=== PATIENT | female | born 1995 | race Caucasian/White ===

== ENCOUNTER 2019-10-23 21:54 | Emergency (ER) | payer SELFPAY ==
--- OUTSIDE RECORDS SUMMARY | 2019-10-23 21:57 | XMS REPORT ---
:1995 Author Organization [facility] Address [address] [place] [address] Dr. Cody [address] [place] [id number] Care Team Providers Name Role Phone Unavailable Unavailable Unavailable Problems This patient has no known problems. Allergies, Adverse Reactions, Alerts This patient has no known allergies or adverse reactions. Medications This patient has no known medications.
[2019-10-23] MEDS ORDERED: IBUPROFEN 200 MG TAB PO ONE (22:14)
[2019-10-23] MEDS ORDERED: ACETAMINOPHEN 325 MG TABLET ONE (22:14)
--- NOTE | 2019-10-23 23:11 | ER ---
Nurse's Notes [facility] Name: Lisa Abdul Age: 24 yrs Sex: Female : 1995 Arrival Date: 10/23/2019 Time: 21:57 Bed 14 Private MD: Diagnosis: Streptococcal pharyngitis Presentation: 10/23 22:03 Presenting complaint: Patient states: R ear pain and throat pain that started today. ca1 Fever at 100.6. Reports cough and congestion. Denies N/V/Diarrhea, Urinary symptoms. Transition of care: patient was not received from another setting of care. Onset of symptoms was October 23, 2019. Risk Assessment: Do you want to hurt yourself or someone else? Patient reports no desire to harm self or others. Initial Sepsis Screen: Does the patient meet any 2 criteria? No. Patient's initial sepsis screen is negative. Does the patient have a suspected source of infection? No. Patient's initial sepsis screen is negative. Care prior to arrival: None. 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 - Social history:: Smoking status: Patient reports the use of cigarette tobacco products, smokes one-half pack cigarettes per day. - Ebola Screening: : Patient negative for fever greater than or equal to 101.5 degrees Fahrenheit, and additional compatible Ebola Virus Disease symptoms Patient denies exposure to infectious person Patient denies travel to an Ebola-affected area in the 21 days before illness onset No symptoms or risks identified at this time. Screenin:27 Abuse screen: Denies threats or abuse. Denies injuries from another. Nutritional fu screening: No deficits noted. Tuberculosis screening: No symptoms or risk factors identified. Fall Risk None identified. Assessment: 22:05 General: Appears uncomfortable, Behavior is calm, cooperative, appropriate for age, fu Reports fever for that started today. Pain: Complains of pain in throat Pain currently is 6 out of 10 on a pain scale. Pain began today. Neuro: Level of Consciousness is awake, alert, obeys commands, Oriented to person, place, time, situation, Denies weakness dizziness, headache. Cardiovascular: Heart tones S1 S2 Capillary refill < 3 seconds. Respiratory: Reports cough that is Breath sounds are clear bilaterally. EENT: Throat is reddened with gag reflex present, Reports ear pain. Derm: Skin is flushed. Musculoskeletal: No signs and/or symptoms reported regarding the musculoskeletal system. 22:36 Reassessment: Patient appears in no apparent distress at this time. No changes from fu previously documented assessment. Motrin not given, patient stated she developed rash and swelling of throat with Motrin. PAYROLL BENEFITS CLERK notified. Vital Signs: 22:06 BP 140 / 93; Pulse 126; Resp 17 S; Temp 100.2(O); Pulse Ox 99% on R/A; Weight 89.81 kg ca1 (R); Height 5 ft. (152.40 cm) (R); 22:15 BP 125 / 95; Pulse 122; Temp 101.2; Pulse Ox 100% on R/A; Pain 6/10; fu 22:15 BP 124 / 95; Pulse 122; Pulse Ox 100% ; Pain 0/10; fu 22:06 Body Mass Index 38.67 (89.81 kg, 152.40 cm) ca1 ED Course: 21:57 Patient arrived in ED. cf2 21:57 Ja Mehta FNP-C is [facility]. la1 21:57 Martinez May MD is Attending Physician. la1 22:00 Ori Orozco RN is Primary Nurse. fu 22:05 Triage completed. ca1 22:06 Arm band placed on right wrist. ca1 22:21 Strep Sent. fu 22:21 Flu Sent. fu 22:27 Patient has correct armband on for positive identification. Bed in low position. Side fu rails up X 1. 22:27 No provider procedures requiring assistance completed. fu 22:42 Pulse ox on. NIBP on. fu 23:54 Patient did not have IV access during this emergency room visit. fu 10/24 00:33 Primary Nurse role handed off by Ori Orozco, TAMEKA pinto Administered Medications: 10/23 22:20 Drug: Tylenol 650 mg Route: PO; fu 23:22 Follow up: Response: No adverse reaction fu 22:36 Not Given (patient stated she had reaction to Motrin, PAYROLL BENEFITS CLERK notified): Motrin 600 mg PO fu once 10/24 00:35 Drug: Zithromax 500 mg Route: PO; fu 00:36 Follow up: Response: Medication administered at discharge. fu Outcome: 10/23 23:10 Discharge ordered by MD. pinto 10/24 00:35 Discharged to home ambulatory. fu Condition: stable Discharge instructions given to patient, Instructed on discharge instructions, follow up and referral plans. Demonstrated understanding of instructions, follow-up care, medications, Prescriptions given X 1. 00:38 Patient left the ED. fu Signatures: Ja Mehta, TEACHER CCLC-C TEACHER CCLC-Cla1 Ori Orozco RN RN Nohelia Adams RN RN [facility] Eugenie Eller 2 Corrections: (The following items were deleted from the chart) 10/23 22:39 22:36 Reassessment: Patient appears in no apparent distress at this time. No changes fu from previously documented assessment. Motrin not given, patient she had reaction to Motrin. fu 22:40 22:05 EENT: Throat is reddened with gag reflex present, fu fu 22:45 22:36 Reassessment: Patient appears in no apparent distress at this time. No changes fu from previously documented assessment. Motrin not given, patient she had reaction to Motrin. PAYROLL BENEFITS CLERK notified. fu 10/24 00:37 10/23 23:54 Discharged to home ambulatory, fu fu 10/24 00:37 10/23 23:54 Condition: stable fu fu 10/24 00:37 10/23 23:54 Discharge instructions given to patient, Instructed on discharge fu instructions, follow up and referral plans. Demonstrated understanding of instructions, follow-up care, medications, Prescriptions given X 1, fu 10/24 00:37 10/23 23:54 Patient left the ED. fu fu
--- NOTE | 2019-10-23 23:11 | EDPHYS ---
Physician Documentation [facility] Name: Lisa Abdul Age: 24 yrs Sex: Female : 1995 Arrival Date: 10/23/2019 Time: 21:57 Bed 14 Private MD: ED Physician Martinez May HPI: 10/23 22:09 This 24 yrs old Female presents to ER via Ambulatory with complaints of Ear la1 Pain, Sore Throat, Fever. 22:09 The patient or guardian reports cough, flu symptoms, low-grade fever, myalgias. Onset: la1 The symptoms/episode began/occurred today. Severity of symptoms: At their worst the symptoms were moderate. Modifying factors: The symptoms are alleviated by nothing, the symptoms are aggravated by nothing. The patient has not experienced similar symptoms in the past. 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 - Social history:: Smoking status: Patient reports the use of cigarette tobacco products, smokes one-half pack cigarettes per day. - Ebola Screening: : Patient negative for fever greater than or equal to 101.5 degrees Fahrenheit, and additional compatible Ebola Virus Disease symptoms Patient denies exposure to infectious person Patient denies travel to an Ebola-affected area in the 21 days before illness onset No symptoms or risks identified at this time. ROS: 22:10 Eyes: Negative for injury, pain, redness, and discharge, Neck: Negative for injury, la1 pain, and swelling, Cardiovascular: Negative for chest pain, palpitations, and edema. 22:10 Abdomen/GI: Negative for abdominal pain, nausea, vomiting, diarrhea, and constipation, Back: Negative for injury and pain, MS/Extremity: Negative for injury and deformity, Neuro: Negative for headache, weakness, numbness, tingling, and seizure. 22:10 Constitutional: Positive for chills, fever, malaise. 22:10 ENT: Positive for ear pain, sore throat. 22:10 Respiratory: Positive for cough. Exam: 22:11 Constitutional: This is a well developed, well nourished patient who is awake, alert, la1 and in no acute distress. Head/Face: Normocephalic, atraumatic. Eyes: Periorbital areas with no swelling, redness, or edema. 22:11 Neck: Trachea midline, no thyromegaly or masses palpated, and no cervical lymphadenopathy. Supple, full range of motion without nuchal rigidity, or vertebral point tenderness. No Meningismus. Chest/axilla: Normal chest wall appearance and motion. Nontender with no deformity. No lesions are appreciated. Cardiovascular: Regular rate and rhythm with a normal S1 and S2. No gallops, murmurs, or rubs. Normal PMI, no JVD. No pulse deficits. Respiratory: Lungs have equal breath sounds bilaterally, clear to auscultation No rales, rhonchi or wheezes noted. No increased work of breathing, no retractions or nasal flaring. Abdomen/GI: Soft, non-tender, with normal bowel sounds. No distension or tympany. No guarding or rebound. No evidence of tenderness throughout. Back: No spinal tenderness. No costovertebral tenderness. Full range of motion. MS/ Extremity: Pulses equal, no cyanosis. Neurovascular intact. Full, normal range of motion. Neuro: Awake and alert, GCS 15, oriented to person, place, time, and situation. Normal gait. 22:11 ENT: External ear(s): are unremarkable, Ear canal(s): are normal, TM's: are normal, Nose: is normal, Mouth: is normal, Posterior pharynx: Airway: normal, Tonsils: bilaterally enlarged, with erythema, with exudate, Uvula: normal, erythema, that is moderate, peritonsillar mass, is not appreciated. Vital Signs: 22:06 BP 140 / 93; Pulse 126; Resp 17 S; Temp 100.2(O); Pulse Ox 99% on R/A; Weight 89.81 kg ca1 (R); Height 5 ft. (152.40 cm) (R); 22:15 BP 125 / 95; Pulse 122; Temp 101.2; Pulse Ox 100% on R/A; Pain 6/10; fu 22:15 BP 124 / 95; Pulse 122; Pulse Ox 100% ; Pain 0/10; fu 22:06 Body Mass Index 38.67 (89.81 kg, 152.40 cm) ca1 MDM: 21:58 Patient medically screened. la1 23:09 Data reviewed: vital signs, nurses notes, lab test result(s), I have discussed the la1 patient's presentation/case with the attending Emergency Department Physician; and as a result, I will discharge patient. Data interpreted: Pulse oximetry: on room air is 100 %. Interpretation: normal. Counseling: I had a detailed discussion with the patient and/or guardian regarding: lab results, the need for outpatient follow up, a family practitioner, to return to the emergency department if symptoms worsen or persist or if there are any questions or concerns that arise at home. Medication response: acetaminophen administration has normalized the patient's temperature. 10/23 22:03 Order name: Strep; Complete Time: 22:43 la1 10/23 22:03 Order name: Flu la1 Administered Medications: 22:20 Drug: Tylenol 650 mg Route: PO; fu 23:22 Follow up: Response: No adverse reaction fu 22:36 Not Given (patient stated she had reaction to Motrin, STRIP DEBURRER notified): Motrin 600 mg PO fu once 10/24 00:35 Drug: Zithromax 500 mg Route: PO; fu 00:36 Follow up: Response: Medication administered at discharge. fu Disposition: 08:10 Co-signature as Attending Physician, Martinez May MD I agree with the assessment and tw4 plan of care. Disposition: 10/23/19 23:10 Discharged to Home. Impression: Streptococcal pharyngitis. - Condition is Stable. - Discharge Instructions: Pharyngitis, Strep Throat, Strep Throat, [id number]. - Prescriptions for Zithromax 500 mg Oral Tablet - take 1 tablet by ORAL route once daily for 5 days; 5 tablet. - Medication Reconciliation Form, Thank You Letter, Antibiotic Education form. - Follow up: Private Physician; When: 2 - 3 days; Reason: Recheck today's complaints, Re-evaluation by your physician. - Problem is new. - Symptoms have improved. Signatures: Dispatcher [employer] EDMS Ja Mehta, ELAINE-C COMMERCIAL LOAN ADMINISTRATOR-Cla1 Ori Orozco RN RN fu Wadley, Terrence, MD MD tw4 Nohelia Adams RN RN [facility] Corrections: (The following items were deleted from the chart) 10/23 23:54 23:10 10/23/2019 23:10 Discharged to Home. Impression: Streptococcal pharyngitis. fu Condition is Stable. Forms are Medication Reconciliation Form, Thank You Letter, Antibiotic Education, Prescription Opioid Use. Follow up: Private Physician; When: 2 - 3 days; Reason: Recheck today's complaints, Re-evaluation by your physician. Problem is new. Symptoms have improved. la1 10/24 00:38 10/23 23:54 10/23/2019 23:10 Discharged to Home. Impression: Streptococcal pharyngitis. fu Condition is Stable. Discharge Instructions: Pharyngitis, Strep Throat, Strep Throat, [id number]. Prescriptions for Zithromax 500 mg Oral Tablet - take 1 tablet by ORAL route once daily for 5 days; 5 tablet. and Forms are Medication Reconciliation Form, Thank You Letter, Antibiotic Education. Follow up: Private Physician; When: 2 - 3 days; Reason: Recheck today's complaints, Re-evaluation by your physician. Problem is new. Symptoms have improved. fu
[2019-10-23] MEDS ORDERED: AZITHROMYCIN 250 MG TAB ONE (23:26)
[2019-10-24 05:38] VITALS: BP 124/95; TEMP 101.2; O2SAT 100
== END 2019-10-24 00:38 | disposition home or self-care (01) ==
LOC: ER 21:54
DX: J02.0 Streptococcal pharyngitis (principal); Z88.0 Allergy status to penicillin
CPT/HCPCS: 87081; 87804; 99284

== ENCOUNTER 2020-07-07 04:20 | Emergency (ER) | payer SELFPAY ==
--- NOTE | 2020-07-07 05:02 | ER ---
Nurse's Notes [facility] Name: Lisa Adbul Age: 25 yrs Sex: Female : 1995 Arrival Date: 07/07/2020 Time: 04:24 Bed 18 Private MD: Diagnosis: Left Otalgia;Dental Caries Presentation: 07/07 04:32 Chief complaint: Patient states: she is having left ear pain x 2 days which is now bb radiating to her left lower tooth. Coronavirus screen: At this time, the client does not indicate any symptoms associated with coronavirus-19. Ebola Screen: No symptoms or risks identified at this time. Initial Sepsis Screen: Does the patient meet any 2 criteria? No. Patient's initial sepsis screen is negative. Does the patient have a suspected source of infection? No. Patient's initial sepsis screen is negative. Risk Assessment: Do you want to hurt yourself or someone else? Patient reports no desire to harm self or others. Onset of symptoms was July 05, 2020. 04:32 Method Of Arrival: Ambulatory 04:32 Acuity: ODIN 4 bb Triage Assessment: 04:34 General: Appears in no apparent distress. Behavior is calm, cooperative. Pain: bb Complains of pain in left ear and left lower jaw Pain currently is 8 out of 10 on a pain scale. EENT: Reports left ear and left lower jaw pain. Neuro: Level of Consciousness is awake, alert, obeys commands, Oriented to person, place, time, situation. Cardiovascular: No deficits noted. Respiratory: Respiratory effort is even, unlabored, Respiratory pattern is regular. GI: No signs and/or symptoms were reported involving the gastrointestinal system. Derm: Skin is pink, warm \T\ dry. Musculoskeletal: Circulation, motion, and sensation intact. 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 - Social history:: Smoking status: Patient reports the use of cigarette tobacco products, denies chronic smoking, but will smoke occasionally, Patient uses alcohol, occasionally. Patient/guardian denies using street drugs. Screenin:36 Abuse screen: Denies threats or abuse. Nutritional screening: No deficits noted. bb Tuberculosis screening: No symptoms or risk factors identified. Fall Risk None identified. Assessment: 04:36 Reassessment: No changes from previously documented assessment. see triage assessment. bb 05:09 Reassessment: Patient is alert, oriented x 3, equal unlabored respirations, skin bb warm/dry/pink. pt verbalized understanding of and agrees to plan of care discharge instructions given pt ambulated with steady gait to exit. Vital Signs: 04:32 BP 139 / 83; Pulse 83; Resp 16 S; Temp 98.4(O); Pulse Ox 99% on R/A; Weight 79.38 kg bb (R); Height 5 ft. 1 in. (154.94 cm) (R); Pain 8/10; 04:32 Body Mass Index 33.07 (79.38 kg, 154.94 cm) bb ED Course: 04:24 Patient arrived in ED. cl3 04:32 Jessica Coleman RN is Primary Nurse. bb 04:33 Scotty Pace MD is Attending Physician. [facility] 04:33 Triage completed. bb 04:34 Arm band placed on Patient placed in an exam room, on a stretcher, on pulse oximetry. bb 04:36 Patient has correct armband on for positive identification. Bed in low position. Call bb light in reach. Side rails up X 1. Pulse ox on. NIBP on. 05:01 Braden Jim DDS is Referral Physician. [facility] 05:10 No provider procedures requiring assistance completed. Patient did not have IV access bb during this emergency room visit. Administered Medications: No medications were administered Outcome: 05:02 Discharge ordered by . [facility] 05:10 Discharged to home ambulatory. bb 05:10 Condition: stable 05:10 Discharge instructions given to patient, Instructed on discharge instructions, follow up and referral plans. medication usage, Demonstrated understanding of instructions, follow-up care, medications, Prescriptions given X 1. 05:10 Patient left the ED. bb Signatures: Jessica Coleman RN RN bb Lewis, Charde cl3 Scotty Pace MD MD [facility]
--- NOTE | 2020-07-07 05:02 | EDPHYS ---
Physician Documentation [facility] Name: Lisa Abdul Age: 25 yrs Sex: Female : 1995 Arrival Date: 07/07/2020 Time: 04:24 Bed 18 Private MD: ED Physician Scotty Pace HPI: 07/07 04:55 This 25 yrs old Female presents to ER via Ambulatory with complaints of Ear mh7 Pain. 04:55 The patient presents with pain, that is acute. The complaints affect the left ear. mh7 04:56 Onset: The symptoms/episode began/occurred 2 day(s) ago. Modifying factors: The mh7 symptoms are alleviated by nothing, the symptoms are aggravated by nothing. Associated signs and symptoms: Pertinent positives: left lower toothache. Severity of symptoms: At their worst the symptoms were moderate yesterday, in the emergency department the symptoms have improved moderately. 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 - Social history:: Smoking status: Patient reports the use of cigarette tobacco products, denies chronic smoking, but will smoke occasionally, Patient uses alcohol, occasionally. Patient/guardian denies using street drugs. ROS: 04:56 Constitutional: Negative for fever, chills, and weight loss, Eyes: Negative for injury, mh7 pain, redness, and discharge, Neck: Negative for injury, pain, and swelling, Cardiovascular: Negative for chest pain, palpitations, and edema, Respiratory: Negative for shortness of breath, cough, wheezing, and pleuritic chest pain, Abdomen/GI: Negative for abdominal pain, nausea, vomiting, diarrhea, and constipation, Back: Negative for injury and pain, : Negative for injury, bleeding, discharge, and swelling, MS/Extremity: Negative for injury and deformity, Skin: Negative for injury, rash, and discoloration, Neuro: Negative for headache, weakness, numbness, tingling, and seizure, Psych: Negative for depression, anxiety, suicide ideation, homicidal ideation, and hallucinations, Allergy/Immunology: Negative for hives, rash, and allergies, Endocrine: Negative for neck swelling, polydipsia, polyuria, polyphagia, and marked weight changes, Hematologic/Lymphatic: Negative for swollen nodes, abnormal bleeding, and unusual bruising. Exam: 04:56 Constitutional: This is a well developed, well nourished patient who is awake, alert, mh7 and in no acute distress. Head/Face: Normocephalic, atraumatic. Eyes: Pupils equal round and reactive to light, extra-ocular motions intact. Lids and lashes normal. Conjunctiva and sclera are non-icteric and not injected. Cornea within normal limits. Periorbital areas with no swelling, redness, or edema. 04:56 Neck: Trachea midline, no thyromegaly or masses palpated, and no cervical lymphadenopathy. Supple, full range of motion without nuchal rigidity, or vertebral point tenderness. No Meningismus. Chest/axilla: Normal chest wall appearance and motion. Nontender with no deformity. No lesions are appreciated. Cardiovascular: Regular rate and rhythm with a normal S1 and S2. No gallops, murmurs, or rubs. Normal PMI, no JVD. No pulse deficits. Respiratory: Lungs have equal breath sounds bilaterally, clear to auscultation and percussion. No rales, rhonchi or wheezes noted. No increased work of breathing, no retractions or nasal flaring. Abdomen/GI: Soft, non-tender, with normal bowel sounds. No distension or tympany. No guarding or rebound. No evidence of tenderness throughout. Back: No spinal tenderness. No costovertebral tenderness. Full range of motion. Skin: Warm, dry with normal turgor. Normal color with no rashes, no lesions, and no evidence of cellulitis. MS/ Extremity: Pulses equal, no cyanosis. Neurovascular intact. Full, normal range of motion. Neuro: Awake and alert, GCS 15, oriented to person, place, time, and situation. Cranial nerves II-XII grossly intact. Motor strength 5/5 in all extremities. Sensory grossly intact. Cerebellar exam normal. Normal gait. Psych: Awake, alert, with orientation to person, place and time. Behavior, mood, and affect are within normal limits. 04:56 ENT: External ear(s): are unremarkable, Ear canal(s): are normal, TM's: are normal, Examination of the other ear shows no obvious abnormality, Nose: is normal, Mouth: is normal, Posterior pharynx: is normal, Dental exam: dental caries, that is moderate, diffusely, specifically in the lower left third molar (#17), Voice: is normal. Vital Signs: 04:32 BP 139 / 83; Pulse 83; Resp 16 S; Temp 98.4(O); Pulse Ox 99% on R/A; Weight 79.38 kg bb (R); Height 5 ft. 1 in. (154.94 cm) (R); Pain 8/10; 04:32 Body Mass Index 33.07 (79.38 kg, 154.94 cm) bb MDM: 04:53 Patient medically screened. 7 07:05 Differential diagnosis: otitis media, otitis externa, ruptured TM, foreign body, acute mh7 otalgia, cerumen impaction, barotrauma , serotympanum. Data reviewed: vital signs, nurses notes. Data interpreted: Pulse oximetry: on room air is 99 %. Interpretation: normal. Counseling: I had a detailed discussion with the patient and/or guardian regarding: the historical points, exam findings, and any diagnostic results supporting the discharge/admit diagnosis, the presence of at least one elevated blood pressure reading (>120/80) during this emergency department visit, lab results, the need for outpatient follow up, to return to the emergency department if symptoms worsen or persist or if there are any questions or concerns that arise at home. Administered Medications: No medications were administered Disposition: 07/07/20 05:02 Discharged to Home. Impression: Left Otalgia, Dental Caries. - Condition is Stable. - Discharge Instructions: Earache, Adult, Dental Caries, [id number]. - Prescriptions for Clindamycin HCl 300 mg Oral Capsule - take 1 capsule by ORAL route every 8 hours for 7 days; 21 capsule. - Medication Reconciliation Form, Thank You Letter, Antibiotic Education, Prescription Opioid Use form. - Work release form (07/07/20 05:34). bb - Follow up: Private Physician; When: 1 - 2 days; Reason: Worsening of condition, Recheck today's complaints, Continuance of care, Re-evaluation by your physician. Follow up: Braden Jim DDS; When: 1 - 2 days; Reason: Worsening of condition, Recheck today's complaints. - Problem is new. - Symptoms have improved. Signatures: Jessica Coleman RN RN bb Scotty Pace MD MD mh7 Corrections: (The following items were deleted from the chart) 05:10 05:02 07/07/2020 05:02 Discharged to Home. Impression: Left Otalgia; Dental Caries. bb Condition is Stable. Forms are Medication Reconciliation Form, Thank You Letter, Antibiotic Education, Prescription Opioid Use. Follow up: Private Physician; When: 1 - 2 days; Reason: Worsening of condition, Recheck today's complaints, Continuance of care, Re-evaluation by your physician. Follow up: Braden Jim; When: 1 - 2 days; Reason: Worsening of condition, Recheck today's complaints. Problem is new. Symptoms have improved. mh7
[2020-07-07 05:18] VITALS: BP 139/83; TEMP 98.4; O2SAT 99
--- OUTSIDE RECORDS SUMMARY | 2020-07-09 10:04 | XMS REPORT | Summary of Care ---
:1995 Author Organization [facility] Address [address] [place] [address] Care Team Providers Name Role Phone Magnolia Carson Primary Care Provider Reason for Visit Reason Comments Well Woman Exam Encounter Details Date Type Department Care Team Description 06/29/2020 Office Visit [facility] Well woman exam (no gynecological exam) (Primary Dx); ELAINE Pickens Encounter for surveillance of implantabl e subdermal contraceptive; [address] place; [address] Screen for STD (sexually transmitted dis ease); [place], [place] [address] Class 1 obesity with body mass index (BM I) of 33.0 to 33.9 in adult, unspecified obesity type, unspecified whether serious comorbidity present; [id number] BMI 33.0-33.9,adult [phone] Allergies Active Allergy Reactions Severity Noted Date Comments Penicillins Anaphylaxis Medium 12/21/2009 Lip swelling & some difficulty in swallowing. documented as of this encounter (statuses as of 06/29/2020) Medications Medication Sig Dispensed Refills Start End Date Status Date benzonatate (TESSALON) Take 1 Cap by 30 Cap 0 Discontinued 200 mg capsule mouth 3 5 20 (three) times daily as needed for Cough. albuterol (VENTOLIN) 90 Inhale 2 Puffs 8.5 g 0 0 06/29/20 Discontinued mcg/actuation inhaler every 6 (six) 5 20 hours as needed for Wheezing, Shortness of Breath or Chest tightness. methylPREDNISolone follow package 1 Each 0 Discontinued (MEDROL DOSE-ALEK) 4 mg directions 5 20 tablets promethazine 6.25 mg/5 Take 5 mL by 120 mL 0 06/03 8/20 Discontinued mL solution mouth every 6 7 20 (six) hours as needed for Nausea and Vomiting (N/V). azithromycin 500 mg Take 2 tablets 2 tablet 0 06/29 Discontinued tablet by mouth 8 20 daily. methylPREDNISolone Take by mouth 21 Each 0 Discontinued (MEDROL, ALEK,) 4 mg SEE-INSTRUCTIO 9 20 tabletsIndications: NS. follow Rash and nonspecific package skin eruption directions documented as of this encounter (statuses as of 06/29/2020) Active Problems Problem Noted Date Chlamydia trachomatis infection of lower genitourinary sites 02/15/2018 Tobacco use disorder 06/12/2014 General counseling and advice for contraceptive manage ment 06/12/2014 Overview: RTC 2 weeks for nexplanon ICD10 Diagnosis Term Grain Trimmer Utility Obesity 06/12/2014 Overview: ICD10 Diagnosis Term Grain Trimmer Utility documented as of this encounter (statuses as of 06/29/2020) Resolved Problems Problem Noted Date Resolved Date Abdominal pain, other specified site 07/02/2014 Multiparity 07/02/2014 02/13/2018 Depo-Provera contraceptive status 07/02/20142017 Need for HPV vaccination 06/12/2014 07/02/2014 Overview: 3rd HPV vaccine given 06/12/14 documented as of this encounter (statuses as of 06/29/2020) Immunizations Name Administration Dates Next Due HPV 06/12/2014, 07/19/2011, 06/23/2010 Td 05/12/2011 documented as of this encounter Social History Tobacco Use Types Packs/Day Years Used Date Current Every Day Smoker Cigarettes Smokeless Tobacco: Never Used Comments: states smokes 4-5 cigarettes p er day Alcohol Use Drinks/Week oz/Week Comments No Sex Assigned at Date Recorded Not on file COVID-19 Exposure Response Date Recorded In the last month, have you been in contact with No / Unsure 06/29/2020 3:33 PM CDT someone who was confirmed or suspected to have Coronavirus / COVID-19? documented as of this encounter Last Filed Vital Signs Vital Sign Reading Time Taken Comments Blood Pressure 125/81 06/29/2020 3:34 PM CDT Pulse 87 06/29/2020 3:34 PM CDT Temperature 37.1 C (98.8 F) 06/29/2020 3:34 PM CDT Respiratory Rate 16 06/29/2020 3:34 PM CDT Oxygen Saturation - - Inhaled Oxygen Concentration - - Weight 80.4 kg (177 lb 4.8 oz) 06/29/2020 3:34 PM CDT Height 154.9 cm (5' 1") 06/29/2020 3:34 PM CDT Body Mass Index 33.5 06/29/2020 3:34 PM CDT documented in this encounter Patient Instructions Patient InstructionsRadha Clements LVN - 06/29/2020 3:00 PM CDT Patient Education Clinical Breast Exam Many health organizations recommend a yearly clinical breast exam. This exam may be done by a dental cream maker, family healthcare provider, nurse practitioner, nurse saw sharpener, or specially trained nurse. Yearly breast exams help tomake surethat breast conditions are found early. Your healthcare providers role A healthcare professional knows the tests and follow-up care needed if a problem is found. Your clinical exam is also a great time to ask questions about breast self-exams. You can find out if yourechecking your breasts in the best way. Or you may want to ask how , breast implants, or breast reduction surgery affect the way you should check your breasts. Diagnostic tests If a clinical exam reveals a breast change, you may have other tests to find out more. These tests may include: Mammography. A low-dose X-ray of your breast tissue. Ultrasound. An imaging test that uses sound waves to create images of your breast. Biopsy. A small amount of breast tissue is removed by needle or by a cut (incision). The tissue is then checked under a microscope. Guidelines for having clinical breast exams The [employer] recommends that starting at age 29, you should have a clinical breast exam every 1 to 3 years. After age 40, have a clinical breast exam each year. If youre at higher risk for breast cancer, you may need exams more often. Risk factors for breast cancer may include: Being over 50 or postmenopausal Having a family history of breast cancer Having the BRCA1 or BRCA2 gene mutation or certain other gene mutations Having more menstrual periods due to starting menstruation early(before age 12) or having a late menopause (after age 55) Having no pregnancies Having a first after age 30 Being obese Having a history of radiation treatment to your chest area Exposure to MARITZA during your mother's Not being active Drinking too much alcohol Having dense breast tissue Taking hormone therapy after menopause Other health organizations have different recommendations. Talk with your healthcare provider about what is best for you. [employer] maggie reviewed this educational content on 05/02/201719995358-7779 [employer]. [address] [place] [address]. All rights reserved. This information is not intended as a substitute for professional medical care. Always follow your healthcare professional's instructions. Patient Education Breast Health: Breast Self-Awareness What is breast self-awareness? Breast self-awareness is knowing how your breasts normally look and feel. Your breasts change as yougo through different stages of your life. So its important to learn what is normal for your breasts. Knowing about your breasts helps you spot any changes in them right away. Tell your healthcare provider about any changes. Why is breast self-awareness important? Many experts now say that women should focus on breast self-awareness instead of doing a breast self-examination (BSE). These experts include the [place] and the [place] [employer]. Some experts even advise not teaching women to do a BSE. Thats because research hasnt shown a clear benefit to doing BSEs. Breast self-awareness is different than a BSE. It isnt about following a certain method and schedule. Its about knowing what's normal for your breasts. That way you can spot even small changes right away. If you see any changes, tell your healthcare provider. Changes to look for Call your healthcare provider if you find any changes in your breasts that worry you. These changes may be: A lump Nipple discharge other than breastmilk, especially if it's bloody Swelling A change in size or shape Skin changes, such as redness, thickening, or dimpling of the skin Swollen lymph nodes in the armpit Nipple problems, such as pain or redness If you find a lump Call your provider if you find lumpiness in one breast. Also call if you feel something different inthe tissue or feel a definite lump. Sometimes lumpiness may be due to menstrual changes. But there may be reason for concern. Your provider may want to see you right away if you have: Nipple discharge that is bloody Skin changes on your breast, such as dimpling or puckering Its okay to be upset if you find a lump. Be sure to call your provider right away. Remember that most breast lumps are benign. This means they are not cancer. [employer] last reviewed this educational content on 05/02/201719997512-0715 [employer]. [address] [place] [address]. All rights reserved. This information is not intended as a substitute for professional medical care. Always follow your healthcare professional's instructions. Patient Education Prevention Guidelines,Women Ages 18 to 39 Screening tests and vaccines are an important part of managing your health. A screening test is doneto find possible disorders or diseases in people who don't have any symptoms. The goal is to find a disease early so lifestyle changes can be made and you can be watched more closely to reduce the riskof disease, or to detect it early enough to treat it most effectively. Screening tests are not considered diagnostic, but are used to determine if more testing is needed. Health counseling is essential, too. Below are guidelines for these, for women ages 18 to 39. Talk with your healthcare provider tomake sure youre up-to-date on what you need. Screening Who needs it How often Alcohol misuse All women in this age group At routine exams Blood pressure All women in this age group Yearly checkup if your blood pressure is normal Normal blood pressure is less than 120/80 mm Hg If your blood pressure reading is higher than normal, follow the advice of your healthcare provider Breast cancer All women in this age group should talk with their healthcare providers about the needfor clinical breast exams (CBE)1 Clinical breast exam every 3 years1 Cervical cancer Women ages 21 and older Women between ages 21 and 29 should have a Pap test every 3 years; women between ages 30 and 65 are advised to have a Pap test plus an HPV test every 5 years Chlamydia Sexually active women ages 25 and younger, and women at increased risk for infection (suchas having multiple sex partners) Every year if you're at risk or have symptoms Depression All women in this age group At routine exams Type 2 diabetes, prediabetes All women with no symptoms who are overweight or obese and have 1 or more other risk factors for diabetes At least every 3 years. Also, testing for diabetes during after the 24th week. Type 2 diabetes, prediabetes All women diagnosed with gestational diabetes Lifelong testing every 3 years Type 2 diabetes All women with prediabetes Every year Gonorrhea Sexually active women at increased risk for infection At routine exams Hepatitis C Anyone at increased risk At routine exams HIV All women should be tested at least once for HIV between the ages of 13 and 64 At routine exams.Those with risk factors for HIV should be tested at least annually. Obesity All women in this age group At routine exams Syphilis Women at increased risk for infection should talk with their healthcare provider At routineexams Tuberculosis Women at increased risk for infection should talk with their healthcare provider Ask your healthcare provider Vision All women in this age group At least 1 complete exam in your 20s, and 2 in your 30s Vaccine2 Who needs it How often Chickenpox (varicella) All women in this age group who have no record of this infection or vaccine 2doses; the second dose should be given 4 to 8 weeks after the first dose Hepatitis A Women at increased risk for infection should talk with their healthcare provider 2 dosesgiven at least 6 months apart Hepatitis B Women at increased risk for infection should talk with their healthcare provider 3 dosesover 6 months; second dose should be given 1 month after the first dose; the third dose should be given at least 2 months after the second dose and at least 4 months after the first dose Haemophilus influenzaeType B (HIB) Women at increased risk for infection should talk with their healthcare provider 1 to 3 doses Human papillomavirus (HPV) All women in this age group up to age 26 3 doses; the second dose should be given 1 to 2 months after the first dose and the third dose given 6 months after the first dose Influenza (flu) All women in this age group Once a year Measles, mumps, rubella (MMR) All women in this age group who have no record of these infections or vaccines 1 or 2 doses Meningococcal Women at increased risk for infection should talk with their healthcare provider 1 or more doses Pneumococcal conjugate vaccine (PCV13)and pneumococcal polysaccharidevaccine(PPSV23) Women at increased risk for infection should talk with their healthcare provider PCV13: 1 dose ages 19 to 65 (protects against 13 types of pneumococcal bacteria) PPSV23: 1 to2 doses through age 64, or 1 dose at 65 or older (protects against 23 types of pneumococcal bacteria) Tetanus/diphtheria/pertussis (Td/Tdap) booster All women in this age group Td every 10 years, or a one-time dose of Tdap instead of a Td booster after age 18, then Td every 10 years Counseling Who needs it How often BRCA gene mutation testing for breast and ovarian cancer susceptibility Women with increased risk for having gene mutation When your risk is known Breast cancer and chemoprevention Women at high risk for breast cancer When your risk is known Diet and exercise Women who are overweight or obese When diagnosed, and then at routine exams Domestic violence Women at the age in which they are able to have children At routine exams Sexually transmitted infection prevention Women who are sexually active At routine exams Skin cancer Prevention of skin cancer in fair-skinned adults At routine exams Use of tobacco and the health effects it can cause All women in this age group Every visit 1 According to the ACS, women ages 20 to 39 years should have a clinical breast exam (CBE) as part of their routine health exam every 3 years. Breast self-exams are an option for women starting in their 20s.But the USPSTF does not recommend CBE. [employer] last reviewed this educational content on 07/02/201719997190-2436 [employer]. [address] [place] [address]. All rights reserved. This information is not intended as a substitute for professional medical care. Always follow your healthcare professional's instructions. Patient Education Understanding STIs When it comes to sex, nothing is risk-free. Any sexual contact with the penis, vagina, anus, or mouth can spread a sexually transmitted infection (STI). These include chlamydia, gonorrhea, herpes, HIV,and genital warts. STIs are also known as sexually transmitted diseases (STDs). The only sure way toprevent STIs is not having sex (abstinence). But there are ways to make sex safer. Use a latex condom each time you have sex. And choose your partner wisely. Use condoms for safer sex If you have sex, latex condoms provide the best protection against STIs. Latex condoms stop the exchange of body fluids that carry certain STIs. They also limit contact with affected skin. Be aware that a condom doesnt cover all skin. So affected skin that isn't covered can still transfer disease. But youre safer with a condom than without one. Use a condom even if you use other control. control methods such as the pill or IUD help prevent , but they don't protect against STIs. Choose the right condom Condoms made of latex prevent disease best. If youre allergic to latex, use polyurethane condoms instead. Male condoms fit over the penis. Female condoms line the vagina. Before buying a condom, read the label to be sure it prevents disease. Some novelty condoms dont. The right lubricant helps Buy lubricated condoms or use lubricant. This provides greater comfort and reduces the risk for condom breakage. Use only water-based lubricants. Dont use oil, lotion, or petroleum jelly. They can weaken the condom, causing breakage. Also, you may want to choose lubricants without nonoxynol-9. This spermicide may cause irritation. It can raise the risk for certain STIs. Use condoms correctly For condoms to work, they must be used the right way. Keep these tips in mind: Use a new latex condom each time you have sex. Slip the condom on the penis before any contact ismade. When ready to withdraw, hold the rim of the condom as the penis pulls out. This prevents the condom from slipping off. Check the expiration date before using a condom. Dont store condoms in places that can get hot, such as a car or a wallet that is carried in a back pocket. Get to know your partner Safer sex is a process. It involves getting to know your partner and making informed choices. Ask each other how many partners you have had in the past, and how many you have now. Find out if either ofyou has HIV or any other STI. If you decide to have sex, use a condom each time. Dont stop using condoms unless youre sure neither of you has other partners and youve both been tested to confirm you dont have HIV or other STIs. Then stay free of disease by having sex only with each other (monogamy). Keep your cool Dont let alcohol or drugs cloud your judgment. They could lead you to have sex with someone you wouldnt have chosen if you were sober. Or you might forget to use a condom. If you do plan to have sex, keep a latex condom with you. Dont wait until youre in the heat of passion to try to find one. Consider abstinence The only way to be sure you wont get an STI is to abstain from sex. Abstinence is a choice that many people make at some point in their life. Maybe you want to wait until you are sure youre readybefore you have sex. Maybe youd like a break from the responsibilities of sex for a while. Or maybe you just want to know your partner better before taking the next step. Abstinence is a choice you can make now to protect your future. [employer] last reviewed this educational content on 09/01/201819990332-7859 [employer]. [address] [place] [address], [place] [address]. All rights reserved. This information is not intended as a substitute for professional medical care. Always follow your healthcare professional's instructions. Patient Education Understanding HIV and AIDS It's important to know how HIV can get into your body and what happens once its there. Then youll be better prepared to protect yourself or others against this virus. A person with HIV can look and feel perfectly healthy. But that person can give HIV to others as soon as he or she is infected with the virus. Having unsafe or unprotected sex or sharing needles puts you at risk for HIV. Talk with your healthcare provider about ways to protect yourself or a loved one from getting HIV. How HIV infection progresses After HIV enters the body, it attacks the immune system in the stages below. A person with HIV can infect others once the virus gets into the blood. HIV with no symptoms. A person with HIV may have no symptoms for years. The only sign of infection may be a positive blood test for HIV 2 weeks to 3 months or later after HIV enters the body. HIV with symptoms. Some people develop an illness similar to mono (mononucleosis) 2 to 4 weeks after the virus enters the body. This is called acute retroviral syndrome. Symptoms may include swollen lymph glands, chills, fever, night sweats, weakness, weight loss, skin rashes, mouth ulcers, or sore t hroat. Symptoms may be mild or the person can feel quite sick. Even without treatment the symptoms almost always go away in a few days or up to 2 to 3 weeks. Then the person has no symptoms, often for years. But over time the immune system starts to get weaker and symptoms start appearing. People at this stage may have a yeast infection in the mouth (oral thrush), shingles, skin problems, pneumonia, diarrhea that keeps coming back, or weight loss. AIDS. AIDS is the most advanced stage of HIV infection, when the immune system is severely weakened.Certain rare diseases and cancers that normally would not occur, now can occur because the body can no longer fight them well enough. It is often these diseases that cause in people with AIDS. HIV may also directly attack the brain and nervous system. This causes seizures and loss of memory and body movement. It also affects many other parts of the body. This leads to problems such as anemia, low white blood cell count, diarrhea, belly pain, skin problems, and many others. How HIV enters the body HIV is carried in semen, vaginal fluid, blood, and breastmilk. During sex, HIV can enter the body. It gets in through the fragile tissue and linings, sores, or cuts in or around the vagina, penis, anus, and mouth. During drug use, tattooing, or body piercing, the virus can enter the blood through an infected needle. A mother who has HIV can infect her child during , childbirth, and . [employer] last reviewed this educational content on 03/02/201919999688-2319 [employer]. [address] [place] [address]. All rights reserved. This information is not intended as a substitute for professional medical care. Always follow your healthcare professional's instructions. Patient Education Eating Heart-Healthy Foods Eating has a big impact on your heart health. In fact, eating healthier can improve several of your heart risks at once. For instance, it helps you manage weight, cholesterol, and blood pressure. Here are ideas to help you make heart- healthy changes without giving up allthe foods and flavors you love. Getting started Talk with your healthcare provider about eating plans, such as the DASH or Mediterranean diet. You may also be referred to a dietitian. Change a few things at a time. Give yourself time to get used to a few eating changes before adding more. Work to create a tasty, healthy eating plan that you can stick to for the rest of your life. Goals for healthy eating Below are some tips to improve your eating habits: Limit saturated fats and trans fats. Saturated fats raise your levels of cholesterol, so keep these fats to a minimum. They are found in foods such as fatty meats, whole milk, cheese, and palm and coconut oils. Avoid trans fats because they lower good cholesterol as well as raise bad cholesterol. Trans fats are most often found in processed foods. Reduce sodium (salt) intake. Eating too much salt may increase your blood pressure. Limit your sodium intake to 2,300 milligrams (mg) per day(the amount in 1 teaspoon of salt), or less if your healthcare provider recommends it. Dining out less often and eating fewer processed foods are two great ways to decrease the amount of salt you consume. Managing calories. A calorie is a unit of energy. Your body jiménez calories for fuel, but if you eat more calories than your body jiménez, the extras are stored as fat. Your healthcare provider can help you create a diet plan to manage your calories. This will likely include eating healthier foods as well as exercising regularly. To help you track your progress, keep a diary to record what you eat and how often you exercise. Choose the right foods Aim to make these foods laura of your diet. If you have diabetes, you may have different recommendations than what is listed here: Fruits and vegetables provide plenty of nutrients without a lot of calories. At meals, fill half your plate with these foods. Split the other half of your plate between whole grains and lean protein. Whole grains are high in fiber and rich in vitamins and nutrients. Good choices include whole-wheat bread, pasta, and brown rice. Lean proteins give you nutrition with less fat. Good choices include fish, skinless chicken, and beans. Low-fat or nonfat dairy provides nutrients without a lot of fat. Try low-fat or nonfat milk, cheese, or yogurt. Healthy fats can be good for you in small amounts. These are unsaturated fats, such as olive oil,nuts, and fish. Try to have at least 2 servings per week of fatty fish, such as salmon, sardines, mackerel, rainbow trout, and albacore tuna. These contain omega-3 fatty acids, which are good for your heart. Flaxseed is another source of a heart-healthy fat. More on heart-healthy eating Read food labels Healthy eating starts at the grocery store. Be sure to pay attention to food labels on packaged foods. Look for products that are high in fiber and protein, and low in saturated fat, cholesterol, and sodium. Avoid products that contain trans fat. And pay close attention to serving size. For instance, if you plan to eat two servings, double all the numbers on the label. Prepare food right A richter part of healthy cooking is cutting down on added fat and salt. Look on the internet for lower-fat, lower-sodium recipes. Also, try these tips: Remove fat from meat and skin from poultry before cooking. Skim fat from the surface of soups and sauces. Broil, boil, bake, steam, grill, and microwave food without added fats. Choose ingredients that spice up your food without adding calories, fat, or sodium. Try these items: horseradish, hot sauce, lemon, mustard, nonfat salad dressings, and vinegar. For salt-free herbs and spices, try basil, cilantro, cinnamon, pepper, and angel. [employer] reviewed this educational content on 07/02/201719999374-9981 The [employer]. [address] [place] [address]. All rights reserved. This information is not intended as a substitute for professional medical care. Always follow your healthcare professional's instructions. 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 Patient denies any abdominal/pelvic pain. Patient denies any other concerns. Patient reports menses is irregular while on Nexplanon.Patient reports last sexual intercourse was on 06/11/2020 and desires to use Nexplanon for BCM. Patient desires removal due to irregular bleeding Patient desires need for STD/STI testing. Patient deniescurrent or past physical, sexual or emotional abuse. Histories OB History Para Term AB Living 2 2 2 2 SAB TAB Ectopic Multiple Live Births # Outcome Date GA Lbr Russ/2nd Weight Sex Delivery Anes PTL Lv 2 Term 1 Term Past Medical History: Diagnosis Date Anemia ongoing, not taking supplements Anxiety ongoing, not on medication Asthma last attack 5 or 6 months ago, has rescue inhaler Blood transfusion, without reported diagnosis 2012 iron infusion during STD (sexually transmitted disease) 2018 chlamydia, treated Family History Problem Relation Age of Onset Asthma Sister Diabetes Mother Neurological Mother Depression Mother Asthma Mother Breast Cancer Maternal Aunt Diabetes Maternal Grandmother Asthma Brother Arthritis NoFHx defects NoFHx Colon Cancer NoFHx Ovarian Cancer NoFHx Uterine Cancer NoFHx Cancer NoFHx Genetic NoFHx Heart NoFHx High cholesterol NoFHx Hypertension NoFHx Mental retardation NoFHx Osteoporosis NoFHx Psychiatry NoFHx Other - see comments NoFHx Family Status Relation Name Status Sis Alive Mo Alive MAunt (Not Specified) MGMo (Not Specified) Fa Alive unknown history Bro Alive NoFHx (Not Specified) Past Surgical History: Procedure Laterality Date SECTION 2012, 2013 x2 Social History Socioeconomic History Marital status: Single Spouse name: Not on file Number of children: 2 Years of education: 9 Highest education level: Not on file Occupational History Occupation: none Social Needs Financial resource strain: Not on file Food insecurity Worry: Not on file Inability: Not on file Transportation needs Medical: Not on file Non-medical: Not on file Tobacco Use Smoking status: Current Every Day Smoker Types: Cigarettes Smokeless tobacco: Never Used Tobacco comment: states smokes 4-5 cigarettes per day Substance and Sexual Activity Alcohol use: No Drug use: No Sexual activity: Yes Partners: Male control/protection: Implant Comment: last sexual intercourse 12/14/2017 Lifestyle Physical activity Days per week: Not on file Minutes per session: Not on file Stress: Not on file Relationships Social connections Talks on phone: Not on file Gets together: Not on file Attends caodaism service: Not on file Active member of club or organization: Not on file Attends meetings of clubs or organizations: Not on file Relationship status: Not on file Intimate partner violence Fear of current or ex partner: Not on file Emotionally abused: Not on file Physically abused: Not on file Forced sexual activity: Not on file Other Topics Concern Service Not Asked Blood Transfusions No Caffeine Concern Not Asked Occupational Exposure Not Asked Hobby Hazards Not Asked Sleep Concern Not Asked Stress Concern Not Asked Weight Concern Not Asked Special Diet Not Asked Back Care Not Asked Exercise Not Asked Bike Helmet Not Asked Seat Belt Not Asked Self-Exams Not Asked Social History Narrative Pt denies current or past physical, sexual or emotional abuse. Pt states she feels safe at home. Pt lives with mother in law. Muslim preference none. Social History Substance and Sexual Activity Sexual Activity Yes Partners: Male control/protection: Implant Comment: last sexual intercourse 12/14/2017 Labs Labs are pending. Radiology No new radiology. Allergies Lisa is allergic to penicillin [penicillins]. Medications Lisa has a current medication list which includes the following prescription(s): methylprednisolone, azithromycin, promethazine, albuterol, benzonatate, and methylprednisolone. Review of Systems Constitutional: Negative for activity change, appetite change, fatigue, unexpected weight change, weight gain and weight loss. HENT: Negative for sore throat. Eyes: Negative for visual disturbance. Respiratory: Negative for cough and shortness of breath. Breasts: Negative for discharge, mass, pain and unequal size. Cardiovascular: Negative for chest pain, palpitations and leg swelling. Gastrointestinal: Negative. Negative for abdominal pain, anal bleeding, blood in stool, constipation, diarrhea, nausea, rectal pain and vomiting. Genitourinary: Negative for bladder incontinence, dysuria, urgency, flank pain, vaginal bleeding, vaginal discharge, genital sores, vaginal pain and pelvic pain. Skin: Negative for color change and rash. Neurological: Negative. Negative for dizziness, syncope and headaches. Psychiatric/Behavioral: Negative for confusion, self-injury and sleep disturbance. The patient is not nervous/anxious. Hematological: Negative for cold intolerance and heat intolerance. Endocrine: Negative for hair loss, cold intolerance, heat intolerance, weight gain and weight loss. BP 125/81 (BP Location: Right arm, Patient Position: Sitting, BP CUFF SIZE: Adult Medium) | Pulse 87 | Temp 37.1 C (98.8 F) (Oral) | Resp 16 | Ht 5' 1" (1.549 m) | Wt 177 lb 4.8 oz (80.4 kg) | BMI 33.50 kg/m Pregravid BMI: Could not be calculated Physical Exam Vitals reviewed. Constitutional: She is oriented to person, place, and time. She appears well- developed and well-nourished. Her body habitus is normal. Cardiovascular: Regular rate and rhythm. No peripheral edema present. Pulmonary/Chest: Normal inspiratory effort. Neuro/Psychiatric: Inappropriate mood and affect. She is oriented to person, place, and time. Skin: Skin normal. No lesion, no rash and no ulceration present. Assessment/Plan Rubella:Positive VZV:Negative BMI:33.50 Td:2010, resources given Pap Smear:2017 Gardasil:2013 Mammogram:N/A Guaiac:N/A Colonoscopy:N/A Well woman exam (no gynecological exam) (primary encounter diagnosis) Comment: Routine WWE Plan: Denies zika virus risk, signs and symptoms such as fever,rash,joint pain, conjunctivitis (red eyes), muscle pain, headaches; outside [place] travel to areas affected by zika, and FOB exposure to zika.Educated on use of mosquito repellent. Encounter for surveillance of implantable subdermal contraceptive Nexplanon in place Comment: Nexplanon in place Plan: patient desires removal due to bleeding, patient desires removal and OCPs. Screen for STD (sexually transmitted disease) Comment: patient desires testing Plan: GC & CHLAMYDIA AMPLIFIED ASSAY, GALV ONLY - SYPHILIS IGG/IGM, HIV 1/2 AG-AB WITH REFLEX Class 1 obesity with body mass index (BMI) of 33.0 to 33.9 in adult, unspecified obesity type, unspecified whether serious comorbidity present BMI 33.0-33.9,adult Comment: BMI: 33.50 Plan: Patient encouraged to limit weight gain and advised to eat healthy diet, fruits, vegetables, increased fiber and water intake and protein low in fat. Encouraged exercise for 30 min everyday; begin regimen with caution to prevent injury. Encouraged to decrease BMI to <25. Patient educated onthe effects of chronic health problems of obesity on future pregnancies and/or terminal operator health. Return to clinic PRN for Nexplanon removal. Discussed treatment options. Medications as ordered. Reviewed patient instructions and provided printed copy. This visit did not involve counseling and coordination that comprised more than 50% of the visit time. ELAINE Rossi 06/29/2020 4:04 PM Julianne Green RN - 06/29/2020 3:00 PM CDT25 year old presented to the clinic for WWE. 1) Previous BCM: nexplanon 2) Desired BCM: Nexplanon, would like it removed 3) LMP: 04/08/20 4) Last [place]: 06/11/2020 5) Last Pap: 02/13/2018 Results: neg HPV Results n/a 6) Tdap in last 10 years? yes 7) HPV Vaccines: completed 8) C/O: irregular menses due to nexplanon, wants it removed. 9) Patient denies history of physical, emotional, or sexual abuse. Patient states she currently feels safe at home. 2 documented in this encounter Plan of Treatment Date Type Specialty Care Team Description 07/09/2020 Office Visit OB Jins Grady Carson, LACE INSPECTOR [address] [address] 15 [phone] Name Type Priority Associated Diagnoses Date/Ti me GC & CHLAMYDIA LAB Routine Screen for STD (sexually 0 06/29/2020 4:04 PM CDT AMPLIFIED ASSAY transmitted disease) GALV ONLY - SYPHILIS LAB Routine Screen for STD (sexu ally 06/29/2020 3:50 PM CDT IGG/IGM transmitted disease) HIV 1/2 AG-AB WITH LAB Routine Screen for STD (sexual ly 06/29/2020 3:50 PM CDT REFLEX transmitted disease) Health Maintenance Due Date Last Done Comments PAP SMEAR 02/13/2021 02/13/2018 INFLUENZA VACCINE (#1) 2021 Postponed from 06/02/2020 (Refused) DTaP,Tdap,and Td Vaccines (2 06/29/2021 05/12/2011 Pos tponed from 2013 - Tdap) (Refused) Depression Screening 06/29/2021 06/29/2020, 06/29/2020 PNEUMOCOCCAL 0-64 YEARS 06/29/2021 Postpone d from 2000 COMBINED SERIES (1 of 1 - (Refus ed) PPSV23) VARICELLA VACCINES (1 of 2 - 06/29/2021 Pos tponed from 1995 2-dose childhood series) (Vaccin e not available) HPV VACCINES Completed 06/12/2014, 07/19/2011, 06/23/2010 documented as of this encounter Results Not on filedocumented in this encounter Visit Diagnoses Diagnosis Well woman exam (no gynecological exam) - Primary Routine general medical examination at a health care facility Encounter for surveillance of implantabl e subdermal contraceptive Nexplanon in place Presence of subdermal contraceptive jesusita ce Screen for STD (sexually transmitted dis ease) Screening examination for venereal disea se Class 1 obesity with body mass index (BM I) of 33.0 to 33.9 in adult, unspecified obesity type, unspecified whether seriou s comorbidity present BMI 33.0-33.9,adult Body Mass Index 33.0-33.9, adult documented in this encounter Insurance Payer Benefit Plan Subscriber ID Effective Phone Address Typ e / Group Dates [facility] [id number] 2018-Prese [phone] Medicaid WOMEN nt [address] [place] [address] documented as of this encounter
--- OUTSIDE RECORDS SUMMARY | 2020-07-09 10:04 | XMS REPORT | Summary of Care ---
:1995 Author Organization [facility] Address [address] [place] [address] Care Team Providers Name Role Phone Magnolia Carson Primary Care Provider Encounter Details Date Type Department Care Team Description 06/29/2020 Orders Only [facility] Doctor Unassigned, No [address] [facility] [place] [address] [address] [place] [address] Allergies Active Allergy Reactions Severity Noted Date Comments Penicillins Anaphylaxis Medium 12/21/2009 Lip swelling & some difficulty in swallowing. documented as of this encounter (statuses as of 06/29/2020) Medications Medication Sig Dispensed Refills Start Date End Date Status benzonatate (TESSALON) Take 1 Cap by 30 Cap 0 08/31/2015 Active 200 mg capsule mouth 3 (three) times daily as needed for Cough. albuterol (VENTOLIN) 90 Inhale 2 Puffs 8.5 g 0 08/31/2015 Active mcg/actuation inhaler every 6 (six) hours as needed for Wheezing, Shortness of Breath or Chest tightness. methylPREDNISolone follow package 1 Each 0 08/31/2015 Active (MEDROL DOSE-ALEK) 4 mg directions tablets promethazine 6.25 mg/5 Take 5 mL by 120 mL 0 02/09/2017 Active mL solution mouth every 6 (six) hours as needed for Nausea and Vomiting (N/V). azithromycin 500 mg Take 2 tablets 2 tablet 0 02/15/2018 Active tablet by mouth daily. methylPREDNISolone Take by mouth 21 Each 0 09/15/2019 Active (MEDROL, ALEK,) 4 mg SEE-INSTRUCTIONS tabletsIndications: Rash . follow package and nonspecific skin directions eruption documented as of this encounter (statuses as of 06/29/2020) Active Problems Problem Noted Date Chlamydia trachomatis infection of lower genitourinary sites 02/15/2018 Tobacco use disorder 06/12/2014 General counseling and advice for contraceptive manage ment 06/12/2014 Overview: RTC 2 weeks for nexplanon ICD10 Diagnosis Term Welt Rougher Utility Obesity 06/12/2014 Overview: ICD10 Diagnosis Term Welt Rougher Utility documented as of this encounter (statuses [...] Assigned at Date Recorded Not on file documented as of this encounter Last Filed Vital Signs Not on filedocumented in this encounter Plan of Treatment Date Type Specialty Care Team Description 06/29/2020 Office Visit OB Satellites Grady Carson, [place] FLIGHT CREW MEMBER [address] [address] [phone] Health Maintenance Due Date Last Done Comments VARICELLA VACCINES (1 of 2 - 2-dose 1995 childhood series) PNEUMOCOCCAL 0-64 YEARS COMBINED 2000 SERIES (1 of 1 - PPSV23) Depression Screening 2006 DTaP,Tdap,and Td Vaccines (2 - Tdap) 2013 05/12/2011 INFLUENZA VACCINE (#1) 2020 PAP SMEAR 02/13/2021 02/13/2018 HPV VACCINES Completed 06/12/2014, 07/19/2011, 06/23/2010 documented as of this encounter Procedures Procedure Name Priority Date/Time Associated Diagnosis Comme nts ASSIGNMENT OF BENEFITS Routine 06/29/2020 2:57 PM CDT documented in this encounter Results Not on filedocumented in this encounter Insurance Payer Benefit Plan Subscriber ID Effective Phone Address Typ e / Group Dates [facility] [id number] 2018-Prese [phone] Medicaid WOMEN nt [address] [place] [address] documented as of this encounter
--- OUTSIDE RECORDS SUMMARY | 2020-07-09 10:05 | XMS REPORT | Summary of Care ---
:1995 Author Organization [facility] Address [address] [place] [address] Care Team Providers Name Role Phone Magnolia Carson Primary Care Provider Reason for Visit Reason Comments Well Woman Exam Encounter Details Date Type Department Care Team Description 06/29/2020 Office Visit [facility] Grady Carson Well woman exam (no gynecological exam) (Primary Dx); ELAINE Pickens Encounter for surveillance of implantabl e subdermal contraceptive; [address]; [address] Screen for STD (sexually transmitted dis ease); [place], [place] [address] Class 1 obesity with body mass index (BM I) of 33.0 to 33.9 in adult, unspecified obesity type, unspecified whether serious comorbidity present; [id number] BMI 33.0-33.9,adult [phone] Allergies Active Allergy Reactions Severity Noted Date [...] 2 weeks for nexplanon ICD10 Diagnosis Term Stick Puller Utility Obesity 06/12/2014 Overview: ICD10 Diagnosis Term Stick Puller Utility documented as of this encounter (statuses [...] This exam may be done by a application developer, family healthcare provider, nurse practitioner, nurse mannequin coloring artist, or specially trained nurse. Yearly breast exams [...] Guidelines for having clinical breast exams The [employer]nec[employer] recommends that [...] provider about what is best for you. [employer] maggie reviewed this educational content on 05/02/201719990368-5293 The [employer]. [address] [place] [address]. All rights reserved. This information is not [...] breast self-examination (BSE). These experts include the [employer] and the [place] [employer] of Obstetricians and Gynecologists. Some experts [...] benign. This means they are not cancer. [employer] last reviewed this educational content on 05/02/201719990949-0370 [employer]. [address] [place] [address]. All rights reserved. This information is not [...] 20s.But the USPSTF does not recommend CBE. [employer] last reviewed this educational content on 07/02/201719994799-5968 [employer]. [address] [place] [address]. All rights reserved. This information is not [...] can make now to protect your future. [employer] last reviewed this educational content on 09/01/201819992563-6712 The [employer]. [address] [place] [address], [place] [address]. All rights reserved. This information is not [...] her child during , childbirth, and . [employer] last reviewed this educational content on 03/02/201919997910-1586 The [employer]. [address] [place] [address]. All rights reserved. This information is not [...] try basil, cilantro, cinnamon, pepper, and angel. [employer] reviewed this educational content on 07/02/201719994040-7852 The [employer]. [address] [place] [address]. All rights reserved. This information is not [...] file Gets together: Not on file Attends pentecostalism service: Not on file Active member of [...] home. Pt lives with mother in law. Confucianism preference none. 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 Return to clinic PRN for Nexplanon [...] it removed 3) LMP: 04/08/20 4) Last [place]: 06/11/2020 5) Last Pap: 02/13/2018 Results: neg [...] 07/09/2020 Office Visit OB Jins Grady Carson, GOVERNMENT AFFAIRS RESEARCHER [address] [address] 15 [phone] Name Type Priority Associated Diagnoses Date/Ti me [...] Phone Address Typ e / Group Dates [facility] [id number] 2018-Prese [phone] Medicaid WOMEN nt [address] [place] [address] documented as of this encounter
--- OUTSIDE RECORDS SUMMARY | 2020-07-09 10:05 | XMS REPORT | Continuity of Care Document ---
:1995 Author Organization [facility] t Address [address] [place] [address] Care Team Providers Name Role Phone Magnolia Garcia Attending Clinician Problems This patient has no known problems. Allergies, Adverse Reactions, Alerts This patient has no known allergies or adverse reactions. Medications This patient has no known medications. Procedures This patient has no known procedures. Encounters Start End Encounter Admission Attending Care Care Encounter Source Date/Time Date/Time Type Type Clinicians Facility Department ID 2020-06-29 2020-06-29 Office RAMYA Carson [id number] 15:01:06 16:00:36 Visit Grady Merida INDUSTRIAL ROBOTICS MECHANIC [id number] [facility] [id number] MATERNAL [id number] & CHILD [address] [place] [address] Results This patient has no known results.
== END 2020-07-07 05:10 | disposition home or self-care (01) ==
LOC: ER 04:20
DX: K02.9 Dental caries, unspecified (principal); J45.909 Unspecified asthma, uncomplicated; Z72.0 Tobacco use; Z88.0 Allergy status to penicillin; Z88.6 Allergy status to analgesic agent
CPT/HCPCS: 99283

== ENCOUNTER 2020-07-10 06:00 | Emergency (ER) | payer SELFPAY ==
--- OUTSIDE RECORDS SUMMARY | 2020-07-10 06:02 | XMS REPORT | Summary of Care ---
:1995 Author Organization [facility] Address [address] [place] [address] Care Team Providers Name Role Phone Magnolia Carson Primary Care Provider Encounter Details Date Type Department Care Team Description 06/29/2020 Orders Only [facility] Doctor Unassigned, No [address] [facility] [place] [address] [address] [place] [address] Allergies Active Allergy Reactions Severity Noted Date [...] 2 weeks for nexplanon ICD10 Diagnosis Term Word Processor Operator Utility Obesity 06/12/2014 Overview: ICD10 Diagnosis Term Word Processor Operator Utility documented as of this encounter (statuses [...] 06/29/2020 Office Visit OB Satellites Grady Carson, DOT COMPLIANCE MANAGER [address] [address] 15 [phone] Health Maintenance Due Date Last Done Comments [...] Phone Address Typ e / Group Dates [facility] [id number] 2018-Prese [phone] Medicaid WOMEN nt [address] [place] [address] documented as of this encounter
--- OUTSIDE RECORDS SUMMARY | 2020-07-10 06:02 | XMS REPORT | Summary of Care ---
:1995 Author Organization [facility] Address [address] [place] [address] Care Team Providers Name Role Phone Magnolia Carson Primary Care Provider Reason for Visit Reason Comments Well Woman Exam Encounter Details Date Type Department Care Team Description 06/29/2020 Office Visit [facility]- Grady Carson Well woman exam (no gynecological exam) (Primary Dx); ELAINE Pickens Encounter for surveillance of implantabl e subdermal contraceptive; [address] in place; [address] [place] Screen for STD (sexually transmitted dis ease); [place], [place] [address] Class 1 obesity with body mass index (BM I) of 33.0 to 33.9 in adult, unspecified obesity type, unspecified whether serious comorbidity present; [address] BMI 33.0-33.9,adult [phone] Allergies Active Allergy Reactions Severity Noted Date [...] 2 weeks for nexplanon ICD10 Diagnosis Term Housekeeper Home Utility Obesity 06/12/2014 Overview: ICD10 Diagnosis Term Housekeeper Home Utility documented as of this encounter (statuses [...] This exam may be done by a software asset management analyst, family healthcare provider, nurse practitioner, nurse electrician's assistant, or specially trained nurse. Yearly breast exams [...] Guidelines for having clinical breast exams The [place] [employer] Obstetricians and Gynecologists recommends that [...] provider about what is best for you. [employer] maggie reviewed this educational content on 05/02/201719991378-0298 The [employer]. [address] [place] [address]. All rights reserved. This information is not [...] breast self-examination (BSE). These experts include the [place] [employer] Society and the [place] Congress of Obstetricians and Gynecologists. Some experts [...] benign. This means they are not cancer. [employer] last reviewed this educational content on 05/02/201719997427-6409 The [employer]. [address] [place] [address]. All rights reserved. This information is not [...] 20s.But the USPSTF does not recommend CBE. [employer] last reviewed this educational content on 07/02/201719998102-0918 The [employer]. [address] [place] [address]. All rights reserved. This information is not [...] can make now to protect your future. H[employer] last reviewed this educational content on 09/01/201819996553-4913 The [employer]. [address] [place] [address], [place] [address]. All rights reserved. This information is not [...] her child during , childbirth, and . H[employer] last reviewed this educational content on 03/02/201919997825-9126 The [employer]. [address] [place] [address]. All rights reserved. This information is not [...] try basil, cilantro, cinnamon, pepper, and angel. [employer] reviewed this educational content on 07/02/201719998324-0686 The [employer]. [address] [place] [address]. All rights reserved. This information is not [...] file Gets together: Not on file Attends mandaen service: Not on file Active member of [...] home. Pt lives with mother in law. Orthodoxy preference none. 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 Return to clinic PRN for Nexplanon [...] it removed 3) LMP: 04/08/20 4) Last Power: 06/11/2020 5) Last Pap: 02/13/2018 Results: neg [...] 07/09/2020 Office Visit OB Jins Grady Carson, FRONT DESK AUXILIARY [address] [address] 15 [phone] Name Type Priority Associated Diagnoses Date/Ti me [...] Phone Address Typ e / Group Dates [facility] [id number] 2018-Prese [phone] [address] Medicaid WOMEN nt [address] [place] [address] documented as of this encounter
--- OUTSIDE RECORDS SUMMARY | 2020-07-10 06:03 | XMS REPORT | Summary of Care ---
:1995 Author Organization [facility] Address [address] [place] [address] Care Team Providers Name Role Phone Magnolia Carson Primary Care Provider Reason for Visit Reason Comments Well Woman Exam Encounter Details Date Type Department Care Team Description 06/29/2020 Office Visit [facility]- Grady Carson Well woman exam (no gynecological exam) (Primary Dx); ELAINE Pickens Encounter for surveillance of implantabl e subdermal contraceptive; [address] place; [address] [place] Screen for STD (sexually transmitted dis ease); [place], [place] [address] Class 1 obesity with body mass index (BM I) of 33.0 to 33.9 in adult, unspecified obesity type, unspecified whether serious comorbidity present; [address] BMI 33.0-33.9,adult [phone] Allergies Active Allergy Reactions Severity Noted Date [...] 2 weeks for nexplanon ICD10 Diagnosis Term Workforce Management Consultant Utility Obesity 06/12/2014 Overview: ICD10 Diagnosis Term Workforce Management Consultant Utility documented as of this encounter (statuses [...] This exam may be done by a control panel assembler, family healthcare provider, nurse practitioner, nurse reaming machine operator for plastic, or specially trained nurse. Yearly breast exams [...] Guidelines for having clinical breast exams The [place] College of Obstetricians and Gynecologists recommends that [...] provider about what is best for you. [employer] maggie reviewed this educational content on 05/02/201719996160-9740 The [employer]. [address] [place] [address]. All rights reserved. This information is not [...] breast self-examination (BSE). These experts include the [place] [employer] and the [place] Congress of Obstetricians and Gynecologists. Some experts [...] benign. This means they are not cancer. [employer] last reviewed this educational content on 05/02/201719991649-1451 The [employer]. [address] [place] [address]. All rights reserved. This information is not [...] 20s.But the USPSTF does not recommend CBE. [employer] last reviewed this educational content on 07/02/201719996226-2859 The [employer]. [address] [place] [address]. All rights reserved. This information is not [...] can make now to protect your future. [employer] last reviewed this educational content on 09/01/201819995307-8588 The [employer]. [address] [place] [address], [place] [address]. All rights reserved. This information is not [...] her child during , childbirth, and . [employer] last reviewed this educational content on 03/02/201919992125-8309 The [employer]. [address] [place] [address]. All rights reserved. This information is not [...] try basil, cilantro, cinnamon, pepper, and angel. [employer] reviewed this educational content on 07/02/201719994605-1988 The [employer]. [address] [place] [address]. All rights reserved. This information is not [...] file Gets together: Not on file Attends temple service: Not on file Active member of [...] home. Pt lives with mother in law. Pentecostal preference none. 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 Return to clinic PRN for Nexplanon [...] it removed 3) LMP: 04/08/20 4) Last [place]: 06/11/2020 5) Last Pap: 02/13/2018 Results: neg [...] 07/09/2020 Office Visit OB Jins Grady Carson, DRAWING KILN OPERATOR [address] [address] 15 [phone] Name Type Priority Associated Diagnoses Date/Ti me [...] Phone Address Typ e / Group Dates [facility] [id number] 2018-Prese [phone] [address] Medicaid WOMEN nt [address] [place] [address] documented as of this encounter
--- OUTSIDE RECORDS SUMMARY | 2020-07-10 06:03 | XMS REPORT | Continuity of Care Document ---
:1995 Author Organization [facility] t Address [address] [place] [address] Care Team Providers Name Role Phone Magnolia [...] ID 2020-06-29 2020-06-29 Office RAMYA Carson [id number] 15:01:06 16:00:36 Visit Grady Merida LAY MIDWIFE [id number] [facility] [id number] MATERNAL [phone] & CHILD [address] [place] [address] Results This patient has no known results.
--- NOTE | 2020-07-10 08:03 | ER ---
Nurse's Notes [facility] Name: Lisa Abdul Age: 25 yrs Sex: Female : 1995 Arrival Date: 07/10/2020 Time: 06:03 Bed 30 Private MD: Diagnosis: Dental caries Presentation: 07/10 06:12 Chief complaint: Patient states: Pain to the left side of mouth that radiates to the sg back of the head. Coronavirus screen: Client denies travel out of the [place] in the last 14 days. At this time, the client does not indicate any symptoms associated with coronavirus-19. Ebola Screen: Patient negative for fever greater than or equal to 101.5 degrees Fahrenheit, and additional compatible Ebola Virus Disease symptoms Patient denies exposure to infectious person. Patient denies travel to an Ebola-affected area in the 21 days before illness onset. No symptoms or risks identified at this time. Initial Sepsis Screen: Does the patient meet any 2 criteria? No. Patient's initial sepsis screen is negative. Does the patient have a suspected source of infection? No. Patient's initial sepsis screen is negative. Risk Assessment: Do you want to hurt yourself or someone else? Patient reports no desire to harm self or others. Onset of symptoms was July 10, 2020. Care prior to arrival: None. 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 - Social history:: Smoking status: Patient denies any tobacco usage or history of. Screenin:33 Abuse screen: Denies threats or abuse. Denies injuries from another. Nutritional rr5 screening: No deficits noted. Tuberculosis screening: No symptoms or risk factors identified. Fall Risk None identified. Total Allen Fall Scale indicates No Risk (0-24 pts). Assessment: 06:12 General: Appears in no apparent distress. well groomed, well developed, well nourished, sg Behavior is calm, cooperative, appropriate for age. Pain: Complains of pain in right jaw and occipital area Quality of pain is described as aching. Cardiovascular: Patient's skin is warm and dry. Respiratory: Airway Respiratory effort is even, unlabored, Respiratory pattern is regular, symmetrical. GI: No signs and/or symptoms were reported involving the gastrointestinal system. : No signs and/or symptoms were reported regarding the genitourinary system. EENT: No signs and/or symptoms were reported regarding the EENT system. Derm: Skin is pink, warm \T\ dry. Musculoskeletal: Circulation, motion, and sensation intact. Range of motion: intact in all extremities. 07:18 Reassessment: Patient medically screened. Declined treatment. ss Vital Signs: 06:27 BP 126 / 98; Pulse 102; Resp 16; Temp 97.6; Pulse Ox 100% on R/A; Pain 6/10; sg 07:07 BP 124 / 80; Pulse 85; Resp 17; Pulse Ox 97% on R/A; tw2 ED Course: 06:03 Patient arrived in ED. bp1 06:12 Arm band placed on. sg 06:13 Triage completed. sg 06:31 Martinez May MD is Attending Physician. tw4 06:33 Jules Gold, RN is Primary Nurse. rr5 07:06 Lelia Milligan RN is Primary Nurse. tw2 07:07 Bed in low position. tw2 07:18 No provider procedures requiring assistance completed. Patient did not have IV access ss during this emergency room visit. Administered Medications: No medications were administered Outcome: 07:18 Medical screen evaluation completed per provider. Patient declined treatment. ss 07:18 Condition: good 07:18 Instructed on follow up and referral plans. 08:02 Discharge ordered by . tw4 08:05 Patient left the ED. Signatures: Jama Islas, RN TAMEKA Bria Mcdaniels RN RN Lelia Milligan RN RN tw2 Martinez May MD MD tw4 Jules Gold, RN RN rr5 Sally Vasquez bp1
--- NOTE | 2020-07-10 08:06 | EDPHYS ---
Physician Documentation [facility] Name: Lisa Abdul Age: 25 yrs Sex: Female : 1995 Arrival Date: 07/10/2020 Time: 06:03 Bed 30 Private MD: ED Physician Martinez May HPI: 07/10 08:02 This 25 yrs old Female presents to ER via Ambulatory with complaints of Mouth tw4 Pain of Left side-radiating to ear and back of head. 08:02 The patient presents with broken tooth/teeth. The problem is located in the lower left tw4 third molar. Onset: The symptoms/episode began/occurred 1 week(s) ago. Duration: The symptoms are continuous. Modifying factors: The symptoms are alleviated by nothing, the symptoms are aggravated by nothing. Severity of symptoms: At their worst the symptoms were moderate, in the emergency department the symptoms. 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 - Social history:: Smoking status: Patient denies any tobacco usage or history of. ROS: 08:02 Constitutional: Negative for fever, chills, and weight loss, Eyes: Negative for injury, tw4 pain, redness, and discharge, Cardiovascular: Negative for chest pain, palpitations, and edema, Respiratory: Negative for shortness of breath, cough, wheezing, and pleuritic chest pain, Abdomen/GI: Negative for abdominal pain, nausea, vomiting, diarrhea, and constipation, Back: Negative for injury and pain, MS/Extremity: Negative for injury and deformity, Skin: Negative for injury, rash, and discoloration, Neuro: Negative for headache, weakness, numbness, tingling, and seizure. 08:02 ENT: Positive for dental pain. Exam: 08:02 Constitutional: This is a well developed, well nourished patient who is awake, alert, tw4 and in no acute distress. Head/Face: Normocephalic, atraumatic. 08:02 ENT: Dental exam: dental caries, specifically in the lower left third molar (#17), lower left second molar (#18) and lower left first molar (#19). Vital Signs: 06:27 BP 126 / 98; Pulse 102; Resp 16; Temp 97.6; Pulse Ox 100% on R/A; Pain 6/10; sg 07:07 BP 124 / 80; Pulse 85; Resp 17; Pulse Ox 97% on R/A; tw2 MDM: 06:38 Patient medically screened. tw4 08:02 Data reviewed: vital signs, nurses notes. Medical screen evaluation completed. EMTALA tw4 emergency medical condition absent. Administered Medications: No medications were administered Disposition: 08:04 [facility]. tw4 Disposition: 07/10/20 08:02 Discharged to Home. Impression: Dental caries. - Condition is Stable. - Discharge Instructions: Dental Pain. - Medication Reconciliation Form, Thank You Letter, Antibiotic Education, Prescription Opioid Use form. - Follow up: Private Physician; When: Upon discharge from the Emergency Department; Reason: Recheck today's complaints, Continuance of care, Re-evaluation by your physician. - Problem is new. - Symptoms are unchanged. Signatures: Jama Islas RN RN Bria Mcdaniels RN RN ss Martinez May MD MD tw4 Corrections: (The following items were deleted from the chart) 08:05 08:02 07/10/2020 08:02 Discharged to Home. Impression: Dental caries. Condition is ss Stable. Forms are Medication Reconciliation Form, Thank You Letter, Antibiotic Education, Prescription Opioid Use. Follow up: Private Physician; When: Upon discharge from the Emergency Department; Reason: Recheck today's complaints, Continuance of care, Re-evaluation by your physician. Problem is new. Symptoms are unchanged. tw4
[2020-07-10 08:19] VITALS: TEMP 97.6
[2020-07-10 08:23] VITALS: BP 124/80; O2SAT 97
== END 2020-07-10 08:05 | disposition home or self-care (01) ==
LOC: ER 06:00
DX: K02.9 Dental caries, unspecified (principal); Z88.0 Allergy status to penicillin; Z88.6 Allergy status to analgesic agent
CPT/HCPCS: 99281

== ENCOUNTER 2020-08-13 18:37 | Emergency (ER) | payer SELFPAY ==
--- OUTSIDE RECORDS SUMMARY | 2020-08-13 18:40 | XMS REPORT | Summary of Care ---
:1995 Author Organization [facility] Address [address] [place] [address] Care Team Providers Name Role Phone Magnolia Carson Primary Care Provider Encounter Details Date Type Department Care Team Description 06/29/2020 Orders Only [facility] Doctor Unassigned, No [address] [facility] [place] [address] [address] [place] [address] Allergies Active Allergy Reactions Severity Noted Date [...] 2 weeks for nexplanon ICD10 Diagnosis Term Entrepreneurship Program Director Utility Obesity 06/12/2014 Overview: ICD10 Diagnosis Term Entrepreneurship Program Director Utility documented as of this encounter (statuses [...] 06/29/2020 Office Visit [facility] Grady Carson, KNURLING MACHINE OPERATOR [address] [address] [phone] Health Maintenance Due Date Last Done Comments [...] Typ e / Group Dates [facility] [id number] 2018-Prese [phone] [address] Medicaid WOMEN nt [address] [place] [address] documented as of this encounter
--- OUTSIDE RECORDS SUMMARY | 2020-08-13 18:40 | XMS REPORT | Summary of Care ---
:1995 Author Organization [facility] Address [address] [place] [address] Care Team Providers Name Role Phone Magnolia Carson Primary Care Provider Reason for Visit Reason Comments Well Woman Exam Encounter Details Date Type Department Care Team Description 06/29/2020 Office Visit [facility]- Grady Carson Well woman exam (no gynecological exam) (Primary Dx); ELAINE Pickens Encounter for surveillance of implantabl e subdermal contraceptive; [address]; [address] Screen for STD (sexually transmitted dis ease); [place], [place] [address] Class 1 obesity with body mass index (BM I) of 33.0 to 33.9 in adult, unspecified obesity type, unspecified whether serious comorbidity present; [address] BMI 33.0-33.9,adult [phone] Allergies Active Allergy Reactions Severity Noted Date [...] 2 weeks for nexplanon ICD10 Diagnosis Term Hog Tender Utility Obesity 06/12/2014 Overview: ICD10 Diagnosis Term Hog Tender Utility documented as of this encounter (statuses [...] This exam may be done by a diamond sander, family healthcare provider, nurse practitioner, nurse insurance adjuster, or specially trained nurse. Yearly breast exams [...] Guidelines for having clinical breast exams The [place] College of Obstetricians and Gynecologists recommends that [...] provider about what is best for you. Hello [employer] maggie reviewed this educational content on 05/02/201719993098-0107 The [employer]. [address] [place] [address]. All rights reserved. This information is not [...] breast self-examination (BSE). These experts include the [place] [employer] and the [place] Congress of Obstetricians and Gynecologists. Some experts [...] benign. This means they are not cancer. [employer] last reviewed this educational content on 05/02/201719999235-3465 The [employer]. [address] [place] [address]. All rights reserved. This information is not [...] 20s.But the USPSTF does not recommend CBE. [employer] last reviewed this educational content on 07/02/201719995400-1834 The [employer]. [address] [place] [address]. All rights reserved. This information is not [...] can make now to protect your future. [employer] last reviewed this educational content on 09/01/201819991411-8061 The [employer]. [address] [place] [address], [place] [address]. All rights reserved. This information is not [...] her child during , childbirth, and . [employer] last reviewed this educational content on 03/02/201919998948-2015 The [employer]. [address] [place] [address]. All rights reserved. This information is not [...] try basil, cilantro, cinnamon, pepper, and angel. [employer] reviewed this educational content on 07/02/201719996237-5727 The [employer]. [address] [place] [address]. All rights reserved. 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 Return to clinic PRN for Nexplanon [...] it removed 3) LMP: 04/08/20 4) Last [place]: 06/11/2020 5) Last Pap: 02/13/2018 Results: neg [...] 07/09/2020 Office Visit OB Jins Grady Carson, MOTORCYCLE RIDING INSTRUCTOR [address] [address] [phone] Name Type Priority Associated Diagnoses Date/Ti me [...] Typ e / Group Dates [facility] [id number] 2018-Prese [phone] [address] Medicaid WOMEN nt [address] [place] [address] documented as of this encounter
--- OUTSIDE RECORDS SUMMARY | 2020-08-13 18:40 | XMS REPORT | Summary of Care ---
:1995 Author Organization [facility] Address [address] [place] [address] Care Team Providers Name Role Phone Magnolia Carson Primary Care Provider Reason for Visit Reason Comments Well Woman Exam Encounter Details Date Type Department Care Team Description 06/29/2020 Office Visit [facility]- Grady Carson Well woman exam (no gynecological exam) (Primary Dx); ELAINE Pickens Encounter for surveillance of implantabl e subdermal contraceptive; [address] [place] [address] in place; [address] [place] Screen for STD (sexually transmitted dis ease); [place], [place] [address] Class 1 obesity with body mass index (BM I) of 33.0 to 33.9 in adult, unspecified obesity type, unspecified whether serious comorbidity present; [id number] BMI 33.0-33.9,adult [phone] Allergies Active Allergy Reactions Severity Noted Date [...] 2 weeks for nexplanon ICD10 Diagnosis Term [facility] Psychiatrist Utility Obesity 06/12/2014 Overview: ICD10 Diagnosis Term [facility] Psychiatrist Utility documented as of this encounter (statuses [...] This exam may be done by a skirt maker, family healthcare provider, nurse practitioner, nurse manager acute, or specially trained nurse. Yearly breast exams [...] Guidelines for having clinical breast exams The [employer] recommends that [...] provider about what is best for you. [employer] maggie reviewed this educational content on 05/02/201719992236-5693 The [employer]. [address] [place] [address]. All rights reserved. This information is not [...] breast self-examination (BSE). These experts include the [employer] and the [employer] Gynec[employer]. Some experts [...] benign. This means they are not cancer. [employer] last reviewed this educational content on 05/02/201719995075-2328 The [employer]. [address] [place] [address]. All rights reserved. This information is not [...] 20s.But the USPSTF does not recommend CBE. [employer] last reviewed this educational content on 07/02/201719990912-8654 The [employer]. [address] [place] [address]. All rights reserved. This information is not [...] can make now to protect your future. [employer] last reviewed this educational content on 09/01/201819993116-2453 The [employer]. [address] [place] [address], [place] [address]. All rights reserved. This information is not [...] her child during , childbirth, and . [employer] last reviewed this educational content on 03/02/201919999949-9725 The [employer]. [address] [place] [address]. All rights reserved. This information is not [...] try basil, cilantro, cinnamon, pepper, and angel. [employer] reviewed this educational content on 07/02/201719999309-3300 The [employer]. [address] [place] [address]. All rights reserved. This information is not [...] file Gets together: Not on file Attends [employer] service: Not on file Active member of [...] home. Pt lives with mother in law. Protestant preference none. 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 Return to clinic PRN for Nexplanon [...] it removed 3) LMP: 04/08/20 4) Last Pearsall: 06/11/2020 5) Last Pap: 02/13/2018 Results: neg [...] 07/09/2020 Office Visit OB Jins Grady Carson, GAS GENERATOR OPERATOR [address] [address] [phone] Name Type Priority Associated Diagnoses Date/Ti me [...] Phone Address Typ e / Group Dates [facility] [id number] 2018-Prese [phone] [address] Medicaid WOMEN nt [address] [place] [address] documented as of this encounter
--- OUTSIDE RECORDS SUMMARY | 2020-08-13 18:40 | XMS REPORT | Continuity of Care Document ---
:1995 Author Organization [facility] t Address [address] [place] [address] Care Team Providers Name Role Phone Magnolia [...] ID 2020-06-29 2020-06-29 Office RAMYA Carson [id number] 15:01:06 16:00:36 Visit Grady Merida MOLDED PARTS INSPECTOR [id number] [facility] [id number] MATERNAL [phone] & CHILD [address] [place] [address] Results This patient has no known results.
--- NOTE | 2020-08-13 19:03 | EDPHYS ---
Physician Documentation [facility] Name: Lisa Abdul Age: 25 yrs Sex: Female : 1995 Arrival Date: 08/13/2020 Time: 18:39 Bed Waiting Private MD: BRIAN Physician Gee Palomares HPI: 08/13 19:00 This 25 yrs old Female presents to ER via Ambulatory with complaints of Sore jmm Throat. 19:00 The patient presents with sore throat. Onset: The symptoms/episode began/occurred jmm gradually, 1 day(s) ago. Modifying factors: The symptoms are alleviated by nothing, the symptoms are aggravated by nothing. Associated signs and symptoms: Pertinent positives: chills, Pertinent negatives cough. The patient has experienced a previous episode, and the symptoms today are exactly the same. Similar to previous episodes of strep. Historical: - Allergies: 18:47 Motrin; hb 18:47 PENICILLINS; hb - Home Meds: 18:47 control implant [Active]; inhaler [Active]; hb - PMHx: 18:47 Asthma; hb - PSHx: 18:47 ; hb - Immunization history:: Adult Immunizations up to date. - Social history:: Smoking status: Patient reports the use of cigarette tobacco products, denies chronic smoking, but will smoke occasionally. ROS: 19:00 Constitutional: Positive for chills. jmm 19:00 ENT: Positive for sore throat. 19:00 All other systems are negative. Exam: 19:00 Constitutional: This is a well developed, well nourished patient who is awake, alert, jmm and in no acute distress. Head/Face: atraumatic. Eyes: EOMI, no conjunctival erythema appreciated 19:00 Neck: Trachea midline, Supple Chest/axilla: Normal chest wall appearance and motion. Cardiovascular: Regular rate and rhythm. No edema appreciated Respiratory: Normal respirations, no respiratory distress appreciated Abdomen/GI: Non distended, soft Back: Normal ROM Skin: General appearance color normal MS/ Extremity: Moves all extremities, no obvious deformities appreciated, no edema noted to the lower extremities Neuro: Awake and alert, normal gait Psych: Behavior is normal, Mood is normal, Patient is cooperative and pleasant 19:00 ENT: Posterior pharynx: Tonsils: enlarged on the left, with erythema, with exudate, Uvula: normal, erythema, that is moderate, exudate, that is mild. Vital Signs: 18:46 BP 131 / 81; Pulse 100; Resp 16; Temp 98.1; Pulse Ox 100% on R/A; Pain 7/10; hb MDM: 19:00 Patient medically screened. vidya 19:01 Data reviewed: vital signs, nurses notes. Counseling: I had a detailed discussion with vidya the patient and/or guardian regarding: the historical points, exam findings, and any diagnostic results supporting the discharge/admit diagnosis, the need for outpatient follow up, to return to the emergency department if symptoms worsen or persist or if there are any questions or concerns that arise at home. ED course: Patient is alert and non toxic in appearance in the ED. PE findings are not consistent with APPLICATION ENGINEER. Patient prescribed oral abx and otherwise given strict return precautions. Patient understood and agrees with the plan of care. . 08/13 18:49 Order name: Strep vidya Administered Medications: No medications were administered Disposition: 08/14 05:11 Co-signature as Attending Physician, Gee Palomares MD I agree with the assessment and [facility] plan of care. Disposition: 08/13/20 19:02 Discharged to Home. Impression: Acute pharyngitis. - Condition is Stable. - Discharge Instructions: Pharyngitis. - Prescriptions for Clindamycin HCl 300 mg Oral Capsule - take 1 capsule by ORAL route every 6 hours for 10 days; 40 capsule. - Medication Reconciliation Form, Thank You Letter, Antibiotic Education, Prescription Opioid Use form. - Follow up: Private Physician; When: 2 - 3 days; Reason: Recheck today's complaints, Continuance of care, Re-evaluation by your physician. Signatures: Dispatcher [employer] Gee Velasco MD MD cha Mickail, Joel, PA PA jmm Baxter, Heather, RN RN hb Corrections: (The following items were deleted from the chart) 08/13 19:08 19:02 08/13/2020 19:02 Discharged to Home. Impression: Acute pharyngitis. Condition is hb Stable. Forms are Medication Reconciliation Form, Thank You Letter, Antibiotic Education, Prescription Opioid Use. Follow up: Private Physician; When: 2 - 3 days; Reason: Recheck today's complaints, Continuance of care, Re-evaluation by your physician. jahm
--- NOTE | 2020-08-13 19:03 | ER ---
Nurse's Notes [facility] Name: Lisa Abdul Age: 25 yrs Sex: Female : 1995 Arrival Date: 08/13/2020 Time: 18:39 Bed Waiting [facility] MD: Diagnosis: Acute pharyngitis Presentation: 08/13 18:46 Chief complaint: Sore throat x 2 days. Denies fever/cough. Coronavirus screen: Client hb presents with at least one sign or symptom that may indicate coronavirus-19. Standard/surgical mask placed on the client. Provider contacted for isolation considerations. Ebola Screen: No symptoms or risks identified at this time. Initial Sepsis Screen: Does the patient meet any 2 criteria? HR > 90 bpm. No. Patient's initial sepsis screen is negative. Does the patient have a suspected source of infection? No. Patient's initial sepsis screen is negative. Risk Assessment: Do you want to hurt yourself or someone else? Patient reports no desire to harm self or others. Onset of symptoms was August 12, 2020. 18:46 Method Of Arrival: Ambulatory hb 18:46 Acuity: ODIN 4 hb Triage Assessment: 18:45 General: Appears in no apparent distress. Behavior is calm, cooperative. Pain: Pain hb currently is 7 out of 10 on a pain scale. EENT: Throat is reddened has patchy exudate has enlarged tonsils Reports pain when swallowing. Historical: - Allergies: 18:47 Motrin; hb 18:47 PENICILLINS; hb - Home Meds: 18:47 control implant [Active]; inhaler [Active]; hb - PMHx: 18:47 Asthma; hb - PSHx: 18:47 ; hb - Immunization history:: Adult Immunizations up to date. - Social history:: Smoking status: Patient reports the use of cigarette tobacco products, denies chronic smoking, but will smoke occasionally. Screenin:07 Abuse screen: Denies threats or abuse. Denies injuries from another. Nutritional hb screening: No deficits noted. Tuberculosis screening: No symptoms or risk factors identified. Fall Risk None identified. Assessment: 19:07 General: see triage. hb Vital Signs: 18:46 BP 131 / 81; Pulse 100; Resp 16; Temp 98.1; Pulse Ox 100% on R/A; Pain 7/10; hb ED Course: 18:39 Patient arrived in ED. ds1 18:44 Tucker Bonilla PA is PHCP. jah 18:44 Gee Palomares MD is Attending Physician. [facility] 18:47 Triage completed. hb 18:47 Arm band placed on. hb 19:07 No provider procedures requiring assistance completed. Patient did not have IV access hb during this emergency room visit. Administered Medications: No medications were administered Outcome: 19:02 Discharge ordered by . jah 19:07 Discharged to home ambulatory. hb 19:07 Condition: stable 19:07 Condition: stable 19:07 Discharge instructions given to patient, Instructed on discharge instructions, follow up and referral plans. medication usage, Demonstrated understanding of instructions, follow-up care, medications, Prescriptions given X 1. 19:08 Patient left the ED. hb Signatures: Tucker Bonilla PA PA Reyna Ewing ds1 Herlinda Frias, RN RN hb
[2020-08-13 21:51] VITALS: BP 131/81; TEMP 98.1; O2SAT 100
== END 2020-08-13 19:08 | disposition home or self-care (01) ==
LOC: ER 18:37
DX: J02.9 Acute pharyngitis, unspecified (principal); J45.909 Unspecified asthma, uncomplicated; F17.210 Nicotine dependence, cigarettes, uncomplicated; Z88.0 Allergy status to penicillin; Z88.6 Allergy status to analgesic agent
CPT/HCPCS: 87081; 99282

== ENCOUNTER 2020-09-23 19:14 | Emergency (ER) | payer SELFPAY ==
--- OUTSIDE RECORDS SUMMARY | 2020-09-23 19:16 | XMS REPORT | Continuity of Care Document ---
:1995 Author Organization [facility] t Address [address] [place] [address] Care Team Providers Name Role Phone Purnima Garber Attending Clinician Problems This patient has no known problems. Allergies, Adverse Reactions, Alerts This patient has no known allergies or adverse reactions. Medications This patient has no known medications. Procedures This patient has no known procedures. Encounters Start End Encounter Admission Attending Care Care Encounter Source Date/Time Date/Time Type Type Clinicians Facility Department ID 2020-08-20 2020-08-20 Office RAMYA Soto [id number] 15:44:35 16:38:18 Visit Kaylin Felton INTRANET SPECIALIST [id number] REGIONAL [id number] MATERNAL [id number] & CHILD [address] [place] [address] Results This patient has no known results.
--- OUTSIDE RECORDS SUMMARY | 2020-09-23 19:16 | XMS REPORT | Summary of Care ---
:1995 Author Organization [facility] Address [address] [place] [address] Care Team Providers Name Role Phone Magnolia Carson Primary Care Provider Reason for Visit Reason Comments NEXPLANON Removal/BC Encounter Details Date Type Department Care Team Description 08/20/2020 Office Visit [facility] ROSALIOCHAnita- Kaylin Soto Enc ounter for Nexplanon removal (Primary Dx); [facility] control counseling; [address] [place] [address] Encounter for initial prescription of co ntraceptive pills; [address] Tobacco use [place] [phone] Allergies Active Allergy Reactions Severity Noted Date Comments Penicillins Anaphylaxis Medium 12/21/2009 Lip swelling & some difficulty in swallowing. documented as of this encounter (statuses as of 08/20/2020) Medications Medication Sig Dispensed Refills Start Date End Date Status LOESTRIN FE Take 1 tablet by 1 Package 3 08/20/2020 Active (MICROGESTIN FE 10/21) 1 mouth daily. 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 Obesity 06/12/2014 Overview: ICD10 Diagnosis 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 documented as of this encounter Last Filed Vital Signs Vital Sign Reading Time Taken Comments Blood Pressure 125/86 08/20/2020 3:53 PM KITCHEN DESIGNER Pulse 97 08/20/2020 3:53 PM KITCHEN DESIGNER Temperature 36.7 C (98 F) 08/20/2020 3:53 PM KITCHEN DESIGNER Respiratory Rate 16 08/20/2020 3:53 PM KITCHEN DESIGNER Oxygen Saturation - - Inhaled Oxygen Concentration - - Weight 79.5 kg (175 lb 4 oz) 08/20/2020 3:53 PM KITCHEN DESIGNER Height 154.9 cm (5' 1") 08/20/2020 3:53 PM KITCHEN DESIGNER Body Mass Index 33.11 08/20/2020 3:53 PM KITCHEN DESIGNER documented in this encounter Progress Notes Kaylin Soto FNP - 08/20/2020 3:45 PM CSTNexplanon REMOVAL PROCEDURE NOTE Preoperative Diagnoses: Nexplanon Removal I discussed the likelihood of success with Nexplanon removal procedure during the consent process with the patient. Staff present for procedure: Melissa RHODES Pt reports no past or present history of physical, sexual, and emotional abuse. The risks, benefits and alternatives were discussed. The patient voiced her understanding. She wished to proceed and an informed consent was obtained. Patient has been identified by name and and will be undergoing Nexplanon removal. Patient is right handed. Patient, procedure and site have been confirmed by the following clinicians: Melissa Pierce and Scott lCements LVn. Timeout performed by Melissa RHODES and patient immediately prior to the procedure. Procedure: The patient is placed on the exam table in a supine position. The implant was palpated onthe inner aspect of the left arm. The Nexplanon implant site is prepped with Betadine. Local area isinjected subcutaneously with 2 cc of lidocaine 1% without epinephrine along the planned incision site. A small incision is made with a sterile scalpel. Straight hemostat is used to access the implant through the incision site. The implant is secured with the hemostat and carefully removed through theincision. There is minimal bleeding from the incision site. Sterile gauze and a pressure dressing is placed over the removal site. The patient tolerated the procedure well and there were no complications. Post-procedure instructions given. Patient verbalized understanding. Staff present for procedure: ELAINE Buitrago . Findings None Assessment Nexplanon Removed Plan Encounter for Nexplanon removal (primary encounter diagnosis) Comment: Plan: control counseling Comment: Plan: POCT TEST Encounter for initial prescription of contraceptive pills Comment: D/w pt at length various BCMs including OCPs, Patch, Depo Provera, vaginal rings, condoms, implants and iuds. We discussed the risk/benefits/side effects of each. After discussion, pt desires to proceed with OCPs. Currently in a same sex relationship. Plan: LOESTRIN FE (MICROGESTIN FE 10/21) 1 mg-20 mcg (21)/75 mg (7) tablet Tobacco use Comment: Discussed harmful of effects of smoking to self and others and recommend complete cessation. Plan: Patient visualized removed Nexplanon. ubio, VARUN Garcia - 08/20/2020 3:45 PM CSTPt in clinic for Nexplanon removal. Informed consent signed and obtained from pt HEN DESIGNER documented in this encounter Plan of Treatment Date Type Specialty Care Team Description 11/19/2020 Office Visit OB Satellites Kaylin Soto FNP [address] [place], [place] [address] [phone] Health Maintenance Due Date Last Done Comments PAP SMEAR 02/13/2021 02/13/2018 INFLUENZA VACCINE (#1) 2021 Postponed from 06/02/2020 (Refused) DTaP,Tdap,and Td Vaccines (2 06/29/2021 05/12/2011 Pos tponed from 2005 - Tdap) (Refused) Depression Screening 06/29/2021 06/29/2020, 06/29/2020 PNEUMOCOCCAL 0-64 YEARS 06/29/2021 Postpone d from 2000 COMBINED SERIES (1 of 1 - (Refus ed) PPSV23) VARICELLA VACCINES (1 of 2 - 06/29/2021 Pos tponed from 1995 2-dose childhood series) (Vaccin e not available) HPV VACCINES Completed 06/12/2014, 07/19/2011, 06/23/2010 documented as of this encounter Procedures Procedure Name Priority Date/Time Associated Diagnosis Comme nts POCT TEST Routine 08/20/2020 3:55 PM control Results for this KITCHEN DESIGNER counseling procedure are i n the results section. documented in this encounter Results POCT TEST (08/20/2020 3:55 PM KITCHEN DESIGNER) Pathologist Sig nature POCT PREG Negative On board controls acceptable Yes with C Line POCT PREG LOT # POCT PREG TEST DATE Specimen Urine - URINE, CLEAN CATCH documented in this encounter Visit Diagnoses Diagnosis Encounter for Nexplanon removal - Primar y Surveillance of previously prescribed im plantable subdermal contraceptive control counseling General counseling for initiation of oth er contraceptive measures Encounter for initial prescription of co ntraceptive pills General counseling for prescription of o ral contraceptives Tobacco use Tobacco use disorder documented in this encounter Insurance Payer Benefit Plan Subscriber ID Effective Phone Address Typ e / Group Dates [facility] [id number] 2018-Presmelissa [phone] Medicaid [place] [id number] [place] [address] documented as of this encounter
--- OUTSIDE RECORDS SUMMARY | 2020-09-23 19:16 | XMS REPORT | Summary of Care ---
:1995 Author Organization [facility] Address [address] [place] [address] Care Team Providers Name Role Phone Magnolia Carson Primary Care Provider Reason for Visit Reason Comments NEXPLANON Removal/BC Encounter Details Date Type Department Care Team Description 08/20/2020 Office Visit [facility] ROSALIOCHAnita- Kaylin Soto Enc ounter for Nexplanon removal (Primary Dx); 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 documented as of this encounter Last Filed Vital Signs Vital Sign Reading Time Taken Comments Blood Pressure 125/86 08/20/2020 3:53 PM PROP SETTER Pulse 97 08/20/2020 3:53 PM PROP SETTER Temperature 36.7 C (98 F) 08/20/2020 3:53 PM PROP SETTER Respiratory Rate 16 08/20/2020 3:53 PM PROP SETTER Oxygen Saturation - - Inhaled Oxygen Concentration - - Weight 79.5 kg (175 lb 4 oz) 08/20/2020 3:53 PM PROP SETTER Height 154.9 cm (5' 1") 08/20/2020 3:53 PM PROP SETTER Body Mass Index 33.11 08/20/2020 3:53 PM PROP SETTER documented in this encounter Progress Notes Kaylin [...] the following clinicians: Melissa Pierce and Scott Clements LVn. Timeout performed by Melissa RHODES and [...] Informed consent signed and obtained from pt SETTER documented in this encounter Plan of Treatment Date Type Specialty Care Team Description 11/19/2020 Office Visit OB Satellites Kaylin Soto FNP [address] [place], [place] [address] [phone] Health Maintenance Due Date Last Done Comments [...] 08/20/2020 3:55 PM control Results for this PROP SETTER counseling procedure are i n the results section. documented in this encounter Results POCT TEST (08/20/2020 3:55 PM PROP SETTER) Pathologist Sig nature POCT PREG Negative On [...] Address Typ e / Group Dates [facility] [id number] 2018-Presmelissa [phone] [address] Medicaid [place] [id number] [place] [address] documented as of this encounter
--- OUTSIDE RECORDS SUMMARY | 2020-09-23 19:16 | XMS REPORT | Summary of Care ---
:1995 Author Organization [facility] Address [address] [place] [address] Care Team Providers Name Role Phone Magnolia Carson Primary Care Provider Encounter Details Date Type Department Care Team Description 08/20/2020 Orders Only [facility] Doctor Unassigned, No [address] [facility] [place] [address] [address] [place] [address] Allergies Active Allergy Reactions Severity Noted Date Comments Penicillins Anaphylaxis Medium 12/21/2009 Lip swelling & some difficulty in swallowing. 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 documented as of this encounter Last Filed Vital Signs Not on filedocumented in this encounter Plan of Treatment Health Maintenance Due Date Last Done Comments [...] Name Priority Date/Time Associated Diagnosis Comme nts [facility] PATIENT FINANCIAL Routine 08/20/2020 4:22 PM MESSAGE BROKER DEVELOPER POLICY documented in this encounter Results Not on filedocumented in this encounter Insurance Payer Benefit Plan Subscriber ID Effective Phone Address Typ e / Group Dates [employer] [place] [id number] [id number] 2018-[id number] [phone] Medicaid [place]OMEN nt [id number] [place] [address] documented as of this encounter
[2020-09-23] MEDS ORDERED: MORPHINE 4 MG/ML SYR ONE (21:44)
[2020-09-23] MEDS ORDERED: ONDANSETRON 4 MG/2 ML VIAL ONE (21:45)
[2020-09-23 21:48] LABS: Urine Blood 1+ (NEG); Urine Glucose NEGATIVE (NEG); Urine Protein NEGATIVE (NEG); Urine Specific Gravity >1.030 (1.005-1.030); Urine pH 6.5 (5.0-7.0)
[2020-09-23] MEDS ORDERED: NA CHLORIDE 0.9% 1,000 ML ONE (21:48)
[2020-09-23 22:04] LABS: Basophils % 0.7 % (0-1.3); Hematocrit 38.8 % (36.0-45.0); Lymphocytes % 20.2 % (15.3-44.8); MPV 8.9 fL (7.6-11.3); RBC Red Blood Cell Count 4.43 M/uL (3.86-4.86)
[2020-09-23 22:13] LABS: ALT/SGPT 23 U/L (12-78); AST/SGOT 13 U/L (15-37); Albumin 3.8 g/dL (3.4-5.0); Alkaline Phosphatase 146 U/L (45-117); BUN Blood Urea Nitrogen 9 mg/dL (7-18); Bicarbonate 31 mmol/L (21-32); Bilirubin Direct < 0.1 mg/dL (0-0.2); Bilirubin Total 0.2 mg/dL (0.2-1.0); Glucose Level 75 mg/dL (74-106); Lipase 86 U/L (73-393); Potassium 3.6 mmol/L (3.5-5.1); Protein, Total 8.1 g/dL (6.4-8.2); Sodium Level 141 mmol/L (136-145)
[2020-09-23] MEDS ORDERED: MEDROXYPROGEST ACET 150 MG/ML IM ONE (22:54)
[2020-09-23 23:35] LABS: Urine Bacteria <20 /HPF (<20); Urine RBC <5 /HPF (NONE SEEN)
--- NOTE | 2020-09-24 01:18 | EDPHYS ---
Physician Documentation [facility] Name: Lisa Abdul Age: 25 yrs Sex: Female : 1995 Arrival Date: 09/23/2020 Time: 19:16 Bed 20 Private MD: ED Physician Renetta Carrillo HPI: 09/23 22:30 This 25 yrs old Female presents to ER via Ambulatory with complaints of ma2 Abdominal Pain, Back Pain. 22:30 The patient presents with pain that is acute. Onset: The symptoms/episode ma2 began/occurred gradually, 1 day(s) ago. Associated signs and symptoms: Pertinent positives: vaginal bleeding , Pertinent negatives: constipation, incontinence, numbness. Severity of symptoms: At their worst the symptoms were moderate, in the emergency department the symptoms are unchanged. The patient has not experienced similar symptoms in the past. 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 - Social history:: Smoking status: Patient denies any tobacco usage or history of. - Family history:: not pertinent. ROS: 09/23 22:30 Constitutional: Negative for fever, chills, and weight loss. ma2 All other systems are negative. Exam: 22:30 Constitutional: This is a well developed, well nourished patient who is awake, alert, ma2 and in no acute distress. Head/Face: Normocephalic, atraumatic. Eyes: Pupils equal round and reactive to light, extra-ocular motions intact. Lids and lashes normal. Conjunctiva and sclera are non-icteric and not injected. Cornea within normal limits. Periorbital areas with no swelling, redness, or edema. ENT: Nares patent. No nasal discharge, no septal abnormalities noted. Tympanic membranes are normal and external auditory canals are clear. Oropharynx with no redness, swelling, or masses, exudates, or evidence of obstruction, uvula midline. Mucous membranes moist. Neck: Trachea midline, no thyromegaly or masses palpated, and no cervical lymphadenopathy. Supple, full range of motion without nuchal rigidity, or vertebral point tenderness. No Meningismus. Chest/axilla: Normal chest wall appearance and motion. Nontender with no deformity. No lesions are appreciated. Cardiovascular: Regular rate and rhythm with a normal S1 and S2. No gallops, murmurs, or rubs. Normal PMI, no JVD. No pulse deficits. Respiratory: Lungs have equal breath sounds bilaterally, clear to auscultation and percussion. No rales, rhonchi or wheezes noted. No increased work of breathing, no retractions or nasal flaring. Abdomen/GI: Soft, non-tender, with normal bowel sounds. No distension or tympany. No guarding or rebound. No evidence of tenderness throughout. Back: No spinal tenderness. No costovertebral tenderness. Full range of motion. Skin: Warm, dry with normal turgor. Normal color with no rashes, no lesions, and no evidence of cellulitis. MS/ Extremity: Pulses equal, no cyanosis. Neurovascular intact. Full, normal range of motion. Neuro: Awake and alert, GCS 15, oriented to person, place, time, and situation. Cranial nerves II-XII grossly intact. Motor strength 5/5 in all extremities. Sensory grossly intact. Cerebellar exam normal. Normal gait. Vital Signs: 20:29 BP 137 / 85; Pulse 89; Resp 17; Temp 98.3; Pulse Ox 100% ; Weight 80.74 kg; Height 5 ll1 ft. 1 in. (154.94 cm); Pain 7/10; 20:29 Body Mass Index 33.63 (80.74 kg, 154.94 cm) ll1 MDM: 20:58 Patient medically screened. ma2 22:30 Differential diagnosis: patient is having heavy periods dd includes ectopic p, vs dub ma2 vs vaginosis vs endometriosis, no active bleedinga t this time. 09/24 01:17 Data reviewed: vital signs, nurses notes. Counseling: I had a detailed discussion with maKadeem the patient and/or guardian regarding: the historical points, exam findings, and any diagnostic results supporting the discharge/admit diagnosis, the presence of at least one elevated blood pressure reading (>120/80) during this emergency department visit, the need for outpatient follow up. Response to treatment: the patient's symptoms have markedly improved after treatment. 09/23 20:46 Order name: Urine Microscopic Only; Complete Time: 23:44 snw 09/23 21:17 Order name: Basic Metabolic Panel; Complete Time: 22:30 ma2 09/23 21:17 Order name: CBC with Diff; Complete Time: 22:11 ma2 09/23 21:17 Order name: Hepatic Function; Complete Time: 22:30 ma2 09/23 21:17 Order name: Lipase; Complete Time: 22:30 ma2 09/23 20:46 Order name: Urine Test (obtain specimen); Complete Time: 21:27 snw 09/23 21:17 Order name: CT Abd/Pelvis - IV Contrast Only de2 09/23 21:26 Order name: Urine Dipstick--Ancillary (enter results); Complete Time: 21:59 mw2 09/23 21:26 Order name: Urine --Ancillary (enter results); Complete Time: 21:59 mw2 09/23 20:46 Order name: Urine Dipstick-Ancillary (obtain specimen); Complete Time: 21:27 snw 09/23 21:17 Order name: IV Saline Lock; Complete Time: 23:00 ma2 09/23 21:17 Order name: NPO; Complete Time: 23:01 ma2 Administered Medications: 09/23 22:00 Drug: NS 0.9% 1000 ml Route: IV; Rate: 1000 ml; Site: right antecubital; ll2 23:01 Follow up: Response: No adverse reaction ll2 23:01 Follow up: IV Status: Completed infusion; IV Intake: 1000ml ll2 22:00 Drug: Zofran (Ondansetron) 4 mg Route: IVP; Site: right antecubital; ll2 23:01 Follow up: Response: No adverse reaction ll2 22:00 Drug: morphine 4 mg Route: IVP; Site: right antecubital; ll2 23:01 Follow up: Response: No adverse reaction; RASS: Alert and Calm (0) ll2 22:59 Drug: medroxyPROGESTERone 150 mg Route: IM; Site: right deltoid; ll2 23:58 Follow up: Response: No adverse reaction 2 Disposition: 09/24/20 01:18 Discharged to Home. Impression: Other abnormal uterine and vaginal bleeding. - Condition is Stable. - Discharge Instructions: Abnormal Uterine Bleeding, Rlsl-vs-Iull. - Prescriptions for Provera 5 mg Oral tablet - take 1 tablet by ORAL route once daily; 12 tablet. Diclofenac Sodium 75 mg Oral Tablet Sustained Release - take 1 tablet by ORAL route 2 times per day; 30 tablet. - Medication Reconciliation Form, Thank You Letter, Antibiotic Education, Prescription Opioid Use form. - Follow up: Private Physician; When: Tomorrow; Reason: Continuance of care. Signatures: Dispatcher [employer] EDWI Sue Goodman, TRANSPORTATION SUPERVISOR-C TRANSPORTATION SUPERVISOR-Csnw Renetta Carrillo MD MD ma2 Miri Cortes RN RN ll2 Melina Martinez RN RN ll1 Corrections: (The following items were deleted from the chart) 23:43 21:17 TEST, SERUM+SC.LAB.BRZ ordered. [facility] 09/24 01:42 09/23 20:29 Allergies: PENICILLINS; ll1 ll2 09/24 01:42 09/23 20:29 Allergies: Motrin; ll1 ll2 09/24 01:42 09/23 20:29 PMHx: Asthma; ll1 ll2 09/24 01:42 09/23 20:29 PSHx: ; ll1 ll2 09/24 01:42 01:18 09/24/2020 01:18 Discharged to Home. Impression: Other abnormal uterine and ll2 vaginal bleeding. Condition is Stable. Prescriptions for Provera 5 mg Oral tablet - take 1 tablet by ORAL route once daily; 12 tablet, Diclofenac Sodium 75 mg Oral Tablet Sustained Release - take 1 tablet by ORAL route 2 times per day; 30 tablet. and Forms are Medication Reconciliation Form, Thank You Letter, Antibiotic Education, Prescription Opioid Use. Follow up: Private Physician; When: Tomorrow; Reason: Continuance of care. ma2
--- NOTE | 2020-09-24 01:18 | ER ---
Nurse's Notes [facility] Name: Lisa Abdul Age: 25 yrs Sex: Female : 1995 Arrival Date: 09/23/2020 Time: 19:16 Bed 20 Private MD: Diagnosis: Other abnormal uterine and vaginal bleeding Presentation: 09/23 20:29 Chief complaint: Patient states: Started period Monday with pelvic pain. Today she has ll1 a lot of bleeding with bad cramping. States she soaks through a pad in 30 min. Coronavirus screen: Client denies travel out of the [place] in the last 14 days. At this time, the client does not indicate any symptoms associated with coronavirus-19. Ebola Screen: Patient denies travel to an Ebola-affected area in the 21 days before illness onset. Initial Sepsis Screen: Does the patient meet any 2 criteria? No. Patient's initial sepsis screen is negative. Does the patient have a suspected source of infection? Yes: Acute abdominal pain. Risk Assessment: Do you want to hurt yourself or someone else? Patient reports no desire to harm self or others. Onset of symptoms was September 21, 2020. 20:29 Method Of Arrival: Ambulatory ll1 20:29 Acuity: ODIN 3 ll1 EXAMINATION SCORER: 09/24 01:41 LMP N/A - currently on cycle ll2 Historical: - Allergies: 01:41 PENICILLINS; ll2 01:41 Motrin; ll2 - Home Meds: 01:41 inhaler [Active]; control implant [Active]; ll2 - PMHx: 01:41 Asthma; ll2 - PSHx: 01:41 ; ll2 - Immunization history:: Flu vaccine is not up to date. - Social history:: Smoking status: Patient denies any tobacco usage or history of. - Family history:: not pertinent. Screenin/23 20:55 Abuse screen: Denies threats or abuse. ll2 20:55 Nutritional screening: No deficits noted. Tuberculosis screening: No symptoms or risk ll2 factors identified. Fall Risk None identified. Assessment: 20:49 General: Appears in no apparent distress. uncomfortable, Behavior is calm, cooperative, ll2 appropriate for age. Pain: Complains of pain in right lower quadrant and left lower quadrant. Neuro: Level of Consciousness is awake, alert, obeys commands, Oriented to person, place, time, situation. Cardiovascular: Patient's skin is warm and dry. Respiratory: Airway is patent Respiratory effort is even, unlabored, Respiratory pattern is regular, symmetrical. GI: Bowel sounds present X 4 quads. Abd is soft and non tender. : No signs and/or symptoms were reported regarding the genitourinary system. EENT: No signs and/or symptoms were reported regarding the EENT system. Derm: Skin is intact, is healthy with good turgor, Skin is dry, Skin is pink, warm \T\ dry. Musculoskeletal: Circulation, motion, and sensation intact. Range of motion: intact in all extremities. 21:45 Reassessment: Patient and/or family updated on plan of care and expected duration. Pain ll2 level reassessed. Patient is alert, oriented x 3, equal unlabored respirations, skin warm/dry/pink. mom and at bedside. 22:50 Reassessment: Patient and/or family updated on plan of care and expected duration. Pain ll2 level reassessed. Patient is alert, oriented x 3, equal unlabored respirations, skin warm/dry/pink. pt denies any pain or discomfort at this time. 23:55 Reassessment: Patient and/or family updated on plan of care and expected duration. Pain ll2 level reassessed. Patient is alert, oriented x 3, equal unlabored respirations, skin warm/dry/pink. 09/24 00:50 Reassessment: Patient and/or family updated on plan of care and expected duration. Pain ll2 level reassessed. Patient is alert, oriented x 3, equal unlabored respirations, skin warm/dry/pink. pt resting in bed, family at bedside. 01:40 Reassessment: Patient and/or family updated on plan of care and expected duration. Pain ll2 level reassessed. Patient is alert, oriented x 3, equal unlabored respirations, skin warm/dry/pink. Vital Signs: 09/23 20:29 BP 137 / 85; Pulse 89; Resp 17; Temp 98.3; Pulse Ox 100% ; Weight 80.74 kg; Height 5 ll1 ft. 1 in. (154.94 cm); Pain 7/10; 20:29 Body Mass Index 33.63 (80.74 kg, 154.94 cm) ll1 ED Course: 19:16 Patient arrived in ED. rg4 20:28 Arm band placed on. ll1 20:31 Triage completed. ll1 20:54 Miri Cortes, RN is Primary Nurse. ll2 20:55 Patient has correct armband on for positive identification. Placed in gown. Bed in low ll2 position. Call light in reach. Side rails up X 1. Pulse ox on. NIBP on. 20:55 No provider procedures requiring assistance completed. Initial lab(s) drawn, by me, ll2 sent to lab. Inserted saline lock: 22 gauge in right antecubital area, using aseptic technique. Blood collected. 20:58 Renetta Carrillo MD is Attending Physician. ma2 22:23 Radiology exam delayed due to WAITING ON SERUM. vm2 22:51 Radiology exam delayed due to WAITING ON PRENANCY SERUM. vm2 09/24 00:33 CT Abd/Pelvis - IV Contrast Only In Process Unspecified. EDMS 01:42 IV discontinued, intact, bleeding controlled, No redness/swelling at site. Pressure ll2 dressing applied. Administered Medications: 09/23 22:00 Drug: NS 0.9% 1000 ml Route: IV; Rate: 1000 ml; Site: right antecubital; ll2 23:01 Follow up: Response: No adverse reaction ll2 23:01 Follow up: IV Status: Completed infusion; IV Intake: 1000ml ll2 22:00 Drug: Zofran (Ondansetron) 4 mg Route: IVP; Site: right antecubital; ll2 23:01 Follow up: Response: No adverse reaction ll2 22:00 Drug: morphine 4 mg Route: IVP; Site: right antecubital; ll2 23:01 Follow up: Response: No adverse reaction; RASS: Alert and Calm (0) ll2 22:59 Drug: medroxyPROGESTERone 150 mg Route: IM; Site: right deltoid; ll2 23:58 Follow up: Response: No adverse reaction ll2 Intake: 23:01 IV: 1000ml; Total: 1000ml. ll2 Outcome: 09/24 01:18 Discharge ordered by . ma2 01:40 Discharged to home ambulatory. ll2 01:40 Condition: stable 01:40 Discharge instructions given to patient, Instructed on discharge instructions, follow up and referral plans. medication usage, Demonstrated understanding of instructions, follow-up care, medications, Prescriptions given X 2. 01:42 Patient left the ED. ll2 Signatures: Dispatcher [employer] Leda Harrison 4 Kaitlynn Charlton 2 Renetta Carrillo MD MD mi2 Miri Cortes RN RN ll2 Melina Martinez RN RN ll1 Corrections: (The following items were deleted from the chart) :09/23 20:29 Allergies: PENICILLINS; ll1 ll2 09/24 01:09/23 20:29 Allergies: Motrin; ll1 ll2 09/24 01:09/23 20:29 PMHx: Asthma; ll1 ll2 09/24 01:09/23 20:29 PSHx: ; ll1 ll2
[2020-09-24 01:47] VITALS: BP 137/85; TEMP 98.3; O2SAT 100
--- NOTE | 2020-09-24 11:52 | RAD REPORT ---
EXAM DESCRIPTION: CT - Abdomen Pelvis W Contrast - 09/24/2020 6:41 am CLINICAL HISTORY: The patient is 25 years old and is Female; lower abdominal pain TECHNIQUE: Axial computed tomography images of the abdomen and pelvis with intravenous contrast. S agittal and coronal reformatted images were created and reviewed. This CT exam was performed using one or more of the following dose reduction techniques: automated exposure control, adjustment of t he mA and/or kV according to patient size, and/or use of iterative reconstruction technique. DLP: 2306 mGy*cm COMPARISON: None. FINDINGS: LUNG BASES: Lung bases are clear. HEART: Visualized heart is normal. ABDOMEN: LIVER: Unremarkable. No mass. GALLBLADDER AND BILE DUCTS: Unremarkable. No calcified stones. No ductal dilation. PANCREAS: Unremarkable. No mass. No ductal dilation. SPLEEN: Unremarkable. No splenomegaly. ADRENALS: Unremarkable. No mass. KIDNEYS AND URETERS: Unremarkable. No solid mass. No hydronephrosis. STOMACH AND BOWEL: Unremarkable. No obstruction. No mucosal thickening. PELVIS: APPENDIX: The appendix is seen and is within normal limits. BLADDER: Bladder is decompressed. REPRODUCTIVE: 2 cm left ovarian cyst. ABDOMEN and PELVIS: INTRAPERITONEAL SPACE: Unremarkable. No free air. No significant fluid collection. BONES/JOINTS: No acute fracture. No dislocation. SOFT TISSUES: Unremarkable. VASCULATURE: Unremarkable. No abdominal aortic aneurysm. LYMPH NODES: Unremarkable. No enlarged lymph nodes. IMPRESSION: 1. No acute abdominal or pelvic abnormality. 2. 2 cm left ovarian cyst. No follow-up imaging is recommended. Reference: US recommendations based on Radiology 2010 Jun;256(3):943-54; CT/MR recommendations based on J Am Andriy Radiol 2013;10:675-681. Electronically signed by: Genaro Sutherland DO 09/24/2020 12:51 AM SOCIAL MEDIA DEVELOPER Due to temporary technical issues with the PACS/Fluency reporting system, reports are being signed by the in house radiologists without review as a courtesy to insure prompt reporting. The interpreting radiologist is fully responsible for the content of the report.
== END 2020-09-24 01:42 | disposition home or self-care (01) ==
LOC: ER 19:14
DX: N93.8 Other specified abnormal uterine and vaginal bleeding (principal); Z88.0 Allergy status to penicillin; Z88.6 Allergy status to analgesic agent
CPT/HCPCS: 36415; 74177; 80048; 80076; 81003; 81015; 81025; 83690; 85025; 96361; 96372; 96374; 96375; 99284; J1050; J2405; J7030; Q9967

== ENCOUNTER 2021-04-05 02:54 | Emergency (ER) | payer SELFPAY ==
--- OUTSIDE RECORDS SUMMARY | 2021-04-05 03:01 | XMS REPORT | Continuity of Care Document ---
:1995 Author Organization [facility] t Address [address] [place] [address] Care Team Providers Name Role Phone Itz Schultz DO Attending Clinician Magnolia Garcia Attending Clinician Doctor Unassigned, Name Attending Clinician Unavailable Problems This patient has no known problems. Allergies, Adverse Reactions, Alerts This patient has no known allergies or adverse reactions. Medications This patient has no known medications. Procedures This patient has no known procedures. Encounters Start End Encounter Admission Attending Care Care Encounter Source Date/Time Date/Time Type Type Clinicians Facility Department ID 2020-12-22 2020-12-22 Patient RAMYA Schultz [id number] 00:00:00 00:00:00 Outreach Rey [facility] [id number] Itz [facility] [id number] [place] [id number] 2020-10-28 2020-10-28 Office RAMYA Carson [id number] 08:53:19 09:37:34 Visit Grady Merida [facility] [id number] [facility] [id number] [facility]ER[facility] [phone] & CHILD [address] [place] [address] 2020-10-28 2020-10-28 Orders Doctor KOCH [id number] 00:00:00 00:00:00 Only VAMSI Bowman.[id number] [place] [id number] Results This patient has no known results.
[2021-04-05 03:18] LABS: Urine Blood 3+ (Negative); Urine Glucose Negative (Negative); Urine Protein Negative (Negative); Urine Specific Gravity 1.025 (1.005-1.030)
[2021-04-05 03:40] LABS: Urine Specific Gravity/Preg 1.025 (1.005-1.030)
[2021-04-05 03:51] LABS: Absolute Lymphocytes (CBC) 2.4 K/uL (0.7-4.9); Basophils % 0.6 % (0-1.3); Lymphocytes % 30.6 % (15.3-44.8); MPV 8.9 fL (7.6-11.3); RBC Red Blood Cell Count 4.42 M/uL (3.86-4.86)
[2021-04-05] MEDS ORDERED: NA CHLORIDE 0.9% 1,000 ML ONE (03:51)
[2021-04-05] MEDS ORDERED: ONDANSETRON 4 MG/2 ML VIAL ONE (03:51)
[2021-04-05] MEDS ORDERED: MORPHINE 2 MG/ML SYR ONE (03:51)
[2021-04-05 04:07] LABS: ALT/SGPT 27 U/L (12-78); AST/SGOT 16 U/L (15-37); Albumin 3.9 g/dL (3.4-5.0); Alkaline Phosphatase 129 U/L (45-117); BUN Blood Urea Nitrogen 14 mg/dL (7-18); Bicarbonate 27 mmol/L (21-32); Bilirubin Direct < 0.1 mg/dL (0-0.2); Bilirubin Total 0.3 mg/dL (0.2-1.0); Glucose Level 88 mg/dL (74-106); Lipase 51 U/L (73-393); Potassium 3.6 mmol/L (3.5-5.1); Protein, Total 7.8 g/dL (6.4-8.2); Sodium Level 139 mmol/L (136-145)
--- NOTE | 2021-04-05 04:38 | ER ---
Nurse's Notes [facility] Name: Lisa Abdul Age: 25 yrs Sex: Female : 1995 Arrival Date: 04/05/2021 Time: 02:59 Bed 7 Private MD: Diagnosis: Abdominal pain Presentation: 04/05 03:06 Chief complaint: Patient states: LRQ pain off and on today, hx of ovarian cyst in em September, also reports vaginal bleeding denies burning with urination. Coronavirus screen: Client denies travel out of the [place] in the last 14 days. Ebola Screen: Patient negative for fever greater than or equal to 101.5 degrees Fahrenheit, and additional compatible Ebola Virus Disease symptoms Patient denies exposure to infectious person. Patient denies travel to an Ebola-affected area in the 21 days before illness onset. No symptoms or risks identified at this time. Initial Sepsis Screen: Does the patient meet any 2 criteria? No. Patient's initial sepsis screen is negative. Does the patient have a suspected source of infection? No. Patient's initial sepsis screen is negative. Risk Assessment: Do you want to hurt yourself or someone else? Patient reports no desire to harm self or others. Onset of symptoms was April 05, 2021. 03:06 Method Of Arrival: Ambulatory em 03:06 Acuity: ODIN 3 em CREDIT VERIFIER: 03:07 LMP 03/23/2021 em Historical: - Allergies: 03:07 Motrin; em 03:07 PENICILLINS; em - PMHx: 03:07 Asthma; em - PSHx: 03:07 None; em - Immunization history:: Adult Immunizations not up to date. - Social history:: Smoking status: Patient denies any tobacco usage or history of. Screenin:14 Abuse screen: Denies threats or abuse. Denies injuries from another. Nutritional lp1 screening: No deficits noted. Tuberculosis screening: No symptoms or risk factors identified. Fall Risk None identified. Assessment: 03:46 General: Appears in no apparent distress. Behavior is calm, cooperative, appropriate lp1 for age. Pain: Complains of pain in right lower quadrant Pain currently is 6 out of 10 on a pain scale. Quality of pain is described as crampy, sharp, Pain began 1 day ago. Neuro: Level of Consciousness is awake, alert, obeys commands. Cardiovascular: Patient's skin is warm and dry. Respiratory: Respiratory effort is even, unlabored. GI: Abdomen is non-distended, Bowel sounds present X 4 quads. Abdomen is tender to palpation in right lower quadrant Patient currently denies diarrhea, nausea. : Reports vaginal bleeding that is with clots, heavy flow since 1 day ago. EENT: No signs and/or symptoms were reported regarding the EENT system. Derm: Skin is pink, warm \T\ dry. Musculoskeletal: No deficits noted. 03:49 Reassessment: Patient denies need for pain medication at this time. lp1 Vital Signs: 03:06 BP 135 / 75; Pulse 61; Resp 16; Temp 98.0; Pulse Ox 99% on R/A; Weight 92.99 kg; Height em 5 ft. 3 in. (160.02 cm); Pain 6/10; 04:42 BP 124 / 80; Pulse 62; Resp 16; Pulse Ox 99% on R/A; lp1 03:06 Body Mass Index 36.31 (92.99 kg, 160.02 cm) em ED Course: 02:59 Patient arrived in ED. bp1 03:07 Triage completed. em 03:07 Arm band placed on. em 03:13 Pastora Chopra, RN is Primary Nurse. lp1 03:14 Patient has correct armband on for positive identification. lp1 03:19 Aydin Sanchez MD is Attending Physician. pkl 03:45 Inserted saline lock: 20 gauge in right antecubital area, using aseptic technique. lp1 Blood collected. 04:02 CT Abd/Pelvis - IV Contrast Only In Process Unspecified. EDMS 04:44 No provider procedures requiring assistance completed. IV discontinued, No lp1 redness/swelling at site. Pressure dressing applied. Administered Medications: 03:45 CANCELLED (Physician Discretion; Changed order): NS 0.9% 1000 ml IV at 125 ml/hr lp1 continuous 03:45 Drug: NS 0.9% 1000 ml Route: IV; Rate: 1000 ml; Site: right antecubital; lp1 04:45 Follow up: IV Status: IV converted to saline lock; IV Intake: 400ml lp1 Intake: 04:45 IV: 400ml; Total: 400ml. lp1 Outcome: 04:37 Discharge ordered by . pkl 04:50 Discharged to home ambulatory, with significant other. lp1 04:50 Condition: good 04:50 Discharge instructions given to patient, Instructed on discharge instructions, follow up and referral plans. Demonstrated understanding of instructions, follow-up care. 04:50 Patient left the ED. lp1 Signatures: Dispatcher [employer] Aydin Johnson MD MD pkl Munoz, Edgar, RN RN Pastora Qiuros RN RN lp1 Sally Vasquez [facility]
--- NOTE | 2021-04-05 04:38 | EDPHYS ---
Physician Documentation [facility] Name: Lisa Abdul Age: 25 yrs Sex: Female : 1995 Arrival Date: 04/05/2021 Time: 02:59 Bed 7 Private MD: ED Physician Aydin Sanchez HPI: 04/05 03:28 This 25 yrs old Female presents to ER via Ambulatory with complaints of pkl Vaginal Bleeding. 03:28 The patient presents with abdominal pain right lower quadrant. Onset: The pkl symptoms/episode began/occurred yesterday. The symptoms do not radiate. Associated signs and symptoms: Pertinent positives: vaginal bleeding. 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 - Social history:: Smoking status: Patient denies any tobacco usage or history of. ROS: 03:28 Eyes: Negative for injury, pain, redness, and discharge, ENT: Negative for injury, pkl pain, and discharge, Neck: Negative for injury, pain, and swelling, Cardiovascular: Negative for chest pain, palpitations, and edema, Respiratory: Negative for shortness of breath, cough, wheezing, and pleuritic chest pain. 03:28 Abdomen/GI: Positive for abdominal pain, of the right lower quadrant. 03:28 Back: Negative for acute changes. 03:28 : Positive for vaginal bleeding. 03:28 MS/extremity: Negative for acute changes. 03:28 Skin: Negative for rash. 03:28 Neuro: Negative for altered mental status. Exam: 03:28 Head/Face: Normocephalic, atraumatic. Eyes: Pupils equal round and reactive to light, pkl extra-ocular motions intact. Lids and lashes normal. Conjunctiva and sclera are non-icteric and not injected. Cornea within normal limits. Periorbital areas with no swelling, redness, or edema. ENT: Nares patent. No nasal discharge, no septal abnormalities noted. Tympanic membranes are normal and external auditory canals are clear. Oropharynx with no redness, swelling, or masses, exudates, or evidence of obstruction, uvula midline. Mucous membranes moist. Neck: Trachea midline, no thyromegaly or masses palpated, and no cervical lymphadenopathy. Supple, full range of motion without nuchal rigidity, or vertebral point tenderness. No Meningismus. Chest/axilla: Normal chest wall appearance and motion. Nontender with no deformity. No lesions are appreciated. Cardiovascular: Regular rate and rhythm with a normal S1 and S2. No gallops, murmurs, or rubs. Normal PMI, no JVD. No pulse deficits. Respiratory: Lungs have equal breath sounds bilaterally, clear to auscultation and percussion. No rales, rhonchi or wheezes noted. No increased work of breathing, no retractions or nasal flaring. 03:28 Abdomen/GI: Bowel sounds: normal, Palpation: soft, mild abdominal tenderness, in the right lower quadrant. 03:28 Abdomen/GI: Exam negative for acute changes. 03:28 Back: Exam negative for acute changes. 03:28 Musculoskeletal/extremity: Exam is negative for acute changes. 03:28 Skin: Exam negative for rash. 03:28 Neuro: Orientation: is normal, Mentation: is normal, Cranial nerves: Motor: Vital Signs: 03:06 BP 135 / 75; Pulse 61; Resp 16; Temp 98.0; Pulse Ox 99% on R/A; Weight 92.99 kg; Height em 5 ft. 3 in. (160.02 cm); Pain 6/10; 04:42 BP 124 / 80; Pulse 62; Resp 16; Pulse Ox 99% on R/A; lp1 03:06 Body Mass Index 36.31 (92.99 kg, 160.02 cm) em MDM: 03:19 Patient medically screened. pkl 03:28 Data reviewed: vital signs, nurses notes. pkl 04/05 03:18 Order name: Urine Dipstick-Ancillary EDMS 04/05 03:20 Order name: Urine --Ancillary (enter results); Complete Time: 04:26 tt3 04/05 03:27 Order name: Basic Metabolic Panel; Complete Time: 04:26 pkl 04/05 03:27 Order name: CBC with Diff; Complete Time: 04:26 pkl 04/05 03:27 Order name: Hepatic Function; Complete Time: 04:26 pkl 04/05 03:27 Order name: Lipase; Complete Time: 04:26 pkl 04/05 03:20 Order name: Urine Test (obtain specimen); Complete Time: 03:20 tt3 04/05 03:27 Order name: IV Saline Lock; Complete Time: 03:45 pkl 04/05 03:27 Order name: Labs collected and sent; Complete Time: 03:45 pkl 04/05 03:27 Order name: CT Abd/Pelvis - IV Contrast Only pkl Administered Medications: 03:45 CANCELLED (Physician Discretion; Changed order): NS 0.9% 1000 ml IV at 125 ml/hr lp1 continuous 03:45 Drug: NS 0.9% 1000 ml Route: IV; Rate: 1000 ml; Site: right antecubital; lp1 04:45 Follow up: IV Status: IV converted to saline lock; IV Intake: 400ml lp1 Disposition Summary: 04/05/21 04:37 Discharge Ordered Location: Home pkl Problem: new pkl Symptoms: have improved pkl Condition: Stable pkl Diagnosis - Abdominal pain pkl Followup: pkl - With: Private Physician - When: 2 - 3 days - Reason: Re-evaluation by your physician Forms: - Medication Reconciliation Form pkl - Thank You Letter pkl - Antibiotic Education pkl - Prescription Opioid Use pkl Signatures: Dispatcher [employer] Aydin Johnson MD MD pkl Stephen Taylor RN RN Pastora Quiros RN RN lp1 Kwasi Rizvi tt3 Corrections: (The following items were deleted from the chart) 03:45 03:27 NS 0.9% 1000 ml IV at 125 ml/hr continuous ordered. pkl lp1
[2021-04-05 05:11] VITALS: TEMP 98; O2SAT 99
[2021-04-05 05:17] VITALS: BP 124/80
--- NOTE | 2021-04-05 11:43 | RAD REPORT ---
EXAM DESCRIPTION: CT - Abdomen Pelvis W Contrast - 04/05/2021 6:49 am CLINICAL HISTORY: The patient is 25 years old and is Female; ABD PAIN TECHNIQUE: Axial computed tomography images of the abdomen and pelvis with intravenous contrast. S agittal and coronal reformatted images were created and reviewed. This CT exam was performed using one or more of the following dose reduction techniques: automated exposure control, adjustment of t he mA and/or kV according to patient size, and/or use of iterative reconstruction technique. COMPARISON: CT abdomen and pelvis September 23, 2020. FINDINGS: Lung bases: Unremarkable. No mass. No consolidation. ABDOMEN: Liver: Unremarkable. No mass. Gallbladder and bile ducts: Unremarkable. No calcified stones. No ductal dilation. Pancreas: Unremarkable. No mass. No ductal dilation. Spleen: Unremarkable. No splenomegaly. Adrenals: Unremarkable. No mass. Kidneys and ureters: Unremarkable. No solid mass. No hydronephrosis. Stomach and bowel: Unremarkable. No obstruction. No mucosal thickening. PELVIS: Appendix: The appendix is normal. Bladder: Unremarkable. No mass. Reproductive: Unremarkable as visualized. ABDOMEN and PELVIS: Intraperitoneal space: Unremarkable. No free air. No significant fluid collection. Bones/joints: No acute fracture. No dislocation. Soft tissues: Unremarkable. Vasculature: Unremarkable. No abdominal aortic aneurysm. Lymph nodes: Unremarkable. No enlarged lymph nodes. IMPRESSION: No acute findings in the abdomen or pelvis. Electronically signed by: Hector Gudino MD 04/05/2021 4:29 AM CDT Due to temporary technical issues with the PACS/Fluency reporting system, reports are being signed by the in house radiologist without review as a courtesy to ensure prompt reporting. The interpreting r adiologist is fully responsible for the content of the report.
== END 2021-04-05 04:50 | disposition home or self-care (01) ==
LOC: ER 02:54
DX: R10.31 Right lower quadrant pain (principal); Z88.0 Allergy status to penicillin; Z88.6 Allergy status to analgesic agent
CPT/HCPCS: 36415; 74177; 80048; 80076; 81003; 81025; 82565; 83690; 85025; 96360; 99284; J2270; J2405; J7030; Q9967

== ENCOUNTER 2021-08-11 17:49 | Emergency (ER) | payer SELFPAY ==
--- NOTE | 2021-08-11 19:58 | ER ---
Nurse's Notes [facility] Name: Lisa Abdul Age: 26 yrs Sex: Female : 1995 Arrival Date: 08/11/2021 Time: 17:51 Bed 20 Private MD: Diagnosis: SARS-associated coronavirus as the cause of diseases classified elsewhere Presentation: 08/11 18:54 Chief complaint: Patient states: Headache, sore throat, fever X 3 weeks. Pt reports ld1 exposure to covid, two positive covid test from [facility]. Coronavirus screen: fever, headache, sore throat, Client presents with at least one sign or symptom that may indicate coronavirus-19. Standard/surgical mask placed on the client. Ebola Screen: No symptoms or risks identified at this time. Initial Sepsis Screen: Does the patient meet any 2 criteria? No. Patient's initial sepsis screen is negative. Does the patient have a suspected source of infection? No. Patient's initial sepsis screen is negative. Risk Assessment: Do you want to hurt yourself or someone else? Patient reports no desire to harm self or others. Onset of symptoms was August 11, 2021 at 19:00. 18:54 Method Of Arrival: Ambulatory ld1 18:54 Acuity: ODIN 4 ld1 Triage Assessment: 19:00 Headache History: Denies prior headaches. General: Appears in no apparent distress. ld1 comfortable, Behavior is calm, cooperative, appropriate for age. Pain: Denies pain. EENT: No signs and/or symptoms were reported regarding the EENT system. Neuro: Level of Consciousness is awake, alert, obeys commands, Oriented to person, place, time, situation. Cardiovascular: Capillary refill < 3 seconds Patient's skin is warm and dry. Respiratory: Respiratory effort is even, unlabored, Respiratory pattern is regular. GI: No signs and/or symptoms were reported involving the gastrointestinal system. Derm: Skin is pink, warm \\T\\ dry. Musculoskeletal: Circulation, motion, and sensation intact. 20:17 Pain: Pain began Intermittent "sore throat" 2/10 with intermittent [place] Also complains cc4 of. : Denies burning with urination, urinary frequency. 20:22 Pain: Pain currently is 2 out of 10 on a pain scale. 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 - Social history:: Smoking status: Patient denies any tobacco usage or history of. Patient/guardian denies using alcohol. Screenin:00 Abuse screen: Denies threats or abuse. Nutritional screening: No deficits noted. cc4 Tuberculosis screening: No symptoms or risk factors identified. Fall Risk None identified. Assessment: 20:00 General: Appears uncomfortable, Behavior is calm, cooperative. Neuro: No deficits cc4 noted. Level of Consciousness is awake, alert, Oriented to person, place, time, situation. Cardiovascular: No deficits noted. Denies chest pain, Heart tones S1 S2. Respiratory: No deficits noted. Reports cough that is non-productive, intermittently with sore throat. Airway is patent Respiratory effort is even, unlabored. GI: No deficits noted. Abdomen is non-distended, Bowel sounds present X 4 quads. : No signs and/or symptoms were reported regarding the genitourinary system. EENT: No deficits noted. Eyes clear. Nares are clear Oral mucosa is moist. Throat. Derm: No signs and/or symptoms reported regarding the dermatologic system. Musculoskeletal: No signs and/or symptoms reported regarding the musculoskeletal system. Capillary refill < 3 seconds, Range of motion: intact in all extremities. 20:00 Pain: Complains of pain in "sore throat" with intermittent Headache Pain does not cc4 radiate. Pain currently is 2 out of 10 on a pain scale. at worst was 10 out of 10 on a pain scale. Quality of pain is described as aching, "sore". Vital Signs: 18:46 BP 131 / 78; Pulse 90; Resp 16; Temp 97.8; Pulse Ox 100% on R/A; Weight 89.2 kg; Height dh4 5 ft. 2 in. (157.48 cm); 20:09 BP 131 / 84; Pulse 85; Resp 20; Temp 98.1; Pulse Ox 100% on R/A; cc4 18:46 Body Mass Index 35.97 (89.20 kg, 157.48 cm) 4 ED Course: 17:51 Patient arrived in ED. ds1 19:00 Triage completed. ld1 19:00 Arm band placed on Patient placed in waiting room, Patient notified of wait time. ld1 19:46 Ericka Sotomayor MD is Attending Physician. sp3 20:00 Patient has correct armband on for positive identification. Bed in low position. Call cc4 light in reach. 20:01 Jaqui Dominguez, RN is Primary Nurse. cc4 20:01 SARS-COV-2 RT PCR Sent. cc4 20:01 COVID-19 SARS RT PCR (Document "Date of Onset" if Symptomatic) Sent. cc4 20:09 No provider procedures requiring assistance completed. cc4 20:09 Patient did not have IV access during this emergency room visit. cc4 Administered Medications: No medications were administered Outcome: 19:57 Discharge ordered by . sp3 20:09 Patient left the ED. cc4 20:09 Discharged to home ambulatory. cc4 20:09 Condition: stable 20:09 Discharge instructions given to patient, Instructed on discharge instructions, follow up and referral plans. Demonstrated understanding of instructions, follow-up care. Signatures: Reyna Schultz ds1 Mukund Claudio 4 Hannah Ochoa RN RN ld1 Ericka Sotomayor MD MD sp3 Jaqui Dominguez, TAMEKA RN cc4 Corrections: (The following items were deleted from the chart) 20:20 20:00 Pain: Denies pain. cc4 cc4 20:24 20:17 No provider procedures requiring assistance completed. cc4 cc4
--- NOTE | 2021-08-11 19:58 | EDPHYS ---
Physician Documentation [facility] Name: Lisa Abdul Age: 26 yrs Sex: Female : 1995 Arrival Date: 08/11/2021 Time: 17:51 Bed 20 Private MD: ED Physician Ericka Sotomayor HPI: 08/11 19:55 This 26 yrs old Female presents to ER via Ambulatory with complaints of sp3 Headache, Sore Throat, Fever. 19:55 26-year-old female presents to the ED for "I need a Covid test to confirm my positive sp3 result". Patient states that she had a positive test at a local pharmacy and has been having body aches, fever, mild cough. Patient denies chest pain, back pain, abdominal pain, nausea, vomiting, diarrhea, significant dyspnea or any other critical findings.. 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 - Social history:: Smoking status: Patient denies any tobacco usage or history of. Patient/guardian denies using alcohol. ROS: 19:56 Eyes: Negative for injury, pain, redness, and discharge, Neck: Negative for injury, sp3 pain, and swelling, Cardiovascular: Negative for chest pain, palpitations, and edema, Abdomen/GI: Negative for abdominal pain, nausea, vomiting, diarrhea, and constipation, Back: Negative for injury and pain, MS/Extremity: Negative for injury and deformity, Skin: Negative for injury, rash, and discoloration, Neuro: Negative for headache, weakness, numbness, tingling, and seizure. 19:56 Respiratory: Positive for Patient is positive on ROS for cough, fever, body aches as per the HPI.. 19:56 All other systems are negative. Exam: 19:56 Constitutional: This is a well developed, well nourished patient who is awake, alert, sp3 and in no acute distress. Head/Face: Normocephalic, atraumatic. Neck: Trachea midline, no thyromegaly or masses palpated, and no cervical lymphadenopathy. Supple, full range of motion without nuchal rigidity, or vertebral point tenderness. No Meningismus. Chest/axilla: Normal chest wall appearance and motion. Nontender with no deformity. No lesions are appreciated. Cardiovascular: Regular rate and rhythm with a normal S1 and S2. No gallops, murmurs, or rubs. Normal PMI, no JVD. No pulse deficits. Respiratory: Lungs have equal breath sounds bilaterally, clear to auscultation and percussion. No rales, rhonchi or wheezes noted. No increased work of breathing, no retractions or nasal flaring. Neuro: Awake and alert, GCS 15, oriented to person, place, time, and situation. Cranial nerves II-XII grossly intact. Motor strength 5/5 in all extremities. Sensory grossly intact. Cerebellar exam normal. Normal gait. Vital Signs: 18:46 BP 131 / 78; Pulse 90; Resp 16; Temp 97.8; Pulse Ox 100% on R/A; Weight 89.2 kg; Height dh4 5 ft. 2 in. (157.48 cm); 20:09 BP 131 / 84; Pulse 85; Resp 20; Temp 98.1; Pulse Ox 100% on R/A; cc4 18:46 Body Mass Index 35.97 (89.20 kg, 157.48 cm) dh4 MDM: 19:56 Data reviewed: vital signs, nurses notes. ED course: Vital signs are normal and room sp3 air pulse ox is 100%. Patient is not any distress and is on her phone resting comfortably laughing and being able to enjoy her video entertainment on her phone. I informed patient we will notify her of her findings via telephone and to isolate at home to prevent spread to other patients in the emergency department. Will discharge patient home at this time.. 19:57 Patient medically screened. sp3 08/11 19:05 Order name: COVID-19 SARS RT PCR (Document "Date of Onset" if Symptomatic) ld1 08/11 19:05 Order name: SARS-COV-2 RT PCR EDMS Administered Medications: No medications were administered Disposition Summary: 08/11/21 19:57 Discharge Ordered Location: Home sp3 Condition: Stable sp3 Diagnosis - SARS-associated coronavirus as the cause of diseases classified elsewhere sp3 Discharge Instructions: - Discharge Summary Sheet sp3 - COVID-19 sp3 - COVID-19: Quarantine vs. Isolation - [facility] sp3 Forms: - Medication Reconciliation Form sp3 - Thank You Letter sp3 - Antibiotic Education sp3 - Prescription Opioid Use sp3 - Work release form cc4 Signatures: Dispatcher [employer] Hannah Francis RN RN ld1 Ericka Sotomayor MD MD sp3
[2021-08-11 20:19] VITALS: BP 131/78; TEMP 97.8; O2SAT 100
--- OUTSIDE RECORDS SUMMARY | 2021-08-14 20:08 | XMS REPORT | Continuity of Care Document ---
:1995 Author Organization [facility] t Address [address] [place] [address] Care Team Providers Name Role Phone Ann-Marie HENRY, R Primary Care Physician Zaire STINSON, R Attending Clinician Unavailable Magnolia CARSON Attending Clinician Unavailable Ann-Marie HENRY, R Attending Clinician Itz Schultz DO Attending Clinician Purnima MARCELO Attending Clinician Unavailable Doctor Unassigned, Name Attending Clinician Unavailable Fozia HENRY, Purnima Attending Clinician Payers Payer Name Policy Type Policy Number Effective Date Expiration Date S ource Problems Condition Condition Condition Status Onset Resolution Last Treating Co mments Source Name Details Category Date Date Treatment Clinician Date Encounter Encounter Disease Active 2019-10 Uni vers for for 10-20 [place]y of Nexplan[place] Chlamydia Chlamydia Disease Active Uni vers trachomati trachomati -17 it y of s s 00:00: [place] infection infection 00 Medi arthur of lower of lower Branch genitourin genitourin nicolas sites nicolas sites Tobacco Tobacco Disease Active Univers use use 06-12 ity of disorder disorder 00:00: [place] 00 Medical Branch Encounter Encounter Disease Active Overview: Univers for for 06-12 Formattin ity of initial initial 00:00: g of this [place] prescripti prescripti 00 note Me dical on of on of might be Branch contracept contracept different doug pills doug pills from the original. 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 PENICILL Drug Active Med Anaphylaxis Uni vers INS Class 3-22 ity of 00:00: [place] 00 Medical Branch Social History Social Habit Start Date Stop Date Quantity Comments Source History of Cigarette Smoker Universi ty of tobacco use [facility] Exposure to Not sure [facility] SARS-CoV-2 [facility] [place] [facility] (event) Branch Alcohol intake 2021-04-21 2021-04-21 Current University of 00:00:00 00:00:00 non-drinker of [facility] alcohol (finding) Branch Tobacco use and 2014-06-12 2014-06-12 Never used Universit y of exposure 00:00:00 00:00:00 [facility] Tobacco Comment 2014-06-12 2014-06-12 states smokes 4-5 Un iversity of 00:00:00 00:00:00 cigarettes per day [facility] Sex Ass[birth year] At [birth year] Universit y of 00:00:00 00:00:00 [facility] Smoking Status Start Date Stop Date Source Current every day smoker 2014-06-12 00:00:00 Uni versity of [facility] Medications Ordered Filled Start Stop Current Ordering Indication Dosage Frequency Signature Comments Components Source Medication Medication Date Date Medication? Clinician (SIG) Name Name LOESTRIN 2019-10 Yes [id number] 1{tbl} Take 1 Univers (MICROGESTI 1-19 tablet by ity of N 10/21) 00:00: mouth [place] 1 mg-20 mcg 00 daily. Medica l (21)/75 mg Branch (7) tablet LOESTRIN 2019-10 Yes [id number] 1{tbl} Take 1 Univers (MICROGESTI 1-19 tablet by ity of N FE 10/21) 00:00: mouth [place] 1 mg-20 mcg 00 daily. Medica l (21)/75 mg Branch (7) tablet LOESTRIN FE 2020- Yes [id number] 1{tbl} Take 1 Univers (MICROGESTI 1-19 tablet by ity of N FE 10/21) 00:00: mouth [place] 1 mg-20 mcg 00 daily. Medica l (21)/75 mg Branch (7) tablet LOESTRIN FE 2020- Yes [id number] 1{tbl} Take 1 Univers (MICROGESTI 1-19 tablet by ity of N FE 10/21) 00:00: mouth [place] 1 mg-20 mcg 00 daily. Medica l (21)/75 mg Branch (7) tablet LOESTRIN FE 2020- Yes [id number] 1{tbl} Take 1 Univers (MICROGESTI 1-19 tablet by ity of N FE 10/21) 00:00: mouth [place] 1 mg-20 mcg 00 daily. Medica l (21)/75 mg Branch (7) tablet LOESTRIN FE 2020- Yes [id number] 1{tbl} Take 1 Univers (MICROGESTI 1-19 tablet by ity of N FE 10/21) 00:00: mouth [place] 1 mg-20 mcg 00 daily. Medica l (21)/75 mg Branch (7) tablet LOESTRIN FE 2020- Yes [id number] 1{tbl} Take 1 Univers (MICROGESTI 1-19 tablet by ity of N FE 10/21) 00:00: mouth [place] 1 mg-20 mcg 00 daily. Medica l (21)/75 mg Branch (7) tablet LOESTRIN FE 2020- Yes [id number] 1{tbl} Take 1 Univers (MICROGESTI 1-19 tablet by ity of N FE 10/21) 00:00: mouth [place] 1 mg-20 mcg 00 daily. Medica l (21)/75 mg Branch (7) tablet LOESTRIN FE 2020- Yes [id number] 1{tbl} Take 1 Univers (MICROGESTI 1-19 tablet by ity of N FE 10/21) 00:00: mouth [place] 1 mg-20 mcg 00 daily. Medica l (21)/75 mg Branch (7) tablet LOESTRIN FE 2019-10 Yes [id number] 1{tbl} Take 1 Univers (MICROGESTI 1-19 tablet by ity of N FE 10/21) 00:00: mouth [place] 1 mg-20 mcg 00 daily. Medica l (21)/75 mg Branch (7) tablet LOESTRIN FE 2019-10 Yes [id number] 1{tbl} Take 1 Univers (MICROGESTI 1-19 tablet by ity of N FE 10/21) 00:00: mouth [place] 1 mg-20 mcg 00 daily. Medica l (21)/75 mg Branch (7) tablet clindamycin 2019-10 Yes TAKE 1 Univ ers 300 mg 1-13 CAPSULE BY ity of capsule 00:00: MOUTH [place] 00 EVERY 6 Medical HOURS FOR Branch 10 DAYS clindamycin 2019-10 Yes TAKE 1 Univ ers 300 mg 1-13 CAPSULE BY ity of capsule 00:00: MOUTH [place] 00 EVERY 6 Medical HOURS FOR Branch 10 DAYS clindamycin 2019-10 Yes TAKE 1 Univ ers 300 mg 1-13 CAPSULE BY ity of capsule 00:00: MOUTH [place] 00 EVERY 6 Medical HOURS FOR Branch 10 DAYS clindamycin 2019-10 Yes TAKE 1 Univ ers 300 mg 1-13 CAPSULE BY ity of capsule 00:00: MOUTH [place] 00 EVERY 6 Medical HOURS FOR Branch 10 DAYS clindamycin 2019-10 Yes TAKE 1 Univ ers 300 mg 1-13 CAPSULE BY ity of capsule 00:00: MOUTH [place] 00 EVERY 6 Medical HOURS FOR Branch 10 DAYS clindamycin 2019-10 Yes TAKE 1 Univ ers 300 mg 1-13 CAPSULE BY ity of capsule 00:00: MOUTH [place] 00 EVERY 6 Medical HOURS FOR Branch 10 DAYS clindamycin 2019-10 Yes TAKE 1 Univ ers 300 mg 1-13 CAPSULE BY ity of capsule 00:00: MOUTH [place] 00 EVERY 6 Medical HOURS FOR Branch 10 DAYS clindamycin 2019-10 Yes TAKE 1 Univ ers 300 mg 1-13 CAPSULE BY ity of capsule 00:00: MOUTH [place] 00 EVERY 6 Medical HOURS FOR Branch 10 DAYS clindamycin 2019-10 Yes TAKE 1 Univ ers 300 mg 1-13 CAPSULE BY ity of capsule 00:00: MOUTH [place] 00 EVERY 6 Medical HOURS FOR Branch 10 DAYS clindamycin 2019-10 Yes TAKE 1 Univ ers 300 mg 1-13 CAPSULE BY ity of capsule 00:00: MOUTH [place] 00 EVERY 6 Medical HOURS FOR Branch 10 DAYS clindamycin 2019-10 Yes TAKE 1 Univ ers 300 mg 1-13 CAPSULE BY ity of capsule 00:00: MOUTH [place] 00 EVERY 6 Medical HOURS FOR Branch 10 DAYS methylPREDN 2018-10 Yes [id number] Take by [facility] 11-16 mouth ity of (MEDROL, 00:00: SEE-INSTRU [place] ALEK,) 4 mg 00 CTIONS. Medica l tablets follow Branch package directions methylPREDN 2018-10- No [id number] Take by [facility] 11-16 mouth ity of (MEDROL, 00:00: 00:[place] ALEK[place] 4 mg 00 :00 CTIONS. Medica l tablets follow Branch package directions methylPREDN 2018-10- No [id number] Take by [facility] 11-16 mouth ity of (MEDROL, 00:00: 00:00 [place] ALEK,) 4 mg 00 :00 CTIONS. Medica l tablets follow Branch package directions azithromyci Yes 1000mg Take 2 Un leti n 500 mg 5-17 tablets by ity o f tablet 00:00: mouth [place] 00 daily. Medical Branch azithromyci 2020- No 1000mg Take 2 U nivers n 500 mg 5-17 -28 tablets by ity of tablet 00:00: 00:00 mouth [place] 00 :00 daily. Medical Branch azithromyci 2019- No 1000mg Take 2 U nivers n 500 mg -17 - tablets by ity of tablet 00:00: 00:00 mouth [place] 00 :00 daily. Medical Branch promethazin Yes 6.25mg Take 5 mL Univers e 6.25 mg/5 5-11 by mouth ity of mL solution 00:00: every 6 [place] 00 (six) Medical hours as Branch needed for Nausea and Vomiting (N/V). promethazin 2020- No 6.25mg Take 5 mL Univers e 6.25 mg/5 5-11 -28 by mouth ity of mL solution 00:00: 00:00 every 6 [place] 00 :00 (six) Medical hours as Branch needed for Nausea and Vomiting (N/V). promethazin 2019- No 6.25mg Take 5 mL Univers e 6.25 mg/5 02-09 by mouth ity of mL solution 00:00: 00:00 every 6 [place] 00 :00 (six) Medical hours as Branch needed for Nausea and Vomiting (N/V). benzonatate 2014-10 Yes 200mg Take 1 Cap Univers (TESSALON) 30 by mouth 3 ity of 200 mg 00:00: (three) [place] capsule 00 times Medical daily as Branch needed for Cough. albuterol 2014-10 Yes 2{puff} Inhale 2 U nivers (VENTOLIN) 1-30 Puffs ity of 90 00:00: every 6 [place] mcg/actuati 00 (six) Medical on inhaler hours as Branc h needed for Wheezing, Shortness of Breath or Chest tightness. methylPREDN 2014-10 Yes follow Univ ers ISolone 10-31 package ity of (MEDROL 00:00: [place] DOSE-ALEK) 4 00 Medical mg tablets Branch benzonatate 2014-10- No 200mg Take 1 Cap Univers (TESSALON) 10-31 by mouth 3 it y of 200 mg 00:00: 00:00 (three) [place] capsule 00 :00 times Medical daily as Branch needed for Cough. albuterol 2014-10 2020- No 2{puff} Inhale 2 Univers (VENTOLIN) 10-31 Puffs ity of 90 00:00: 00:00 every 6 [place] mcg/actuati 00 :00 (six) Medical on inhaler hours as Branc h needed for Wheezing, Shortness of Breath or Chest tightness. methylPREDN 2014-10 2020- No follow Uni vers ISolone 10-31 package ity of (MEDROL 00:00: 00:00 directions [place] DOSE-ALEK) 4 00 :00 Medical mg tablets Branch benzonatate 2014-10 2020- No 200mg Take 1 Cap Univers (TESSALON) 10-31 by mouth 3 it y of 200 mg 00:00: 00:00 (three) [place] capsule 00 :00 times Medical daily as Branch needed for Cough. albuterol 2014-10 2020- No 2{puff} Inhale 2 Univers (VENTOLIN) 10-31 Puffs ity of 90 00:00: 00:00 every 6 [place] mcg/actuati 00 :00 (six) Medical on inhaler hours as Branc h needed for Wheezing, Shortness of Breath or Chest tightness. methylPREDN 2014-10- No follow Uni vers ISolone 10-31 package ity of (MEDROL 00:00: 00:00 directions [place] DOSE-ALEK) 4 00 :00 Medical mg tablets Branch No known No Univers medications ity of [facility] Immunizations Ordered Filled Immunization Date Status Comments Sourc e Immunization Name Name HPV 2014-06-12 Completed University of 00:00:00 [facility] [place] [facility] Branch HPV 2014-06-12 Completed University of 00:00:00 [facility] [place] [facility] Branch HPV 2014-06-12 Completed University of 00:00:00 [facility] [place] [facility] Branch HPV 2014-06-12 Completed University of 00:00:00 [place] [facility] HPV 2014-06-12 Completed University of 00:00:00 [facility] [place] [facility] Branch HPV 2014-06-12 Completed University of 00:00:00 [facility] [place] [facility] Branch HPV 2014-06-12 Completed University of 00:00:00 [facility] [place] [facility] Branch HPV 2014-06-12 Completed University of 00:00:00 [facility] [place] [facility] Branch HPV 2014-06-12 Completed University of 00:00:00 [facility] [place] [facility] Branch HPV 2014-06-12 Completed University of 00:00:00 [place] [facility] HPV 2014-06-12 Completed University of 00:00:00 [place] [facility] HPV 2014-06-12 Completed University of 00:00:00 [facility] [place] [facility] Branch HPV 2014-06-12 Completed University of 00:00:00 [place] [facility] HPV 2014-06-12 Completed University of 00:00:00 [place] [facility] HPV 2014-06-12 Completed University of 00:00:00 [facility] [place] [facility] Branch HPV 2011-07-19 Completed University of 00:00:00 [facility] [place] [facility] Branch HPV 2011-07-19 Completed University of 00:00:00 [facility] [place] [facility] Branch HPV 2011-07-19 Completed University of 00:00:00 [place] [facility] HPV 2011-07-19 Completed University of 00:00:00 [place] [facility] HPV 2011-07-19 Completed University of 00:00:00 [place] [facility] HPV 2011-07-19 Completed University of 00:00:00 [place] [facility] HPV 2011-07-19 Completed University of 00:00:00 [facility] [place] [facility] Branch HPV 2011-07-19 Completed University of 00:00:00 [place] [facility] HPV 2011-07-19 Completed University of 00:00:00 [place] [facility] HPV 2011-07-19 Completed University of 00:00:00 [place] [facility] HPV 2011-07-19 Completed University of 00:00:00 [place] [facility] HPV 2011-07-19 Completed University of 00:00:00 [place] [facility] HPV 2011-07-19 Completed University of 00:00:00 [place] [facility] HPV 2011-07-19 Completed University of 00:00:00 [place] [facility] HPV 2011-07-19 Completed University of 00:00:00 [place] [facility] Td 2011-05-12 Completed University of 00:00:00 [place] [facility] Td 2011-05-12 Completed University of 00:00:00 [place] [facility] Td 2011-05-12 Completed University of 00:00:00 [place] [facility] Td 2011-05-12 Completed University of 00:00:00 [place] [facility] Td 2011-05-12 Completed University of 00:00:00 [place] [facility] Td 2011-05-12 Completed University of 00:00:00 [place] [facility] Td 2011-05-12 Completed University of 00:00:00 [place] [facility] Td 2011-05-12 Completed University of 00:00:00 [place] [facility] Td 2011-05-12 Completed University of 00:00:00 [place] [facility] Td 2011-05-12 Completed University of 00:00:00 [place] [facility] Td 2011-05-12 Completed University of 00:00:00 [place] [facility] Td 2011-05-12 Completed University of 00:00:00 [place] [facility] Td 2011-05-12 Completed University of 00:00:00 [place] [facility] Td 2011-05-12 Completed University of 00:00:00 [place] [facility] Td 2011-05-12 Completed University of 00:00:00 [place] [facility] HPV 2010-06-23 Completed University of 00:00:00 [place] [facility] HPV 2010-06-23 Completed University of 00:00:00 [place] [facility] HPV 2010-06-23 Completed University of 00:00:00 [place] [facility] HPV 2010-06-23 Completed University of 00:00:00 [place] [facility] HPV 2010-06-23 Completed University of 00:00:00 [place] [facility] HPV 2010-06-23 Completed University of 00:00:00 [place] [facility] HPV 2010-06-23 Completed University of 00:00:00 [place] [facility] HPV 2010-06-23 Completed University of 00:00:00 [place] [facility] HPV 2010-06-23 Completed University of 00:00:00 [place] [facility] HPV 2010-06-23 Completed University of 00:00:00 [place] [facility] HPV 2010-06-23 Completed University of 00:00:00 [place] [facility] HPV 2010-06-23 Completed University of 00:00:00 [place] [facility] HPV 2010-06-23 Completed University of 00:00:00 [place] [facility] HPV 2010-06-23 Completed University of 00:00:00 [place] [facility] HPV 2010-06-23 Completed University of 00:00:00 [facility] Vital Signs Vital Name Observation Time Observation Value Comments Source Systolic blood 2021-04-21 12:51:00 124 mm[Hg] Univer sity of pressure [facility] Diastolic blood 2021-04-21 12:51:00 83 mm[Hg] Unive rsity of pressure [facility] Heart rate 2021-04-21 12:51:00 74 /min Universi ty [facility] Body temperature 2021-04-21 12:51:00 36.72 Devika [facility] Respiratory rate 2021-04-21 12:51:00 16 /min [facility] Body height 2021-04-21 12:51:00 157.5 cm [facility] Body weight 2021-04-21 12:51:00 90.629 kg [facility] BMI 2021-04-21 12:51:00 36.54 kg[facility] Systolic blood 2020-10-28 15:01:00 132 mm[Hg] Univer sity of pressure [facility] [place] [facility] Branch Diastolic blood 2020-10-28 15:01:00 81 mm[Hg] Unive rsity of pressure [facility] Heart rate 2020-10-28 15:01:00 87 /min Universi ty [facility] Body temperature 2020-10-28 15:01:00 36.39 Devika [facility] Respiratory rate 2020-10-28 15:01:00 16 /min [facility] Body height 2020-10-28 15:01:00 157.5 cm [facility] ty [facility] [place] [facility] Body weight 2020-10-28 15:01:00 83.575 kg Universi ty of [place] [facility] BMI 2020-10-28 15:01:00 33.70 kg/m2 Universi ty of [place] [facility] Systolic blood 2020-10-28 15:01:00 132 mm[Hg] Univer sity of pressure [place] [facility] Diastolic blood 2020-10-28 15:01:00 81 mm[Hg] Unive rsity of pressure [place] [facility] Heart rate 2020-10-28 15:01:00 87 /min Universi ty of [place] [facility] Body temperature 2020-10-28 15:01:00 36.39 Devika Univ ersity of [place] [facility] Respiratory rate 2020-10-28 15:01:00 16 /min Univ ersity of [place] [facility] Body height 2020-10-28 15:01:00 157.5 cm Universi ty of [place] [facility] Body weight 2020-10-28 15:01:00 83.575 kg Universi ty of [place] [facility] BMI 2020-10-28 15:01:00 33.70 kg/m2 Universi ty of [place] [facility] Systolic blood 2020-08-20 21:53:00 125 mm[Hg] Univer sity of pressure [place] [facility] Diastolic blood 2020-08-20 21:53:00 86 mm[Hg] Unive rsity of pressure [place] [facility] Heart rate 2020-08-20 21:53:00 97 /min Universi ty of [place] [facility] Body temperature 2020-08-20 21:53:00 36.67 Devika Univ ersity of [place] [facility] Respiratory rate 2020-08-20 21:53:00 16 /min Univ ersity of [place] [facility] Body height 2020-08-20 21:53:00 154.9 cm Universi ty of [place] [facility] Body weight 2020-08-20 21:53:00 79.493 kg Universi ty of [place] [facility] BMI 2020-08-20 21:53:00 33.11 kg/m2 Universi ty of [place] [facility] Systolic blood 2020-06-29 20:34:00 125 mm[Hg] Univer sity of pressure [place] [facility] Diastolic blood 2020-06-29 20:34:00 81 mm[Hg] Unive rsity of pressure [place] [facility] Heart rate 2020-06-29 20:34:00 87 /min [facility] Body temperature 2020-06-29 20:34:00 37.11 Devika [facility] Respiratory rate 2020-06-29 20:34:00 16 /min [facility] Body height 2020-06-29 20:34:00 154.9 cm [facility] Body weight 2020-06-29 20:34:00 80.423 kg [facility] BMI 2020-06-29 20:34:00 33.50 kg/m2 [facility] Procedures Procedure Date / Time Performing Clinician Source Performed POCT TEST 2020-10-28 16:05:00 Grady Carson [facility] AUTHORIZATION TO RELEASE 2020-10-28 06:01:00 Doctor Unassigned, No [facility] PHI TO [facility] PATIENT FINANCIAL 2020-08-20 22:22:14 Doctor Unassigned, No [facility] POCT TEST 2020-08-20 21:55:00 Ct Mensah [facility] ASSIGNMENT OF BENEFITS 2020-06-29 19:57:27 Doctor Unassigned, No [facility] Encounters Start End Encounter Admission Attending Care Care Encounter Source Date/Time Date/Time Type Type Clinicians Facility Department ID 2021-07-19 2021-07-19 [place] [id number] Univers 00:00:00 00:00:00 Management Magdalena Leach [id number] [id number] [place] [id number] [id number] Branch 2021-06-29 2021-06-29 Outpatient Magnolia CARSON [facility] [id number] Univers 08:45:00 08:45:00 GRADY [id number] nomiy o f [facility] 2021-06-29 2021-06-29 Outpatient R ANN-MARIE [facility] [id number] Univers 08:45:00 08:45:00 GRADY marcus o f [facility] 2021-05-05 2021-05-05 Outpatient R [facility] [id number] Univers 08:30:00 08:30:00 [id number] ity [facility] 2021-05-05 2021-05-05 Outpatient R [facility] [id number] Univers 08:30:00 08:30:00 ity [facility] 2021-04-22 2021-04-22 Telephone Ann-Marie [facility] [id number] Univers 00:00:00 00:00:00 Grady R BLEND TECHNICIAN [id number] ity of [facility] [id number] [place] [address] [id number] [facility] & CHILD [address] [place] [address] 2021-04-21 2021-04-21 Office [facility] [id number] Univers 07:36:35 08:11:32 Visit Grady R BLEND TECHNICIAN [id number] ity General acute hospital [id number] [place] as MATERNAL [id number] [facility] & [address] 2021-04-21 2021-04-21 Outpatient ANN-MARIE [facility] [id number] Univers 07:45:00 07:45:00 EDIENDA [id number] ity o [facility] [place] [facility] 2021-04-21 2021-04-21 [facility] [id number] Univers 07:45:00 07:45:00 EDIENDA ity o [facility] [place] [facility] 2021-04-06 2021-04-06 Outpatient R ANN-MARIE [facility] [id number] Univers 16:00:00 16:00:00 EDIENDA [id number] ity o f [facility] 2021-04-06 2021-04-06 Outpatient R ANN-MARIE [facility] [id number] Univers 16:00:00 16:00:00 ROSHUNDA ity o [facility] [place] [facility] 2020-12-22 2020-12-22 Patient Antoine [facility] [id number] 00:00:00 00:00:00 Outreach [facility] [id number] [facility] [id number] PAVILLION [id number] 2020-12-22 2020-12-22 Patient Antoine [facility] [id number] Univers 00:00:00 00:00:00 Outreach Rey SHAVER [id number] i ty of [facility] [id number] [place] [id number] Al dical [address] [place] [address] 2020-11-19 2020-11-19 Outpatient FOZIA [facility] [id number] Univers 15:30:00 15:30:00 KAYLIN [id number] ity of [facility] 2020-10-28 2020-10-28 Office Ann-Marie [facility] [id number] 08:53:19 09:37:34 Visit [facility] Merida BLEND TECHNICIAN [id number] REGIONAL [id number] MATERNAL [id number] & CHILD [address] [place] [address] 2020-10-28 2020-10-28 Office Ann-Marie [facility] [id number] Univers 08:53:19 09:37:34 Visit [facility] Magnolia BLEND TECHNICIAN [id number] ity of [facility] [id number] [place] as MATERNAL [id number] Med ica & CHILD [address] [place] [address] 2020-10-28 2020-10-28 Outpatient R ANN-MARIE [facility] [id number] Univers 08:45:00 08:45:00 GRADY [id number] ity o f [facility] 2020-10-28 2020-10-28 [facility] [id number] Univers 08:45:00 08:45:00 GRADY ity o f [facility] 2020-10-28 2020-10-28 Orders Doctor KOCH [id number] Univers 00:00:00 00:00:00 Only Unassigned, VAMSI [id number] ity of [place] [facility] [id number] [place] as [id number] [address] 2020-10-28 2020-10-28 Orders Doctor ZEE [id number] 00:00:00 00:00:00 Only Unassigned, VAMSI [id number] [place] [id number] 2020-08-20 2020-08-20 Office [facility] [id number] Univers 15:44:35 16:38:18 Visit Kaylin [place] BLEND TECHNICIAN [id number] it y of [facility] [id number] [place] as MATERNAL [id number] [facility] ical & CHILD [address] [place] [address] 2020-08-20 2020-08-20 [facility] [id number] Univers 15:45:00 15:45:00 [facility]LIN [id number] [facility] 2020-08-20 2020-08-20 [facility] [id number] Univers 15:45:00 15:45:00 KAYLIN [facility] 2020-08-20 2020-08-20 Orders Doctor ZEE [id number] Univers 00:00:00 00:00:00 Only Unassigned, VAMSI [id number] ity of [place] [address]..2.686 Layo as [id number] [address] 2020-07-09 2020-07-09 Outpatient [facility] [id number] Univers 09:45:00 09:45:00 GRADY itlouisa o f [facility] 2020-07-09 2020-07-09 Outpatient Magnolia [facility] [id number] Univers 09:45:00 09:45:00 GIUSEPPEA ity o f [facility] 2020-06-29 2020-06-29 Office [facility] [id number] Univers 15:01:06 16:00:36 Visit Grady Merida BLEND TECHNICIAN [id number]2.7.2.686 Layo as MATERNAL [phone] [facility] & CHILD [address] [place] [address] 2020-06-29 2020-06-29 Outpatient Magnolia [facility]SON [facility] [id number] Univers 15:00:00 15:00:00 GRADY [id number] ity celeste [facility] [place] [facility] 2020-06-29 2020-06-29 Outpatient Magnolia CARSON [facility] [id number] Univers 15:00:00 15:00:00 [facility]rit [facility] 2020-06-29 2020-06-29 Orders Doctor ZEE [id number] Univers 00:00:00 00:00:00 Only Unassigned, VAMSI 350.1.13.10 ity of [place] [facility] [id number] Layo as [phone] [address] 2020-06-04 2020-06-04 Outpatient Magnolia CARSON [facility] [id number] Univers 10:45:00 10:45:00 GRADY [id number] itlouisa o [facility] 2020-06-04 2020-06-04 Outpatient Magnolia [facility] [id number] Univers 10:45:00 10:45:00 [facility] Results Test Description Test Time Test Comments Results Result Comments Source POCT TEST 2020-10-28 16:06:00 Test Item Value Reference Range Interpretation Comme nts POCT PREG (test code = 1605) Negative On board controls acceptable with C Line (test code = 3574) Yes POCT PREG LOT # (test code = 3575) POCT PREG TEST DATE (test code = 3576) [id number] 21:55:00 Test Item Value Reference Range Interpretation Comments POCT PREG (test code = 1605) Negative On board controls acceptable with C Yes Line (test code = 3574) POCT PREG LOT # (test code = 3575) POCT PREG TEST DATE (test code = 3576) [facility] [id number] 21:55:00 Test Item Value Reference Range Interpretation Comments POCT PREG (test code = 1605) Negative On board controls acceptable with C Yes Line (test code = 3574) POCT PREG LOT # (test code = 3575) POCT PREG TEST DATE (test code = 3576) [facility]
== END 2021-08-11 20:09 | disposition home or self-care (01) ==
LOC: ER 17:49
DX: U07.1 COVID-19 (principal); J45.909 Unspecified asthma, uncomplicated; Z88.0 Allergy status to penicillin; Z88.6 Allergy status to analgesic agent
CPT/HCPCS: 99283; U0003

== ENCOUNTER 2021-12-25 06:26 | Emergency (ER) | payer SELFPAY ==
--- OUTSIDE RECORDS SUMMARY | 2021-12-25 06:29 | XMS REPORT | Continuity of Care Document ---
:1995 Author Organization [facility] t Address [address] [place] [address] Care Team Providers Name Role Phone Magnolia Garcia Primary Care Physician Zaire STINSON, R Attending Clinician Unavailable Magnolia JACOBSEN Attending Clinician Unavailable Ann-Marie HENRY, R Attending [...] 2 weeks for nexplanon ICD10 Diagnosis Term Regulatory Process Manager Utility Obesity Obesity Disease Active Overview: Univ ers 9-11 Formattin ity of 00:00: g of this [place] 00 note Medical might be Branch different from the original. ICD10 Diagnosis Term Regulatory Process Manager Utility Allergies, Adverse Reactions, Alerts Allergy Allergy [...] Cigarette Smoker Universi ty of tobacco use [facility] Exposure to Not sure [facility] SARS-CoV-2 [facility] (event) Branch Alcohol intake 2021-04-21 2021-04-21 Current [facility] 00:00:00 00:00:00 non-drinker of [facility] alcohol (finding) Branch Tobacco use and 2014-06-12 2014-06-12 Never used Universit y of exposure 00:00:00 00:00:00 [facility] Tobacco Comment 2014-06-12 2014-06-12 states smokes 4-5 Un iversity of 00:00:00 00:00:00 cigarettes per day [facility] Sex Ass[birth year] At [birth year] Universit y of 00:00:00 00:00:00 [facility] Smoking Status Start Date Stop Date Source Current every day smoker 2014-06-12 00:00:00 Uni versity of [facility] Medications Ordered Filled Start Stop Current Ordering Indication Dosage Frequency Signature Comments Components Source Medication Medication Date Date Medication? Clinician (SIG) Name Name LOESTRIN 2019-10 Yes [id number] 1{tbl} Take 1 Univers (MICROGESTI 1-19 tablet by ity of [place] 10/21) 00:00: mouth [place] 1 mg-20 mcg 00 daily. Medica l (21)/75 mg Branch (7) tablet LOESTRIN 2019-10 Yes [id number] 1{tbl} Take 1 Univers (MICROGESTI 1-19 tablet by ity of N FE 10/21) 00:00: mouth [place] 1 mg-20 mcg 00 daily. Medica l (21)/75 mg Branch (7) tablet LOESTRIN FE 2020- Yes [id number] 1{tbl} Take 1 Univers (MICROGESTI 1-19 tablet by ity of N FE 10/21) 00:00: mouth [place] 1 mg-20 mcg 00 daily. Medica l (21)/75 mg Branch (7) tablet LOESTRIN FE 2020- Yes [id number] 1{tbl} Take 1 Univers (MICROGESTI 1-19 tablet by ity of N FE 10/21) 00:00: mouth [place] 1 mg-20 mcg 00 daily. Medica l (21)/75 mg Branch (7) tablet LOESTRIN FE 2020- Yes [id number] 1{tbl} Take 1 Univers (MICROGESTI 1-19 tablet by ity of N FE 10/21) 00:00: mouth [place] 1 mg-20 mcg 00 daily. Medica l (21)/75 mg Branch (7) tablet LOESTRIN FE 2020- Yes [id number] 1{tbl} Take 1 Univers (MICROGESTI 1-19 tablet by ity of N FE 10/21) 00:00: mouth [place] 1 mg-20 mcg 00 daily. Medica l (21)/75 mg Branch (7) tablet LOESTRIN FE 2020- Yes [id number] 1{tbl} Take 1 Univers (MICROGESTI 1-19 tablet by ity of N FE 10/21) 00:00: mouth [place] 1 mg-20 mcg 00 daily. Medica l (21)/75 mg Branch (7) tablet LOESTRIN FE 2020- Yes [id number] 1{tbl} Take 1 Univers (MICROGESTI 1-19 tablet by ity of N FE 10/21) 00:00: mouth [place] 1 mg-20 mcg 00 daily. Medica l (21)/75 mg Branch (7) tablet LOESTRIN FE 2020- Yes [id number] 1{tbl} Take 1 Univers (MICROGESTI 1-19 tablet by ity of N FE 10/21) 00:00: mouth [place] 1 mg-20 mcg 00 daily. Medica l (21)/75 mg Branch (7) tablet LOESTRIN FE 2019-10 Yes [id number] 1{tbl} Take 1 Univers (MICROGESTI 1-19 tablet by ity of N FE 10/21) 00:00: mouth [place] 1 mg-20 mcg 00 daily. Medica l (21)/75 mg Branch (7) tablet LOESTRIN FE 2019-10 Yes [id number] 1{tbl} Take 1 Univers (MICROGESTI 1-19 tablet [...] FOR Branch 10 DAYS methylPREDN 2018-10 Yes [id number] Take by Univers ISolone 11-16 mouth ity of (MEDROL, 00:00: SEE-INSTRU Layo as ALEK,) 4 mg 00 CTIONS. Medica l tablets follow Branch package directions methylPREDN 2018-10- No [id number] Take by [facility] ISolone 11-16 mouth ity of (MEDROL, 00:00: 00:00 [place] ALEK,) 4 mg 00 :00 CTIONS. Medica l tablets follow Branch package directions methylPREDN 2018-10- No [id number] Take by [facility] ISolone 11-16 mouth ity of (MEDROL, 00:00: 00:00 [...] [place] 00 :00 daily. Medical Branch azithromyci 2020- No 1000mg [...] 5 mL Univers e 6.25 mg/5 5-11 06-29 by mouth ity of mL solution 00:00: [...] No known No Univers medications ity of [facility] Immunizations Ordered Filled Immunization Date Status Comments Sour e Immunization Name Name HPV 2014-06-12 Completed University of 00:00:00 [facility] Branch HPV 2014-06-12 Completed University of 00:00:00 [facility] Branch HPV 2014-06-12 Completed University of 00:00:00 [facility] Branch HPV 2014-06-12 Completed University of 00:00:00 [facility] HPV 2014-06-12 Completed University of 00:00:00 [facility] HPV 2014-06-12 Completed University of 00:00:00 [facility] Branch HPV 2014-06-12 Completed University of 00:00:00 [place] [facility] HPV 2014-06-12 Completed University of 00:00:00 [place] [facility] HPV 2014-06-12 Completed University of 00:00:00 [place] [facility] HPV 2014-06-12 Completed University of 00:00:00 [place] [facility] HPV 2014-06-12 Completed University of 00:00:00 [place] [facility] HPV 2014-06-12 Completed University of 00:00:00 [place] [facility] HPV 2014-06-12 Completed University of 00:00:00 [place] [facility] HPV 2014-06-12 Completed University of 00:00:00 [place] [facility] HPV 2014-06-12 Completed University of 00:00:00 [facility] Branch HPV 2011-07-19 Completed University of 00:00:00 [facility] Branch HPV 2011-07-19 Completed University of 00:00:00 [facility] HPV 2011-07-19 Completed University of 00:00:00 [place] [facility] HPV 2011-07-19 Completed University of 00:00:00 [place] [facility] HPV 2011-07-19 Completed University of 00:00:00 [facility] Branch HPV 2011-07-19 Completed University of 00:00:00 [place] [facility] HPV 2011-07-19 Completed University of 00:00:00 [place] [facility] HPV 2011-07-19 Completed University of [...] Branch HPV 2010-06-23 Completed University of 00:00:00 [place] [facility] HPV 2010-06-23 Completed University of 00:00:00 [place] [facility] HPV 2010-06-23 Completed University of 00:00:00 [place] [facility] HPV 2010-06-23 Completed University of 00:00:00 [place] [facility] HPV 2010-06-23 Completed University of 00:00:00 [place] [facility] HPV 2010-06-23 Completed University of 00:00:00 [facility] HPV 2010-06-23 Completed University of 00:00:00 [place] [facility] HPV 2010-06-23 Completed University of 00:00:00 [facility] Vital Signs Vital Name Observation Time Observation Value Comments Source Systolic blood 2021-04-21 12:51:00 124 mm[Hg] Univer sity of pressure [facility] Diastolic blood 2021-04-21 12:51:00 83 mm[Hg] Unive rsity of pressure [facility] Heart rate 2021-04-21 12:51:00 74 /min Universi ty [facility] Body temperature 2021-04-21 12:51:00 36.72 Devika Univ ersity [facility] Respiratory rate 2021-04-21 12:51:00 16 /min Univ ersity of [facility] Body height 2021-04-21 12:51:00 157.5 cm Universi ty [facility] Body weight 2021-04-21 12:51:00 90.629 kg Universi ty [facility] BMI 2021-04-21 12:51:00 36.54 kg/m2 Universi ty [facility] Systolic blood 2020-10-28 15:01:00 132 mm[Hg] Univer sity of pressure [facility] Branch Diastolic blood 2020-10-28 15:01:00 81 mm[Hg] Unive rsity of pressure [facility] Heart rate 2020-10-28 15:01:00 87 /min Universi ty [facility] Body temperature 2020-10-28 15:01:00 36.39 Devika Univ ersity of [facility] Respiratory rate 2020-10-28 15:01:00 16 /min Univ ersity of [facility] Body height 2020-10-28 15:01:00 157.5 cm Universi ty [facility] Body weight 2020-10-28 15:01:00 83.575 kg Universi ty [facility] [place] [facility] BMI 2020-10-28 15:01:00 33.70 kg/m2 Universi ty of [place] [facility] Systolic blood 2020-10-28 15:01:00 132 mm[Hg] Univer sity of pressure [facility] Diastolic blood 2020-10-28 15:01:00 81 mm[Hg] Unive rsity of pressure [facility] Heart rate 2020-10-28 15:01:00 87 /min Universi ty of [place] [facility] Body temperature 2020-10-28 15:01:00 36.39 Devika Univ ersity of [place] [facility] Respiratory rate 2020-10-28 15:01:00 16 /min Univ ersity of [place] [facility] Body height 2020-10-28 15:01:00 157.5 cm Universi ty [facility] [place] [facility] Body weight 2020-10-28 15:01:00 83.575 kg Universi ty [facility] [place] [facility] BMI 2020-10-28 15:01:00 33.70 kg/m2 Universi ty of [place] [facility] Systolic blood 2020-08-20 21:53:00 125 mm[Hg] Univer sity of pressure [facility] Diastolic blood 2020-08-20 21:53:00 86 mm[Hg] Unive rsity of pressure [facility] Heart rate 2020-08-20 21:53:00 97 /min Universi ty of [place] [facility] Body temperature 2020-08-20 21:53:00 36.67 Devika Univ ersity of [place] [facility] Respiratory rate 2020-08-20 21:53:00 16 /min Univ ersity of [place] [facility] Body height 2020-08-20 21:53:00 154.9 cm Universi ty [facility] [place] [facility] Body weight 2020-08-20 21:53:00 79.493 kg Universi ty [facility] [place] [facility] BMI 2020-08-20 21:53:00 33.11 kg/m2 Universi ty [facility] [place] [facility] Systolic blood 2020-06-29 20:34:00 125 mm[Hg] Univer sity of pressure [facility] Diastolic blood 2020-06-29 20:34:00 81 mm[Hg] Unive rsity of pressure [facility] Heart rate 2020-06-29 20:34:00 87 /min Universi ty of [place] [facility] Body temperature 2020-06-29 20:34:00 37.11 Devika [facility] Respiratory rate 2020-06-29 20:34:00 16 /min [facility] Body height 2020-06-29 20:34:00 154.9 cm [facility] Body weight 2020-06-29 20:34:00 80.423 kg [facility] BMI 2020-06-29 20:34:00 33.50 kg/m2 [facility] Procedures Procedure Date / Time Performing Clinician Source Performed POCT TEST 2020-10-28 16:05:00 Grady Jacobsen [facility] AUTHORIZATION TO RELEASE 2020-10-28 06:01:00 Doctor Unassigned, No [facility] PHI TO [facility] PATIENT FINANCIAL 2020-08-20 22:22:14 Doctor Unassigned, No [facility] POCT TEST 2020-08-20 21:55:00 Ct Mensah [facility] ASSIGNMENT OF BENEFITS 2020-06-29 19:57:27 Doctor Unassigned, No [facility] Encounters Start End Encounter Admission Attending Care Care Encounter Source Date/Time Date/Time Type Type Clinicians Facility Department ID 2021-07-19 2021-07-19 [place] 1.2.840.114 [id number] Univers 00:00:00 00:00:00 Management Magdalena Leach [id number] [place] 4.2.7.2.686 Carlos conner [phone] [address] 2021-06-29 2021-06-29 Outpatient Magnolia JACOBSEN [facility] [id number] Univers 08:45:00 08:45:00 GRADY [id number] amrit o f [facility] 2021-06-29 2021-06-29 Outpatient Magnolia JACOBSEN [facility] [id number] Univers 08:45:00 08:45:00 GRADY marcus o f [facility] 2021-05-05 2021-05-05 Outpatient R [facility] [id number] Univers 08:30:00 08:30:00 [id number] ity [facility] 2021-05-05 2021-05-05 Outpatient R [facility] [id number] Univers 08:30:00 08:30:00 ity [facility] 2021-04-22 2021-04-22 [facility] [id number] Univers 00:00:00 00:00:00 Grady R OPTICAL INSTRUMENT ASSEMBLY SUPERVISOR [id number] ity of [facility] [id number] Layo as MATERNAL [id number] [facility] & CHILD [address] [place] [address] 2021-04-21 2021-04-21 Office [facility] 1.2.840.114 [id number] Univers 07:36:35 08:11:32 Visit Grady R OPTICAL INSTRUMENT ASSEMBLY SUPERVISOR [id number] ity of [facility] [id number] Layo as MATERNAL [id number] [facility] & [address] 2021-04-21 2021-04-21 [facility] [id number] Univers 07:45:00 07:45:00 GRADY [id number] ity o [facility] 2021-04-21 2021-04-21 Out[facility] [id number] Univers 07:45:00 07:45:00 EDIENDA ity o [facility] 2021-04-06 2021-04-06 Outpatient R ANN-MARIE [facility] [id number] Univers 16:00:00 16:00:00 GRADY [id number] ity o [facility] 2021-04-06 2021-04-06 Outpatient R ANN-MARIE [facility] [id number] Univers 16:00:00 16:00:00 EDIENDA ity o [facility] 2020-12-22 2020-12-[address] [facility] 1.2.840.114 [id number] 00:00:00 00:00:00 [facility] [id number] [facility] [id number] PAVILLION [id number] 2020-12-22 2020-12-[address] [facility] 1.2.840.114 [id number] Univers 00:00:00 00:00:00 Outreach Rey PRIMARY 350.1.13.10 i ty [facility] 4.2.7.2.686 Carlos HARRIS [id number] Oh dical [address] [place] [address] 2020-11-19 2020-11-19 Outpatient FOZIA [facility] [id number] Univers 15:30:00 15:30:00 KAYLIN [id number] ity of [facility] 2020-10-28 2020-10-28 Office [facility] 1.2.840.114 [id number] 08:53:19 09:37:34 Visit Mirellasallie Merida OPTICAL INSTRUMENT ASSEMBLY SUPERVISOR 350.1.13.10 [facility] 4.2.7.2.686 MATERNAL [id number] & CHILD [address] [place] [address] 2020-10-28 2020-10-28 Office [facility] [id number] Univers 08:53:19 09:37:34 [facility]ida OPTICAL INSTRUMENT ASSEMBLY SUPERVISOR [id number] ity of [facility] 4.2.7.2.686 Layo as MATERNAL [id number] [facility] & CHILD [address] [place] [address] 2020-10-28 2020-10-28 Out[facility] [id number] Univers 08:45:00 08:45:00 GRADY [id number] ity o [facility] 2020-10-28 2020-10-28 Outpatient [facility] [id number] Univers 08:45:00 08:45:00 [facility] 2020-10-28 2020-10-28 Orders Doctor KOCH 1.2.840.114 [id number] Univers 00:00:00 00:00:00 Only Unassigned, VAMSI 350.1.13.10 ity of [place] [facility] 4.2.7.2.686 Layo as [id number] [address] 2020-10-28 2020-10-28 Orders Doctor KOCH 1.2.840.114 [id number] 00:00:00 00:00:00 Only Unassigned, VAMSI 350.1.13.10 [place] [facility] 4.2.7.2.686 [id number] 2020-08-20 2020-08-20 Office [facility] [id number] Univers 15:44:35 16:38:18 Visit Kaylin Felton OPTICAL INSTRUMENT ASSEMBLY SUPERVISOR 350.1.13.10 it y of [facility] 4.2.7.2.686 Layo as MATERNAL [id number] [facility] & CHILD [address] [place] [address] 2020-08-20 2020-08-20 Out[facility] [id number] Univers 15:45:00 15:45:00 KAYLIN [id number] ity [facility] 2020-08-20 2020-08-20 Out[facility] [id number] Univers 15:45:00 15:45:00 KAYLIN [facility] 2020-08-20 2020-08-20 Orders Doctor KOCH [id number] [id number] Univers 00:00:00 00:00:00 Only Unassigned, VAMSI 350.1.13.10 ity of [place] [facility] 4.2.7.2.686 Layo as [id number] [address] 2020-07-09 2020-07-09 Outpatient R ANN-MARIE [facility] [id number] Univers 09:45:00 09:45:00 GRADY ity o f [facility] 2020-07-09 2020-07-09 Outpatient [facility] [id number] Univers 09:45:00 09:45:00 EDIENDA ity o f [facility] 2020-06-29 2020-06-29 Office [facility] 1.2.840.114 [id number] Univers 15:01:06 16:00:36 Visit Grady Merida OPTICAL INSTRUMENT ASSEMBLY SUPERVISOR [id number] ity of [facility] 4.2.7.2.686 Layo as MATERNAL [id number] [facility] & [address] 2020-06-29 2020-06-29 Outpatient R [facility] [id number] Univers 15:00:00 15:00:00 GRADY [id number] ity o [facility] 2020-06-29 2020-06-29 Outpatient Magnolai JACOBSEN [facility] [id number] Univers 15:00:00 15:00:00 EDIESALLIE nomiy [facility] 2020-06-29 2020-06-29 Orders Doctor ZEE 1.2.840.114 [id number] Univers 00:00:00 00:00:00 Only Unassigned, VAMSI 350.1.13.10 ity of [place] [facility] 4.2.7.2.686 Layo as [id number] [address] 2020-06-04 2020-06-04 Outpatient Magnolia JACOBSEN [facility] [id number] Univers 10:45:00 10:45:00 GRADY [id number] ity o [facility] 2020-06-04 2020-06-04 Outpatient Magnolia JACOBSEN [facility] [id number] Univers 10:45:00 10:45:00 GRADY [facility] Results Test Description Test Time Test Comments Results Result Comments Source POCT TEST 2020-10-28 16:06:00 Test Item Value Reference Range Interpretation Comme nts POCT PREG (test code = 1605) Negative On board controls acceptable with C Line (test code = 3574) Yes POCT PREG LOT # (test code = 3575) POCT PREG TEST DATE (test code = 3576) [facility] [id number] 21:55:00 Test Item Value Reference Range Interpretation Comments POCT PREG (test code = 1605) Negative On board controls acceptable with C Yes Line (test code = 3574) POCT PREG LOT # (test code = 3575) POCT PREG TEST DATE (test code = 3576) [facility] [id number] 21:55:00 Test Item Value Reference Range Interpretation Comments POCT PREG (test code = 1605) Negative On board controls acceptable with C Yes Line (test code = 3574) POCT PREG LOT # (test code = 3575) POCT PREG TEST DATE (test code = 3576) [facility]
[2021-12-25 07:02] LABS: Urine Blood 3+ (Negative); Urine Glucose Negative (Negative); Urine Protein 2+ (Negative); Urine Specific Gravity 1.025 (1.005-1.030)
[2021-12-25 07:09] LABS: Hematocrit 29.9 % (36.0-45.0); Lymphocytes % 24.9 % (15.3-44.8); RBC Red Blood Cell Count 3.85 M/uL (3.86-4.86)
[2021-12-25 07:25] LABS: Urine Appearance SL CLOUDY (Clear); Urine Color Yellow (Yellow)
[2021-12-25 07:26] LABS: Urine Bilirubin NEGATIVE (Negative); Urine Blood 3+ (Negative); Urine Glucose NEGATIVE (Negative); Urine Microscopic Reflex ORDER UMIC; Urine Protein 2+ (Negative); Urine Urobilinogen 0.2 mg/dL (0.2-1.0)
[2021-12-25] MEDS ORDERED: MORPHINE 4 MG/ML SYR ONE (07:26)
[2021-12-25] MEDS ORDERED: NA CHLORIDE 0.9% 1,000 ML ONE (07:26)
[2021-12-25] MEDS ORDERED: ONDANSETRON 4 MG/2 ML VIAL ONE (07:26)
[2021-12-25 07:35] LABS: Albumin 3.5 g/dL (3.4-5.0); Bilirubin Total 0.2 mg/dL (0.2-1.0); Protein, Total 7.4 g/dL (6.4-8.2)
[2021-12-25 07:56] LABS: Urine Bacteria 20-50 /HPF (<20)
--- NOTE | 2021-12-25 08:09 | RAD REPORT ---
EXAM DESCRIPTION: CTAbdomen Pelvis W Contrast - 12/25/2021 7:59 am CLINICAL HISTORY: FLANK PAIN COMPARISON: Abdomen Pelvis W Contrast dated 04/05/2021; Abdomen Pelvis W Contrast dated 09/23/2020 TECHNIQUE: CT of the abdomen and pelvis was performed. All CT scans are performed using dose optimization technique as appropriate and may include automated exposure control or mA/KV adjustment according to patient size. FINDINGS: Lower chest: No acute abnormality. Liver: No acute abnormality or suspicious lesions. Biliary: No biliary ductal dilatation. Stomach: No significant focal abnormality. Duodenum: No significant focal abnormality. Pancreas: No significant abnormality. Spleen: No significant abnormality. Adrenal: No suspicious lesions. Kidney/ureter: No hydronephrosis. No renal calculi. Retroperitoneum: No retroperitoneal adenopathy. Vascular: No aneurysm. Bowel: No significant focal abnormality. Normal appendix. Peritoneum: No ascites or free air. Bladder: Grossly unremarkable. Reproductive: No adnexal masses. Bones: No acute fracture. Other: n/a IMPRESSION: No acute intra-abdominal or pelvic finding. Normal appendix. No urinary tract calculi.
--- NOTE | 2021-12-25 08:19 | ER ---
Nurse's Notes [facility] Name: Lisa Abdul Age: 26 yrs Sex: Female : 1995 Arrival Date: 12/25/2021 Time: 06:28 Bed 14 Private MD: Diagnosis: UTI/ Urinary tract infection, site not specified Presentation: 12/25 06:36 Chief complaint: Patient states: she started having right flank pain since yesterday bb and when she urinates still feels like she has to go but nothing comes out. Coronavirus screen: At this time, the client does not indicate any symptoms associated with coronavirus-19. Ebola Screen: No symptoms or risks identified at this time. Initial Sepsis Screen: Does the patient meet any 2 criteria? No. Patient's initial sepsis screen is negative. Does the patient have a suspected source of infection? No. Patient's initial sepsis screen is negative. Risk Assessment: Do you want to hurt yourself or someone else? Patient reports no desire to harm self or others. Onset of symptoms was December 24, 2021. 06:36 Method Of Arrival: Ambulatory bb 06:36 Acuity: ODIN 3 bb Triage Assessment: 07:00 General: Appears in no apparent distress. comfortable, Behavior is calm, cooperative, bp appropriate for age. Musculoskeletal: Circulation, motion, and sensation intact. Range of motion: intact in all extremities. Historical: - Allergies: 06:37 PENICILLINS; bb 06:37 Motrin; bb - Home Meds: 06:37 control implant [Active]; inhaler [Active]; bb - PMHx: 06:37 Asthma; bb - PSHx: 06:37 section; bb - Immunization history:: Client reports having NOT received the Covid vaccine. - Social history:: Smoking status: Reported history of juuling and/or vaping. Screenin:55 Abuse screen: Denies threats or abuse. Denies injuries from another. Nutritional tobias screening: No deficits noted. Tuberculosis screening: No symptoms or risk factors identified. Fall Risk None identified. Assessment: 06:53 Reassessment: Patient appears in no apparent distress at this time. No changes from tobias previously documented assessment. Pain: Complains of pain in right flank. Neuro: No deficits noted. : Reports right flank pain. 07:00 Reassessment: RECD REPORT FROM BLADIM[facility] ENGLISH. 26YO WF P/W FLANK PAIN AND URINARY bp FREQUENCY. RESULTS PENDING. 08:28 Reassessment: D/C ON HOLD FOR IVF COMPLETION. bp 09:09 Reassessment: PT D/C HOME AMBULATORY WITH FAMILY, DX WITH UTI. bp Vital Signs: 06:36 BP 133 / 86; Pulse 102; Resp 16 S; Temp 98.9(O); Pulse Ox 100% on R/A; Weight 86.18 kg bb (R); Height 5 ft. 1 in. (154.94 cm) (R); Pain 7/10; 06:54 BP 133 / 86; Pulse 102; Resp 16; Temp 98.9; Pulse Ox 100% on R/A; Pain 7/10; tobias 07:00 BP 120 / 74; Pulse 91; Resp 16; Pulse Ox 100% ; bp 08:00 BP 122 / 77; Pulse 84; Resp 16; Pulse Ox 100% ; bp 09:00 BP 129 / 89; Pulse 77; Resp 17; Temp 98.5; Pulse Ox 99% ; bp 06:36 Body Mass Index 35.90 (86.18 kg, 154.94 cm) bb ED Course: 06:28 Patient arrived in ED. kc5 06:30 Nikko Greenfield NP is PHCP. pm1 06:30 Dejon Padilla DO is Attending Physician. pm1 06:37 Triage completed. bb 06:37 Arm band placed on Patient placed in an exam room, on a stretcher, on pulse oximetry. bb Family accompanied patient. 06:51 Jessica Rhoades, RN is Primary Nurse. tobias 06:52 CBC with Diff Sent. tobias 06:52 CMP Sent. tobias 06:52 Test, Serum Sent. tobias 06:52 Lipase Sent. tobias 06:56 Urinalysis Sent. tobias 07:00 Patient has correct armband on for positive identification. Bed in low position. Call bp light in reach. Side rails up X2. Adult w/ patient. 08:01 CT Abd/Pelvis - IV Contrast Only In Process Unspecified. EDMS 08:17 Primary Nurse role handed off by Jessica Rhoades, RN bp 08:17 Caden Sue, RN is Primary Nurse. bp 09:00 No provider procedures requiring assistance completed. IV discontinued, intact, bp bleeding controlled, No redness/swelling at site. Pressure dressing applied. Administered Medications: 07:00 Drug: NS 0.9% 1000 ml Route: IV; Rate: 1 bolus; Site: right antecubital; bp 09:12 Follow up: IV Status: Completed infusion; IV Intake: 1000ml bp 07:00 Drug: Zofran (Ondansetron) 4 mg Route: IVP; Site: right antecubital; bp 09:12 Follow up: Response: No adverse reaction bp 07:00 Drug: morphine 4 mg Route: IVP; Site: right antecubital; bp 08:19 Follow up: Response: Pain is decreased bp 08:25 Drug: Cipro (ciprofloxacin) 500 mg Route: PO; bp 09:12 Follow up: Response: No adverse reaction bp 08:25 Drug: Potassium Chloride 40 mEq Route: PO; bp 09:12 Follow up: Response: No adverse reaction bp Intake: 09:12 IV: 1000ml; Total: 1000ml. bp Outcome: 08:19 Discharge ordered by . pm1 09:00 Discharged to home ambulatory, with family. bp 09:00 Condition: stable 09:00 Discharge instructions given to patient, Instructed on discharge instructions, follow up and referral plans. medication usage, Demonstrated understanding of instructions, follow-up care, medications, Prescriptions given X 2. 09:13 Patient left the ED. bp Signatures: Dispatcher [employer] EDJessica Burton RN RN bb Marinas, Patrick, REJI ALLIGATOR HUNTER pm1 Caden Sue RN RN bp Clark, Kasey kc5 Jessica Rhoades RN RN bo
--- NOTE | 2021-12-25 08:20 | EDPHYS ---
Physician Documentation [facility] Name: Lisa Abdul Age: 26 yrs Sex: Female : 1995 Arrival Date: 12/25/2021 Time: 06:28 Bed 14 Private MD: ED Physician Dejon Padilla HPI: 12/25 06:43 This 26 yrs old Female presents to ER via Ambulatory with complaints of Urinary pm1 Frequency, Back Pain. 06:43 The patient complains of pain in the right mid back. The pain does not radiate. pm1 06:43 Onset: The symptoms/episode began/occurred yesterday. Modifying factors: The symptoms pm1 are alleviated by nothing. the symptoms are aggravated by nothing. Associated signs and symptoms: Pertinent positives: urinary frequency, sensation of the need to urinate without any urine coming out. Severity of pain: in the emergency department the pain is unchanged. The patient has not experienced similar symptoms in the past. The patient has not recently seen a physician. Historical: - Allergies: 06:37 PENICILLINS; bb 06:37 Motrin; bb - Home Meds: 06:37 control implant [Active]; inhaler [Active]; bb - PMHx: 06:37 Asthma; bb - PSHx: 06:37 section; bb - Immunization history:: Client reports having NOT received the Covid vaccine. - Social history:: Smoking status: Reported history of juuling and/or vaping. ROS: 06:43 Constitutional: Negative for fever, chills, and weight loss, Cardiovascular: Negative pm1 for chest pain, palpitations, and edema, Respiratory: Negative for shortness of breath, cough, wheezing, and pleuritic chest pain, Abdomen/GI: Negative for abdominal pain, nausea, vomiting, diarrhea, and constipation. 06:43 MS/Extremity: Negative for injury and deformity, Skin: Negative for injury, rash, and discoloration, Neuro: Negative for headache, weakness, numbness, tingling, and seizure. 06:43 Back: Positive for flank pain, on the right. 06:43 : Positive for urinary frequency, Negative for small amounts, hematuria, burning with urination. 06:43 All other systems are negative. Exam: 06:43 Constitutional: This is a well developed, well nourished patient who is awake, alert, pm1 and in no acute distress. Head/Face: Normocephalic, atraumatic. 06:43 Skin: Warm, dry with normal turgor. Normal color with no rashes, no lesions, and no evidence of cellulitis. MS/ Extremity: Pulses equal, no cyanosis. Neurovascular intact. Full, normal range of motion. 06:43 Cardiovascular: Exam negative for acute changes, Rate: normal, Rhythm: regular, Pulses: no pulse deficits are appreciated, Heart sounds: normal. 06:43 Respiratory: Exam negative for acute changes, respiratory distress, shortness of breath. 06:43 Abdomen/GI: Exam negative for acute changes, Inspection: abdomen appears normal, Palpation: abdomen is soft and non-tender, in all quadrants. 06:43 Back: pain, that is very mild, of the right mid back, normal spinal alignment noted, CVA tenderness, is absent. 06:43 Neuro: Exam negative for acute changes, Orientation: is normal, Mentation: is normal, Motor: is normal, moves all fours. Vital Signs: 06:36 BP 133 / 86; Pulse 102; Resp 16 S; Temp 98.9(O); Pulse Ox 100% on R/A; Weight 86.18 kg bb (R); Height 5 ft. 1 in. (154.94 cm) (R); Pain 7/10; 06:54 BP 133 / 86; Pulse 102; Resp 16; Temp 98.9; Pulse Ox 100% on R/A; Pain 7/10; tobias 07:00 BP 120 / 74; Pulse 91; Resp 16; Pulse Ox 100% ; bp 08:00 BP 122 / 77; Pulse 84; Resp 16; Pulse Ox 100% ; bp 09:00 BP 129 / 89; Pulse 77; Resp 17; Temp 98.5; Pulse Ox 99% ; bp 06:36 Body Mass Index 35.90 (86.18 kg, 154.94 cm) bb MDM: 06:35 Patient medically screened. pm1 07:58 ED course: Patient reports throat swelling and difficulty breathing with pcn. Therefore pm1 will order and give patient quinolone prescription. 08:11 Data reviewed: vital signs. Data interpreted: Pulse oximetry: on room air is 100 %. pm1 Interpretation: normal. 08:18 Counseling: I had a detailed discussion with the patient and/or guardian regarding: the pm1 historical points, exam findings, and any diagnostic results supporting the discharge/admit diagnosis, lab results, radiology results, the need for outpatient follow up, a family practitioner, to return to the emergency department if symptoms worsen or persist or if there are any questions or concerns that arise at home. 08:30 ED course: [place]MP[place] reviewed. No prescriptions found. pm1 12/25 06:34 Order name: Urinalysis; Complete Time: 07:58 ms3 12/25 06:34 Order name: Test, Serum; Complete Time: 07:58 ms3 12/25 06:43 Order name: CBC with Diff; Complete Time: 07:58 pm1 12/25 06:43 Order name: CMP; Complete Time: 07:58 pm1 12/25 06:43 Order name: Lipase; Complete Time: 07:58 pm1 12/25 07:02 Order name: Urine Dipstick-Ancillary; Complete Time: 07:58 EDMS 12/25 06:43 Order name: CT Abd/Pelvis - IV Contrast Only; Complete Time: 08:10 pm1 12/25 07:34 Order name: Urine Microscopic Only; Complete Time: 07:58 EDMS 12/25 08:00 Order name: Urine Culture EDMS 12/25 06:34 Order name: Urine Dipstick-Ancillary (obtain specimen); Complete Time: 06:56 ms3 12/25 06:43 Order name: IV Saline Lock; Complete Time: 06:52 pm1 12/25 06:43 Order name: Labs collected and sent; Complete Time: 06:52 pm1 Administered Medications: 07:00 Drug: NS 0.9% 1000 ml Route: IV; Rate: 1 bolus; Site: right antecubital; bp 09:12 Follow up: IV Status: Completed infusion; IV Intake: 1000ml bp 07:00 Drug: Zofran (Ondansetron) 4 mg Route: IVP; Site: right antecubital; bp 09:12 Follow up: Response: No adverse reaction bp 07:00 Drug: morphine 4 mg Route: IVP; Site: right antecubital; bp 08:19 Follow up: Response: Pain is decreased bp 08:25 Drug: Cipro (ciprofloxacin) 500 mg Route: PO; bp 09:12 Follow up: Response: No adverse reaction bp 08:25 Drug: Potassium Chloride 40 mEq Route: PO; bp 09:12 Follow up: Response: No adverse reaction bp Disposition Summary: 12/25/21 08:19 Discharge Ordered Location: Home pm1 Problem: new pm1 Symptoms: have improved pm1 Condition: Stable pm1 Diagnosis - UTI/ Urinary tract infection, site not specified pm1 Followup: pm1 - With: Emergency Department - When: As needed - Reason: Worsening of condition Followup: pm1 - With: Private Physician - When: 2 - 3 days - Reason: Recheck today's complaints, Continuance of care, Re-evaluation by your physician Discharge Instructions: - Discharge Summary Sheet pm1 - Urinary Tract Infection, Adult pm1 Forms: - Medication Reconciliation Form pm1 - Thank You Letter pm1 - Antibiotic Education pm1 - Prescription Opioid Use pm1 - Work release form bp Prescriptions: - Cipro 500 mg Oral Tablet - take 1 tablet by ORAL route every 12 hours for 10 days; 20 tablet; Refills: 0, pm1 Product Selection Permitted - Tramadol 50 mg Oral Tablet - take 1 tablet by ORAL route every 8 hours as needed; 12 tablet; Refills: 0, pm1 Product Selection Permitted Addendum: 12/28/2021 22:00 Co-signature as Attending Physician, Dejon Padilla DO I was immediately available on-site m s3 in the Emergency Department for consultation in the care of the patient.. Signatures: Dispatcher [employer] Jessica Milligan, RN Nikko Jin, REJI OBSERVER ELECTRICAL PROSPECTING pm1 Caden Sue RN RN bp Sims, Marcus, DO DO ms3
[2021-12-25] MEDS ORDERED: POTASSIUM CL SA 10 MEQ TAB PO ONE (08:26)
[2021-12-25] MEDS ORDERED: CIPROFLOXACIN HCL 500 MG TAB ONE (08:26)
[2021-12-25 09:24] VITALS: BP 129/89; TEMP 98.5; O2SAT 99
== END 2021-12-25 09:13 | disposition home or self-care (01) ==
LOC: ER 06:26
DX: N39.0 Urinary tract infection, site not specified (principal); Z88.0 Allergy status to penicillin
CPT/HCPCS: 36415; 74177; 80053; 81003; 81015; 83690; 84703; 85025; 87086; 87088; 96361; 96374; 96375; 99284; J2405; J7030; Q9967

== ENCOUNTER 2022-04-29 12:14 | Emergency (ER) | payer SELFPAY ==
--- NOTE | 2022-04-29 13:39 | ER ---
Nurse's Notes [facility] Name: Lisa Clement Age: 27 yrs Sex: Female : 1995 Arrival Date: 04/29/2022 Time: 12:17 Bed Waiting Private MD: Diagnosis: Assessment: 04/29 12:50 Reassessment: pt not in lobby. ED Course: 12:17 Patient arrived in ED. rg4 12:27 Rosario Gutiérrez FNP [facility] 12:27 Gee Palomares MD is Attending Physician. [facility] 13:38 Ashley Soto RN is Primary Nurse. iw Administered Medications: No medications were administered Outcome: 13:37 Eloped from waiting room, Time discovered patient gone: April 29, 2022 at 13:37 iw 13:38 Patient left the ED. iw Signatures: Ashley Soto RN RN iw Garcia, Rubi rg4 Rosario Gutiérrez FNP [place] [id number]
== END 2022-04-29 13:38 | disposition left against medical advice (07) ==
LOC: ER 12:14
DX: Z02.9 Encounter for administrative examinations, unspecified (principal)

== ENCOUNTER 2022-09-02 17:51 | Emergency (ER) | payer SELFPAY ==
--- OUTSIDE RECORDS SUMMARY | 2022-09-02 18:02 | XMS REPORT | Continuity of Care Document ---
:1995 Author Organization [facility] t Address [address] [place] [address] Care Team Providers Name Role Phone Grady Garcia Primary Care Physician [phone] Magdalena Tai LMSW Attending Clinician Unavailable GRADY JACOBSEN Attending Clinician Unavailable Grady Garcia Attending Clinician Rey Schultz DO Attending Clinician Doctor Unassigned, [place] Attending Clinician Unavailable Kaylin Garber Attending Clinician KAYLIN MARCELO Attending Clinician Unavailable Payers Payer Name Policy Type Policy Number Effective Date Expiration Date S ource Problems Condition Condition Condition Status Onset Resolution Last Treating Co mments Source Name Details Category Date Date Treatment Clinician Date Encounter Encounter Disease Active 2019-10 Uni vers for for 1-19 ity [place] Nexplan[place] [facility] Chlamydia Chlamydia Disease Active Uni vers trachomati trachomati 5-17 it y of s s 00:00: [place] infection infection 00 Medi arthur of lower of lower Branch genitourin genitourin nicolas sites nicolas sites Tobacco Tobacco Disease Active Univers use use 9-11 ity of disorder disorder 00:00: [place] 00 [facility] Encounter Encounter Disease Active Overview: Univers for for 06-12 Formattin ity of initial initial 00:00: g of this [place] prescripti prescripti 00 note Me dical on of on of might be Branch contracept contracept different doug pills doug pills from the original. 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 Allergies, Adverse Reactions, Alerts Allergy [...] Cigarette Smoker Universi ty of tobacco use [facility] Exposure to Not sure University of SARS-CoV-2 [facility] (event) Branch Alcohol intake 2021-04-21 2021-04-21 Current University of 00:00:00 00:00:00 non-drinker of [facility] alcohol (finding) Branch Tobacco use and 2014-06-12 2014-06-12 Never used Universit y of exposure 00:00:00 00:00:00 [facility] Tobacco Comment 2014-06-12 2014-06-12 states smokes 4-5 Un iversity of 00:00:00 00:00:00 cigarettes per day [facility] Sex Ass[birth year] At [birth year] Universit y of 00:00:00 00:00:00 [facility] Smoking Status Start Date Stop Date Source Current every day smoker 2014-06-12 00:00:00 Uni versity of [facility] Medications Ordered Filled Start Stop Current Ordering Indication Dosage Frequency Signature Comments Components Source Medication Medication Date Date Medication? Clinician (SIG) Name Name LOESTRIN FE 2019-10 Yes [id number] 1{tbl} Take 1 Univers (MICROGESTI 1-19 tablet by ity of Purnima 10/21) 00:00: mouth [place] 1 mg-20 mcg 00 daily. Medica l (21)/75 mg Branch (7) tablet LOESTRIN FE 2020- Yes [id number] 1{tbl} Take 1 Univers (MICROGESTI 1-19 tablet by ity of N FE 10/21) 00:00: mouth [place] 1 mg-20 mcg 00 daily. Medica l (21)/75 mg Branch (7) tablet LOESTRIN FE 2020- Yes [id number] 1{tbl} Take 1 Univers (MICROGESTI 1-19 tablet by ity of N FE 10/21) 00:00: mouth [place] 1 mg-20 mcg 00 daily. Medica l (21)/75 mg Branch (7) tablet LOESTRIN FE 2020- Yes [id number] 1{tbl} Take 1 Univers (MICROGESTI 1-19 tablet by ity of N FE 10/21) 00:00: mouth [place] 1 mg-20 mcg 00 daily. Medica l (21)/75 mg Branch (7) tablet LOESTRIN FE 2020- Yes [id number] 1{tbl} Take 1 Univers (MICROGESTI 1-19 tablet by ity of N FE 10/21) 00:00: mouth [place] 1 mg-20 mcg 00 daily. Medica l (21)/75 mg Branch (7) tablet LOESTRIN FE 2020- Yes [id number] 1{tbl} Take 1 Univers (MICROGESTI 1-19 tablet by ity of N FE 10/21) 00:00: mouth [place] 1 mg-20 mcg 00 daily. Medica l (21)/75 mg Branch (7) tablet LOESTRIN FE 2020- Yes [id number] 1{tbl} Take 1 Univers (MICROGESTI 1-19 tablet by ity of N FE 10/21) 00:00: mouth [place] 1 mg-20 mcg 00 daily. Medica l (21)/75 mg Branch (7) tablet LOESTRIN FE 2020- Yes [id number] 1{tbl} Take 1 Univers (MICROGESTI 1-19 tablet by ity of N FE 10/21) 00:00: mouth [place] 1 mg-20 mcg 00 daily. Medica l (21)/75 mg Branch (7) tablet LOESTRIN FE 2020- Yes [id number] 1{tbl} Take 1 Univers (MICROGESTI 1-19 tablet by ity of N FE 10/21) 00:00: mouth [place] 1 mg-20 mcg 00 daily. Medica l (21)/75 mg Branch (7) tablet LOESTRIN FE 2019-10 Yes [id number] 1{tbl} Take 1 Univers (MICROGESTI 1-19 tablet by ity of N FE 10/21) 00:00: mouth [place] 1 mg-20 mcg 00 daily. Medica l (21)/75 mg Branch (7) tablet LOESTRIN FE 2019-10 Yes [id number] 1{tbl} Take 1 Univers (MICROGESTI 1-19 tablet [...] FOR Branch 10 DAYS methylPREDN 2018-10 Yes [id number] Take by Univers ISolone 2 mouth ity of (MEDROL, 00:00: SEE-INSTRU [place] ALEK,) 4 mg 00 CTIONS. Medica l tablets follow Branch package directions methylPREDN 2018-10- No [id number] Take by Univers ISolone 206-29 mouth ity of (MEDROL, 00:00: 00:00 [place] 4 mg 00 :00 CTIONS. Medica l tablets follow Branch package directions methylPREDN 2018-10- No [id number] Take by Univers ISolone 11-16 mouth ity of (MEDROL, 00:00: 00:00 [place] 4 mg 00 :00 CTIONS. Medica l tablets follow Branch package directions azithromyci Yes 1000mg Take 2 Un leti n 500 mg 5-17 tablets by ity o f tablet 00:00: mouth [place] 00 daily. Medical Branch azithromyci 2019- No 1000mg [...] Yes 200mg Take 1 Cap Univers (TESSALON) 1-30 by mouth 3 ity of 200 mg [...] 00 :00 Medical mg tablets Branch benzonatate 2014-10- No 200mg Take 1 Cap Univers (TESSALON) 10-31 by mouth 3 it y of 200 mg 00:00: 00:00 (three) [place] capsule 00 :00 times Medical daily as Branch needed for Cough. albuterol 2014-10- No 2{puff} Inhale 2 Univers (VENTOLIN) 10-31 [...] No known No Univers medications ity of [facility] Immunizations Ordered Filled Immunization Date Status Comments Sour e Immunization Name Name HPV 2014-06-12 Completed University of 00:00:00 [facility] HPV 2014-06-12 Completed University of 00:00:00 [facility] HPV 2014-06-12 Completed University of 00:00:00 [facility] HPV 2014-06-12 Completed University of 00:00:00 [facility] HPV 2014-06-12 Completed University of 00:00:00 [facility] Branch HPV 2014-06-12 Completed University of 00:00:00 [facility] HPV 2014-06-12 Completed University of 00:00:00 [facility] Branch HPV 2014-06-12 Completed University of 00:00:00 [facility] Branch HPV 2014-06-12 Completed University of 00:00:00 [facility] Branch HPV 2014-06-12 Completed University of 00:00:00 [facility] HPV 2014-06-12 Completed University of 00:00:00 [facility] Branch HPV 2014-06-12 Completed University of 00:00:00 [facility] Branch HPV 2014-06-12 Completed University of 00:00:00 [facility] Branch HPV 2014-06-12 Completed University of 00:00:00 [facility] HPV 2014-06-12 Completed University of 00:00:00 [facility] HPV 2011-07-19 Completed University of 00:00:00 [facility] HPV 2011-07-19 Completed University of 00:00:00 [facility] Branch HPV 2011-07-19 Completed University of 00:00:00 [facility] HPV 2011-07-19 Completed University of 00:00:00 [facility] Branch HPV 2011-07-19 Completed University of 00:00:00 [facility] Branch HPV 2011-07-19 Completed University [...] Branch HPV 2010-06-23 Completed University of 00:00:00 [facility] Vital Signs Vital Name Observation Time Observation Value Comments Source Systolic blood 2021-04-21 12:51:00 124 mm[Hg] Univer sity of pressure [facility] Diastolic blood 2021-04-21 12:51:00 83 mm[Hg] Unive rsity of pressure [facility] Heart rate 2021-04-21 12:51:00 74 /min Universi ty [facility] Body temperature 2021-04-21 12:51:00 36.72 [facility] Respiratory rate 2021-04-21 12:51:00 16 /min Univ [facility] Body height 2021-04-21 12:51:00 157.5 cm [facility] Body weight 2021-04-21 12:51:00 90.629 kg [facility] BMI 2021-04-21 12:51:00 36.54 kg/m2 [facility] Systolic blood 2020-10-28 15:01:00 132 mm[Hg] Univer sity of pressure [facility] Diastolic blood 2020-10-28 15:01:00 81 mm[Hg] Unive rsity of pressure [facility] Heart rate 2020-10-28 15:01:00 87 /min Universi ty [facility] Body temperature 2020-10-28 15:01:00 36.39 [facility] Respiratory rate 2020-10-28 15:01:00 16 /min [facility] Body height 2020-10-28 15:01:00 157.5 cm Universi [...] 20:34:00 81 mm[Hg] Unive rsity of pressure [facility] Heart rate 2020-06-29 20:34:00 87 /min [facility] Body temperature 2020-06-29 20:34:00 37.11 Devika [facility] Respiratory rate 2020-06-29 20:34:00 16 /min [facility] Body height 2020-06-29 20:34:00 154.9 cm [facility] Body weight 2020-06-29 20:34:00 80.423 kg [facility] BMI 2020-06-29 20:34:00 33.50 kg/m2 [facility] Procedures Procedure Date / Time Performing Clinician Source Performed POCT TEST 2020-10-28 16:05:00 [facility] AUTHORIZATION TO RELEASE 2020-10-28 06:01:00 Doctor Unassigned, No [facility] TO [facility] PATIENT FINANCIAL 2020-08-20 22:22:14 Doctor Unassigned, No [facility] POCT TEST 2020-08-20 21:55:00 [facility]IGN[facility] OF BENEFITS 2020-06-29 19:57:27 Doctor Unassigned, No [facility] Encounters Start End Encounter Admission Attending Care Care Encounter Source Date/Time Date/Time Type Type Clinicians Facility Department ID 2021-07-19 2021-07-19 [place] [id number] Univers 00:00:00 00:00:00 Management Magdalena Leach [id number] ity quang [place] 4[place]7.2.686 [place] [id number] [place] [address] Branch 2021-06-29 2021-06-29 Outpatient R ANN-MARIE [facility] [id number] Univers 08:45:00 08:45:00 GRADY marcus o f [facility] 2021-05-05 2021-05-05 Outpatient R [facility] [id number] Univers 08:30:00 08:30:00 ity of [facility] 2021-04-22 2021-04-22 [facility] [id number] Univers 00:00:00 00:00:00 Rostylernda R STORE 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 [id number] ity of REGIONAL [id number] [place] as MATERNAL [phone] [facility] & CHILD [address] [place] [address] 2021-04-21 2021-04-21 [facility] [id number] Univers 07:36:35 08:11:32 Visit Mirellaekaterinaa R STORE 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 [id number] ity of [facility] [id number] [place] MATERNAL [id number] [address] 2021-04-21 2021-04-21 [facility] [id number] Univers 07:45:00 07:45:00 GRADY alonso [facility] 2021-04-06 2021-04-06 [facility] [id number] Univers 16:00:00 16:00:00 GRADY marcus o [facility] 2020-12-22 2020-12-22 [facility] [id number] 00:00:00 00:00:00 Outreach Rey PRIMARY [id number] Itz CARE [id number] PAVILLION [id number] [facility] 2020-12-22 2020-12-22 [facility] [id number] Univers 00:00:00 00:00:00 Outreach Rey PRIMARY [id number] i ty of [place] C[place] [id number] [place] [id number] Ar dical [address] [place] [address] 2020-10-28 2020-10-28 Office [facility] [id number] 08:53:19 09:37:34 Visit Mirellanda R STORE 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 [id number] REGIONAL [id number] MATERNAL [id number] & CHILD [address] [place] [address] 2020-10-28 2020-10-28 Office [facility] [id number] Univers 08:53:19 09:37:34 Visit Grady Merida STORE 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 [id number] ity of REGIONAL [id number] [place] as MATERNAL [phone] [facility] & CHILD [address] [place] [address] 2020-10-28 2020-10-28 Outpatient [facility] [id number] Univers 08:45:00 08:45:00 EDIEOCTAVIO ity o f [facility] 2020-10-28 2020-10-28 Orders Doctor ZEE [id number] 00:00:00 00:00:00 Only Unassigned, VAMSI 350.1.13.10 [place] [facility] 4.2.7.2.686 [id number] 2020-10-28 2020-10-28 Orders Doctor ZEE [id number] Univers 00:00:00 00:00:00 Only Unassigned, VAMSI 350.1.13.10 ity of [place] [facility] 4.2.7.2.686 [place] as [id number] [address] 2020-08-20 2020-08-20 Office [facility] [id number] Univers 15:44:35 16:38:18 Visit Kaylin Felton STORE 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 [id number] it y of REGIONAL [id number] [place] as MATERNAL [id number] [facility] & CHILD [address] [place] [address] 2020-08-20 2020-08-20 Outpatient [place] [facility] [id number] Univers 15:45:00 15:45:00 KAYLIN marcus of [facility] 2020-08-20 2020-08-20 Orders Doctor KOCH [id number] Univers 00:00:00 00:00:00 Only Unassigned, VAMSI 350.1.13.10 ity of [place] [facility] 4.2.7.2.686 [place] as [id number] [address] 2020-07-09 2020-07-09 Outpatient [place] JACOBSEN [facility] [id number] Univers 09:45:00 09:45:00 EDIEOCTAVIO alonso anjali [facility] 2020-06-29 2020-06-29 Office Ann-Marie NYMIGUEL [id number] Univers 15:01:06 16:00:36 Visit Grady Merida STORE 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 [id number] ity of [place] [id number] [place]o as MATERNAL [id number] Med ical & CHILD [address] [place] [address] 2020-06-29 2020-06-29 Outpatient [place] JACOBSEN [facility] [id number] Univers 15:00:00 15:00:00 EDIEOCTAVIO alonso anjali [facility] 2020-06-29 2020-06-29 Orders Doctor ZEE [id number] [id number] Univers 00:00:00 00:00:00 Only Unassigned, VAMSI 350.1.13.10 [place] [id number] [place] as [id number] [address] 2020-06-04 2020-06-04 Outpatient [place] JACOBSEN [facility] [id number] Univers 10:45:00 10:45:00 MIRELLATYLEROCTAVIO alba [facility] Results Test Description Test Time Test Comments Results Result Comments Source POCT TEST 2020-10-28 16:06:00 Test Item Value Reference Range Interpretation Comme nts POCT PREG (test code = 1605) Negative On board controls acceptable with C Line (test code = 3574) Yes POCT PREG LOT # (test code = 3575) POCT PREG TEST DATE (test code = 3576) [facility] [id number] 21:55:00 Test Item Value Reference Range Interpretation Comments POCT PREG (test code = 1605) Negative On board controls acceptable with C Yes Line (test code = 3574) POCT PREG LOT # (test code = 3575) POCT PREG TEST DATE (test code = 3576) [facility] [id number] 21:55:00 Test Item Value Reference Range Interpretation Comments POCT PREG (test code = 1605) Negative On board controls acceptable with C Yes Line (test code = 3574) POCT PREG LOT # (test code = 3575) POCT PREG TEST DATE (test code = 3576) [facility]
[2022-09-02 20:16] LABS: Urine Blood Negative (Negative); Urine Glucose Negative (Negative); Urine Protein Negative (Negative)
--- NOTE | 2022-09-02 20:26 | RAD REPORT ---
EXAM DESCRIPTION: RAD - Chest Single View - 09/02/2022 8:17 pm CLINICAL HISTORY: SOB Chest pain. COMPARISON: No comparisons FINDINGS: Portable technique limits examination quality. The lungs are grossly clear. The heart is normal in size. No displaced fractures. IMPRESSION: No acute intrathoracic process suspected.
[2022-09-02 20:30] LABS: Urine RBC <5 /HPF (None Seen); Urine WBC Clump Rare /HPF (None Seen)
[2022-09-02 20:34] LABS: Barbiturates NEGATIVE (NEGATIVE); Benzodiazepines NEGATIVE (NEGATIVE); Cocaine NEGATIVE (NEGATIVE); METHAMPHETAM NEGATIVE (NEGATIVE); Methadone NEGATIVE (NEGATIVE); Opiates NEGATIVE (NEGATIVE); Phencyclidine NEGATIVE (NEGATIVE); THC Cannibis NEGATIVE (NEGATIVE)
[2022-09-02] MEDS ORDERED: METHYLPREDNISOLONE 125 MG INJ ONE (20:56)
[2022-09-02 21:06] LABS: Absolute Lymphocytes (CBC) 1.9 K/uL (0.7-4.9); Hematocrit 31.8 % (36.0-45.0); Lymphocytes % 21.8 % (15.3-44.8); MCV 76.6 fL (80-100); MPV 8.2 fL (7.6-11.3); RBC Red Blood Cell Count 4.16 M/uL (3.86-4.86)
[2022-09-02 21:20] LABS: Magnesium 2.2 mg/dL (1.8-2.4); Potassium 3.8 mmol/L (3.5-5.1); Troponin High Sensitivity 3.5 pg/mL (<58.9)
--- NOTE | 2022-09-02 22:18 | RAD REPORT ---
EXAM DESCRIPTION: CT - Chest For Pe Angio - 09/02/2022 10:09 pm CLINICAL HISTORY: Chest pain. chest pain COMPARISON: No comparisons TECHNIQUE: CT angiogram of the pulmonary arteries was performed with MIP. All CT scans are performed using dose optimization technique as appropriate and may include automated exposure control or mA/KV adjustment according to patient size. FINDINGS: No evidence of pulmonary thromboembolism. No acute aortic finding demonstrated. The included lungs are clear. No significant pericardial or pleural fluid. No concerning bony finding. IMPRESSION: No evidence of pulmonary thromboembolism. No acute lung findings.
--- NOTE | 2022-09-02 22:40 | ER ---
Nurse's Notes [facility] Name: Lisa Clement Age: 27 yrs Sex: Female : 1995 Arrival Date: 09/02/2022 Time: 17:56 Bed 9 Private MD: Diagnosis: Chest pain, unspecified Presentation: 09/02 18:44 Chief complaint: Patient states: she was driving down the street and felt sudden onset kb3 of chest pain and SOB that lasted approximately 10 minutes. Coronavirus screen: Vaccine status: Patient reports being unvaccinated. Client denies travel out of the [place] in the last 14 days. Ebola Screen: Patient negative for fever greater than or equal to 101.5 degrees Fahrenheit, and additional compatible Ebola Virus Disease symptoms Patient denies exposure to infectious person. Patient denies travel to an Ebola-affected area in the 21 days before illness onset. Initial Sepsis Screen: Does the patient meet any 2 criteria? No. Patient's initial sepsis screen is negative. Does the patient have a suspected source of infection? No. Patient's initial sepsis screen is negative. Risk Assessment: Do you want to hurt yourself or someone else? Patient reports no desire to harm self or others. Onset of symptoms was September 02, 2022 at 17:00. 18:44 Method Of Arrival: EMS: [facility] kb3 18:44 Acuity: ODIN 3 kb3 Triage Assessment: 18:48 General: Appears in no apparent distress. Behavior is calm, cooperative. Pain: kb3 Complains of pain in anterior aspect of left upper chest Pain radiates to left scapular area. 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 Last tetanus immunization: unknown. - Social history:: Smoking status: Reported history of juuling and/or vaping. Screenin:13 Abuse screen: Denies threats or abuse. Denies injuries from another. Nutritional tw5 screening: No deficits noted. Tuberculosis screening: No symptoms or risk factors identified. Fall Risk None identified. Assessment: 21:10 General: Appears in no apparent distress. Behavior is calm, cooperative, appropriate tw5 for age. General: Reports "I was in the car with my mom when I just started to feel like I couldn't breath. I usually have anxiety attacks, but I didn't feel like this was my usual anxiety attack.". Neuro: Level of Consciousness is awake, alert, obeys commands. Respiratory: Reports "I feel like I can breath just fine now." Airway is patent Trachea midline Respiratory effort is even, unlabored. Vital Signs: 18:44 BP 127 / 73; Pulse 80; Resp 20; Temp 98; Pulse Ox 100% ; Weight 79.38 kg; Height 5 ft. kb3 1 in. (154.94 cm); Pain 6/10; 23:04 BP 121 / 71; Pulse 76; Resp 20; Pulse Ox 100% ; kb3 18:44 Body Mass Index 33.07 (79.38 kg, 154.94 cm) kb3 ED Course: 17:56 Patient arrived in ED. mr 18:48 Triage completed. kb3 18:48 Arm band placed on right wrist. kb3 18:51 Gee Reynolds PA is PHCP. cp 18:51 Epifanio Dunham MD is Attending Physician. cp 20:18 Urine Microscopic Only Sent. zm 20:18 UDS Sent. zm 20:19 XRAY Chest (1 view) In Process Unspecified. EDMS 20:53 Lisa De Leon is Primary Nurse. tw5 21:13 Patient has correct armband on for positive identification. Bed in low position. Call tw5 light in reach. 21:13 No provider procedures requiring assistance completed. Maintain EMS IV. Dressing tw5 intact. Good blood return noted. Site clean \\T\\ dry. Gauge \\T\\ site: 20 RAC. 22:11 CT Chest For PE Angio In Process Unspecified. EDMS 23:05 IV discontinued, intact, bleeding controlled, No redness/swelling at site. Pressure kb3 dressing applied. Administered Medications: 21:10 CANCELLED (Patient Refused): SOLU-Medrol (methylPrednisoLONE) 80 mg IVP once tw5 Medication: 23:05 VIS not applicable for this client. kb3 Outcome: 22:39 Discharge ordered by . cp 23:05 Discharged to home ambulatory. kb3 23:05 Condition: stable 23:05 Discharge instructions given to patient, Instructed on discharge instructions, follow up and referral plans. medication usage, Demonstrated understanding of instructions, follow-up care, medications, Prescriptions given X 2. 23:06 Patient left the ED. kb3 Signatures: Dispatcher [employer] EDMS Simi Pearson Gee Marcelino PA PA cp Wood, Tiffany tw5 Veronica Reddy Kelly, RN RN kb3
--- NOTE | 2022-09-02 22:40 | EDPHYS ---
Physician Documentation [facility] Name: Lisa Clement Age: 27 yrs Sex: Female : 1995 Arrival Date: 09/02/2022 Time: 17:56 Bed 9 Private MD: ED Physician Epifanio Dunham HPI: 09/02 19:50 This 27 yrs old Female presents to ER via EMS with complaints of Anxiety. cp 19:50 The patient or guardian reports chest pain that is located primarily in the anterior cp chest wall, left. The pain radiates to the left shoulder, left back. 19:50 The chest pain is described as a pressure. cp 19:50 Duration: The patient or guardian reports a single episode, that is still ongoing, but cp improving. Modifying factors: the symptoms are aggravated by deep breath, movement. Severity of pain: in the emergency department the pain has improved moderately. Patient presents to ED with c/o sudden onset left side chest pain and SOB that started while driving. 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 Last tetanus immunization: unknown. - Social history:: Smoking status: Reported history of juuling and/or vaping. ROS: 20:00 Constitutional: Negative for body aches, chills, fever, poor PO intake. cp 20:00 Eyes: Negative for injury, pain, redness, and discharge. cp 20:00 ENT: Negative for drainage from ear(s), ear pain, sore throat, difficulty swallowing, cp difficulty handling secretions. 20:00 Neck: Negative for pain with movement, pain at rest, stiffness. 20:00 Cardiovascular: Positive for chest pain, of the anterior aspect of left upper chest, Negative for edema, palpitations. 20:00 Respiratory: Positive for shortness of breath, at rest. Negative for cough, wheezing. 20:00 Abdomen/GI: Negative for abdominal pain, nausea, vomiting, and diarrhea. 20:00 Back: Positive for radiated pain, of the left scapular area, Negative for injury or acute deformity, decreased range of motion. 20:00 Neuro: Negative for altered mental status, headache, numbness, syncope, weakness. 20:00 All other systems are negative. Exam: 20:05 Constitutional: The patient appears in no acute distress, alert, awake, cp non-diaphoretic, non-toxic, well developed, well nourished. 20:05 Head/Face: Normocephalic, atraumatic. cp 20:05 Eyes: Periorbital structures: appear normal, Conjunctiva: normal, no exudate, no injection, Sclera: no appreciated abnormality, Lids and lashes: appear normal, bilaterally. 20:05 ENT: External ear(s): are unremarkable, Nose: is normal, Mouth: Lips: moist, Oral mucosa: pink and intact, moist, Posterior pharynx: Airway: no evidence of obstruction, patent. 20:05 Neck: ROM/movement: is normal, is supple, without pain, no range of motions limitations, no nuchal rigidity. 20:05 Chest/axilla: Inspection: normal. 20:05 Cardiovascular: Rate: normal, Rhythm: regular, Edema: is not appreciated, JVD: is not appreciated. 20:05 Respiratory: the patient does not display signs of respiratory distress, Respirations: normal, no use of accessory muscles, no retractions, labored breathing, is not present, Breath sounds: are clear throughout, no decreased breath sounds, no stridor, no wheezing. 20:05 Abdomen/GI: Exam negative for discomfort, distension, guarding, Inspection: abdomen appears normal. 20:05 Back: pain, that is mild, of the left scapular area, ROM is normal. 20:05 Neuro: Orientation: to person, place \T\ time. Mentation: is normal, Cerebellar function: is grossly normal, Motor: moves all fours, strength is normal, Sensation: is normal. 20:05 Musculoskeletal/extremity: DVT Exam: No signs of deep vein thrombosis. cp 21:24 ECG was reviewed by the Attending Physician. cp Vital Signs: 18:44 BP 127 / 73; Pulse 80; Resp 20; Temp 98; Pulse Ox 100% ; Weight 79.38 kg; Height 5 ft. kb3 1 in. (154.94 cm); Pain 6/10; 23:04 BP 121 / 71; Pulse 76; Resp 20; Pulse Ox 100% ; kb3 18:44 Body Mass Index 33.07 (79.38 kg, 154.94 cm) kb3 MDM: 18:57 Patient medically screened. cp 20:00 Differential diagnosis: abnormal EKG, acute myocardial infarction, acute pericarditis, cp anxiety, chest wall pain, costochondritis, pleurisy, pneumonia, pneumothorax, pulmonary embolus. 22:35 Data reviewed: vital signs, nurses notes, lab test result(s), EKG, radiologic studies, cp CT scan, plain films. 22:35 Test interpretation: by ED physician or midlevel provider: ECG, plain radiologic cp studies. Counseling: I had a detailed discussion with the patient and/or guardian regarding: the historical points, exam findings, and any diagnostic results supporting the discharge/admit diagnosis, lab results, radiology results, the need for outpatient follow up, a family practitioner, to return to the emergency department if symptoms worsen or persist or if there are any questions or concerns that arise at home. Special discussion: Based on the patient's history, exam, and Dx evaluation, there is no indication for emergent intervention or inpatient Tx. It is understood by the patient/guardian that if the Sx's persist or worsen they need to return immediately for re-evaluation. 09/02 19:50 Order name: Basic Metabolic Panel; Complete Time: 21:27 cp 09/02 19:50 Order name: CBC with Diff; Complete Time: 21:27 cp 09/02 19:50 Order name: D-Dimer; Complete Time: 21:27 cp 09/02 19:50 Order name: Magnesium; Complete Time: 21:27 cp 09/02 19:50 Order name: Troponin HS; Complete Time: 21:27 cp 09/02 19:50 Order name: UDS; Complete Time: 21:27 cp 09/02 19:50 Order name: XRAY Chest (1 view); Complete Time: 21:27 cp 09/02 19:50 Order name: EKG; Complete Time: 19:51 cp 09/02 19:50 Order name: Urine Microscopic Only; Complete Time: 21:27 cp 09/02 20:17 Order name: Urine Dipstick-Ancillary; Complete Time: 21:27 EDMS 09/02 20:18 Order name: Urine --Ancillary (enter results); Complete Time: 21:27 ds4 09/02 21:28 Order name: CT Chest For PE Angio; Complete Time: 22:30 cp 09/02 19:50 Order name: EKG - Nurse/Tech; Complete Time: 21:24 cp 09/02 19:50 Order name: IV Saline Lock; Complete Time: 21:10 cp 09/02 19:50 Order name: Labs collected and sent; Complete Time: 21:10 cp 09/02 19:50 Order name: O2 Per Protocol; Complete Time: 21:10 cp 09/02 19:50 Order name: O2 Sat Monitoring; Complete Time: 21:10 cp 09/02 19:50 Order name: Urine Dipstick-Ancillary (obtain specimen); Complete Time: 20:17 cp 09/02 19:50 Order name: Urine Test (obtain specimen); Complete Time: 20:17 cp EC:24 Rate is 66 beats/min. Rhythm is regular. HI interval is normal. QRS interval is normal. cp QT interval is normal. T waves are Inverted in lead aVR. Interpreted by me. Reviewed by me. Administered Medications: 21:10 CANCELLED (Patient Refused): SOLU-Medrol (methylPrednisoLONE) 80 mg IVP once tw5 Disposition Summary: 09/02/22 22:39 Discharge Ordered Location: Home cp Problem: new cp Symptoms: have improved cp Condition: Stable cp Diagnosis - Chest pain, unspecified cp Followup: cp - With: Private Physician - When: 2 - 3 days - Reason: Recheck today's complaints Discharge Instructions: - Discharge Summary Sheet cp - Nonspecific Chest Pain, Adult cp Forms: - Medication Reconciliation Form cp - Thank You Letter cp - Antibiotic Education cp - Prescription Opioid Use cp - Work release form kb3 Prescriptions: - Cyclobenzaprine 10 mg Oral Tablet - take 1 tablet by ORAL route every 8 hours As needed; 20 tablet; Refills: 0, cp Product Selection Permitted - Medrol (Isaiah) 4 mg Oral Tablets, Dose Pack - take 1 tablet by ORAL route as directed - follow package instructions; 1 cp packet; Refills: 0, Product Selection Permitted Addendum: 09/06/2022 13:55 Co-signature as Attending Physician, Epifanio Dunham MD. r n Signatures: Dispatcher [employer] EDEpifanio Conti MD MD rn Gee Reynolds PA PA cp Bradberry, Kelly, RN RN kb3 Lisa De Leon tw5 Corrections: (The following items were deleted from the chart) 09/02 21:10 20:25 SOLU-Medrol (methylPrednisoLONE) 80 mg IVP once ordered. inna tw5
[2022-09-02 23:19] VITALS: TEMP 98; O2SAT 100
[2022-09-02 23:23] VITALS: BP 121/71
--- NOTE | 2022-09-05 13:53 | EKG ---
Test Date: 2022-09-02 Test Time: 21:16:12 Plaster Helper: JERICHO MEASUREMENT RESULTS: Intervals: Rate: 66 ME: 120 QRSD: 80 QT: 408 QTc: 427 [place]: P: 57 ME: 120 QRS: 58 T: 62 INTERPRETIVE STATEMENTS: Normal sinus rhythm with sinus arrhythmia Normal ECG No previous ECG available for comparison Electronically Signed On 09-05-22 13:50:22 HUMAN RESOURCE STATISTICIAN by Timmy Soto
== END 2022-09-02 23:06 | disposition home or self-care (01) ==
LOC: ER 17:51
DX: R07.89 Other chest pain (principal); Z88.0 Allergy status to penicillin; Z88.6 Allergy status to analgesic agent
CPT/HCPCS: 36415; 71045; 71275; 80048; 80307; 81003; 81015; 81025; 83735; 84484; 85025; 85379; 93005; 99284; J2930; Q9967

== ENCOUNTER 2022-09-14 02:51 | Emergency (ER) | payer SELFPAY ==
--- OUTSIDE RECORDS SUMMARY | 2022-09-14 02:55 | XMS REPORT | Continuity of Care Document ---
:1995 Author Organization [facility] t Address [id number] Care Team Providers Name Role Phone Grady Garcia Primary Care Physician [phone] Magdalena Tai LMSW Attending Clinician Unavailable GRADY JACOBSEN Attending Clinician Unavailable Grady Garcia Attending Clinician Rey Schultz DO Attending Clinician Doctor Unassigned, [place] Attending Clinician Unavailable Kaylin Garber Attending Clinician [...] Nexplanon Nexplanon [place] removal [facility] [place] Chlamydia Chlamydia Disease Active Uni vers trachomati trachomati 5-17 it y of s s 00:00: [place] infection infection 00 Medi arthur of lower of lower Branch genitourin genitourin nicolas sites nicolas sites Tobacco Tobacco Disease Active Univers use use 9-11 ity of disorder disorder 00:00: [place] 00 [facility] Branch Encounter Encounter Disease Active Overview: Univers for for 06-12 Formattin ity of initial initial 00:00: g of this [place] prescripti prescripti 00 note Me dical on of on of might be Branch contracept contracept different doug pills doug pills from the original. 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 Allergies, Adverse Reactions, Alerts Allergy Allergy [...] Cigarette Smoker Universi ty of tobacco use [facility] Exposure to Not sure University of SARS-CoV-2 [facility] (event) Branch Alcohol intake 2021-04-21 2021-04-21 Current University of 00:00:00 00:00:00 non-drinker of [facility] [place] alcohol (finding) Branch Tobacco use and 2014-06-12 2014-06-12 Never used Universit y of exposure 00:00:00 00:00:00 [facility] Tobacco Comment 2014-06-12 2014-06-12 states smokes 4-5 Un iversity of 00:00:00 00:00:00 cigarettes per day [facility] Sex Ass[birth year] Universit y of 00:00:00 00:00:00 [facility] Smoking Status Start Date Stop Date Source Current every day smoker 2014-06-12 00:00:00 Uni versity of [facility] Medications Ordered Filled Start Stop Current Ordering Indication Dosage Frequency Signature Comments Components Source Medication Medication Date Date Medication? Clinician (SIG) Name Name LOESTRIN FE 2019-10 Yes [id number] 1{tbl} Take 1 Univers (MICROGESTI 1-19 tablet by ity of uPrnima 10/21) 00:00: mouth [place] 1 mg-20 mcg 00 daily. Medica l (21)/75 mg Branch (7) tablet LOESTRIN FE 2020- Yes [id number] 1{tbl} Take 1 Univers (MICROGESTI 1-19 tablet by ity of N FE 10/21) 00:00: mouth [place] 1 mg-20 mcg 00 daily. Medica l (21)/75 mg Branch (7) tablet LOESTRIN FE 2020- Yes [id number] 1{tbl} Take 1 Univers (MICROGESTI 1-19 tablet by ity of N FE 10/21) 00:00: mouth [place] 1 mg-20 mcg 00 daily. Medica l (21)/75 mg Branch (7) tablet LOESTRIN FE 2020- Yes [id number] 1{tbl} Take 1 Univers (MICROGESTI 1-19 tablet by ity of N FE 10/21) 00:00: mouth [place] 1 mg-20 mcg 00 daily. Medica l (21)/75 mg Branch (7) tablet LOESTRIN FE 2020- Yes [id number] 1{tbl} Take 1 Univers (MICROGESTI 1-19 tablet by ity of N FE 10/21) 00:00: mouth [place] 1 mg-20 mcg 00 daily. Medica l (21)/75 mg Branch (7) tablet LOESTRIN FE 2020- Yes [id number] 1{tbl} Take 1 Univers (MICROGESTI 1-19 tablet by ity of N FE 10/21) 00:00: mouth [place] 1 mg-20 mcg 00 daily. Medica l (21)/75 mg Branch (7) tablet LOESTRIN FE 2020- Yes [id number] 1{tbl} Take 1 Univers (MICROGESTI 1-19 tablet by ity of N FE 10/21) 00:00: mouth [place] 1 mg-20 mcg 00 daily. Medica l (21)/75 mg Branch (7) tablet LOESTRIN FE 2020- Yes [id number] 1{tbl} Take 1 Univers (MICROGESTI 1-19 tablet by ity of N FE 10/21) 00:00: mouth [place] 1 mg-20 mcg 00 daily. Medica l (21)/75 mg Branch (7) tablet LOESTRIN FE 2020- Yes [id number] 1{tbl} Take 1 Univers (MICROGESTI 1-19 tablet by ity of N FE 10/21) 00:00: mouth [place] 1 mg-20 mcg 00 daily. Medica l (21)/75 mg Branch (7) tablet LOESTRIN FE 2019-10 Yes [id number] 1{tbl} Take 1 Univers (MICROGESTI 1-19 tablet by ity of N FE 10/21) 00:00: mouth [place] 1 mg-20 mcg 00 daily. Medica l (21)/75 mg Branch (7) tablet LOESTRIN FE 2019-10 Yes [id number] 1{tbl} Take 1 Univers (MICROGESTI 1-19 tablet [...] FOR Branch 10 DAYS methylPREDN 2018-10 Yes [id number] Take by Univers ISolone 2 mouth ity of (MEDROL, 00:00: SEE-INSTRU [place] ALEK,) 4 mg 00 CTIONS. Medica l tablets follow Branch package directions methylPREDN 2018-10- No [id number] Take by Univers ISolone 206-29 mouth ity of (MEDROL, 00:00: 00:00 [place] ALEK,) 4 mg 00 :00 CTIONS. Medica l tablets follow Branch package directions methylPREDN 2018-10- No [id number] Take by Univers ISolone 11-16 mouth ity [...] No known No Univers medications ity of [facility] Immunizations Ordered Filled Immunization Date Status Comments Sour e Immunization Name Name HPV 2014-06-12 Completed University of 00:00:00 [facility] HPV 2014-06-12 Completed University of 00:00:00 [facility] HPV 2014-06-12 Completed University of 00:00:00 [facility] HPV 2014-06-12 Completed University of 00:00:00 [facility] HPV 2014-06-12 Completed University of 00:00:00 [facility] Branch HPV 2014-06-12 Completed University of 00:00:00 [facility] HPV 2014-06-12 Completed University of 00:00:00 [facility] Branch HPV 2014-06-12 Completed University of 00:00:00 [facility] Branch HPV 2014-06-12 Completed University of 00:00:00 [facility] Branch HPV 2014-06-12 Completed University of 00:00:00 [facility] HPV 2014-06-12 Completed University of 00:00:00 [facility] Branch HPV 2014-06-12 Completed University of 00:00:00 [facility] Branch HPV 2014-06-12 Completed University of 00:00:00 [facility] Branch HPV 2014-06-12 Completed University of 00:00:00 [facility] HPV 2014-06-12 Completed University of 00:00:00 [facility] HPV 2011-07-19 Completed University of 00:00:00 [facility] HPV 2011-07-19 Completed University of 00:00:00 [facility] Branch HPV 2011-07-19 Completed University of 00:00:00 [facility] HPV 2011-07-19 Completed University of 00:00:00 [facility] Branch HPV 2011-07-19 Completed University of 00:00:00 [facility] Branch HPV 2011-07-19 Completed University of [...] Branch HPV 2010-06-23 Completed University of 00:00:00 [place] [facility] HPV 2010-06-23 Completed University of 00:00:00 [place] [facility] HPV 2010-06-23 Completed University of 00:00:00 [facility] Vital Signs Vital Name Observation Time Observation Value Comments Source Systolic blood 2021-04-21 12:51:00 124 mm[Hg] Univer sity of pressure [facility] Diastolic blood 2021-04-21 12:51:00 83 mm[Hg] Unive rsity of pressure [facility] Heart rate 2021-04-21 12:51:00 74 /min Universi ty [facility] Body temperature 2021-04-21 12:51:00 36.72 [facility] Res[facility] rate 2021-04-21 12:51:00 16 /min Univ [facility] Body height 2021-04-21 12:51:00 157.5 cm [facility] Body weight 2021-04-21 12:51:00 90.629 kg [facility] BMI 2021-04-21 12:51:00 36.54 kg/m2 [facility] Systolic blood 2020-10-28 15:01:00 132 mm[Hg] Univer sity of pressure [facility] Diastolic blood 2020-10-28 15:01:00 81 mm[Hg] Unive rsity of pressure [facility] Heart rate 2020-10-28 15:01:00 87 /min Universi ty [facility] Body temperature 2020-10-28 15:01:00 36.39 Devika [facility] Respiratory rate 2020-10-28 15:01:00 16 /min [facility] Body height 2020-10-28 15:01:00 157.5 cm Universi ty of [place] [facility] Body weight 2020-10-28 15:01:00 83.575 kg Universi ty of [place] [facility] BMI 2020-10-28 15:01:00 33.70 kg/m2 Universi ty of [place] [facility] Systolic blood 2020-10-28 15:01:00 132 mm[Hg] Univer sity of pressure [place] [facility] Diastolic blood 2020-10-28 15:01:00 81 mm[Hg] Unive rsity of pressure [place] [facility] Heart rate 2020-10-28 15:01:00 87 /min Universi ty of [place] [facility] Body temperature 2020-10-28 15:01:00 36.39 Devika Univ ersity of [place] [facility] Respiratory rate 2020-10-28 15:01:00 16 /min Univ ersity of [place] [facility] Body height 2020-10-28 15:01:00 157.5 cm Universi ty of [place] [facility] Body weight 2020-10-28 15:01:00 83.575 kg Universi ty of [place] [facility] BMI 2020-10-28 15:01:00 33.70 kg/m2 Universi ty of [place] [facility] Systolic blood 2020-08-20 21:53:00 125 mm[Hg] Univer sity of pressure [place] [facility] Diastolic blood 2020-08-20 21:53:00 86 mm[Hg] Unive rsity of pressure [place] [facility] Heart rate 2020-08-20 21:53:00 97 /min Universi ty of [place] [facility] Body temperature 2020-08-20 21:53:00 36.67 Devika Univ ersity of [place] [facility] Respiratory rate 2020-08-20 21:53:00 16 /min Univ ersity of [place] [facility] Body height 2020-08-20 21:53:00 154.9 cm Universi ty of [place] [facility] Body weight 2020-08-20 21:53:00 79.493 kg Universi ty of [place] [facility] BMI 2020-08-20 21:53:00 33.11 kg/m2 Universi ty of [place] [facility] Systolic blood 2020-06-29 20:34:00 125 mm[Hg] Univer sity of pressure [place] [facility] Diastolic blood 2020-06-29 20:34:00 81 mm[Hg] Unive rsity of pressure [facility] Heart rate 2020-06-29 20:34:00 87 /min [facility] Body temperature 2020-06-29 20:34:00 37.11 Devika [facility] Respiratory rate 2020-06-29 20:34:00 16 /min [facility] Body height 2020-06-29 20:34:00 154.9 cm [facility] Body weight 2020-06-29 20:34:00 80.423 kg [facility] BMI 2020-06-29 20:34:00 33.50 kg/m2 [facility] Procedures Procedure Date / Time Performing Clinician Source Performed POCT TEST 2020-10-28 16:05:00 Grady Jacobsen [facility] AUTHORIZATION TO RELEASE 2020-10-28 06:01:00 Doctor Unassigned, No [facility] TO [facility] PATIENT FINANCIAL 2020-08-20 22:22:14 Doctor Unassigned, No [facility] POCT TEST 2020-08-20 21:55:00 [facility]ENEFITS 2020-06-29 19:57:27 Doctor Unassigned, No [facility] Encounters Start End Encounter Admission Attending Care Care Encounter Source Date/Time Date/Time Type Type Clinicians Facility Department ID 2021-07-19 2021-07-19 [place] [id number] Univers 00:00:00 00:00:00 Management Magdalena Leach [id number] ity quang [place].2.686 [place] [id number] [place] [address] Branch 2021-06-29 2021-06-29 Outpatient R ANN-MARIE [facility] [id number] Univers 08:45:00 08:45:00 GRADY marcus o f [facility] 2021-05-05 2021-05-05 Outpatient R [facility] [id number] Univers 08:30:00 08:30:00 ity of [facility] 2021-04-22 2021-04-22 [facility] [id number] Univers 00:00:00 00:00:00 Rostylernda R MACHINE SHORTHAND REPORTER [id number] ity of REGIONAL [id number] [place] as MATERNAL [id number] [facility], [facility] & CHILD [address] [place] [address] 2021-04-21 2021-04-21 [facility] [id number] Univers 07:36:35 08:11:32 Visit Mirellaekaterinaa R MACHINE SHORTHAND REPORTER [id number] ity of [facility] 4.2.7.2.686 [place] as MATERNAL [id number] [address] 2021-04-21 2021-04-21 [facility] [id number] Univers 07:45:00 07:45:00 GRADY alonso [facility] 2021-04-06 2021-04-06 [facility] [id number] Univers 16:00:00 16:00:00 GRADY marcus o [facility] 2020-12-22 2020-12-22 [facility] [id number] 00:00:00 00:00:00 Outreach Rey PRIMARY [id number] Itz CARE 4.2.7.2.686 PAVILLION [id number] [facility] 2020-12-22 2020-12-22 [facility] [id number] Univers 00:00:00 00:00:00 Outreach Rey PRIMARY [id number] i ty of [place] 4.2.7.2.686 [place] [id number] Oh dical [address] [place] [address] 2020-10-28 2020-10-28 [facility] [id number] 08:53:19 09:37:34 Visit Mirellanda R MACHINE SHORTHAND REPORTER [id number] REGIONAL 4.2.7.2.686 MATERNAL [id number] & CHILD [address] [place] [address] 2020-10-28 2020-10-28 [facility] [id number] Univers 08:53:19 09:37:34 Visit Grady Merida MACHINE SHORTHAND REPORTER 350.1.13.10 ity of REGIONAL [id number] [place] as MATERNAL [id number] [facility] & CHILD [address] [place] [address] 2020-10-28 2020-10-28 [facility] [id number] Univers 08:45:00 08:45:00 EDIEOCTAVIO ity o f [facility] 2020-10-28 2020-10-28 Orders Doctor ZEE 1.2.840.114 [id number] 00:00:00 00:00:00 Only Unassigned, VAMSI 350.1.13.10 [place] [facility] 4.2.7.2.686 [id number] 2020-10-28 2020-10-28 Orders Doctor ZEE 1.2.840.114 [id number] Univers 00:00:00 00:00:00 Only Unassigned, VAMSI 350.1.13.10 ity of [place] [facility] 4.2.7.2.686 [place] as [id number] [address] 2020-08-20 2020-08-20 Office [facility] [id number] Univers 15:44:35 16:38:18 Visit Kaylin Felton MACHINE SHORTHAND REPORTER 350.1.13.10 it y of REGIONAL 4.2.7.2.686 [place] as MATERNAL [id number] [facility] & CHILD [address] [place] [address] 2020-08-20 2020-08-20 Outpatient [place] [facility] [id number] Univers 15:45:00 15:45:00 KAYLIN marcus of [facility] 2020-08-20 2020-08-20 Orders Doctor KOCH 1.2.840.114 [id number] Univers 00:00:00 00:00:00 Only Unassigned, VAMSI 350.1.13.10 ity of [place] [facility] 4.2.7.2.686 [place] as [id number] [address] 2020-07-09 2020-07-09 Outpatient [place] JACOBSEN [facility] [id number] Univers 09:45:00 09:45:00 EDIEOCTAVIO alonso anjali [facility] 2020-06-29 2020-06-29 Office Ann-Marie IDMIGUEL 1.2.840.114 [id number] Univers 15:01:06 16:00:36 Visit Grady Merida MACHINE SHORTHAND REPORTER 350.1.13.10 ity of [place] [id number] [place] as MATERNAL [id number] Med ical & CHILD [address] [place] [address] 2020-06-29 2020-06-29 Outpatient [place] JACOBSEN [facility] [id number] Univers 15:00:00 15:00:00 EDIEOCTAVIO alonso anjali [facility] 2020-06-29 2020-06-29 Orders Doctor ZEE 1.2.840.114 [id number] Univers 00:00:00 00:00:00 Only Unassigned, VAMSI 350.1.13.10 [place] [id number] [place] as [id number] [address] 2020-06-04 2020-06-04 Outpatient [place] JACOBSEN [facility] [id number] Univers 10:45:00 10:45:00 MIRELLATYLEROCATVIO alba [facility] Results Test Description Test Time Test Comments Results Result Comments Source POCT TEST 2020-10-28 16:06:00 Test Item Value Reference Range Interpretation Comme nts POCT PREG (test code = 1605) Negative On board controls acceptable with C Line (test code = 3574) Yes POCT PREG LOT # (test code = 3575) POCT PREG TEST DATE (test code = 3576) [id number] 21:55:00 Test Item Value Reference Range Interpretation Comments POCT PREG (test code = 1605) Negative On board controls acceptable with C Yes Line (test code = 3574) POCT PREG LOT # (test code = 3575) POCT PREG TEST DATE (test code = 3576) [id number] 21:55:00 Test Item Value Reference Range Interpretation Comments POCT PREG (test code = 1605) Negative On board controls acceptable with C Yes Line (test code = 3574) POCT PREG LOT # (test code = 3575) POCT PREG TEST DATE (test code = 3576) [facility]
--- NOTE | 2022-09-14 03:15 | EDPHYS ---
Physician Documentation [facility] Name: Lisa Clement Age: 27 yrs Sex: Female : 1995 Arrival Date: 09/14/2022 Time: 02:54 Bed Waiting Private MD: ED Physician Epifanio Dunham HPI: 09/14 03:08 This 27 yrs old Female presents to ER via Unassigned with complaints of Toothache. rn 03:08 The patient presents with pain, redness. The problem is located in the right lower rn teeth. Onset: The symptoms/episode began/occurred yesterday. Duration: The symptoms are continuous. Modifying factors: The symptoms are alleviated by nothing, the symptoms are aggravated by chewing, cold fluids, food, talking. Associated signs and symptoms: Pertinent positives: pain, redness in area, Pertinent negatives: fever, inability to eat, swelling, vomiting. Severity of symptoms: At their worst the symptoms were moderate, in the emergency department the symptoms are unchanged. The patient has experienced similar episodes in the past. The patient has not recently seen a physician. Pt reports dental pain, right lower teeth, for 1 day, has had problems with her teeth before. No fever. No trauma. . HOSPITAL MEDICAL ASSISTANT: 03:25 LMP N/A - bb Historical: - Allergies: 03:30 PENICILLINS; bb 03:30 Benadryl; bb 03:30 Motrin; bb - Home Meds: 03:30 control implant [Active]; inhaler [Active]; bb - PMHx: 03:30 Anxiety; Asthma; bb - PSHx: 03:30 section; bb - Immunization history:: Client reports having NOT received the Covid vaccine. - Social history:: Smoking status: Reported history of juuling and/or vaping. - Family history:: not pertinent. - Hospitalizations: : No recent hospitalization is reported. ROS: 03:08 Constitutional: Negative for fever, chills, and weight loss, ENT: + dental pain rn Exam: 03:08 Constitutional: This is a well developed, well nourished patient who is awake, alert, rn appears in pain Head/Face: Normocephalic, atraumatic. ENT: Poor dentition, no focal swelling or obvious abscess. + tenderness along gumline right lower teeth. No stridor. No neck swelling. Vital Signs: 03:25 BP 142 / 95; Pulse 86; Resp 16 S; Temp 97.9(O); Pulse Ox 100% on R/A; Weight 90.72 kg bb (R); Height 5 ft. 1 in. (154.94 cm) (R); Pain 10/10; 03:25 Body Mass Index 37.79 (90.72 kg, 154.94 cm) bb MDM: 02:55 Patient medically screened. rn 03:08 Differential diagnosis: dental caries, dental abscess. Data reviewed: vital signs, rn nurses notes, and as a result, I will discharge patient. Counseling: I had a detailed discussion with the patient and/or guardian regarding: the historical points, exam findings, and any diagnostic results supporting the discharge/admit diagnosis, the need for outpatient follow up, to return to the emergency department if symptoms worsen or persist or if there are any questions or concerns that arise at home. Response to treatment: the patient's symptoms have mildly improved after treatment, and as a result, I will discharge patient. Special discussion: I discussed with the patient/guardian in detail that at this point there is no indication for admission to the hospital. It is understood, however, that if the symptoms persist or worsen the patient needs to return immediately for re-evaluation. Based on the history and exam findings, there is no indication for further emergent testing or inpatient evaluation. I discussed with the patient/guardian the need to see a dentist for further evaluation of the symptoms. Administered Medications: 03:29 Drug: Clindamycin 300 mg Route: PO; vc1 03:30 Follow up: Response: Medication administered at discharge. vc1 03:29 Drug: Ketorolac 30 mg Route: IM; Site: right deltoid; vc1 03:29 Follow up: Response: Medication administered at discharge. vc1 03:29 Drug: Lorraine (HYDROcodone-acetaminophen) 10 mg-325 mg 1 tabs Route: PO; vc1 03:29 Follow up: Response: Medication administered at discharge. vc1 03:29 Drug: predniSONE 60 mg Route: PO; vc1 03:29 Follow up: Response: Medication administered at discharge. vc1 Disposition Summary: 09/14/22 03:15 Discharge Ordered Location: Home rn Problem: new rn Symptoms: are unchanged rn Condition: Stable rn Diagnosis - Dental caries, unspecified rn Followup: rn - With: Private Physician - When: As needed - Reason: Recheck today's complaints, Re-evaluation by your physician Discharge Instructions: - Discharge Summary Sheet rn - Dental Caries, Adult rn - Dental Pain rn Forms: - Medication Reconciliation Form rn - Thank You Letter rn - Antibiotic edge burnisher uppers - Prescription Opioid Use rn Prescriptions: - Clindamycin HCl 300 mg Oral Capsule - take 1 capsule by ORAL route every 6 hours for 10 days; 40 capsule; Refills: 0, rn Product Selection Permitted - Tramadol 50 mg Oral Tablet - take 1 tablet by ORAL route every 8 hours as needed; 12 tablet; Refills: 0, rn Product Selection Permitted - Medrol (Isaiah) 4 mg Oral Tablets, Dose Pack - take 1 tablet by ORAL route as directed - follow package instructions; 1 rn packet; Refills: 0, Product Selection Permitted Signatures: Jessica Coleman, RN RN Epifanio Garcia MD MD rn Calcote, Vanessa, RN RN vc1
[2022-09-14] MEDS ORDERED: HYDROCODONE/APAP 10/325 TAB ONE (03:22)
[2022-09-14] MEDS ORDERED: predniSONE 20 MG TAB ONE (03:22)
[2022-09-14] MEDS ORDERED: KETOROLAC 30 MG/ML INJ ONE (03:23)
--- NOTE | 2022-09-14 03:33 | ER ---
Nurse's Notes [facility] Name: Lisa Clement Age: 27 yrs Sex: Female : 1995 Arrival Date: 09/14/2022 Time: 02:54 Bed Waiting Private MD: Diagnosis: Dental caries, unspecified Presentation: 09/14 03:28 Chief complaint: Patient states: she has had right lower jaw pain since yesterday which bb is getting worse she is unable to sleep tonight. Coronavirus screen: At this time, the client does not indicate any symptoms associated with coronavirus-19. Ebola Screen: No symptoms or risks identified at this time. Initial Sepsis Screen: Does the patient meet any 2 criteria? No. Patient's initial sepsis screen is negative. Does the patient have a suspected source of infection? No. Patient's initial sepsis screen is negative. Risk Assessment: Do you want to hurt yourself or someone else? Patient reports no desire to harm self or others. Onset of symptoms was September 13, 2022. 03:28 Method Of Arrival: Ambulatory bb 03:28 Acuity: ODIN 5 bb Triage Assessment: 03:30 General: Appears in no apparent distress. uncomfortable, Behavior is calm, cooperative. bb Pain: Complains of pain in right lower jaw. EENT: Reports pain in right lower jaw toothache. Neuro: Level of Consciousness is awake, alert, obeys commands, Oriented to person, place, time, situation. Cardiovascular: No deficits noted. Respiratory: Respiratory effort is even, unlabored. GI: No signs and/or symptoms were reported involving the gastrointestinal system. Derm: Skin is pink, warm \T\ dry. Musculoskeletal: Circulation, motion, and sensation intact. EDGE BLACKER: 03:25 LMP N/A - bb Historical: - Allergies: 03:30 PENICILLINS; bb 03:30 Benadryl; bb 03:30 Motrin; bb - Home Meds: 03:30 control implant [Active]; inhaler [Active]; bb - PMHx: 03:30 Anxiety; Asthma; bb - PSHx: 03:30 section; bb - Immunization history:: Client reports having NOT received the Covid vaccine. - Social history:: Smoking status: Reported history of juuling and/or vaping. - Family history:: not pertinent. - Hospitalizations: : No recent hospitalization is reported. Assessment: 03:32 Reassessment: Patient is alert, oriented x 3, equal unlabored respirations, skin bb warm/dry/pink. pt discharged from triage pt verbalized understanding of and agrees to plan of care discharge instructions given pt ambulated with steady gait to exit accompanied by family. Vital Signs: 03:25 BP 142 / 95; Pulse 86; Resp 16 S; Temp 97.9(O); Pulse Ox 100% on R/A; Weight 90.72 kg bb (R); Height 5 ft. 1 in. (154.94 cm) (R); Pain 10/10; 03:25 Body Mass Index 37.79 (90.72 kg, 154.94 cm) bb ED Course: 02:54 Patient arrived in ED. bp1 02:54 Epifanio Dunham MD is Attending Physician. rn 03:25 Arm band placed on pt seen by Dr Dunham and discharged from triage. bb 03:30 Triage completed. bb Administered Medications: 03:29 Drug: Clindamycin 300 mg Route: PO; vc1 03:30 Follow up: Response: Medication administered at discharge. vc1 03:29 Drug: Ketorolac 30 mg Route: IM; Site: right deltoid; vc1 03:29 Follow up: Response: Medication administered at discharge. vc1 03:29 Drug: Phyllis (HYDROcodone-acetaminophen) 10 mg-325 mg 1 tabs Route: PO; vc1 03:29 Follow up: Response: Medication administered at discharge. vc1 03:29 Drug: predniSONE 60 mg Route: PO; vc1 03:29 Follow up: Response: Medication administered at discharge. vc1 Medication: 03:32 VIS not applicable for this client. bb Outcome: 03:15 Discharge ordered by . rn 03:33 Discharged to home ambulatory, with family. bb 03:33 Condition: stable 03:33 Discharge instructions given to patient, Instructed on discharge instructions, follow up and referral plans. medication usage, Demonstrated understanding of instructions, follow-up care, medications, Prescriptions given X 3. 03:33 Patient left the ED. bb Signatures: Jessica Coleman RN RN bb Epifanio Dunham MD MD rn [place], Brittany bp1 Mylene Musa RN RN vc1
[2022-09-14 03:37] VITALS: BP 142/95; TEMP 97.9; O2SAT 100
== END 2022-09-14 03:33 | disposition home or self-care (01) ==
LOC: ER 02:51
DX: K02.9 Dental caries, unspecified (principal); Z88.0 Allergy status to penicillin; Z88.6 Allergy status to analgesic agent; Z88.8 Allergy status to other drugs, medicaments and biological substances
CPT/HCPCS: J7512

== ENCOUNTER 2022-10-01 22:01 | Emergency (ER) | payer SELFPAY ==
--- OUTSIDE RECORDS SUMMARY | 2022-10-01 22:05 | XMS REPORT | Continuity of Care Document ---
:1995 Author Organization [facility] t Address [address] [place] [address] Care Team Providers Name Role Phone Grady Garcia Primary Care Physician [phone] Magdalena Tai LMSW Attending Clinician Unavailable GRADY JACOBSEN Attending Clinician Unavailable Grady Garcia Attending Clinician Rey Schultz DO Attending Clinician Doctor Unassigned, [place] Attending Clinician Unavailable Kaylin Garber Attending Clinician [...] Nexplan[place] removal removal [facility] Chlamydia Chlamydia Disease Active Uni vers trachomati trachomati 5-17 it y of s s 00:00: [place] infection infection 00 Medi arthur of lower of lower Branch genitourin genitourin nicolas sites nicolas sites Tobacco Tobacco Disease Active Univers use use 9-11 ity of disorder disorder 00:00: [place] [address] [facility] Encounter Encounter Disease Active Overview: Univers for for 06-12 Formattin ity of initial initial 00:00: g of this [place] prescripti prescripti 00 note Me dical on of on of might be Branch contracept contracept different doug pills doug pills from the original. RTC 2 weeks for triny ICD10 Diagnosis Term Geophysics Scientist Utility Obesity Obesity Disease Active Overview: Univ ers 06-12 Formattin ity of 00:00: g of this [place] 00 note Medical might be Branch different from the original. ICD10 Diagnosis Term Geophysics Scientist Utility Allergies, Adverse Reactions, Alerts Allergy Allergy [...] Cigarette Smoker Universi ty of tobacco use [facility] [place] [place] Exposure to Not sure University of SARS-CoV-2 [place] [facility] (event) Branch Alcohol intake 2021-04-21 2021-04-21 Current University of 00:00:00 00:00:00 non-drinker of [facility] [place] alcohol (finding) Branch Tobacco use and 2014-06-12 2014-06-12 Never used Universit y of exposure 00:00:00 00:00:[address] [facility] [place] [place] Tobacco Comment 2014-06-12 2014-06-12 states smokes 4-5 Un iversity of 00:00:00 00:00:[address] [facility] [place] [place] Sex Ass[birth year] At [birth year] Universit y of 00:00:00 00:00:[address] [facility] [place] [place] Smoking Status Start Date Stop Date Source Current every day smoker 2014-06-12 00:00:[address] Uni [address] [facility] [place] [place] Medications Ordered Filled Start Stop Current Ordering Indication Dosage Frequency Signature Comments Components Source Medication Medication Date Date Medication? Clinician (SIG) Name Name LOESTRIN FE 2019-10 Yes [id number] 1{tbl} Take 1 Univers (MICROGESTI 1-19 tablet by ity of Purnima 10/21) 00:00: mouth [place] 1 mg-20 mcg 00 daily. Medica l (21)/75 mg Branch (7) tablet LOESTRIN FE 2020- Yes [id number] 1{tbl} Take 1 Univers (MICROGESTI 1-19 tablet by ity of N FE 10/21) 00:00: mouth [place] 1 mg-20 mcg 00 daily. Medica l (21)/75 mg Branch (7) tablet LOESTRIN FE 2020- Yes [id number] 1{tbl} Take 1 Univers (MICROGESTI 1-19 tablet by ity of N FE 10/21) 00:00: mouth [place] 1 mg-20 mcg 00 daily. Medica l (21)/75 mg Branch (7) tablet LOESTRIN FE 2020- Yes [id number] 1{tbl} Take 1 Univers (MICROGESTI 1-19 tablet by ity of N FE 10/21) 00:00: mouth [place] 1 mg-20 mcg 00 daily. Medica l (21)/75 mg Branch (7) tablet LOESTRIN FE 2020- Yes [id number] 1{tbl} Take 1 Univers (MICROGESTI 1-19 tablet by ity of N FE 10/21) 00:00: mouth [place] 1 mg-20 mcg 00 daily. Medica l (21)/75 mg Branch (7) tablet LOESTRIN FE 2020- Yes [id number] 1{tbl} Take 1 Univers (MICROGESTI 1-19 tablet by ity of N FE 10/21) 00:00: mouth [place] 1 mg-20 mcg 00 daily. Medica l (21)/75 mg Branch (7) tablet LOESTRIN FE 2020- Yes [id number] 1{tbl} Take 1 Univers (MICROGESTI 1-19 tablet by ity of N FE 10/21) 00:00: mouth [place] 1 mg-20 mcg 00 daily. Medica l (21)/75 mg Branch (7) tablet LOESTRIN FE 2020- Yes [id number] 1{tbl} Take 1 Univers (MICROGESTI 1-19 tablet by ity of N FE 10/21) 00:00: mouth [place] 1 mg-20 mcg 00 daily. Medica l (21)/75 mg Branch (7) tablet LOESTRIN FE 2020- Yes [id number] 1{tbl} Take 1 Univers (MICROGESTI 1-19 tablet by ity of N FE 10/21) 00:00: mouth [place] 1 mg-20 mcg 00 daily. Medica l (21)/75 mg Branch (7) tablet LOESTRIN FE 2019-10 Yes [id number] 1{tbl} Take 1 Univers (MICROGESTI 1-19 tablet by ity of N FE 10/21) 00:00: mouth [place] 1 mg-20 mcg 00 daily. Medica l (21)/75 mg Branch (7) tablet LOESTRIN FE 2019-10 Yes [id number] 1{tbl} Take 1 Univers (MICROGESTI 1-19 tablet [...] FOR Branch 10 DAYS methylPREDN 2018-10 Yes [id number] Take by Univers ISolone 2 mouth ity of (MEDROL, 00:00: SEE-INSTRU [place] ALEK,) 4 mg 00 CTIONS. Medica l tablets follow Branch package directions methylPREDN 2018-10- No [id number] Take by Univers ISolone 206-29 mouth ity of (MEDROL, 00:00: 00:00 [place]LEK,) 4 mg 00 :00 CTIONS. Medica l tablets follow Branch package directions methylPREDN 2018-10- No [id number] Take by Univers ISolone 11-16 mouth ity [...] No known No Univers medications ity of [facility] [place] Immunizations Ordered Filled Immunization Date Status Comments Sour e Immunization Name Name HPV 2014-06-12 Completed University of 00:00:[address] [facility] [place] HPV 2014-06-12 Completed University of 00:00:[address] [facility] HPV 2014-06-12 Completed University of 00:00:[address] [facility] HPV 2014-06-12 Completed University of 00:00:[address] [facility] HPV 2014-06-12 Completed University of 00:00:00 [place] [facility] Branch HPV 2014-06-12 Completed University of 00:00:[address] [facility] HPV 2014-06-12 Completed University of 00:00:00 [place] [facility] Branch HPV 2014-06-12 Completed University of 00:00:00 [place] [facility] Branch HPV 2014-06-12 Completed University of 00:00:00 [place] [facility] Branch HPV 2014-06-12 Completed University of 00:00:[address] [facility] HPV 2014-06-12 Completed University of 00:00:00 [place] [facility] Branch HPV 2014-06-12 Completed University of 00:00:00 [place] [facility] Branch HPV 2014-06-12 Completed University of 00:00:00 [place] [facility] Branch HPV 2014-06-12 Completed University of 00:00:[address] [facility] HPV 2014-06-12 Completed University of 00:00:[address] [facility] [place] HPV 2011-07-19 Completed University of 00:00:[address] [facility] HPV 2011-07-19 Completed University of 00:00:00 [place] [facility] Branch HPV 2011-07-19 Completed University of 00:00:[address] [facility] [place] HPV 2011-07-19 Completed University of 00:00:00 [place] [facility] Branch HPV 2011-07-19 Completed University of 00:00:00 [place] [facility] Branch HPV 2011-07-19 Completed University of 00:00:00 [...] Branch HPV 2010-06-23 Completed University of 00:00:00 [place] [facility] HPV 2010-06-23 Completed University of 00:00:00 [place] [facility] HPV 2010-06-23 Completed University of 00:00:[address] [facility] [place] Vital Signs Vital Name Observation Time Observation Value Comments Source Systolic blood 2021-04-21 12:51:00 124 mm[Hg] Univer sity of pressure [facility] [place] Diastolic blood 2021-04-21 12:51:00 83 mm[Hg] Unive rsity of pressure [facility] [place] Heart rate 2021-04-21 12:51:00 74 /min Universi ty [facility] Body temperature 2021-04-21 12:51:00 [facility].72 [facility] 2021-04-21 12:51:00 16 /min Univ [facility] Body height 2021-04-21 12:51:00 157.5 cm [facility] Body weight 2021-04-21 12:51:00 90.629 kg [facility] BMI 2021-04-21 12:51:00 36.54 kg/m2 [facility] Systolic blood 2020-10-28 15:01:00 132 mm[Hg] Univer sity of pressure [facility] [place] Diastolic blood 2020-10-28 15:01:00 81 mm[Hg] Unive rsity of pressure [facility] [place] Heart rate 2020-10-28 15:01:00 87 /min Universi ty [facility] Body temperature 2020-10-28 15:01:00 36.39 [facility] 2020-10-28 15:01:00 16 /min [facility] height 2020-10-28 15:01:00 157.5 cm Universi ty [facility] [place] [facility] Body weight 2020-10-28 15:01:00 83.575 kg Universi ty [facility] [place] [facility] BMI 2020-10-28 15:01:00 33.70 kg/m2 Universi ty [facility] [place] [facility] Systolic blood 2020-10-28 15:01:00 132 mm[Hg] Univer sity of pressure [place] [facility] Diastolic blood 2020-10-28 15:01:00 81 mm[Hg] Unive rsity of pressure [place] [facility] Heart rate 2020-10-28 15:01:00 87 /min Universi ty of [place] [facility] Body temperature 2020-10-28 15:01:00 36.39 Devika Univ ersity of [place] [facility] Respiratory rate 2020-10-28 15:01:00 16 /min Univ ersity of [place] [facility] Body height 2020-10-28 15:01:00 157.5 cm Universi ty [facility] [place] [facility] Body weight 2020-10-28 15:01:00 83.575 kg Universi ty [facility] [place] [facility] BMI 2020-10-28 15:01:00 33.70 kg/m2 Universi ty [facility] [place] [facility] Systolic blood 2020-08-20 21:53:00 125 mm[Hg] Univer sity of pressure [place] [facility] Diastolic blood 2020-08-20 21:53:00 86 mm[Hg] Unive rsity of pressure [place] [facility] Heart rate 2020-08-20 21:53:00 97 /min Universi ty [facility] [place] [facility] Body temperature 2020-08-20 21:53:00 36.67 Devika Univ ersity of [place] [facility] Respiratory rate 2020-08-20 21:53:00 16 /min Univ ersity of [place] [facility] Body height 2020-08-20 21:53:00 154.9 cm Universi ty [facility] [place] [facility] Body weight 2020-08-20 21:53:00 79.493 kg Universi ty [facility] [place] [facility] BMI 2020-08-20 21:53:00 33.11 kg/m2 Universi ty [facility] [place] [facility] Systolic blood 2020-06-29 20:34:00 125 mm[Hg] Univer sity of pressure [place] [facility] Diastolic blood 2020-06-29 20:34:00 81 mm[Hg] Unive rsity of pressure [facility] [place] Heart rate 2020-06-29 20:34:00 87 /min [facility] Body temperature 2020-06-29 20:34:00 37.11 Devika [facility] Respiratory rate 2020-06-29 20:34:00 16 /min [facility] Body height 2020-06-29 20:34:00 154.9 cm [facility] Body weight 2020-06-29 20:34:00 80.423 kg [facility] BMI 2020-06-29 20:34:00 33.50 kg/m2 [facility] Procedures Procedure Date / Time Performing Clinician Source Performed POCT TEST 2020-10-28 16:05:00 Grady Jacobsen [facility] AUTHORIZATION TO RELEASE 2020-10-28 06:01:00 Doctor Unassigned, No [facility] TO [facility] PATIENT FINANCIAL 2020-08-20 22:22:14 Doctor Unassigned, No [facility] POCT TEST 2020-08-20 21:55:00 [facility]EF[facility] 2020-06-29 19:57:27 Doctor Unassigned, No [facility] Encounters Start End Encounter Admission Attending Care Care Encounter Source Date/Time Date/Time Type Type Clinicians Facility Department ID 2021-07-19 2021-07-19 [facility] [place] [id number] Univers 00:00:00 00:00:00 Management Magdalena Leach [id number] ity quang [id number] [place] [id number] [place] [address] Branch 2021-06-29 2021-06-29 Outpatient R ANN-MARIE [facility] [id number] Univers 08:45:00 08:45:00 GRADY marcus o f [facility] [place] 2021-05-05 2021-05-05 Outpatient R [facility] [id number] Univers 08:30:00 08:30:[address] [facility] [place] 2021-04-22 2021-04-22 [facility] [id number] Univers 00:00:00 00:00:00 Rostylernda R DIRECTOR OF RECRUITMENT AND ADMISSIONS [id number] ity of REGIONAL [id number] [place] as MATERNAL [id number] [facility] & CHILD [address] [place] [address] 2021-04-21 2021-04-21 [facility] [id number] Univers 07:36:35 08:11:32 Visit Mirellaekaterinaa R DIRECTOR OF RECRUITMENT AND ADMISSIONS [id number] ity of [facility] [id number] [place] as MATERNAL [id number] [address] 2021-04-21 2021-04-21 [facility] [id number] Univers 07:45:00 07:45:00 GRADY alonso [facility] 2021-04-06 2021-04-06 [facility] [id number] Univers 16:00:00 16:00:00 GRADY marcus o [facility] 2020-12-22 2020-12-22 [facility] [id number] 00:00:00 00:00:00 Outreach Rey PRIMARY [id number] Itz CARE [id number] PAVILLION [id number] [facility] 2020-12-22 2020-12-22 [facility] [id number] Univers 00:00:00 00:00:00 Outreach Rey PRIMARY [id number] i ty of [place] C[place] [id number] [place] [id number] Ia dical [address] [place] [address] 2020-10-28 2020-10-28 Office [facility] [id number] 08:53:19 09:37:34 Visit Mirellanda R DIRECTOR OF RECRUITMENT AND ADMISSIONS [id number] REGIONAL [id number] MATERNAL [id number] & CHILD [address] [place] [address] 2020-10-28 2020-10-28 Office [facility] [id number] Univers 08:53:19 09:37:34 Visit Grady Merida DIRECTOR OF RECRUITMENT AND ADMISSIONS [id number] ity of REGIONAL [id number] [place] as MATERNAL [id number] [facility] & CHILD [address] [place] [address] 2020-10-28 2020-10-28 Outpatient R [facility] [id number] Univers 08:45:00 08:45:00 EIDEOCTAVIO ity o f [facility] [place] 2020-10-28 2020-10-28 Orders Doctor ZEE [id number] 00:00:00 00:00:00 Only Unassigned, VAMSI [id number] [place] [facility] [id number] [id number] 2020-10-28 2020-10-28 Orders Doctor ZEE [id number] Univers 00:00:00 00:00:00 Only Unassigned, VAMSI [id number] ity of [place] [facility] [id number] [place] as [id number] [address] 2020-08-20 2020-08-20 Office [facility] [id number] Univers 15:44:35 16:38:18 Visit Kaylin Felton DIRECTOR OF RECRUITMENT AND ADMISSIONS [id number] it y of REGIONAL [id number] [place] as MATERNAL [id number] [facility] & CHILD [address] [place] [address] 2020-08-20 2020-08-20 Outpatient Magnolia [facility] [id number] Univers 15:45:00 15:45:00 KAYLIN marcus of [facility] [place] 2020-08-20 2020-08-20 Orders Doctor KOCH [id number] [id number] Univers 00:00:00 00:00:00 Only Unassigned, VAMSI [id number] ity of [place] [facility] [id number] [place] as [id number] [address] 2020-07-09 2020-07-09 Outpatient [place] JACOBSEN [facility] [id number] Univers 09:45:00 09:45:[address] alonso [address]jali [facility] [place] 2020-06-29 2020-06-29 Office Ann-Marie CAMIGUEL [id number] Univers 15:01:06 16:00:36 Visit Grady Merida DIRECTOR OF RECRUITMENT AND ADMISSIONS [id number] ity of [place] [id number] [place] as MATERNAL [id number] Med ical & CHILD [address] [place] [address] 2020-06-29 2020-06-29 Outpatient [place] JACOBSEN [facility] [id number] Univers 15:00:00 15:00:[address] al[address] [facility] [place] 2020-06-29 2020-06-29 Orders Doctor ZEE 1.2.840.114 [id number] Univers 00:00:00 00:00:00 Only Unassigned, VAMSI 350.1.13.10 [place] [id number] [place] as [phone] [address] 2020-06-04 2020-06-04 Outpatient [place] JACOBSEN [facility] [id number] Univers 10:45:00 10:45:[address] [facility] [place] Results Test Description Test Time Test Comments Results Result Comments Source POCT TEST 2020-10-28 16:06:00 Test Item Value Reference Range Interpretation Comme nts POCT PREG (test code = 1605) Negative On board controls acceptable with C Line (test code = 3574) Yes POCT PREG LOT # (test code = 3575) POCT PREG TEST DATE (test code = 3576) [id number] 21:55:00 Test Item Value Reference Range Interpretation Comments POCT PREG (test code = 1605) Negative On board controls acceptable with C Yes Line (test code = 3574) POCT PREG LOT # (test code = 3575) POCT PREG TEST DATE (test code = 3576) [facility] [id number] 21:55:00 Test Item Value Reference Range Interpretation Comments POCT PREG (test code = 1605) Negative On board controls acceptable with C Yes Line (test code = 3574) POCT PREG LOT # (test code = 3575) POCT PREG TEST DATE (test code = 3576) [facility]
--- NOTE | 2022-10-01 23:37 | EDPHYS ---
Physician Documentation [facility] Name: Lisa Clement Age: 27 yrs Sex: Female : 1995 Arrival Date: 10/01/2022 Time: 22:03 Bed 12 Private MD: ED Physician Gee Palomares HPI: 10/01 23:23 This 27 yrs old Female presents to ER via Ambulatory with complaints of Cough, snw Congestion, Sore Throat. 23:23 The patient or guardian reports cough, flu symptoms, arthralgias, myalgias. Onset: The snw symptoms/episode began/occurred acutely. Severity of symptoms: At their worst the symptoms were moderate. Associated signs and symptoms: Pertinent positives: sore throat, sinus pain. It is unknown whether or not the patient has had similar symptoms in the past. pt has been tested for CoVid x 3 this week. 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 - Social history:: Smoking status: Reported history of juuling and/or vaping. ROS: 23:19 Eyes: Negative for injury, pain, redness, and discharge. snw 23:19 Neck: Negative for injury, pain, and swelling, Cardiovascular: Negative for chest pain, palpitations, and edema. 23:19 Abdomen/GI: Negative for abdominal pain, nausea, vomiting, diarrhea, and constipation, Back: Negative for injury and pain, : Negative for injury, bleeding, discharge, and swelling, MS/Extremity: Negative for injury and deformity, Skin: Negative for injury, rash, and discoloration, Neuro: Negative for headache, weakness, numbness, tingling, and seizure, Psych: Negative for depression, anxiety, suicide ideation, homicidal ideation, and hallucinations. 23:19 Constitutional: Positive for body aches, chills, fatigue, malaise. 23:19 ENT: Positive for sinus congestion, sinus pain, sore throat. 23:19 Respiratory: Positive for cough, pleurisy. Exam: 23:17 Eyes: Pupils equal round and reactive to light, extra-ocular motions intact. Lids and snw lashes normal. Conjunctiva and sclera are non-icteric and not injected. Cornea within normal limits. Periorbital areas with no swelling, redness, or edema. 23:17 Neck: Trachea midline, no thyromegaly or masses palpated, and no cervical lymphadenopathy. Supple, full range of motion without nuchal rigidity, or vertebral point tenderness. No Meningismus. Chest/axilla: Normal chest wall appearance and motion. Nontender with no deformity. No lesions are appreciated. Cardiovascular: Regular rate and rhythm with a normal S1 and S2. No gallops, murmurs, or rubs. Normal PMI, no JVD. No pulse deficits. Respiratory: Lungs have equal breath sounds bilaterally, clear to auscultation and percussion. No rales, rhonchi or wheezes noted. No increased work of breathing, no retractions or nasal flaring. Abdomen/GI: Soft, non-tender, with normal bowel sounds. No distension or tympany. No guarding or rebound. No evidence of tenderness throughout. Back: No spinal tenderness. No costovertebral tenderness. Full range of motion. Skin: Warm, dry with normal turgor. Normal color with no rashes, no lesions, and no evidence of cellulitis. MS/ Extremity: Pulses equal, no cyanosis. Neurovascular intact. Full, normal range of motion. Neuro: Awake and alert, GCS 15, oriented to person, place, time, and situation. Cranial nerves II-XII grossly intact. Motor strength 5/5 in all extremities. Sensory grossly intact. Cerebellar exam normal. Normal gait. Psych: Awake, alert, with orientation to person, place and time. Behavior, mood, and affect are within normal limits. 23:17 Constitutional: The patient appears alert, restless, uncomfortable. 23:17 Head/face: Sinus tenderness, that is moderate, is located over the right frontal sinus, left frontal sinus, right ethmoid sinus and left ethmoid sinus. 23:17 ENT: TM's: are normal, Mouth: is normal, Posterior pharynx: erythema, that is moderate, Voice: is normal. Vital Signs: 22:11 BP 130 / 79; Pulse 84; Resp 18; Temp 98.0; Pulse Ox 100% on R/A; Weight 95.25 kg; tw5 Height 5 ft. 1 in. (154.94 cm); Pain 0/10; 22:11 Body Mass Index 39.68 (95.25 kg, 154.94 cm) tw5 MDM: 22:23 Patient medically screened. [place] 23:18 Differential Diagnosis: Bronchitis Influenza Upper Respiratory Infection Sinusitis snw Pharyngitis. Data reviewed: vital signs, nurses notes, lab test result(s), pt has had three covid tests this week. Will not repeat at this time. Data interpreted: Pulse oximetry: on room air is 100 %. Interpretation: normal. Counseling: I had a detailed discussion with the patient and/or guardian regarding: the historical points, exam findings, and any diagnostic results supporting the discharge/admit diagnosis, lab results, the need for outpatient follow up, to return to the emergency department if symptoms worsen or persist or if there are any questions or concerns that arise at home. Awaiting: labs results. Special discussion: I have referred the patient to see his PCP for further evaluation of high blood pressure. Based on the history and exam findings, there is no indication for further emergent testing or inpatient evaluation. I discussed with the patient/guardian the need to see the primary care provider for further evaluation of the symptoms. 23:43 Response to treatment: There is no appreciated change of the patient's symptoms at this snw time. 10/01 22:19 Order name: Strep; Complete Time: 23:36 tw5 10/01 22:19 Order name: COVID-19/FLU A+B/RSV; Complete Time: 23:42 tw5 Administered Medications: 23:46 Drug: Pepcid (famotidine) 20 mg Route: PO; tw5 23:46 Drug: Bactrim (trimethoprim-sulfamethoxazole) (160 mg-800 mg (DS) 1 tablet Route: PO; tw5 Disposition Summary: 10/01/22 23:37 Discharge Ordered Location: Home snw Condition: Stable snw Diagnosis - Acute sinusitis, unspecified snw Followup: snw - With: Emergency Department - When: As needed - Reason: Worsening of condition Followup: snw - With: Private Physician - When: 2 - 3 days - Reason: Recheck today's complaints, Continuance of care, Re-evaluation by your physician Discharge Instructions: - Discharge Summary Sheet snw - Sinusitis, Adult snw Forms: - Work release form snw - Medication Reconciliation Form snw - Thank You Letter snw - Antibiotic Education snw - Prescription Opioid Use snw Prescriptions: - Bactrim DS 800-160 mg Oral Tablet - take 1 tablet by ORAL route every 12 hours for 10 days; 20 tablet; Refills: 0, snw Product Selection Permitted - Pepcid 20 mg Oral Tablet - take 1 tablet by ORAL route once daily; 20 tablet; Refills: 0, Product snw Selection Permitted Signatures: Dispatcher [employer] Gee Velasco MD MD cha Waters, Shelly, SPRAY PAINTING MACHINE OPERATOR-C SPRAY PAINTING MACHINE OPERATOR-Lisa Irwin tw5
--- NOTE | 2022-10-01 23:37 | ER ---
Nurse's Notes [facility] Name: Lisa Clement Age: 27 yrs Sex: Female : 1995 Arrival Date: 10/01/2022 Time: 22:03 Bed 12 Private MD: Diagnosis: Acute sinusitis, unspecified Presentation: 10/01 22:11 Chief complaint: Patient states: "I have been having this cough and congestion for tw5 three days. I work at the [employer] and I have been tested for Covid several days now and it shows negative multiple times. They didn't test me for flu though. I have been taking DayQuil and cough medication. I still feel like crap.". Coronavirus screen: Vaccine status: Patient reports being unvaccinated. Ebola Screen: Patient negative for fever greater than or equal to 101.5 degrees Fahrenheit, and additional compatible Ebola Virus Disease symptoms Patient denies exposure to infectious person. Patient denies travel to an Ebola-affected area in the 21 days before illness onset. Initial Sepsis Screen: Does the patient meet any 2 criteria? No. Patient's initial sepsis screen is negative. Does the patient have a suspected source of infection? No. Patient's initial sepsis screen is negative. Risk Assessment: Do you want to hurt yourself or someone else? Patient reports no desire to harm self or others. Onset of symptoms was October 01, 2022. 22:11 Method Of Arrival: Ambulatory tw5 22:11 Acuity: ODIN 4 tw5 Triage Assessment: 22:16 General: Appears in no apparent distress. Behavior is calm, cooperative, appropriate tw5 for age. Pain: Pain currently is 0 out of 10 on a pain scale. Respiratory: Breath sounds are clear. 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 - Social history:: Smoking status: Reported history of juuling and/or vaping. Screenin:17 [facility] ED Fall Risk Assessment (Adult) History of falling in the last 3 months, tw5 including since admission No falls in past 3 months (0 pts). Abuse screen: Denies threats or abuse. Denies injuries from another. Nutritional screening: No deficits noted. Tuberculosis screening: No symptoms or risk factors identified. Assessment: 22:17 Cardiovascular: tw5 22:17 General: Appears Behavior is calm, cooperative, appropriate for age. Pain: Denies pain. tw5 Neuro: No deficits noted. Respiratory: Airway is patent Trachea midline Respiratory effort is even, unlabored, Breath sounds are clear. EENT:. 23:46 Reassessment: No changes from previously documented assessment. Patient and/or family tw5 updated on plan of care and expected duration. Pain level reassessed. Patient is alert, oriented x 3, equal unlabored respirations, skin warm/dry/pink. Vital Signs: 22:11 BP 130 / 79; Pulse 84; Resp 18; Temp 98.0; Pulse Ox 100% on R/A; Weight 95.25 kg; tw5 Height 5 ft. 1 in. (154.94 cm); Pain 0/10; 22:11 Body Mass Index 39.68 (95.25 kg, 154.94 cm) tw5 ED Course: 22:03 Patient arrived in ED. jj6 22:16 Triage completed. tw5 22:16 Arm band placed on. tw5 22:18 [facility] FNP-C [facility]. snw 22:18 Gee Palomares MD is Attending Physician. snw 22:18 Patient has correct armband on for positive identification. Door closed. Noise tw5 minimized. Moved to private room. Warm blanket given. Verbal reassurance given. 22:18 No provider procedures requiring assistance completed. Patient did not have IV access tw5 during this emergency room visit. 22:29 Lisa De Leon is Primary Nurse. tw5 22:29 COVID-19/FLU A+B/RSV Sent. tw5 22:29 Strep Sent. tw5 23:40 COVID-19/FLU A+B/RSV Sent. tw5 Administered Medications: 23:46 Drug: Pepcid (famotidine) 20 mg Route: PO; tw5 23:46 Drug: Bactrim (trimethoprim-sulfamethoxazole) (160 mg-800 mg (DS) 1 tablet Route: PO; tw5 Medication: 22:17 VIS not applicable for this client. VIS not applicable for this client. 5 Outcome: 23:37 Discharge ordered by MD. garg 23:46 Discharged to home ambulatory. 23:46 Condition: good 23:46 Discharge instructions given to patient, Instructed on discharge instructions, follow up and referral plans. Demonstrated understanding of instructions, follow-up care, medications, Prescriptions given X 2. 23:47 Patient left the ED. 5 Signatures: Sue Goodman FNP-C FNP-Lisa Irwin tw5 Rosario Kong jj6
[2022-10-01 23:42] LABS: SARS-COV-2 RT PCR NEGATIVE (NEGATIVE)
[2022-10-01] MEDS ORDERED: FAMOTIDINE 20 MG TAB ONE (23:44)
[2022-10-01] MEDS ORDERED: SMZ./TMP. 800/160 MG TABLET ONE (23:44)
[2022-10-02 00:13] VITALS: BP 130/79; TEMP 98; O2SAT 100
== END 2022-10-01 23:47 | disposition home or self-care (01) ==
LOC: ER 22:01
DX: J01.90 Acute sinusitis, unspecified (principal); Z88.0 Allergy status to penicillin; Z88.6 Allergy status to analgesic agent; Z88.8 Allergy status to other drugs, medicaments and biological substances
CPT/HCPCS: 0241U; 87070; 87081; 99283

== ENCOUNTER 2022-11-07 15:00 | Emergency (ER) | payer SELFPAY ==
--- OUTSIDE RECORDS SUMMARY | 2022-11-07 15:04 | XMS REPORT | Continuity of Care Document ---
:1995 Author Organization [facility] t Address [address] [place] [address] Care Team Providers Name Role Phone Grady Garcia Primary Care Physician [phone] Magdalena Tai LMSW Attending Clinician Unavailable GRADY JACOBSEN Attending Clinician Unavailable Grady Garcia Attending Clinician Rey Schultz DO Attending Clinician Doctor Unassigned, [place] Attending Clinician Unavailable Kaylin Garber Attending Clinician [...] Nexplanon Nexplanon [place] removal [facility] Chlamydia Chlamydia Disease Active Uni vers trachomati trachomati 5-17 it y of s s 00:00: [place] infection infection 00 Medi arthur of lower of lower Branch genitourin genitourin nicolas sites nicolas sites Tobacco Tobacco Disease Active Univers use use 9-11 ity of disorder disorder 00:00: [place] 00 [facility] Encounter Encounter Disease Active Overview: Univers for for 06-12 Formattin ity of initial initial 00:00: g of this [place] prescripti prescripti 00 note Me dical on of on of might be Branch contracept contracept different doug pills doug pills from the original. 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 Allergies, Adverse Reactions, Alerts Allergy Allergy [...] Smoker Universi ty of tobacco use [facility] [place] [facility] Exposure to Not sure University of SARS-CoV-2 [facility] (event) Branch Alcohol intake 2021-04-21 2021-04-21 Current University of 00:00:00 00:00:00 non-drinker of [facility] [place] [facility] alcohol (finding) Branch Tobacco use and 2014-06-12 2014-06-12 Never used Universit y of exposure 00:00:00 00:00:00 [facility] [place] [facility] Tobacco Comment 2014-06-12 2014-06-12 states smokes 4-5 Un iversity of 00:00:00 00:00:00 cigarettes per day [facility] [place] [facility] Sex Ass[birth year] At [birth year] Universit y of 00:00:00 00:00:00 [facility] [place] [facility] Smoking Status Start Date Stop Date Source Current every day smoker 2014-06-12 00:00:00 Uni versity of [facility] [place] [facility] Medications Ordered Filled Start Stop Current Ordering Indication Dosage Frequency Signature Comments Components Source Medication Medication Date Date Medication? Clinician (SIG) Name Name LOESTRIN FE 2019-10 Yes [id number] 1{tbl} Take 1 Univers (MICROGESTI 1-19 tablet by ity of Purnima 10/21) 00:00: mouth [place] 1 mg-20 mcg 00 daily. Medica l (21)/75 mg Branch (7) tablet LOESTRIN FE 2020- Yes [id number] 1{tbl} Take 1 Univers (MICROGESTI 1-19 tablet by ity of N FE 10/21) 00:00: mouth [place] 1 mg-20 mcg 00 daily. Medica l (21)/75 mg Branch (7) tablet LOESTRIN FE 2020- Yes [id number] 1{tbl} Take 1 Univers (MICROGESTI 1-19 tablet by ity of N FE 10/21) 00:00: mouth [place] 1 mg-20 mcg 00 daily. Medica l (21)/75 mg Branch (7) tablet LOESTRIN FE 2020- Yes [id number] 1{tbl} Take 1 Univers (MICROGESTI 1-19 tablet by ity of N FE 10/21) 00:00: mouth [place] 1 mg-20 mcg 00 daily. Medica l (21)/75 mg Branch (7) tablet LOESTRIN FE 2020- Yes [id number] 1{tbl} Take 1 Univers (MICROGESTI 1-19 tablet by ity of N FE 10/21) 00:00: mouth [place] 1 mg-20 mcg 00 daily. Medica l (21)/75 mg Branch (7) tablet LOESTRIN FE 2020- Yes [id number] 1{tbl} Take 1 Univers (MICROGESTI 1-19 tablet by ity of N FE 10/21) 00:00: mouth [place] 1 mg-20 mcg 00 daily. Medica l (21)/75 mg Branch (7) tablet LOESTRIN FE 2020- Yes [id number] 1{tbl} Take 1 Univers (MICROGESTI 1-19 tablet by ity of N FE 10/21) 00:00: mouth [place] 1 mg-20 mcg 00 daily. Medica l (21)/75 mg Branch (7) tablet LOESTRIN FE 2020- Yes [id number] 1{tbl} Take 1 Univers (MICROGESTI 1-19 tablet by ity of N FE 10/21) 00:00: mouth [place] 1 mg-20 mcg 00 daily. Medica l (21)/75 mg Branch (7) tablet LOESTRIN FE 2020- Yes [id number] 1{tbl} Take 1 Univers (MICROGESTI 1-19 tablet by ity of N FE 10/21) 00:00: mouth [place] 1 mg-20 mcg 00 daily. Medica l (21)/75 mg Branch (7) tablet LOESTRIN FE 2019-10 Yes [id number] 1{tbl} Take 1 Univers (MICROGESTI 1-19 tablet by ity of N FE 10/21) 00:00: mouth [place] 1 mg-20 mcg 00 daily. Medica l (21)/75 mg Branch (7) tablet LOESTRIN FE 2019-10 Yes [id number] 1{tbl} Take 1 Univers (MICROGESTI 1-19 tablet [...] FOR Branch 10 DAYS methylPREDN 2018-10 Yes [id number] Take by Univers ISolone 2 mouth ity of (MEDROL, 00:00: SEE-INSTRU [place] ALEK,) 4 mg 00 CTIONS. Medica l tablets follow Branch package directions methylPREDN 2018-10- No [id number] Take by Univers ISolone 206-29 mouth ity of (MEDROL, 00:00: 00:00 [place] ALEK,) 4 mg 00 :00 CTIONS. Medica l tablets follow Branch package directions methylPREDN 2018-10- No [id number] Take by Univers ISolone 11-16 mouth ity [...] known No Univers medications ity of [facility] [place] [facility] Immunizations Ordered Filled Immunization Date Status Comments Sour e Immunization Name Name HPV 2014-06-12 Completed University of 00:00:00 [facility] [place] [facility] HPV 2014-06-12 Completed University of 00:00:00 [facility] [place] [facility] HPV 2014-06-12 Completed University of 00:00:00 [facility] [place] [facility] HPV 2014-06-12 Completed University of 00:00:00 [facility] [place] [facility] HPV 2014-06-12 Completed University of 00:00:00 [facility] Branch HPV 2014-06-12 Completed University of 00:00:00 [facility] [place] [facility] HPV 2014-06-12 Completed University of 00:00:00 [facility] Branch HPV 2014-06-12 Completed University of 00:00:00 [facility] Branch HPV 2014-06-12 Completed University of 00:00:00 [facility] Branch HPV 2014-06-12 Completed University of 00:00:00 [facility] [place] [facility] HPV 2014-06-12 Completed University of 00:00:00 [facility] Branch HPV 2014-06-12 Completed University of 00:00:00 [facility] Branch HPV 2014-06-12 Completed University of 00:00:00 [facility] Branch HPV 2014-06-12 Completed University of 00:00:00 [facility] [place] [facility] HPV 2014-06-12 Completed University of 00:00:00 [facility] [place] [facility] HPV 2011-07-19 Completed University of 00:00:00 [facility] [place] [facility] HPV 2011-07-19 Completed University of 00:00:00 [facility] Branch HPV 2011-07-19 Completed University of 00:00:00 [facility] [place] [facility] HPV 2011-07-19 Completed University of 00:00:00 [facility] Branch HPV 2011-07-19 Completed University of 00:00:00 [facility] Branch HPV 2011-07-19 Completed University [...] Branch HPV 2010-06-23 Completed University of 00:00:00 [facility] HPV 2010-06-23 Completed University of 00:00:00 [facility] HPV 2010-06-23 Completed University of 00:00:00 [facility] [place] [facility] Vital Signs Vital Name Observation Time Observation Value Comments Source Systolic blood 2021-04-21 12:51:00 124 mm[Hg] Univer sity of pressure [facility] [place] [facility] Diastolic blood 2021-04-21 12:51:00 83 mm[Hg] Unive rsity of pressure [facility] [place] [facility] Heart rate 2021-04-21 12:51:00 74 /min Universi ty [facility] Body temperature 2021-04-21 12:51:00 [facility].72 [facility] 2021-04-21 12:51:00 16 /min Univ [facility] Body height 2021-04-21 12:51:00 157.5 cm [facility] acute hospital Body weight 2021-04-21 12:51:00 90.629 kg General acute hospital BMI 2021-04-21 12:51:00 36.54 kg/m2 General acute hospital Systolic blood 2020-10-28 15:01:00 132 mm[Hg] Univer sity of pressure [facility] [place] [facility] Diastolic blood 2020-10-28 15:01:00 81 mm[Hg] Unive rsity of pressure [facility] [place] [facility] Heart rate 2020-10-28 15:01:00 87 /min Universi ty [facility] Body temperature 2020-10-28 15:01:00 36.39 [facility] Res[facility] rate 2020-10-28 15:01:00 16 /min [facility] Body height 2020-10-28 15:01:00 157.5 cm Universi ty [facility] Body weight 2020-10-28 15:01:00 83.575 kg Universi ty [facility] BMI 2020-10-28 15:01:00 33.70 kg/m2 Universi ty of [facility] Systolic blood 2020-10-28 15:01:00 132 mm[Hg] Univer sity of pressure [facility] Diastolic blood 2020-10-28 15:01:00 81 mm[Hg] Unive rsity of pressure [facility] Heart rate 2020-10-28 15:01:00 87 /min Universi ty of [facility] Body temperature 2020-10-28 15:01:00 36.39 Devika Univ ersity of [facility] Respiratory rate 2020-10-28 15:01:00 16 /min Univ ersity of [facility] Body height 2020-10-28 15:01:00 157.5 cm Universi ty of [facility] Body weight 2020-10-28 15:01:00 83.575 kg Universi ty of [facility] BMI 2020-10-28 15:01:00 33.70 kg/m2 Universi ty of [facility] Systolic blood 2020-08-20 21:53:00 125 mm[Hg] Univer sity of pressure [facility] Diastolic blood 2020-08-20 21:53:00 86 mm[Hg] Unive rsity of pressure [facility] Heart rate 2020-08-20 21:53:00 97 /min Universi ty of [facility] Body temperature 2020-08-20 21:53:00 36.67 Devika Univ ersity of [facility] Respiratory rate 2020-08-20 21:53:00 16 /min Univ ersity of [facility] Body height 2020-08-20 21:53:00 154.9 cm Universi ty [facility] Body weight 2020-08-20 21:53:00 79.493 kg Universi ty of [facility] BMI 2020-08-20 21:53:00 33.11 kg/m2 Universi ty of [facility] Systolic blood 2020-06-29 20:34:00 125 mm[Hg] Univer sity of pressure [facility] Diastolic blood 2020-06-29 20:34:00 81 mm[Hg] Unive rsity of pressure [facility] [place] [facility] Heart rate 2020-06-29 20:34:00 87 /min General acute hospital Body temperature 2020-06-29 20:34:00 37.11 Devika [facility] Respiratory rate 2020-06-29 20:34:00 16 /min [facility] Body height 2020-06-29 20:34:00 154.9 cm General acute hospital Body weight 2020-06-29 20:34:00 80.423 kg General acute hospital BMI 2020-06-29 20:34:00 33.50 kg/m2 General acute hospital Procedures Procedure Date / Time Performing Clinician Source Performed POCT TEST 2020-10-28 16:05:00 Grady Jacobsen [facility] AUTHORIZATION TO RELEASE 2020-10-28 06:01:00 Doctor Unassigned, No [facility] TO [facility] PATIENT FINANCIAL 2020-08-20 22:22:14 Doctor Unassigned, No [facility] POCT TEST 2020-08-20 21:55:00 [facility] OF BENEFITS 2020-06-29 19:57:27 Doctor Unassigned, No [facility] Encounters Start End Encounter Admission Attending Care Care Encounter Source Date/Time Date/Time Type Type Clinicians Facility Department ID 2021-07-19 2021-07-19 [place] [id number] Univers 00:00:00 00:00:00 Management Magdalena Leach [id number] ity quang [place] [id number] [place] [id number] [place] [address] Branch 2021-06-29 2021-06-29 Outpatient R ANN-MARIE [facility] [id number] Univers 08:45:00 08:45:00 GRADY marcus o f [facility] [place] [facility] 2021-05-05 2021-05-05 Outpatient R [facility] [id number] Univers 08:30:00 08:30:00 ity of [facility] 2021-04-22 2021-04-22 [facility] [id number] Univers 00:00:00 00:00:00 Rostylernda R [employer] [id number] ity of REGIONAL [id number] [place] as MATERNAL [id number] [facility] & CHILD [address] [place] [address] 2021-04-21 2021-04-21 [facility] 1.2.840.114 [id number] Univers 07:36:35 08:11:32 Visit Mirellaekaterinaa R [employer] [id number] ity of [facility] [id number] [place] MATERNAL [id number] [address] 2021-04-21 2021-04-21 [facility] [id number] Univers 07:45:00 07:45:00 GRADY alonso [facility] 2021-04-06 2021-04-06 [facility] [id number] Univers 16:00:00 16:00:00 GRADY marcus o [facility] 2020-12-22 2020-12-22 [facility] 1.2.840.114 [id number] 00:00:00 00:00:00 Outreach Rey PRIMARY [id number] Itz CARE [id number] PAVILLION [id number] [facility] 2020-12-22 2020-12-22 [facility] [id number] Univers 00:00:00 00:00:00 Outreach Rey PRIMARY [id number] i ty of [place] [id number] [place] [id number] [place] dical [address] [place] [address] 2020-10-28 2020-10-28 Office [facility] [id number] 08:53:19 09:37:34 Visit Mirellanda R [employer] [id number] REGIONAL [id number] MATERNAL [id number] & CHILD [address] [place] [address] 2020-10-28 2020-10-28 Office [facility] [id number] Univers 08:53:19 09:37:34 Visit Grady Merida [employer] [id number] ity of REGIONAL [id number] [place] as MATERNAL [id number] [facility] & CHILD [address] [place] [address] 2020-10-28 2020-10-28 [facility] [id number] Univers 08:45:00 08:45:00 EDIEOCTAVIO ity o f [facility] 2020-10-28 2020-10-28 Orders Doctor ZEE 1.2.840.114 [id number] 00:00:00 00:00:00 Only Unassigned, VAMSI 350.1.13.10 [place] [facility] 4.2.7.2.686 [id number] 2020-10-28 2020-10-28 Orders Doctor ZEE 1.2.840.114 [id number] Univers 00:00:00 00:00:00 Only Unassigned, VAMSI 350.1.13.10 ity of [place] [facility] 4.2.7.2.686 [place] as [id number] [address] 2020-08-20 2020-08-20 Office [facility] [id number] Univers 15:44:35 16:38:18 Visit Kaylin Felton [employer] 350.1.13.10 it y of REGIONAL [id number] [place] as MATERNAL [id number] [facility] & CHILD [address] [place] [address] 2020-08-20 2020-08-20 Outpatient [facility] [id number] Univers 15:45:00 15:45:00 KAYLIN marcus of [facility] 2020-08-20 2020-08-20 Orders Doctor KOCH 1.2.840.114 [id number] Univers 00:00:00 00:00:00 Only Unassigned, VAMSI 350.1.13.10 ity of [place] [facility] 4.2.7.2.686 Layo as [id number] [address] 2020-07-09 2020-07-09 Outpatient [place] JACOBSEN [facility] [id number] Univers 09:45:00 09:45:00 EDIEOCTAVIO alonso anjali [facility] 2020-06-29 2020-06-29 Office Ann-Marie INMIGUEL 1.2.840.114 [id number] Univers 15:01:06 16:00:36 Visit Grady Merida [employer] 350.1.13.10 ity of [place] [id number] Layo as MATERNAL [id number] Med ical & CHILD [address] [place] [address] 2020-06-29 2020-06-29 Outpatient [place] JACOBSEN [facility] [id number] Univers 15:00:00 15:00:00 EDIEOCTAVIO alonso anjali [facility] 2020-06-29 2020-06-29 Orders Doctor ZEE 1.2.840.114 [id number] Univers 00:00:00 00:00:00 Only Unassigned, VAMSI 350.1.13.10 [place] [id number] [place] as [id number] [address] 2020-06-04 2020-06-04 Outpatient [place] JACOBSEN [facility] [id number] Univers 10:45:00 10:45:00 MIRELLATYLEROCTAVIO alba [facility] Results Test Description Test Time Test Comments Results Result Comments Source POCT TEST 2020-10-28 16:06:00 Test Item Value Reference Range Interpretation Comme nts POCT PREG (test code = 1605) Negative On board controls acceptable with C Line (test code = 3574) Yes POCT PREG LOT # (test code = 3575) POCT PREG TEST DATE (test code = 3576) [id number] 21:55:00 Test Item Value Reference Range Interpretation Comments POCT PREG (test code = 1605) Negative On board controls acceptable with C Yes Line (test code = 3574) POCT PREG LOT # (test code = 3575) POCT PREG TEST DATE (test code = 3576) [facility] [id number] 21:55:00 Test Item Value Reference Range Interpretation Comments POCT PREG (test code = 1605) Negative On board controls acceptable with C Yes Line (test code = 3574) POCT PREG LOT # (test code = 3575) POCT PREG TEST DATE (test code = 3576) [facility]
--- NOTE | 2022-11-07 16:35 | RAD REPORT ---
EXAM DESCRIPTION: RAD - Knee Right 3 View - 11/07/2022 4:19 pm CLINICAL HISTORY: Right knee pain status post injury FINDINGS: No fracture or dislocation is seen. Small osteophyte medial compartment
--- NOTE | 2022-11-07 16:41 | EDPHYS ---
Physician Documentation [facility] Name: Lisa Clement Age: 27 yrs Sex: Female : 1995 Arrival Date: 11/07/2022 Time: 15:01 Bed 12 Private MD: ED Physician Vic Meade HPI: 11/07 16:39 This 27 yrs old Female presents to ER via Ambulatory with complaints of Knee swelling. kb 16:39 The patient presents with pain, tenderness. The complaints affect the right knee. kb Context: The problem was sustained at home, resulted from an unknown cause, the patient can fully bear weight, the patient is able to ambulate. Onset: The symptoms/episode began/occurred yesterday. Modifying factors: The symptoms are alleviated by nothing. the symptoms are aggravated by nothing. Associated signs and symptoms: The patient has no apparent associated signs or symptoms. Treatment prior to arrival includes: no previous treatment. Severity of symptoms: At their worst the symptoms were moderate, in the emergency department the symptoms are unchanged. The patient has not experienced similar symptoms in the past. The patient has not recently seen a physician. Patient reports right knee pain that started yesterday. Denies any injury or trauma. Reports tenderness to lateral aspect of knee.. Historical: - Allergies: 16:01 Benadryl; ph 16:01 Motrin; ph 16:01 PENICILLINS; ph - PMHx: 16:01 Anxiety; Asthma; ph - PSHx: 16:01 section; ph - Immunization history:: Adult Immunizations unknown. - Social history:: Smoking status: Patient denies any tobacco usage or history of. ROS: 16:37 Constitutional: Negative for fever, chills, and weight loss. kb 16:37 MS/extremity: Positive for pain, of the right knee. 16:37 All other systems are negative. Exam: 16:37 Constitutional: This is a well developed, well nourished patient who is awake, alert, kb and in no acute distress. Head/Face: Normocephalic, atraumatic. ENT: Moist Mucous membranes Cardiovascular: Regular rate and rhythm with a normal S1 and S2. No gallops, murmurs, or rubs. No pulse deficits. Respiratory: Respirations even and unlabored. No increased work of breathing. Talking in full sentences Abdomen/GI: Soft, non-tender. No distention Skin: Warm, dry with normal turgor. Normal color. Neuro: Awake and alert, GCS 15, oriented to person, place, time, and situation. Moves all extremities. Normal gait. Psych: Awake, alert, with orientation to person, place and time. Behavior, mood, and affect are within normal limits. 16:37 Musculoskeletal/extremity: Extremities: grossly normal except: noted in the right knee: pain, tenderness, ROM: intact in all extremities, Circulation is intact in all extremities. Sensation intact. Weight bearing: able to fully bear weight. Vital Signs: 15:59 BP 127 / 74; Pulse 93; Resp 18; Temp 97.9; Pulse Ox 100% on R/A; Weight 83.91 kg; ph Height 5 ft. 1 in. (154.94 cm); 16:57 BP 128 / 79; Pulse 98; Resp 20; Pulse Ox 100% on R/A; mb9 15:59 Body Mass Index 34.96 (83.91 kg, 154.94 cm) ph MDM: 16:04 Patient medically screened. kb 16:37 Data reviewed: vital signs, nurses notes. kb 16:40 Differential diagnosis: dislocation, closed fracture, tendonitis. Counseling: I had a kb detailed discussion with the patient and/or guardian regarding: the historical points, exam findings, and any diagnostic results supporting the discharge/admit diagnosis, radiology results, the need for outpatient follow up, a orthopedic surgeon, to return to the emergency department if symptoms worsen or persist or if there are any questions or concerns that arise at home. 11/07 16:04 Order name: Knee Right 3 View XRAY; Complete Time: 16:36 kb 11/07 16:41 Order name: Rian Wrap; Complete Time: 16:56 kb Administered Medications: No medications were administered Disposition Summary: 11/07/22 16:41 Discharge Ordered Location: Home kb Condition: Stable kb Diagnosis - Pain in right knee kb Followup: kb - With: Emergency Department - When: As needed - Reason: Worsening of condition Followup: kb - With: Private Physician - When: 2 - 3 days - Reason: Recheck today's complaints, Continuance of care, Re-evaluation by your physician Discharge Instructions: - Discharge Summary Sheet kb - Musculoskeletal Pain kb - Acute Knee Pain, Adult, [id number] kb Forms: - Medication Reconciliation Form kb - Thank You Letter kb - Antibiotic Education kb - Prescription Opioid Use kb - Work release form bd Signatures: Dispatcher [employer] Tata Cook, ELAINE-C ELAINE-Steph Rasheed, RN RN ph
--- NOTE | 2022-11-07 16:41 | ER ---
Nurse's Notes [facility] Name: Lisa Clement Age: 27 yrs Sex: Female : 1995 Arrival Date: 11/07/2022 Time: 15:01 Bed 12 Private MD: Diagnosis: Pain in right knee Presentation: 11/07 15:59 Chief complaint: Patient states: R knee pain since yesterday, radiates from knee down ph to heel, denies injury. Coronavirus screen: Vaccine status: Patient reports being unvaccinated. Ebola Screen: No symptoms or risks identified at this time. Initial Sepsis Screen: Does the patient meet any 2 criteria? No. Patient's initial sepsis screen is negative. Does the patient have a suspected source of infection? No. Patient's initial sepsis screen is negative. Risk Assessment: Do you want to hurt yourself or someone else? Patient reports no desire to harm self or others. Onset of symptoms was November 07, 2022. 15:59 Method Of Arrival: Ambulatory 15:59 Acuity: ODIN 4 ph Triage Assessment: 16:01 General: Appears in no apparent distress. comfortable, Behavior is calm, cooperative. ph Pain: Complains of pain in right knee. Historical: - Allergies: 16:01 Benadryl; ph 16:01 Motrin; ph 16:01 PENICILLINS; ph - PMHx: 16:01 Anxiety; Asthma; ph - PSHx: 16:01 section; ph - Immunization history:: Adult Immunizations unknown. - Social history:: Smoking status: Patient denies any tobacco usage or history of. Screenin:58 [facility] ED Fall Risk Assessment (Adult) History of falling in the last 3 months, mb9 including since admission No falls in past 3 months (0 pts) Confusion or Disorientation No (0 pts) Intoxicated or Sedated No (0 pts) Impaired Gait No (0 pts) Mobility Assist Device Used No (0 pt) Altered Elimination No (0 pt) Score/Fall Risk Level 0 - 2 = Low Risk Oriented to surroundings, Maintained a safe environment, Educated pt \T\ family on fall prevention, incl call for assistance when getting out of bed. Abuse screen: Denies threats or abuse. Nutritional screening: No deficits noted. Tuberculosis screening: No symptoms or risk factors identified. Assessment: 16:40 Reassessment: pt brought back to ER room. mb9 16:40 General: Appears comfortable. Pain: Complains of pain in right knee Pain currently is 5 mb9 out of 10 on a pain scale. Quality of pain is described as aching, throbbing, Aggravated by increased activity, repositioning, weight bearing. Neuro: Level of Consciousness is awake, alert, obeys commands, Oriented to person, place, time, situation, Appropriate for age. Respiratory: Airway is patent Respiratory effort is even, unlabored, Respiratory pattern is regular, symmetrical. Derm: Skin is pink, warm \T\ dry. Musculoskeletal: Range of motion: limited in right knee. Vital Signs: 15:59 BP 127 / 74; Pulse 93; Resp 18; Temp 97.9; Pulse Ox 100% on R/A; Weight 83.91 kg; ph Height 5 ft. 1 in. (154.94 cm); 16:57 BP 128 / 79; Pulse 98; Resp 20; Pulse Ox 100% on R/A; mb9 15:59 Body Mass Index 34.96 (83.91 kg, 154.94 cm) ph ED Course: 15:01 Patient arrived in ED. mr 16:00 Triage completed. ph 16:01 Arm band placed on. ph 16:04 [facility] Sid[facility]-C [facility]. kb 16:04 Vic Meade MD is Attending Physician. kb 16:20 Knee Right 3 View XRAY In Process Unspecified. EDMS 16:40 Simi Pham, TAMEKA is Primary Nurse. mb9 16:58 No provider procedures requiring assistance completed. Patient did not have IV access mb9 during this emergency room visit. Administered Medications: No medications were administered Medication: 16:58 VIS not applicable for this client. mb9 Outcome: 16:41 Discharge ordered by . kb 16:58 Discharged to home ambulatory. mb9 16:58 Condition: stable 16:58 Discharge instructions given to patient, Instructed on discharge instructions, follow up and referral plans. Demonstrated understanding of instructions, follow-up care. 16:59 Patient left the ED. mb9 Signatures: Dispatcher [employer] EDME Tata Sidhu FNP-C FNP-Ckb Rivera, Mary mr Hall, Patricia, RN RN Simi Pham RN RN mb9
[2022-11-07 17:48] VITALS: TEMP 97.9; O2SAT 100
[2022-11-07 17:49] VITALS: BP 128/79
== END 2022-11-07 16:59 | disposition home or self-care (01) ==
LOC: ER 15:00
DX: M25.561 Pain in right knee (principal)

== ENCOUNTER 2022-12-06 19:08 | Emergency (ER) | payer SELFPAY ==
--- OUTSIDE RECORDS SUMMARY | 2022-12-06 19:11 | XMS REPORT | Continuity of Care Document ---
:1995 Author Organization [facility] t Address [address] [place] [address] Care Team Providers Name Role Phone Grady Garcia Primary Care Physician [phone] Magdalena Tai LMSW Attending Clinician Unavailable GRADY JACOBSEN Attending Clinician Unavailable Grady Garcia Attending Clinician Rey Schultz DO Attending Clinician Doctor Unassigned, [place] Attending Clinician Unavailable Kaylin Garber Attending Clinician [...] Nexplan[place] [facility] Chlamydia Chlamydia Disease Active Uni vers trachomati trachomati 5-17 it y of s s 00:00: [place] infection infection 00 Medi arthur of lower of lower Branch genitourin genitourin nicolas sites nicolas sites Tobacco Tobacco Disease Active Univers use use 9-11 ity of disorder disorder 00:00: [place] 00 [facility] Encounter Encounter Disease Active Overview: Univers for for 06-12 Formattin ity of initial initial 00:00: g of this [place] prescripti prescripti 00 note Me dical on of on of might be Branch contracept contracept different doug pills doug pills from the original. RTC 2 weeks for triny ICD10 Diagnosis Term [employer] Utility Obesity Obesity Disease Active Overview: Univ ers 06-12 Formattin ity of 00:00: g of this [place] 00 note Medical might be Branch different from the original. ICD10 Diagnosis Term [employer] Utility Allergies, Adverse Reactions, Alerts Allergy Allergy [...] Cigarette Smoker Universi ty of tobacco use [facility] Exposure to Not sure University of SARS-CoV-2 [facility] (event) Branch Alcohol intake 2021-04-21 2021-04-21 Current University of 00:00:00 00:00:00 non-drinker of [facility] alcohol (finding) Branch Tobacco use and 2014-06-12 2014-06-12 Never used Universit y of exposure 00:00:00 00:00:00 [facility] Tobacco Comment 2014-06-12 2014-06-12 states smokes 4-5 Un iversity of 00:00:00 00:00:00 cigarettes per day [facility] Sex Ass[birth year] At [birth year] Universit y of 00:00:00 00:00:00 [facility] Smoking Status Start Date Stop Date Source Current every day smoker 2014-06-12 00:00:00 Uni versity of [facility] Medications Ordered Filled Start Stop Current Ordering Indication Dosage Frequency Signature Comments Components Source Medication Medication Date Date Medication? Clinician (SIG) Name Name LOESTRIN FE 2019-10 Yes [id number] 1{tbl} Take 1 Univers (MICROGESTI 1-19 tablet by ity of Purnima 10/21) 00:00: mouth [place] 1 mg-20 mcg 00 daily. Medica l (21)/75 mg Branch (7) tablet LOESTRIN FE 2020- Yes [id number] 1{tbl} Take 1 Univers (MICROGESTI 1-19 tablet by ity of N FE 10/21) 00:00: mouth [place] 1 mg-20 mcg 00 daily. Medica l (21)/75 mg Branch (7) tablet LOESTRIN FE 2020- Yes [id number] 1{tbl} Take 1 Univers (MICROGESTI 1-19 tablet by ity of N FE 10/21) 00:00: mouth [place] 1 mg-20 mcg 00 daily. Medica l (21)/75 mg Branch (7) tablet LOESTRIN FE 2020- Yes [id number] 1{tbl} Take 1 Univers (MICROGESTI 1-19 tablet by ity of N FE 10/21) 00:00: mouth [place] 1 mg-20 mcg 00 daily. Medica l (21)/75 mg Branch (7) tablet LOESTRIN FE 2020- Yes [id number] 1{tbl} Take 1 Univers (MICROGESTI 1-19 tablet by ity of N FE 10/21) 00:00: mouth [place] 1 mg-20 mcg 00 daily. Medica l (21)/75 mg Branch (7) tablet LOESTRIN FE 2020- Yes [id number] 1{tbl} Take 1 Univers (MICROGESTI 1-19 tablet by ity of N FE 10/21) 00:00: mouth [place] 1 mg-20 mcg 00 daily. Medica l (21)/75 mg Branch (7) tablet LOESTRIN FE 2020- Yes [id number] 1{tbl} Take 1 Univers (MICROGESTI 1-19 tablet by ity of N FE 10/21) 00:00: mouth [place] 1 mg-20 mcg 00 daily. Medica l (21)/75 mg Branch (7) tablet LOESTRIN FE 2020- Yes [id number] 1{tbl} Take 1 Univers (MICROGESTI 1-19 tablet by ity of N FE 10/21) 00:00: mouth [place] 1 mg-20 mcg 00 daily. Medica l (21)/75 mg Branch (7) tablet LOESTRIN FE 2020- Yes [id number] 1{tbl} Take 1 Univers (MICROGESTI 1-19 tablet by ity of N FE 10/21) 00:00: mouth [place] 1 mg-20 mcg 00 daily. Medica l (21)/75 mg Branch (7) tablet LOESTRIN FE 2019-10 Yes [id number] 1{tbl} Take 1 Univers (MICROGESTI 1-19 tablet by ity of N FE 10/21) 00:00: mouth [place] 1 mg-20 mcg 00 daily. Medica l (21)/75 mg Branch (7) tablet LOESTRIN FE 2019-10 Yes [id number] 1{tbl} Take 1 Univers (MICROGESTI 1-19 tablet [...] FOR Branch 10 DAYS methylPREDN 2018-10 Yes [id number] Take by Univers ISolone 2 mouth ity of (MEDROL, 00:00: SEE-INSTRU [place] as ALEK,) 4 mg 00 CTIONS. Medica l tablets follow Branch package directions methylPREDN 2018-10- No [id number] Take by Univers ISolone 206-29 mouth ity of (MEDROL, 00:00: 00:00 [place] ALEK,) 4 mg 00 :00 CTIONS. Medica l tablets follow Branch package directions methylPREDN 2018-10- No [id number] Take by Univers ISolone 11-16 mouth ity [...] No known No Univers medications ity of [facility] Immunizations Ordered Filled Immunization Date Status Comments Sour e Immunization Name Name HPV 2014-06-12 Completed University of 00:00:00 [facility] HPV 2014-06-12 Completed University of 00:00:00 [facility] HPV 2014-06-12 Completed University of 00:00:00 [facility] HPV 2014-06-12 Completed University of 00:00:00 [facility] HPV 2014-06-12 Completed University of 00:00:[address] [facility] Branch HPV 2014-06-12 Completed University of 00:00:00 [facility] HPV 2014-06-12 Completed University of 00:00:[address] [facility] Branch HPV 2014-06-12 Completed University of 00:00:00 [facility] Branch HPV 2014-06-12 Completed University of 00:00:00 [facility] Branch HPV 2014-06-12 Completed University of 00:00:00 [facility] HPV 2014-06-12 Completed University of 00:00:00 [facility] Branch HPV 2014-06-12 Completed University of 00:00:00 [facility] Branch HPV 2014-06-12 Completed University of 00:00:00 [facility] Branch HPV 2014-06-12 Completed University of 00:00:00 [facility] HPV 2014-06-12 Completed University of 00:00:00 [facility] HPV 2011-07-19 Completed University of 00:00:00 [facility] HPV 2011-07-19 Completed University of 00:00:[address] [facility] Branch HPV 2011-07-19 Completed University of 00:00:00 [facility] HPV 2011-07-19 Completed University of 00:00:00 [facility] Branch HPV 2011-07-19 Completed University of 00:00:00 [facility] Branch HPV 2011-07-19 Completed University of [...] Branch HPV 2010-06-23 Completed University of 00:00:00 [place] [facility] HPV 2010-06-23 Completed University of 00:00:00 [place] [facility] HPV 2010-06-23 Completed University of 00:00:00 [facility] Vital Signs Vital Name Observation Time Observation Value Comments Source Systolic blood 2021-04-21 12:51:00 124 mm[Hg] Univer sity of pressure [facility] Diastolic blood 2021-04-21 12:51:00 83 mm[Hg] Unive rsity of pressure [facility] Heart rate 2021-04-21 12:51:00 74 /min Universi ty [facility] Body temperature 2021-04-21 12:51:00 36.72 [facility] Res[facility] rate 2021-04-21 12:51:00 16 /min Univ [facility] Body height 2021-04-21 12:51:00 157.5 cm [facility] Body weight 2021-04-21 12:51:00 90.629 kg [facility] BMI 2021-04-21 12:51:00 36.54 kg/m2 [facility] Systolic blood 2020-10-28 15:01:00 132 mm[Hg] Univer sity of pressure [facility] Diastolic blood 2020-10-28 15:01:00 81 mm[Hg] Unive rsity of pressure [facility] Heart rate 2020-10-28 15:01:00 87 /min Universi ty [facility] Body temperature 2020-10-28 15:01:00 36.39 [facility]ika [facility] Respiratory rate 2020-10-28 15:01:00 16 /min [facility] Body height 2020-10-28 15:01:00 157.5 cm Universi ty [facility] [place] [facility] Body weight 2020-10-28 15:01:00 83.575 kg Universi ty of [place] [facility] BMI 2020-10-28 15:01:00 33.70 kg/m2 Universi ty of [place] [facility] Systolic blood 2020-10-28 15:01:00 132 mm[Hg] Univer sity of pressure [place] [facility] Diastolic blood 2020-10-28 15:01:00 81 mm[Hg] Unive rsity of pressure [place] [facility] Heart rate 2020-10-28 15:01:00 87 /min Universi ty of [place] [facility] Body temperature 2020-10-28 15:01:00 36.39 Devika Univ ersity of [place] [facility] Respiratory rate 2020-10-28 15:01:00 16 /min Univ ersity of [place] [facility] Body height 2020-10-28 15:01:00 157.5 cm Universi ty of [place] [facility] Body weight 2020-10-28 15:01:00 83.575 kg Universi ty of [place] [facility] BMI 2020-10-28 15:01:00 33.70 kg/m2 Universi ty of [place] [facility] Systolic blood 2020-08-20 21:53:00 125 mm[Hg] Univer sity of pressure [place] [facility] Diastolic blood 2020-08-20 21:53:00 86 mm[Hg] Unive rsity of pressure [place] [facility] Heart rate 2020-08-20 21:53:00 97 /min Universi ty of [place] [facility] Body temperature 2020-08-20 21:53:00 36.67 Devika Univ ersity of [place] [facility] Respiratory rate 2020-08-20 21:53:00 16 /min Univ ersity of [place] [facility] Body height 2020-08-20 21:53:00 154.9 cm Universi ty [facility] [place] [facility] Body weight 2020-08-20 21:53:00 79.493 kg Universi ty of [place] [facility] BMI 2020-08-20 21:53:00 33.11 kg/m2 Universi ty of [place] [facility] Systolic blood 2020-06-29 20:34:00 125 mm[Hg] Univer sity of pressure [place] [facility] Diastolic blood 2020-06-29 20:34:00 81 mm[Hg] Unive rsity of pressure [facility] Heart rate 2020-06-29 20:34:00 87 /min [facility] Body temperature 2020-06-29 20:34:00 37.11 Devika [facility] Respiratory rate 2020-06-29 20:34:00 16 /min [facility] Body height 2020-06-29 20:34:00 154.9 cm [facility] Body weight 2020-06-29 20:34:00 80.423 kg [facility] BMI 2020-06-29 20:34:00 33.50 kg/m2 [facility] Procedures Procedure Date / Time Performing Clinician Source Performed POCT TEST 2020-10-28 16:05:00 [facility] AUTHORIZATION TO RELEASE 2020-10-28 06:01:00 Doctor Unassigned, No [facility] TO [facility] PATIENT FINANCIAL 2020-08-20 22:22:14 Doctor Unassigned, No [facility] POCT TEST 2020-08-20 21:55:00 [facility]ENEF[facility] 2020-06-29 19:57:27 Doctor Unassigned, No General acute hospital Encounters Start End Encounter Admission Attending Care Care Encounter Source Date/Time Date/Time Type Type Clinicians Facility Department ID 2021-07-19 2021-07-19 [place] [id number] Univers 00:00:00 00:00:00 Management Magdalena Leach [id number] ity quang [id number] [id number] [place] [address] Branch 2021-06-29 2021-06-29 Outpatient R ANN-MARIE [facility] [id number] Univers 08:45:00 08:45:00 GRADY marcus o f [facility] 2021-05-05 2021-05-05 Outpatient R [facility] [id number] Univers 08:30:00 08:30:00 ity of [facility] 2021-04-22 2021-04-22 [facility] [id number] Univers 00:00:00 00:00:00 Rostylernda R CONTACT LENS TECHNICIAN [id number] ity of REGIONAL [id number] [place] as MATERNAL [id number] [facility] & CHILD [address] [place] [address] 2021-04-21 2021-04-21 [facility] [id number] Univers 07:36:35 08:11:32 Visit Mirellaekaterinaa R CONTACT LENS TECHNICIAN [id number] ity of [facility] [id number] [place] MATERNAL [id number] [address] 2021-04-21 2021-04-21 [facility] [id number] Univers 07:45:00 07:45:00 GRADY alonso [facility] 2021-04-06 2021-04-06 [facility] [id number] Univers 16:00:00 16:00:00 GRADY marcus o [facility] [facility] 2020-12-22 2020-12-22 [facility] [id number] 00:00:00 00:00:00 Outreach Rey PRIMARY [id number] Itz CARE [id number] PAVILLION [id number] [facility] 2020-12-22 2020-12-22 [facility] [id number] Univers 00:00:00 00:00:00 Outreach Rey PRIMARY [id number] i ty of [place] C[place] [id number] [place] PAV[place]ION [id number] [place] dical [address] [place] [address] 2020-10-28 2020-10-28 Office [facility] [id number] 08:53:19 09:37:34 Visit Mirellanda R CONTACT LENS TECHNICIAN [id number] REGIONAL [id number] MATERNAL [phone] & CHILD [address] [place] [address] 2020-10-28 2020-10-28 Office [facility] [id number] Univers 08:53:19 09:37:34 Visit Grady Merida CONTACT LENS TECHNICIAN [id number] ity of REGIONAL [id number] [place] as MATERNAL [id number] [facility] & CHILD [address] [place] [address] 2020-10-28 2020-10-28 [facility] [id number] Univers 08:45:00 08:45:00 EDIEOCTAVIO ity o f [facility] 2020-10-28 2020-10-28 Orders Doctor ZEE [id number] 00:00:00 00:00:00 Only Unassigned, VAMSI [id number] [place] [facility] [id number] [id number] 2020-10-28 2020-10-28 Orders Doctor ZEE [id number] Univers 00:00:00 00:00:00 Only Unassigned, VAMSI [id number] ity of [place] [facility] 4.2.7.2.686 [place] as [id number] [address] 2020-08-20 2020-08-20 Office [facility] [id number] Univers 15:44:35 16:38:18 Visit Kaylin Felton CONTACT LENS TECHNICIAN [id number] it y of REGIONAL [id number] Lyao as MATERNAL [id number] [facility] & CHILD [address] [place] [address] 2020-08-20 2020-08-20 Outpatient Magn[facility] [id number] Univers 15:45:00 15:45:00 KAYLIN marcus of [facility] 2020-08-20 2020-08-20 Orders Doctor KOCH [id number] Univers 00:00:00 00:00:00 Only Unassigned, VAMSI 350.1.13.10 ity of [place] [facility] [id number] Layo as [id number] [address] 2020-07-09 2020-07-09 Outpatient Magnolia JACOBSEN [facility] [id number] Univers 09:45:00 09:45:00 EDIEOCTAVIO alonso anjali [facility] 2020-06-29 2020-06-29 Office Ann-Marie RIMIGUEL [id number] Univers 15:01:06 16:00:36 Visit Grady Merida CONTACT LENS TECHNICIAN [id number] ity of [place] [id number] Layo as MATERNAL [id number] Med ical & CHILD [address] [place] [address] 2020-06-29 2020-06-29 Outpatient Magn[place] JACOBSEN [facility] [id number] Univers 15:00:00 15:00:00 EDIEOCTAVIO alonso anjali [facility] 2020-06-29 2020-06-29 Orders Doctor ZEE [id number] Univers 00:00:00 00:00:00 Only Unassigned, VAMSI 350.1.13.10 [place] [id number] [place] as [id number] [address] 2020-06-04 2020-06-04 Outpatient [place] JACOBSEN [facility] [id number] Univers 10:45:00 10:45:00 MIRELLATYLEROCTAVIO alba [facility] Results Test Description Test Time Test Comments Results Result Comments Source POCT TEST 2020-10-28 16:06:00 Test Item Value Reference Range Interpretation Comme nts POCT PREG (test code = 1605) Negative On board controls acceptable with C Line (test code = 3574) Yes POCT PREG LOT # (test code = 3575) POCT PREG TEST DATE (test code = 3576) [id number] 21:55:00 Test Item Value Reference Range Interpretation Comments POCT PREG (test code = 1605) Negative On board controls acceptable with C Yes Line (test code = 3574) POCT PREG LOT # (test code = 3575) POCT PREG TEST DATE (test code = 3576) [facility] [id number] 21:55:00 Test Item Value Reference Range Interpretation Comments POCT PREG (test code = 1605) Negative On board controls acceptable with C Yes Line (test code = 3574) POCT PREG LOT # (test code = 3575) POCT PREG TEST DATE (test code = 3576) [facility]
[2022-12-06 20:27] LABS: Absolute Lymphocytes (CBC) 2.1 K/uL (0.7-4.9); Hematocrit 31.3 % (36.0-45.0); Lymphocytes % 26.2 % (15.3-44.8); MCV 75.7 fL (80-100); MPV 7.7 fL (7.6-11.3); RBC Red Blood Cell Count 4.13 M/uL (3.86-4.86)
[2022-12-06 20:32] LABS: Urine Blood Negative (Negative); Urine Glucose Negative (Negative); Urine Protein Negative (Negative)
[2022-12-06 20:41] LABS: Potassium 3.2 mmol/L (3.5-5.1)
[2022-12-06 20:42] LABS: Albumin 3.7 g/dL (3.4-5.0); Bilirubin Total 0.2 mg/dL (0.2-1.0); Protein, Total 7.3 g/dL (6.4-8.2)
[2022-12-06] MEDS ORDERED: ONDANSETRON 4 MG/2 ML VIAL ONE ×2 (20:53→22:16)
[2022-12-06] MEDS ORDERED: NA CHLORIDE 0.9% 1,000 ML ONE (20:53)
[2022-12-06] MEDS ORDERED: POTASSIUM CL SA 10 MEQ TAB PO ONE (20:53)
[2022-12-06 23:17] VITALS: TEMP 97.8
[2022-12-06 23:18] VITALS: O2SAT 98
[2022-12-06 23:19] VITALS: BP 110/84
--- NOTE | 2022-12-23 14:18 | ER ---
Nurse's Notes [facility] Name: Lisa Clement Age: 27 yrs Sex: Female : 1995 Arrival Date: 12/06/2022 Time: 19:10 Bed 12 Private MD: Diagnosis: Nausea with vomiting, unspecified Presentation: 12/06 19:14 Chief complaint: Patient states: "I have been throwing up all day, I am unable to eat ll3 or drink". Coronavirus screen: Vaccine status: Patient reports being unvaccinated. nausea, vomiting. Ebola Screen: No symptoms or risks identified at this time. Initial Sepsis Screen: Does the patient meet any 2 criteria? No. Patient's initial sepsis screen is negative. Does the patient have a suspected source of infection? No. Patient's initial sepsis screen is negative. Risk Assessment: Do you want to hurt yourself or someone else? Patient reports no desire to harm self or others. Onset of symptoms was December 06, 2022. 19:14 Method Of Arrival: Ambulatory ll3 19:14 Acuity: ODIN 3 ll3 Triage Assessment: 19:17 General: Appears uncomfortable, Behavior is calm, cooperative. Pain: Denies pain. GI: ll3 Reports nausea, vomiting, since this morning. 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 - Social history:: Smoking status: Reported history of juuling and/or vaping. Screenin:54 [facility] ED Fall Risk Assessment (Adult) History of falling in the last 3 months, mb9 including since admission No falls in past 3 months (0 pts) Confusion or Disorientation No (0 pts) Intoxicated or Sedated No (0 pts) Impaired Gait No (0 pts) Mobility Assist Device Used No (0 pt) Altered Elimination No (0 pt) Score/Fall Risk Level 0 - 2 = Low Risk Oriented to surroundings, Maintained a safe environment, Educated pt \\T\\ family on fall prevention, incl call for assistance when getting out of bed. Abuse screen: Denies threats or abuse. Nutritional screening: No deficits noted. Tuberculosis screening: No symptoms or risk factors identified. Assessment: 20:54 General: Appears uncomfortable, Behavior is calm, cooperative. Pain: Denies pain. mb9 Neuro: Level of Consciousness is awake, alert, obeys commands, Oriented to person, place, time, situation, Appropriate for age. Cardiovascular: Capillary refill is > 3 seconds is sluggish Patient's skin is warm and dry. Respiratory: Airway is patent Respiratory effort is even, unlabored, Respiratory pattern is regular, symmetrical. GI: Abdomen is round non-distended, Bowel sounds present X 4 quads. Abd is soft and non tender X 4 quads. Reports intolerance of fluids, intolerance of food, nausea. : No signs and/or symptoms were reported regarding the genitourinary system. Derm: Skin is pink, warm \\T\\ dry. Musculoskeletal: Range of motion: intact in all extremities. 21:46 Reassessment: No changes from previously documented assessment. Patient and/or family mb9 updated on plan of care and expected duration. Pain level reassessed. Patient is alert, oriented x 3, equal unlabored respirations, skin warm/dry/pink. 22:33 Reassessment: No changes from previously documented assessment. Patient and/or family mb9 updated on plan of care and expected duration. Pain level reassessed. Patient is alert, oriented x 3, equal unlabored respirations, skin warm/dry/pink. Patient states feeling better. Patient states symptoms have improved. Vital Signs: 19:14 BP 134 / 80; Pulse 93; Resp 16; Temp 97.8(TE); Pulse Ox 100% ; Weight 86.18 kg (R); ll3 Height 5 ft. 2 in. (R); Pain 0/10; 21:46 BP 122 / 84; Pulse 84; Resp 17; Pulse Ox 98% ; mb9 22:32 BP 110 / 84; Pulse 74; Resp 16; Pulse Ox 98% ; mb9 19:14 Body Mass Index 34.75 (86.18 kg, 157.48 cm) ll3 19:14 Pain Scale: Adult ll3 ED Course: 19:10 Patient arrived in ED. ja2 19:13 Tata Sidhu FNP-C is [facility]. kb 19:13 Ericka Sotomayor MD is Attending Physician. kb 19:17 Triage completed. ll3 19:17 Arm band placed on Patient notified of wait time. ll3 20:12 CBC with Diff Sent. jb5 20:12 CMP Sent. jb5 20:12 Lipase Sent. jb5 20:12 Inserted saline lock: 20 gauge in right antecubital area, using aseptic technique. jb5 Blood collected. 20:32 CMP Sent. bb 20:32 Lipase Sent. bb 21:24 Simi Pham, RN is Primary Nurse. mb9 21:46 No provider procedures requiring assistance completed. mb9 22:33 IV discontinued, intact, bleeding controlled, No redness/swelling at site. Pressure mb9 dressing applied. Administered Medications: 20:53 Drug: NS 0.9% IV 1000 ml Route: IV; Rate: 1 bolus; Site: right antecubital; mb9 22:14 Follow up: Response: No adverse reaction; IV Status: Completed infusion mb9 20:54 Drug: Ondansetron IVP 4 mg Route: IVP; Site: right antecubital; mb9 22:14 Follow up: Response: No adverse reaction mb9 21:11 Drug: Potassium Chloride PO 40 mEq Route: PO; mb9 22:14 Follow up: Response: No adverse reaction mb9 22:14 Drug: Ondansetron IVP 4 mg Route: IVP; Site: right antecubital; mb9 Outcome: 21:44 Discharge ordered by MD. kb 22:33 Discharged to home ambulatory. mb9 22:33 Condition: stable 22:33 Discharge instructions given to patient, Instructed on discharge instructions, follow up and referral plans. Demonstrated understanding of instructions, follow-up care, medications, Prescriptions given X 1. 22:44 Patient left the ED. mb9 Signatures: Tata Sidhu FNP-C E BUSINESS CONSULTANT-Jessica Preston RN RN Rosario Lim jb5 Altagracia Bill Lynsea, RN RN 3 Simi Pham, RN RN mb9 Corrections: (The following items were deleted from the chart) 22:33 22:32 BP 110 / 84; mb9 mb9
--- NOTE | 2022-12-23 14:18 | EDPHYS ---
Physician Documentation [facility] Name: Lisa Clement Age: 27 yrs Sex: Female : 1995 Arrival Date: 12/06/2022 Time: 19:10 Bed 12 Private MD: ED Physician Ericka Sotomayor HPI: 12/06 22:00 This 27 yrs old Female presents to ER via Ambulatory with complaints of Vomiting. kb 22:00 The patient presents to the emergency department with nausea, vomiting. Onset: The kb symptoms/episode began/occurred this morning. Possible causes: unknown. The symptoms are aggravated by nothing. The symptoms are alleviated by nothing. Associated signs and symptoms: Pertinent positives: nausea, vomiting, Pertinent negatives: abdominal pain, diarrhea, fever. Severity of symptoms: At their worst the symptoms were moderate in the emergency department the symptoms are unchanged. The patient has not experienced similar symptoms in the past. The patient has not recently seen a physician. DIRECTOR OF CARDIOLOGY: 19:17 LMP 11/22/2022 ll3 Historical: - Allergies: 19:17 PENICILLINS; ll3 19:17 Motrin; ll3 19:17 Benadryl; ll3 - Home Meds: 19:17 None [Active]; ll3 - PMHx: 19:17 Anxiety; Asthma; ll3 - PSHx: 19:17 section; ll3 - Immunization history:: Client reports having NOT received the Covid vaccine. - Social history:: Smoking status: Reported history of juuling and/or vaping. ROS: 21:57 Constitutional: Negative for fever, chills, and weight loss. kb 21:57 Abdomen/GI: Positive for nausea and vomiting, Negative for abdominal pain. 21:57 All other systems are negative. Exam: 21:57 Constitutional: This is a well developed, well nourished patient who is awake, alert, kb and in no acute distress. Head/Face: Normocephalic, atraumatic. ENT: Moist Mucous membranes Cardiovascular: Regular rate and rhythm with a normal S1 and S2. No gallops, murmurs, or rubs. No pulse deficits. Respiratory: Respirations even and unlabored. No increased work of breathing. Talking in full sentences Abdomen/GI: Soft, non-tender. No distention Skin: Warm, dry with normal turgor. Normal color. MS/ Extremity: Pulses equal, no cyanosis. Neurovascular intact. Full, normal range of motion. Neuro: Awake and alert, GCS 15, oriented to person, place, time, and situation. Moves all extremities. Normal gait. Vital Signs: 19:14 BP 134 / 80; Pulse 93; Resp 16; Temp 97.8(TE); Pulse Ox 100% ; Weight 86.18 kg (R); ll3 Height 5 ft. 2 in. (R); Pain 0/10; 21:46 BP 122 / 84; Pulse 84; Resp 17; Pulse Ox 98% ; mb9 22:32 BP 110 / 84; Pulse 74; Resp 16; Pulse Ox 98% ; mb9 19:14 Body Mass Index 34.75 (86.18 kg, 157.48 cm) ll3 19:14 Pain Scale: Adult ll3 MDM: 19:13 Patient medically screened. kb 21:58 Differential diagnosis: gastritis, viral gastroenteritis, gastroenteritis. Data kb reviewed: vital signs, nurses notes. Counseling: I had a detailed discussion with the patient and/or guardian regarding: the historical points, exam findings, and any diagnostic results supporting the discharge/admit diagnosis, lab results, the need for outpatient follow up, a family practitioner, to return to the emergency department if symptoms worsen or persist or if there are any questions or concerns that arise at home. ED course: Patient is a 27-year-old female who presents for nausea vomiting that started this morning. States she is unable to tolerate anything by mouth. Denies abdominal pain, diarrhea, fever, chills. On exam patient has no abdominal tenderness, respirations even unlabored, lungs clear bilaterally, nontoxic in appearance. Serum labs and urinalysis completed and reviewed. Patient tolerating p.o. intake after treatment. Educated on return precautions and need for follow-up with PCP. Verbal understanding received.. 12/06 19:16 Order name: CBC with Diff; Complete Time: 20:38 kb 12/06 19:16 Order name: CMP; Complete Time: 20:43 kb 12/06 19:16 Order name: Lipase; Complete Time: 20:43 kb 12/06 20:33 Order name: Urine Dipstick-Ancillary; Complete Time: 20:38 EDMS 12/06 20:33 Order name: Urine --Ancillary (enter results) rv1 12/06 19:16 Order name: IV Saline Lock; Complete Time: 20:12 kb 12/06 19:16 Order name: Labs collected and sent; Complete Time: 20:12 kb 12/06 19:16 Order name: Urine Dipstick-Ancillary (obtain specimen); Complete Time: 20:32 kb 12/06 19:16 Order name: Urine Test (obtain specimen); Complete Time: 20:32 kb 12/06 20:43 Order name: PO challenge; Complete Time: 21:11 kb Administered Medications: 20:53 Drug: NS 0.9% IV 1000 ml Route: IV; Rate: 1 bolus; Site: right antecubital; mb9 22:14 Follow up: Response: No adverse reaction; IV Status: Completed infusion mb9 20:54 Drug: Ondansetron IVP 4 mg Route: IVP; Site: right antecubital; mb9 22:14 Follow up: Response: No adverse reaction mb9 21:11 Drug: Potassium Chloride PO 40 mEq Route: PO; mb9 22:14 Follow up: Response: No adverse reaction mb9 22:14 Drug: Ondansetron IVP 4 mg Route: IVP; Site: right antecubital; mb9 Disposition Summary: 12/06/22 21:44 Discharge Ordered Location: Home kb Condition: Stable kb Diagnosis - Nausea with vomiting, unspecified kb Followup: kb - With: Emergency Department - When: As needed - Reason: Worsening of condition Followup: kb - With: Private Physician - When: 2 - 3 days - Reason: Recheck today's complaints, Continuance of care, Re-evaluation by your physician Discharge Instructions: - Discharge Summary Sheet kb - Nausea and Vomiting, Adult, [id number] kb Forms: - Medication Reconciliation Form kb - Thank You Letter kb - Antibiotic Education kb - Prescription Opioid Use kb - Work release form mb9 Prescriptions: - ondansetron 4 mg Oral Tablet,disintegrating - take 1 tablet by ORAL route every 8 hours As needed as needed for nausea and kb vomiting; 10 tablet; Refills: 0, Product Selection Permitted Signatures: Dispatcher [employer] Ttaa Cook FNP-C FNP-Ckb Loubet, Lynsea RN RN ll3 Simi Pham RN RN mb9
== END 2022-12-06 22:44 | disposition home or self-care (01) ==
LOC: ER 19:08
DX: R11.2 Nausea with vomiting, unspecified (principal); Z88.0 Allergy status to penicillin; Z88.6 Allergy status to analgesic agent; Z88.8 Allergy status to other drugs, medicaments and biological substances
CPT/HCPCS: 36415; 80053; 81003; 81025; 83690; 85025; 96361; 96374; 99284; J2405; J7030

== ENCOUNTER 2023-03-23 20:40 | Emergency (ER) | payer BC, SELFPAY ==
--- OUTSIDE RECORDS SUMMARY | 2023-03-23 20:43 | XMS REPORT | Continuity of Care Document ---
:1995 Author Organization [facility] t Address [address] [place] [address] Care Team Providers Name Role Phone Grady Garcia Primary Care Physician [phone] Magdalena Tai LMSW Attending Clinician Unavailable GRADY JACOBSEN Attending Clinician Unavailable Grady Garcia Attending Clinician Rey Schultz DO Attending Clinician Doctor Unassigned, [facility] Attending Clinician Unavailable Kaylin Garber Attending Clinician [...] Nexplan[place]plan[place] [facility] [place] Chlamydia Chlamydia Disease Active Uni vers trachomati trachomati 5-17 it y of s s 00:00: [place] infection infection 00 Medi arthur of lower of lower Branch genitourin genitourin nicolas sites nicolas sites Tobacco Tobacco Disease Active Univers use use 9-11 ity of disorder disorder 00:00: [place] 00 [facility] Branch Encounter Encounter Disease Active Overview: Univers for for 06-12 Formattin ity of initial initial 00:00: g of this [place] prescripti prescripti 00 note Me dical on of on of might be Branch contracept contracept different doug pills doug pills from the original. 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 Allergies, Adverse Reactions, Alerts Allergy Allergy [...] Cigarette Smoker Universi ty of tobacco use [facility] Exposure to Not sure University of SARS-CoV-2 [facility] (event) Branch Alcohol intake 2021-04-21 2021-04-21 Current University of 00:00:00 00:00:00 non-drinker of [facility] alcohol (finding) Branch Tobacco use and 2014-06-12 2014-06-12 Never used Universit y of exposure 00:00:00 00:00:00 [facility] Tobacco Comment 2014-06-12 2014-06-12 states smokes 4-5 Un iversity of 00:00:00 00:00:00 cigarettes per day [facility] Sex Assigned At [birth year] Universit y of 00:00:00 00:00:00 [facility] Smoking Status Start Date Stop Date Source Current every day smoker 2014-06-12 00:00:00 Uni versity of [facility] Medications Ordered Filled Start Stop Current Ordering Indication Dosage Frequency Signature Comments Components Source Medication Medication Date Date Medication? Clinician (SIG) Name Name LOESTRIN FE 2019-10 Yes [id number] 1{tbl} Take 1 Univers (MICROGESTI 1-19 tablet by ity of Purnima 10/21) 00:00: mouth [place] 1 mg-20 mcg 00 daily. Medica l (21)/75 mg Branch (7) tablet LOESTRIN FE 2020- Yes [id number] 1{tbl} Take 1 Univers (MICROGESTI 1-19 tablet by ity of N FE 10/21) 00:00: mouth [place] 1 mg-20 mcg 00 daily. Medica l (21)/75 mg Branch (7) tablet LOESTRIN FE 2020- Yes [id number] 1{tbl} Take 1 Univers (MICROGESTI 1-19 tablet by ity of N FE 10/21) 00:00: mouth [place] 1 mg-20 mcg 00 daily. Medica l (21)/75 mg Branch (7) tablet LOESTRIN FE 2020- Yes [id number] 1{tbl} Take 1 Univers (MICROGESTI 1-19 tablet by ity of N FE 10/21) 00:00: mouth [place] 1 mg-20 mcg 00 daily. Medica l (21)/75 mg Branch (7) tablet LOESTRIN FE 2020- Yes [id number] 1{tbl} Take 1 Univers (MICROGESTI 1-19 tablet by ity of N FE 10/21) 00:00: mouth [place] 1 mg-20 mcg 00 daily. Medica l (21)/75 mg Branch (7) tablet LOESTRIN FE 2020- Yes [id number] 1{tbl} Take 1 Univers (MICROGESTI 1-19 tablet by ity of N FE 10/21) 00:00: mouth [place] 1 mg-20 mcg 00 daily. Medica l (21)/75 mg Branch (7) tablet LOESTRIN FE 2020- Yes [id number] 1{tbl} Take 1 Univers (MICROGESTI 1-19 tablet by ity of N FE 10/21) 00:00: mouth [place] 1 mg-20 mcg 00 daily. Medica l (21)/75 mg Branch (7) tablet LOESTRIN FE 2020- Yes [id number] 1{tbl} Take 1 Univers (MICROGESTI 1-19 tablet by ity of N FE 10/21) 00:00: mouth [place] 1 mg-20 mcg 00 daily. Medica l (21)/75 mg Branch (7) tablet LOESTRIN FE 2020- Yes [id number] 1{tbl} Take 1 Univers (MICROGESTI 1-19 tablet by ity of N FE 10/21) 00:00: mouth [place] 1 mg-20 mcg 00 daily. Medica l (21)/75 mg Branch (7) tablet LOESTRIN FE 2019-10 Yes [id number] 1{tbl} Take 1 Univers (MICROGESTI 1-19 tablet by ity of N FE 10/21) 00:00: mouth [place] 1 mg-20 mcg 00 daily. Medica l (21)/75 mg Branch (7) tablet LOESTRIN FE 2019-10 Yes [id number] 1{tbl} Take 1 Univers (MICROGESTI 1-19 tablet [...] FOR Branch 10 DAYS methylPREDN 2018-10 Yes [id number] Take by Univers ISolone 2 mouth ity of (MEDROL, 00:00: SEE-INSTRU [place] as ALEK,) 4 mg 00 CTIONS. Medica l tablets follow Branch package directions methylPREDN 2018-10- No [id number] Take by Univers ISolone 206-29 mouth ity of (MEDROL, 00:00: 00:00 [place] ALEK,) 4 mg 00 :00 CTIONS. Medica l tablets follow Branch package directions methylPREDN 2018-10- No [id number] Take by Univers ISolone 11-16 mouth ity [...] No known No Univers medications ity of [facility] Immunizations Ordered Filled Immunization Date Status Comments Sour e Immunization Name Name HPV 2014-06-12 Completed University of 00:00:00 [facility] HPV 2014-06-12 Completed University of 00:00:00 [facility] HPV 2014-06-12 Completed University of 00:00:00 [facility] HPV 2014-06-12 Completed University of 00:00:00 [facility] HPV 2014-06-12 Completed University of 00:00:00 [facility] Branch HPV 2014-06-12 Completed University of 00:00:00 [facility] HPV 2014-06-12 Completed University of 00:00:00 [facility] Branch HPV 2014-06-12 Completed University of 00:00:00 [facility] Branch HPV 2014-06-12 Completed University of 00:00:00 [facility] Branch HPV 2014-06-12 Completed University of 00:00:00 [facility] HPV 2014-06-12 Completed University of 00:00:00 [facility] Branch HPV 2014-06-12 Completed University of 00:00:00 [facility] Branch HPV 2014-06-12 Completed University of 00:00:00 [facility] Branch HPV 2014-06-12 Completed University of 00:00:00 [facility] HPV 2014-06-12 Completed University of 00:00:00 [facility] HPV 2011-07-19 Completed University of 00:00:00 [facility] HPV 2011-07-19 Completed University of 00:00:00 [facility] Branch HPV 2011-07-19 Completed University of 00:00:00 [facility] HPV 2011-07-19 Completed University of 00:00:00 [facility] Branch HPV 2011-07-19 Completed University of 00:00:00 [facility] Branch HPV 2011-07-19 Completed University [...] Branch HPV 2010-06-23 Completed University of 00:00:00 [place] [facility] HPV 2010-06-23 Completed University of 00:00:00 [place] [facility] HPV 2010-06-23 Completed University of 00:00:00 [facility] Vital Signs Vital Name Observation Time Observation Value Comments Source Systolic blood 2021-04-21 12:51:00 124 mm[Hg] Univer sity of pressure [facility] Diastolic blood 2021-04-21 12:51:00 83 mm[Hg] Unive rsity of pressure [facility] Heart rate 2021-04-21 12:51:00 74 /min Universi ty [facility] Body temperature 2021-04-21 12:51:00 36.72 [facility] rate 2021-04-21 12:51:00 16 /min Univ [facility] Body height 2021-04-21 12:51:00 157.5 cm [facility] Body weight 2021-04-21 12:51:00 90.629 kg [facility] BMI 2021-04-21 12:51:00 36.54 kg/m2 [facility] Systolic blood 2020-10-28 15:01:00 132 mm[Hg] Univer sity of pressure [facility] Diastolic blood 2020-10-28 15:01:00 81 mm[Hg] Unive rsity of pressure [facility] Heart rate 2020-10-28 15:01:00 87 /min Universi ty [facility] Body temperature 2020-10-28 15:01:00 36.39 [facility]ika [facility] rate 2020-10-28 15:01:00 16 /min [facility] Body height 2020-10-28 15:01:00 157.5 cm Universi ty of [place] [facility] Body weight 2020-10-28 15:01:00 83.575 kg Universi ty of [place] [facility] BMI 2020-10-28 15:01:00 33.70 kg/m2 Universi ty of [place] [facility] Systolic blood 2020-10-28 15:01:00 132 mm[Hg] Univer sity of pressure [place] [facility] Diastolic blood 2020-10-28 15:01:00 81 mm[Hg] Unive rsity of pressure [place] [facility] Heart rate 2020-10-28 15:01:00 87 /min Universi ty of [place] [facility] Body temperature 2020-10-28 15:01:00 36.39 Devika Univ ersity of [place] [facility] Respiratory rate 2020-10-28 15:01:00 16 /min Univ ersity of [place] [facility] Body height 2020-10-28 15:01:00 157.5 cm Universi ty of [place] [facility] Body weight 2020-10-28 15:01:00 83.575 kg Universi ty of [place] [facility] BMI 2020-10-28 15:01:00 33.70 kg/m2 Universi ty of [place] [facility] Systolic blood 2020-08-20 21:53:00 125 mm[Hg] Univer sity of pressure [place] [facility] Diastolic blood 2020-08-20 21:53:00 86 mm[Hg] Unive rsity of pressure [place] [facility] Heart rate 2020-08-20 21:53:00 97 /min Universi ty of [place] [facility] Body temperature 2020-08-20 21:53:00 36.67 Devika Univ ersity of [place] [facility] Respiratory rate 2020-08-20 21:53:00 16 /min Univ ersity of [place] [facility] Body height 2020-08-20 21:53:00 154.9 cm Universi ty of [place] [facility] Body weight 2020-08-20 21:53:00 79.493 kg Universi ty of [place] [facility] BMI 2020-08-20 21:53:00 33.11 kg/m2 Universi ty of [place] [facility] Systolic blood 2020-06-29 20:34:00 125 mm[Hg] Univer sity of pressure [place] [facility] Diastolic blood 2020-06-29 20:34:00 81 mm[Hg] Unive rsity of pressure [facility] Heart rate 2020-06-29 20:34:00 87 /min [facility] Body temperature 2020-06-29 20:34:00 37.11 Devika [facility] rate 2020-06-29 20:34:00 16 /min [facility] Body height 2020-06-29 20:34:00 154.9 cm [facility] Body weight 2020-06-29 20:34:00 80.423 kg [facility] BMI 2020-06-29 20:34:00 33.50 kg/m2 [facility] Procedures Procedure Date / Time Performing Clinician Source Performed POCT TEST 2020-10-28 16:05:[address] [facility] AUTHORIZATION TO RELEASE 2020-10-28 06:01:00 Doctor Unassigned, No [facility] TO [facility] PATIENT FINANCIAL 2020-08-20 22:22:14 Doctor Unassigned, No [facility] POCT TEST 2020-08-20 21:55:00 [facility]ENEF[facility] 2020-06-29 19:57:27 Doctor Unassigned, No [facility] Encounters Start End Encounter Admission Attending Care Care Encounter Source Date/Time Date/Time Type Type Clinicians Facility Department ID 2021-07-19 2021-07-19 [facility] [id number] Univers 00:00:00 00:00:00 Management Magdalena Leach [id number] ity quang [id number] [place] [id number] [id number] Branch 2021-06-29 2021-06-29 Outpatient R ANN-MARIE [facility] [id number] Univers 08:45:00 08:45:00 GRADY marcus o f [facility] 2021-05-05 2021-05-05 Outpatient R [facility] [id number] Univers 08:30:00 08:30:00 ity of [facility] 2021-04-22 2021-04-22 [facility] [id number] Univers 00:00:00 00:00:00 Rostylernda R CAR BLOCKER [id number] ity of REGIONAL [id number] [place] as MATERNAL [phone] [facility] & CHILD [address] [place] [address] 2021-04-21 2021-04-21 [facility] [id number] Univers 07:36:35 08:11:32 Visit Mirellaekaterinaa R CAR BLOCKER [id number] ity of [facility] [id number] [place] MATERNAL [id number] [address] 2021-04-21 2021-04-21 [facility] [id number] Univers 07:45:00 07:45:00 GRADY alonso [facility] 2021-04-06 2021-04-06 [facility] [id number] Univers 16:00:00 16:00:00 GRADY marcus o [facility] 2020-12-22 2020-12-22 [facility] [id number] [id number] 00:00:00 00:00:00 Outreach Rey PRIMARY [id number] Itz CARE [id number] PAVILLION [id number] [facility] 2020-12-22 2020-12-22 [facility] 1.2.840.114 [id number] Univers 00:00:00 00:00:00 Outreach Rey PRIMARY [id number] i ty of [place] [id number] [place]AV[place] [id number] Nv dical [address] [place] [address] 2020-10-28 2020-10-28 Office [facility] [id number] 08:53:19 09:37:34 Visit Mirellanda R CAR BLOCKER [id number] REGIONAL [id number] MATERNAL [phone] & CHILD [address] [place] [address] 2020-10-28 2020-10-28 Office [facility] [id number] Univers 08:53:19 09:37:34 Visit Grady Merida CAR BLOCKER [id number] ity of REGIONAL [id number] [place] as MATERNAL [id number] [facility] & CHILD [address] [place] [address] 2020-10-28 2020-10-28 [facility] [id number] Univers 08:45:00 08:45:00 EDIEOCTAVIO ity o f [facility] 2020-10-28 2020-10-28 Orders Doctor ZEE 1.2.840.114 [id number] 00:00:00 00:00:00 Only Unassigned, VAMSI [id number] [facility] [id number] [id number] 2020-10-28 2020-10-28 Orders Doctor ZEE 1.2.840.114 [id number] Univers 00:00:00 00:00:00 Only Unassigned, VAMSI [id number] ity of [facility] 4.2.7.2.686 [place] as [id number] [address] 2020-08-20 2020-08-20 Office [facility] [id number] Univers 15:44:35 16:38:18 Visit Kaylin Felton CAR BLOCKER [id number] it y of REGIONAL [id number] [place] as MATERNAL [id number] [facility] & CHILD [address] [place] [address] 2020-08-20 2020-08-20 Outpatient [place] [facility] [id number] Univers 15:45:00 15:45:00 KAYLIN marcus of [facility] 2020-08-20 2020-08-20 Orders Doctor KOCH 1.2.840.114 [id number] Univers 00:00:00 00:00:00 Only Unassigned, VAMSI 350.1.13.10 ity of [facility] [id number] [place] as [id number] [address] 2020-07-09 2020-07-09 Outpatient [place] JACOBSEN [facility] [id number] Univers 09:45:00 09:45:00 EDIEOCTAVIO alonso anjali [facility] 2020-06-29 2020-06-29 Office Ann-Marie SDMIGUEL 1.2.840.114 [id number] Univers 15:01:06 16:00:36 Visit Grady Merida CAR BLOCKER [id number] ity of [place] [id number] [place]o as MATERNAL [id number] Med ical & CHILD [address] [place] [address] 2020-06-29 2020-06-29 Outpatient [place] JACOBSEN [facility] [id number] Univers 15:00:00 15:00:00 EDIEOCTAVIO alonso anjali [facility] 2020-06-29 2020-06-29 Orders Doctor ZEE 1.2.840.114 [id number] Univers 00:00:00 00:00:00 Only Unassigned, VAMSI 350.1.13.10 [place] [id number] [place] as [id number] [address] 2020-06-04 2020-06-04 Outpatient [place] JACOBSEN [facility] [id number] Univers 10:45:00 10:45:00 MIRELLATYLEROCTAVIO alba [facility] Results Test Description Test Time Test Comments Results Result Comments Source POCT TEST 2020-10-28 16:06:00 Test Item Value Reference Range Interpretation Comme nts POCT PREG (test code = 1605) Negative On board controls acceptable with C Line (test code = 3574) Yes POCT PREG LOT # (test code = 3575) POCT PREG TEST DATE (test code = 3576) [facility] [id number] 21:55:00 Test Item Value Reference Range Interpretation Comments POCT PREG (test code = 1605) Negative On board controls acceptable with C Yes Line (test code = 3574) POCT PREG LOT # (test code = 3575) POCT PREG TEST DATE (test code = 3576) [facility] [id number] 21:55:00 Test Item Value Reference Range Interpretation Comments POCT PREG (test code = 1605) Negative On board controls acceptable with C Yes Line (test code = 3574) POCT PREG LOT # (test code = 3575) POCT PREG TEST DATE (test code = 3576) [facility]
[2023-03-23] MEDS ORDERED: TRAMADOL HCL 50 MG TAB ONE (22:34)
[2023-03-23] MEDS ORDERED: ACETAMINOPHEN 500 MG TAB ONE (22:34)
[2023-03-23] MEDS ORDERED: METOCLOPRAMIDE 5 MG TAB ONE (22:34)
[2023-03-23] MEDS ORDERED: LIDOCAINE 1% MPF 2 ML AMPULE ONE (22:35)
[2023-03-23] MEDS ORDERED: CEFTRIAXONE 1000 MG/VIAL ONE (22:35)
[2023-03-23] MEDS ORDERED: KETOROLAC 30 MG/ML INJ ONE (22:39)
[2023-03-23 22:41] LABS: Specific Gravity 1.005 (1.005-1.030)
[2023-03-23 22:46] LABS: Specific Gravity 1.005 (1.005-1.030); Urine Bacteria None Seen /HPF (<20); Urine Bilirubin NEGATIVE (Negative); Urine Blood Negative (Negative); Urine Clarity Clear (Clear); Urine Color Colorless (Yellow); Urine Glucose NEGATIVE (Negative); Urine Protein NEGATIVE (Negative); Urine RBC <5 /HPF (None Seen); Urine Urobilinogen Normal (Normal)
--- NOTE | 2023-03-23 22:55 | EDPHYS ---
Physician Documentation [facility] Name: Lisa Clement Age: 27 yrs Sex: Female : 1995 Arrival Date: 03/23/2023 Time: 20:40 Bed 19 Private MD: ED Physician Len Vyas HPI: 03/23 20:49 This 27 yrs old Female presents to ER via Unassigned with complaints of Chest sp4 Pain, Headache. 20:58 . 27-year-old female presents with complaint of right lower dental pain associated with sp4 tooth decay and this is associated with headache, chest pains, and feeling unwell overall. Patient has infected tooth #30 that is being treated with clindamycin 300 mg 3 times a day for the past 3 days. Patient denied any history of heart problems. He has she has history of asthma and is penicillin allergy also Benadryl allergy. . 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 - Social history:: Smoking status: Reported history of juuling and/or vaping. - Family history:: not pertinent. ROS: 21:01 Constitutional: Negative for fever, chills, and weight loss, Eyes: Negative for injury, sp4 pain, redness, and discharge, ENT: Negative for injury, and discharge, positive for dental pain in the right lower gingiva, positive for dental decay right lower tooth #30 Neck: Negative for injury, pain, and swelling, Cardiovascular: Negative for palpitations, and edema, positive for chest pains Respiratory: Negative for shortness of breath, cough, wheezing, and pleuritic chest pain, Abdomen/GI: Negative for abdominal pain, nausea, vomiting, diarrhea, and constipation, Back: Negative for injury and pain, : Negative for injury, bleeding, discharge, and swelling, MS/Extremity: Negative for injury and deformity, Skin: Negative for injury, rash, and discoloration, Neuro: Negative for headache, weakness, numbness, tingling, and seizure, Psych: Negative for depression, anxiety, Allergy/Immunology: Negative for hives, rash, and allergies Endocrine: Negative for neck swelling, polydipsia, polyuria, polyphagia, and weight changes Hematologic/Lymphatic: Negative for swollen nodes, abnormal bleeding, and unusual bruising Exam: 21:01 Constitutional: This is a well developed, well nourished patient who is awake, alert, sp4 and in no acute distress. Head/Face: Normocephalic, atraumatic. No facial swelling Eyes: Pupils equal round and reactive to light, extra-ocular motions intact. Lids and lashes normal. Conjunctiva and sclera are not injected. Cornea within normal limits. Periorbital areas with no swelling, redness, or edema. ENT: Nares patent. No nasal discharge, no septal abnormalities noted. Tympanic membranes are normal and external auditory canals are clear. Oropharynx with no redness, swelling, or masses, exudates, or evidence of obstruction, uvula midline. Mucous membranes moist. No sign of gingival abscess, tooth #30 moderate to severe decay associated with decay essentially to the gumline with signs of pulpitis and root canal infections. Neck: Trachea midline, no thyromegaly or masses palpated, and no cervical lymphadenopathy. Supple, full range of motion without nuchal rigidity, or vertebral point tenderness. Chest/axilla: Normal chest wall appearance and motion. Nontender with no deformity. No lesions are appreciated. Cardiovascular: Regular rate and rhythm with a normal S1 and S2. No gallops, murmurs, or rubs. Normal PMI, no JVD. No pulse deficits. Respiratory: Lungs have equal breath sounds bilaterally, clear to auscultation and percussion. No rales, rhonchi or wheezes noted. No increased work of breathing, no retractions or nasal flaring. Abdomen/GI: Soft, non-tender, with normal bowel sounds. No distension or tympany. No guarding or rebound. No evidence of tenderness throughout. Back: No spinal tenderness. No costovertebral tenderness. Skin: Warm, dry with normal turgor. Normal color with no rashes, no lesions, and no evidence of cellulitis. MS/ Extremity: Pulses equal, no cyanosis. Neurovascular intact. Full, normal range of motion. Neuro: Awake and alert, GCS 15, oriented to person, place, time, and situation. Cranial nerves II-XII grossly intact. Motor strength 5/5 in all extremities. Sensory grossly intact. Psych: Awake, alert, with orientation to person, place and time. Behavior, mood, and affect are within normal limits 22:49 ECG was reviewed by the Attending Physician. Patient's pain has improved after sp4 medications. EKG is completely normal ACS work-up is not indicated at this time secondary to patient's young age. Will prescribe tramadol, Naprosyn, and also sent Zofran as needed for nausea. Will advise patient to continue clindamycin as prescribed by her dentist. 23:00 Normal sinus rhythm at the rate of 87, EKG time 2229, overall normal EKG.. sp4 Vital Signs: 21:58 BP 120 / 80; Pulse 97; Resp 19; Temp 97.9; Pulse Ox 100% ; Weight 97.52 kg; Height 5 vc1 ft. 2 in. ; Pain 10/10; 23:00 BP 124 / 87; Pulse 78; Resp 18; Pulse Ox 100% ; vc1 23:47 BP 126 / 83; Pulse 70; Resp 18; Pulse Ox 98% ; vc1 21:58 Body Mass Index 39.32 (97.52 kg, 157.48 cm) vc1 21:58 Pain Scale: Adult vc1 MDM: 20:50 Patient medically screened. sp4 22:49 Differential diagnosis: anxiety, chest wall pain, Stress related chest pain. Data sp4 reviewed: vital signs, nurses notes, lab test result(s), urinalysis, UPT: negative. ED course: EKG is normal today patient warrants discharge home at this time. . ED course: . 22:51 ED course: Patient will be prescribed p.o. tramadol, p.o. Naprosyn, and p.o. Zofran as sp4 needed for symptom control advised to continue clindamycin p.o. as prescribed by her dentist. . 03/23 20:50 Order name: Test, Urine; Complete Time: 22:48 sp4 03/23 20:50 Order name: Urinalysis W/Microscopic; Complete Time: 22:48 sp4 03/23 20:57 Order name: EKG - Nurse/Tech; Complete Time: 22:37 sp4 EC:00 Rate is 87 beats/min. Rhythm is regular, Normal Sinus Rhythm. QRS [place] is Normal. [place] sp4 interval is normal. QRS interval is normal. QT interval is normal. T waves are Normal. No ST changes noted. Clinical impression: Normal ECG. Interpreted by me. Administered Medications: 22:41 Drug: Ketorolac IM 60 mg Route: IM; Site: left ventrogluteal; vc1 23:30 Follow up: Response: No adverse reaction; Marked relief of symptoms; Pain is decreased vc1 22:41 Drug: Acetaminophen PO 1000 mg Route: PO; vc1 23:30 Follow up: Response: No adverse reaction; Marked relief of symptoms; Pain is decreased vc1 22:41 Drug: MetoCLOPramide PO 10 mg Route: PO; vc1 23:30 Follow up: Response: No adverse reaction; Marked relief of symptoms vc1 22:41 Drug: traMADol PO 100 mg Route: PO; vc1 23:30 Follow up: Response: No adverse reaction; Marked relief of symptoms vc1 22:42 Drug: Rocephin (cefTRIAXone) IM 1 grams Route: IM; Site: left ventrogluteal; vc1 23:30 Follow up: Response: No adverse reaction; Marked relief of symptoms vc1 Disposition Summary: 03/23/23 22:54 Discharge Ordered Location: Home sp4 Problem: new sp4 Symptoms: have improved sp4 Condition: Stable sp4 Diagnosis - Chest pain, unspecified sp4 - Noncardiac chest pain, dental pain, dental decay tooth #30, acute pulpitis, acute sp4 headache associated with dental pain Followup: sp4 - With: Private Physician - When: Is scheduled for dental extraction - Reason: Discharge Instructions: - Discharge Summary Sheet sp4 - Dental Caries, Adult, [id number] sp4 Prescriptions: - naproxen 250 mg Oral tablet - take 2 tablet by ORAL route every 12 hours PRN pain; 60 tablet; Refills: 0, sp4 Product Selection Permitted - Zofran 4 mg Oral Tablet - take 1 tablet by ORAL route every 6 hours As needed; 30 tablet; Refills: 0, sp4 Product Selection Permitted - Tramadol 50 mg Oral Tablet - take 1 tablet by ORAL route every 8 hours as needed; 12 tablet; Refills: 0, sp4 Product Selection Permitted Signatures: Dispatcher [employer] Mylene Clements RN RN vc1 Len Vyas MD MD sp4 Corrections: (The following items were deleted from the chart) 21:01 20:58 .. sp4 sp4
--- NOTE | 2023-03-23 22:55 | ER ---
Nurse's Notes [facility] Name: Lisa Clement Age: 27 yrs Sex: Female : 1995 Arrival Date: 03/23/2023 Time: 20:40 Bed 19 Private MD: Diagnosis: Chest pain, unspecified;Noncardiac chest pain, dental pain, dental decay tooth #30, acute pulpitis, acute headache associated with dental pain Presentation: 03/23 21:58 Chief complaint: Patient states: "I went to the dentist for a bad tooth but I am still vc1 having constant headaches, chest pain, and discomfort.". Coronavirus screen: Vaccine status: Patient reports being unvaccinated. Client denies travel out of the [place] in the last 14 days. At this time, the client does not indicate any symptoms associated with coronavirus-19. Ebola Screen: Patient negative for fever greater than or equal to 101.5 degrees Fahrenheit, and additional compatible Ebola Virus Disease symptoms Patient denies exposure to infectious person. Patient denies travel to an Ebola-affected area in the 21 days before illness onset. No symptoms or risks identified at this time. Initial Sepsis Screen: Does the patient meet any 2 criteria? HR > 90 bpm. No. Patient's initial sepsis screen is negative. Does the patient have a suspected source of infection? Yes: Skin breakdown/wound. Risk Assessment: Do you want to hurt yourself or someone else? Patient reports no desire to harm self or others. Onset of symptoms was March 19, 2023. 21:58 Method Of Arrival: Ambulatory vc1 21:58 Acuity: ODIN 3 vc1 Triage Assessment: 22:03 General: Appears in no apparent distress. uncomfortable, Behavior is calm, cooperative, vc1 appropriate for age. Pain: Complains of pain in face and chest Pain does not radiate. Pain currently is 10 out of 10 on a pain scale. Quality of pain is described as sharp, "weird". EENT: Reports pain tooth. Neuro: Reports headache. Cardiovascular: Reports chest pain. Respiratory: Airway is patent Respiratory effort is even, unlabored, Respiratory pattern is regular, symmetrical. GI: No deficits noted. No signs and/or symptoms were reported involving the gastrointestinal system. : No deficits noted. No signs and/or symptoms were reported regarding the genitourinary system. Derm: No deficits noted. No signs and/or symptoms reported regarding the dermatologic system. Musculoskeletal: No deficits noted. No signs and/or symptoms reported regarding the musculoskeletal system. 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 - Social history:: Smoking status: Reported history of juuling and/or vaping. - Family history:: not pertinent. Screenin:02 [facility] ED Fall Risk Assessment (Adult) History of falling in the last 3 months, vc1 including since admission No falls in past 3 months (0 pts) Confusion or Disorientation No (0 pts) Intoxicated or Sedated No (0 pts) Impaired Gait No (0 pts) Mobility Assist Device Used No (0 pt) Altered Elimination No (0 pt) Score/Fall Risk Level 0 - 2 = Low Risk Oriented to surroundings, Maintained a safe environment, Educated pt \\T\\ family on fall prevention, incl call for assistance when getting out of bed. Abuse screen: Denies threats or abuse. Nutritional screening: No deficits noted. Tuberculosis screening: No symptoms or risk factors identified. Assessment: 22:00 Reassessment: No changes from previously documented assessment. Patient and/or family vc1 updated on plan of care and expected duration. Pain level reassessed. Patient is alert, oriented x 3, equal unlabored respirations, skin warm/dry/pink. 23:00 Reassessment: No changes from previously documented assessment. Patient and/or family vc1 updated on plan of care and expected duration. Pain level reassessed. Patient is alert, oriented x 3, equal unlabored respirations, skin warm/dry/pink. 23:47 Reassessment: Patient and/or family updated on plan of care and expected duration. Pain vc1 level reassessed. Patient is alert, oriented x 3, equal unlabored respirations, skin warm/dry/pink. Patient denies pain at this time. Patient states feeling better. Patient states symptoms have improved. Pain: Pain began. Vital Signs: 21:58 BP 120 / 80; Pulse 97; Resp 19; Temp 97.9; Pulse Ox 100% ; Weight 97.52 kg; Height 5 vc1 ft. 2 in. ; Pain 10/10; 23:00 BP 124 / 87; Pulse 78; Resp 18; Pulse Ox 100% ; vc1 23:47 BP 126 / 83; Pulse 70; Resp 18; Pulse Ox 98% ; vc1 21:58 Body Mass Index 39.32 (97.52 kg, 157.48 cm) vc1 21:58 Pain Scale: Adult vc1 ED Course: 20:43 Patient arrived in ED. ja2 20:49 Len Vyas MD is Attending Physician. sp4 22:02 Triage completed. vc1 22:02 Arm band placed on left wrist. vc1 22:05 Patient has correct armband on for positive identification. Placed in gown. Bed in low vc1 position. Call light in reach. Client placed on continuous cardiac and pulse oximetry monitoring. NIBP monitoring applied. 22:05 Patient maintains SpO2 saturation greater than 95% on room air. vc1 22:29 Urinalysis W/Microscopic Sent. vc1 22:29 Test, Urine Sent. vc1 22:36 EKG done, by ED staff, reviewed by Len Vyas MD. jw7 22:42 Urinalysis W/Microscopic Sent. vc1 23:02 Mylene Musa, TAMEKA is Primary Nurse. vc1 23:46 No provider procedures requiring assistance completed. Patient did not have IV access vc1 during this emergency room visit. Administered Medications: 22:41 Drug: Ketorolac IM 60 mg Route: IM; Site: left ventrogluteal; vc1 23:30 Follow up: Response: No adverse reaction; Marked relief of symptoms; Pain is decreased vc1 22:41 Drug: Acetaminophen PO 1000 mg Route: PO; vc1 23:30 Follow up: Response: No adverse reaction; Marked relief of symptoms; Pain is decreased vc1 22:41 Drug: MetoCLOPramide PO 10 mg Route: PO; vc1 23:30 Follow up: Response: No adverse reaction; Marked relief of symptoms vc1 22:41 Drug: traMADol PO 100 mg Route: PO; vc1 23:30 Follow up: Response: No adverse reaction; Marked relief of symptoms vc1 22:42 Drug: Rocephin (cefTRIAXone) IM 1 grams Route: IM; Site: left ventrogluteal; vc1 23:30 Follow up: Response: No adverse reaction; Marked relief of symptoms vc1 Medication: 22:05 VIS not applicable for this client. vc1 Outcome: 22:54 Discharge ordered by . sp4 23:48 Discharged to home ambulatory. vc1 23:48 Condition: good 23:48 Discharge instructions given to patient, Instructed on discharge instructions, follow up and referral plans. medication usage, Demonstrated understanding of instructions, follow-up care, medications, Prescriptions given X 3. 23:48 Patient left the ED. vc1 Signatures: Altagracia Bill2 Mylene Musa RN RN vc1 Dana Martinez7 Len Vyas MD MD sp4
[2023-03-24 00:37] VITALS: TEMP 97.9
[2023-03-24 00:39] VITALS: BP 126/83; O2SAT 98
--- NOTE | 2023-03-27 17:19 | EKG ---
Test Date: 2023-03-23 Test Time: 22:29:04 Registered Land Surveyor: JAILENE MEASUREMENT RESULTS: Intervals: Rate: 87 DE: 120 QRSD: 82 QT: 360 QTc: 433 [place]: P: 70 DE: 120 QRS: 23 T: 31 INTERPRETIVE STATEMENTS: Normal sinus rhythm Normal ECG Compared to ECG 09/02/2022 21:16:12 Sinus arrhythmia no longer present Electronically Signed On 03-27-23 17:12:40 CDT by Timmy Soto
== END 2023-03-23 23:48 | disposition home or self-care (01) ==
LOC: ER 20:40
DX: R07.89 Other chest pain (principal); K02.9 Dental caries, unspecified; K04.01 Reversible pulpitis; R51.9 Headache, unspecified
CPT/HCPCS: 81001; 81025; 96372; 99285; J0696; 93005

== ENCOUNTER 2023-03-24 08:32 | Emergency (ER) | payer BC ==
--- OUTSIDE RECORDS SUMMARY | 2023-03-24 08:36 | XMS REPORT | Continuity of Care Document ---
:1995 Author Organization [facility] t Address [address] [facility] [address] [place] [address] Care Team Providers Name Role Phone Grady Garcia Primary Care Physician [phone] Magdalena Tai LMSW Attending Clinician Unavailable GRADY JACOBSEN Attending Clinician Unavailable Grady Garcia Attending Clinician Rey Schultz DO Attending Clinician Doctor Unassigned, [place] Attending Clinician Unavailable Kaylin Garber Attending Clinician [...] ity of disorder disorder 00:00: [place] 00 [facility] Branch Encounter Encounter Disease Active Overview: Univers for for 06-12 Formattin ity of initial initial 00:00: g of this [place] prescripti prescripti 00 note Me dical on of on of might be Branch contracept contracept different doug pills doug pills from the original. RTC 2 weeks for ann-marieon ICD10 Diagnosis Term Hand Icer Utility Obesity Obesity Disease Active Overview: Univ ers 06-12 Formattin ity of 00:00: g of this [place] 00 note Medical might be Branch different from the original. ICD10 Diagnosis Term Hand Icer Utility Allergies, Adverse Reactions, Alerts Allergy Allergy [...] Cigarette Smoker Universi ty of tobacco use [facility] Exposure to Not sure University of SARS-CoV-2 [facility] [place] (event) Branch Alcohol intake 2021-04-21 2021-04-21 Current University of 00:00:00 00:00:00 [facility]dr[facility]finding[facility] Branch Tobacco use and 2014-06-12 2014-06-12 Never used Universit y of exposure 00:00:00 00:00:00 [facility] Tobacco Comment 2014-06-12 2014-06-12 states smokes 4-5 Un iversity of 00:00:00 00:00:00 cigarettes per day [facility] Sex Assigned At [birth year] Universit y of 00:00:00 00:00:00 [facility] Smoking Status Start Date Stop Date Source Current every day smoker 2014-06-12 00:00:00 Uni versity of [facility] Medications Ordered Filled Start Stop Current Ordering Indication Dosage Frequency Signature Comments Components Source Medication Medication Date Date Medication? Clinician (SIG) Name Name LOESTRIN FE 2019-10 Yes [id number] 1{tbl} Take 1 Univers (MICROGESTI 1-19 tablet by ity of [place] 10/21) 00:00: mouth [place] 1 mg-20 mcg 00 daily. Medica l (21)/75 mg Branch (7) tablet LOESTRIN FE 2020- Yes [id number] 1{tbl} Take 1 Univers (MICROGESTI 1-19 tablet by ity of N FE 10/21) 00:00: mouth [place] 1 mg-20 mcg 00 daily. Medica l (21)/75 mg Branch (7) tablet LOESTRIN FE 2020- Yes [id number] 1{tbl} Take 1 Univers (MICROGESTI 1-19 tablet by ity of N FE 10/21) 00:00: mouth [place] 1 mg-20 mcg 00 daily. Medica l (21)/75 mg Branch (7) tablet LOESTRIN FE 2020- Yes [id number] 1{tbl} Take 1 Univers (MICROGESTI 1-19 tablet by ity of N FE 10/21) 00:00: mouth [place] 1 mg-20 mcg 00 daily. Medica l (21)/75 mg Branch (7) tablet LOESTRIN FE 2020- Yes [id number] 1{tbl} Take 1 Univers (MICROGESTI 1-19 tablet by ity of N FE 10/21) 00:00: mouth [place] 1 mg-20 mcg 00 daily. Medica l (21)/75 mg Branch (7) tablet LOESTRIN FE 2020- Yes [id number] 1{tbl} Take 1 Univers (MICROGESTI 1-19 tablet by ity of N FE 10/21) 00:00: mouth [place] 1 mg-20 mcg 00 daily. Medica l (21)/75 mg Branch (7) tablet LOESTRIN FE 2020- Yes [id number] 1{tbl} Take 1 Univers (MICROGESTI 1-19 tablet by ity of N FE 10/21) 00:00: mouth [place] 1 mg-20 mcg 00 daily. Medica l (21)/75 mg Branch (7) tablet LOESTRIN FE 2020- Yes [id number] 1{tbl} Take 1 Univers (MICROGESTI 1-19 tablet by ity of N FE 10/21) 00:00: mouth [place] 1 mg-20 mcg 00 daily. Medica l (21)/75 mg Branch (7) tablet LOESTRIN FE 2020- Yes [id number] 1{tbl} Take 1 Univers (MICROGESTI 1-19 tablet by ity of N FE 10/21) 00:00: mouth [place] 1 mg-20 mcg 00 daily. Medica l (21)/75 mg Branch (7) tablet LOESTRIN FE 2019-10 Yes [id number] 1{tbl} Take 1 Univers (MICROGESTI 1-19 tablet by ity of N FE 10/21) 00:00: mouth [place] 1 mg-20 mcg 00 daily. Medica l (21)/75 mg Branch (7) tablet LOESTRIN FE 2019-10 Yes [id number] 1{tbl} Take 1 Univers (MICROGESTI 1-19 tablet [...] FOR Branch 10 DAYS methylPREDN 2018-10 Yes [id number] Take by [facility] ISolone 2 mouth ity of (MEDROL, 00:00: SEE-INSTRU [place] as ALEK,) 4 mg 00 CTIONS. Medica l tablets follow Branch package directions methylPREDN 2018-10 2020- No [id number] Take by [facility] ISolone 206-29 mouth ity of (MEDROL, 00:00: 00:00 [place] ALEK,) 4 mg 00 :00 CTIONS. Medica l tablets follow Branch package directions methylPREDN 2018-10- No [id number] Take by [facility] ISolone 11-16 mouth ity of (MEDROL, 00:00: [...] 5 mL Univers e 6.25 mg/5 5-11 09-28 by mouth ity of mL solution 00:00: [...] No known No Univers medications ity of [facility] Immunizations Ordered Filled Immunization Date Status Comments Sour e Immunization Name Name HPV 2014-06-12 Completed University of 00:00:00 [facility] [place] Branch HPV 2014-06-12 Completed University of 00:00:00 [facility] [place] Branch HPV 2014-06-12 Completed University of 00:00:00 [facility] [place] Branch HPV 2014-06-12 Completed University of 00:00:00 [facility] [place] Branch HPV 2014-06-12 Completed University of 00:00:00 [facility] [place] Branch HPV 2014-06-12 Completed University of 00:00:00 [facility] [place] Branch HPV 2014-06-12 Completed University of 00:00:00 [facility] [place] Branch HPV 2014-06-12 Completed University of 00:00:00 [facility] [place] Branch HPV 2014-06-12 Completed University of 00:00:00 [facility] [place] Branch HPV 2014-06-12 Completed University of 00:00:00 [facility] [place] Branch HPV 2014-06-12 Completed University of 00:00:00 [facility] [place] Branch HPV 2014-06-12 Completed University of 00:00:00 [facility] [place] Branch HPV 2014-06-12 Completed University of 00:00:00 [facility] [place] Branch HPV 2014-06-12 Completed University of 00:00:00 [facility] [place] Branch HPV 2014-06-12 Completed University of 00:00:00 [facility] [place] Branch HPV 2011-07-19 Completed University of 00:00:00 [facility] [place] Branch HPV 2011-07-19 Completed University of 00:00:00 [facility] [place] Branch HPV 2011-07-19 Completed University of 00:00:00 [facility] [place] Branch HPV 2011-07-19 Completed University of 00:00:00 [facility] [place] Branch HPV 2011-07-19 Completed University of 00:00:00 [facility] [place] Branch HPV 2011-07-19 Completed University of 00:00:00 [...] Branch HPV 2010-06-23 Completed University of 00:00:00 [facility] [place] [facility] HPV 2010-06-23 Completed University of 00:00:00 [place] [facility] HPV 2010-06-23 Completed University of 00:00:00 [facility] Vital Signs Vital Name Observation Time Observation Value Comments Source Systolic blood 2021-04-21 12:51:00 124 mm[Hg] Univer sity of pressure [facility] Diastolic blood 2021-04-21 12:51:00 83 mm[Hg] Unive rsity of pressure [facility] Heart rate 2021-04-21 12:51:00 74 /min Universi ty [facility] Body temperature 2021-04-21 12:51:00 [facility] 2021-04-21 12:51:00 16 /min [facility] Body height 2021-04-21 12:51:00 157.5 cm [facility] Body weight 2021-04-21 12:51:00 90.629 kg [facility] BMI 2021-04-21 12:51:00 36.54 kg/m2 [facility] Systolic blood 2020-10-28 15:01:00 132 mm[Hg] Univer sity of pressure [facility] Diastolic blood 2020-10-28 15:01:00 81 mm[Hg] Unive rsity of pressure [facility] Heart rate 2020-10-28 15:01:00 87 /min Universi ty [facility] Body temperature 2020-10-28 15:01:00 36.39 [facility] rate 2020-10-28 15:01:00 16 /min Univ ersity of [place] [facility] Body height 2020-10-28 15:01:00 157.5 cm Universi ty of [place] [facility] Body weight 2020-10-28 15:01:00 83.575 kg Universi ty of [place] [facility] BMI 2020-10-28 15:01:00 33.70 kg/m2 Universi ty of [place] [facility] Systolic blood 2020-10-28 15:01:00 132 mm[Hg] Univer sity of pressure [place] [facility] Diastolic blood 2020-10-28 15:01:00 81 mm[Hg] Unive rsity of pressure [place] [facility] Heart rate 2020-10-28 15:01:00 87 /min Universi ty of [place] [facility] Body temperature 2020-10-28 15:01:00 36.39 Devika Univ ersity of [place] [facility] Respiratory rate 2020-10-28 15:01:00 16 /min Univ ersity of [place] [facility] Body height 2020-10-28 15:01:00 157.5 cm Universi ty of [place] [facility] Body weight 2020-10-28 15:01:00 83.575 kg Universi ty of [place] [facility] BMI 2020-10-28 15:01:00 33.70 kg/m2 Universi ty of [place] [facility] Systolic blood 2020-08-20 21:53:00 125 mm[Hg] Univer sity of pressure [place] [facility] Diastolic blood 2020-08-20 21:53:00 86 mm[Hg] Unive rsity of pressure [place] [facility] Heart rate 2020-08-20 21:53:00 97 /min Universi ty of [place] [facility] Body temperature 2020-08-20 21:53:00 36.67 Devika Univ ersity of [place] [facility] Respiratory rate 2020-08-20 21:53:00 16 /min Univ ersity of [place] [facility] Body height 2020-08-20 21:53:00 154.9 cm Universi ty of [place] [facility] Body weight 2020-08-20 21:53:00 79.493 kg Universi ty [facility] [place] [facility] BMI 2020-08-20 21:53:00 33.11 kg/m2 Universi ty of [place] [facility] Systolic blood 2020-06-29 20:34:00 125 mm[Hg] Univer sity of pressure [place] [facility] Diastolic blood 2020-06-29 20:34:00 81 mm[Hg] Unive rsity of pressure [facility] Heart rate 2020-06-29 20:34:00 87 /min [facility] Body temperature 2020-06-29 20:34:00 37.11 Devika [facility] rate 2020-06-29 20:34:00 16 /min [facility] Body height 2020-06-29 20:34:00 154.9 cm [facility] Body weight 2020-06-29 20:34:00 80.423 kg [facility] BMI 2020-06-29 20:34:00 33.50 kg/m2 [facility] Procedures Procedure Date / Time Performing Clinician Source Performed POCT TEST 2020-10-28 16:05:00 Grady Jacobsen [facility] AUTHORIZATION TO RELEASE 2020-10-28 06:01:00 Doctor Unassigned, No [facility] TO [facility] PATIENT FINANCIAL 2020-08-20 22:22:14 [facility] POCT TEST 2020-08-20 21:55:00 Ct Mensah [facility] ASSIGNMENT OF BENEFITS 2020-06-29 19:57:27 Doctor Unassigned, No [facility] Encounters Start End Encounter Admission Attending Care Care Encounter Source Date/Time Date/Time Type Type Clinicians Facility Department ID 2021-07-19 2021-07-19 [place] [id number] Univers 00:00:00 00:00:00 Management Magdalena Leach [id number] [id number] [id number] [address] Branch 2021-06-29 2021-06-29 Outpatient R ANN-MARIE [facility] [id number] Univers 08:45:00 08:45:00 GRADY marcus o f [facility] 2021-05-05 2021-05-05 Outpatient R [facility] [id number] Univers 08:30:00 08:30:00 ity of [facility] 2021-04-22 2021-04-22 [facility] [id number] Univers 00:00:00 00:00:00 Rostylernda R DIGITAL ASSOCIATE MEDIA DIRECTOR [id number] ity of REGIONAL [id number] [place] as MATERNAL [id number] [facility] & CHILD [address] [place] [address] 2021-04-21 2021-04-21 [facility] [id number] Univers 07:36:35 08:11:32 Visit Mirellanda R DIGITAL ASSOCIATE MEDIA DIRECTOR [id number] ity of [facility] [id number] [place] MATERNAL [id number] [address] 2021-04-21 2021-04-21 [facility] [id number] Univers 07:45:00 07:45:00 GRADY alonso [facility] 2021-04-06 2021-04-06 [facility] [id number] Univers 16:00:00 16:00:00 GRADY marcus o [facility] 2020-12-22 2020-12-22 [facility] [id number] 00:00:00 00:00:00 Outreach Rey PRIMARY [id number] Itz CARE [id number] PAVILLION [id number] [facility] 2020-12-22 2020-12-22 [facility] [id number] Univers 00:00:00 00:00:00 Outreach Rey PRIMARY [id number] i ty of [place] [id number] [place] [id number] Ne dical [address] [place] [address] 2020-10-28 2020-10-28 [facility] [id number] 08:53:19 09:37:34 Visit Rosnda R DIGITAL ASSOCIATE MEDIA DIRECTOR [id number] REGIONAL [id number] MATERNAL [id number] & CHILD [address] [place] [address] 2020-10-28 2020-10-28 Office [facility] [id number] Univers 08:53:19 09:37:34 Visit Grady Merida DIGITAL ASSOCIATE MEDIA DIRECTOR [id number] ity of REGIONAL [id number] [place] as MATERNAL [id number] [facility] & CHILD [address] [place] [address] 2020-10-28 2020-10-28 Outpatient R ANN-MARIE [facility] [id number] Univers 08:45:00 08:45:00 MIRELLALINDSAY moshery o f [facility] 2020-10-28 2020-10-28 Orders Doctor ZEE [id number] 00:00:00 00:00:00 Only Unassigned, VAMSI [id number] [place] [facility] [id number] [id number] 2020-10-28 2020-10-28 Orders Doctor ZEE [id number] [id number] Univers 00:00:00 00:00:00 Only Unassigned, VAMSI [id number] ity of [place] [facility] 4.2.7.2.686 [place] as [id number] [address] 2020-08-20 2020-08-20 Office [facility] [id number] Univers 15:44:35 16:38:18 Visit Kaylin Felton DIGITAL ASSOCIATE MEDIA DIRECTOR [id number] it y of REGIONAL [id number] [place] as MATERNAL [id number] [facility] & CHILD [address] [place] [address] 2020-08-20 2020-08-20 [facility] [id number] Univers 15:45:00 15:45:00 KAYLIN marcus of [facility] 2020-08-20 2020-08-20 Orders Doctor KOCH [id number] Univers 00:00:00 00:00:00 Only Unassigned, VAMSI [id number] ity of [place] [facility] 4.2.7.2.686 [place] as [id number] [address] 2020-07-09 2020-07-09 Outpatient Magnolia JACOBSEN [facility] [id number] Univers 09:45:00 09:45:00 EDIEOCTAVIO amrit celeste anjali [facility] 2020-06-29 2020-06-29 Office Ann-Marie CAMIGUEL 1.2.840.114 [id number] Univers 15:01:06 16:00:36 Visit Grady Merida DIGITAL ASSOCIATE MEDIA DIRECTOR [id number] ity of [facility] [id number] [place] as MATERNAL [id number] [facility] ical & CHILD [address] [place] [address] 2020-06-29 2020-06-29 Outpatient Magnolia JACOBSEN [facility] [id number] Univers 15:00:00 15:00:00 EDIEOCTAVIO alonso anjali [facility] 2020-06-29 2020-06-29 Orders Doctor ZEE 1.2.840.114 [id number] Univers 00:00:00 00:00:00 Only Unassigned, VAMSI [id number] [facility] [id number] [place] as [id number] [address] 2020-06-04 2020-06-04 Outpatient Magnolia JACOBSEN [facility] [id number] Univers 10:45:00 10:45:00 MIRELLATYLEROCTAVIO alba [facility] Results Test Description Test Time Test Comments Results Result Comments Source POCT TEST 2020-10-28 16:06:00 Test Item Value Reference Range Interpretation Comme nts POCT PREG (test code = 1605) Negative On board controls acceptable with C Line (test code = 3574) Yes POCT PREG LOT # (test code = 3575) POCT [facility]REG TEST [facility]test [facility] 3576[id number] 21:55:00 Test Item Value Reference Range Interpretation Comments POCT PREG (test code = 1605) Negative On board controls acceptable with C Yes Line (test code = 3574) POCT PREG LOT # (test code = 3575) POCT PREG TEST DATE (test code = 3576[facility] [id number] 21:55:00 Test Item Value Reference [place] Interpretation Comments POCT PREG (test code = 1605) Negative On board controls acceptable with C Yes Line (test code = 3574) POCT PREG LOT # (test code = 3575) POCT PREG TEST DATE (test code = 3576) [facility]
--- NOTE | 2023-03-24 10:38 | ER ---
Nurse's Notes [facility] Name: Lisa Clement Age: 27 yrs Sex: Female : 1995 Arrival Date: 03/24/2023 Time: 08:32 Bed 18 Private MD: Diagnosis: Anxiety disorder, unspecified;Adverse effect of reglan Presentation: 03/24 08:50 Chief complaint: Patient states: That she was seen here last night and was given more cm10 ABX for a tooth infection that she currently has and woke up this morning "not feeling right." Pt states that she has anxiety and this does not feel like her normal anxiety. Patient A\\T\\Ox4 in triage. Coronavirus screen: Vaccine status: Patient reports being unvaccinated. Client denies travel out of the [place] in the last 14 days. At this time, the client does not indicate any symptoms associated with coronavirus-19. Ebola Screen: Patient denies travel to an Ebola-affected area in the 21 days before illness onset. No symptoms or risks identified at this time. Initial Sepsis Screen: Does the patient meet any 2 criteria? No. Patient's initial sepsis screen is negative. Does the patient have a suspected source of infection? No. Patient's initial sepsis screen is negative. Risk Assessment: Do you want to hurt yourself or someone else? Patient reports no desire to harm self or others. Onset of symptoms was March 24, 2023. 08:50 Method Of Arrival: Ambulatory cm10 08:50 Acuity: ODIN 4 cm10 Historical: - Allergies: 08:52 PENICILLINS; cm10 08:52 Motrin; cm10 08:52 Benadryl; cm10 - PMHx: 08:52 Anxiety; cm10 - Immunization history:: Adult Immunizations unknown. - Social history:: Smoking status: Reported history of juuling and/or vaping. - Family history:: not pertinent. - Hospitalizations: : No recent hospitalization is reported. Screenin:55 [facility] ED Fall Risk Assessment (Adult) History of falling in the last 3 months, kc6 including since admission No falls in past 3 months (0 pts) Confusion or Disorientation No (0 pts) Intoxicated or Sedated No (0 pts) Impaired Gait No (0 pts) Mobility Assist Device Used No (0 pt) Altered Elimination No (0 pt) Score/Fall Risk Level 0 - 2 = Low Risk Oriented to surroundings, Maintained a safe environment, Educated pt \\T\\ family on fall prevention, incl call for assistance when getting out of bed, Assessed \\T\\ reinforced patient's understanding of fall precautions, Hourly rounding (assess needs \\T\\ fall precautionary measures) done. Abuse screen: Denies threats or abuse. Denies injuries from another. Nutritional screening: No deficits noted. Tuberculosis screening: No symptoms or risk factors identified. Assessment: 08:56 General: Appears in no apparent distress. comfortable, Behavior is cooperative, kc6 appropriate for age, anxious. Neuro: Level of Consciousness is awake, alert, obeys commands, Oriented to person, place, time, situation, Appropriate for age. Cardiovascular: Capillary refill < 3 seconds. Respiratory: Airway is patent Trachea midline Respiratory effort is even, unlabored, Respiratory pattern is regular, symmetrical. GI: No signs and/or symptoms were reported involving the gastrointestinal system. : No signs and/or symptoms were reported regarding the genitourinary system. EENT: No signs and/or symptoms were reported regarding the EENT system. Derm: No signs and/or symptoms reported regarding the dermatologic system. Skin is intact, Skin is pink, warm \\T\\ dry. Musculoskeletal: No signs and/or symptoms reported regarding the musculoskeletal system. Circulation, motion, and sensation intact. Capillary refill < 3 seconds, Range of motion: intact in all extremities. 10:01 Reassessment: Patient appears in no apparent distress at this time. No changes from kc6 previously documented assessment. Patient and/or family updated on plan of care and expected duration. Pain level reassessed. Patient is alert, oriented x 3, equal unlabored respirations, skin warm/dry/pink. Vital Signs: 08:50 BP 142 / 96; Pulse 100; Resp 18; Temp 98; Pulse Ox 100% on R/A; cm10 09:36 BP 101 / 66; Pulse 76; Resp 16 S; Pulse Ox 100% on R/A; kc6 10:37 BP 108 / 70; Pulse 63; Resp 18 S; Pulse Ox 99% on R/A; kc6 ED Course: 08:34 Patient arrived in ED. am2 08:39 Triage completed. ll1 08:40 Epifanio Dunham MD is Attending Physician. rn 08:53 Arm band placed on Patient placed in an exam room, on a stretcher. cm10 08:54 Nimo Gordon, RN is Primary Nurse. kc6 08:56 Patient has correct armband on for positive identification. Bed in low position. Call kc6 light in reach. Side rails up X 1. Adult w/ patient. 10:42 No provider procedures requiring assistance completed. Patient did not have IV access kc6 during this emergency room visit. Administered Medications: No medications were administered Medication: 10:42 VIS not applicable for this client. kc6 Outcome: 10:38 Discharge ordered by . rn 10:42 Discharged to home ambulatory, with family. kc6 10:42 Condition: improved 10:42 Discharge instructions given to patient, Instructed on discharge instructions, follow up and referral plans. Demonstrated understanding of instructions, follow-up care. 10:42 Patient left the ED. kc6 Signatures: Epifanio Dunham MD MD rn Moreno, Amanda am2 Lewis, Lynsay, RN RN ll1 Nimo Gordon RN RN kc6 Mikala Reddy RN RN cm10 Corrections: (The following items were deleted from the chart) 08:40 08:38 Chief complaint: Patient states: Hives off/on for 4 days with itching. Started to ll1 feel off balanced with walking and shaky today so she came to get checked. 1 08:40 08:38 Coronavirus screen: Client denies travel out of the [place] in the last 14 days. At 1 this time, the client does not indicate any symptoms associated with coronavirus-19. 1 08:40 08:38 Ebola Screen: Patient denies travel to an Ebola-affected area in the 21 days ll1 before illness onset. 1 08:40 08:38 Initial Sepsis Screen: Does the patient meet any 2 criteria? No. Patient's ll1 initial sepsis screen is negative. Does the patient have a suspected source of infection? Yes: Skin breakdown/wound 1 08:40 08:38 Risk Assessment: Do you want to hurt yourself or someone else? Patient reports no ll1 desire to harm self or others. 1 08:40 08:38 Onset of symptoms was March 21, 2023 [facility] 08:40 08:38 Method Of Arrival: Ambulatory [place] [id number] 08:40 08:38 BP 149 / 106; Pulse 79bpm; Resp 17bpm; Pulse Ox 100%; Temp 98.2F; Pain 4/10, ll1 Adult; ll1 08:40 08:38 Acuity: ODIN 3 ll1 ll1 08: 08:37 Arm band placed on ll1 ll1 08: 08:37 Allergies: Pineapple; ll1 ll1 08: 08:37 Allergies: Grass; ll1 ll1 : 08:37 PMHx: Anxiety; ll1 ll1 : 08:37 PMHx: Asthma; ll1 ll1 08: 08:37 PSHx: section; ll1 ll1 08: 08:37 PSHx: Cholecystectomy; ll1 ll1 08: 08:37 PSHx: Tonsillectomy; ll1 ll1 08: 08:37 Immunization history: Adult Immunizations up to date, ll1 ll1 08: 08:37 Social history: Smoking status: Patient denies any tobacco usage or history of. ll1 ll1 : 08:40 Allergies: bad reaction to anesthia; ll1 ll1
--- NOTE | 2023-03-24 10:38 | EDPHYS ---
Physician Documentation [facility] Name: Lisa Clement Age: 27 yrs Sex: Female : 1995 Arrival Date: 03/24/2023 Time: 08:32 Bed 18 Private MD: ED Physician Epifanio Dunham HPI: 03/24 09:43 This 27 yrs old Female presents to ER via Ambulatory with complaints of worsening of rn symptoms, shaky. 09:43 Pt reports seen here last night for dental problem and headache, given several rn medications, when went home began to feel anxious, shaky, nervous, and restless. No rash. No sob. No swelling. Then her anxiety kicked in and felt worse. The original symptoms seem to have resolved now, just feeling her anxious symptoms now. No fever. NO difficulty breathing. . Onset: The symptoms/episode began/occurred this morning. Severity of symptoms: At their worst the symptoms were moderate in the emergency department the symptoms have improved. The patient has experienced similar episodes in the past. The patient has been recently seen at the [facility] Emergency Department. Historical: - Allergies: 08:52 PENICILLINS; cm10 08:52 Motrin; cm10 08:52 Benadryl; cm10 - PMHx: 08:52 Anxiety; cm10 - Immunization history:: Adult Immunizations unknown. - Social history:: Smoking status: Reported history of juuling and/or vaping. - Family history:: not pertinent. - Hospitalizations: : No recent hospitalization is reported. ROS: 09:43 Constitutional: Negative for fever, chills, and weight loss, Eyes: Negative for injury, rn pain, redness, and discharge, Cardiovascular: Negative for chest pain, palpitations, and edema, Respiratory: Negative for shortness of breath, cough, wheezing, and pleuritic chest pain, Abdomen/GI: Negative for abdominal pain, nausea, vomiting, diarrhea, and constipation, Back: Negative for injury and pain, MS/Extremity: Negative for injury and deformity, Skin: Negative for injury, rash, and discoloration, Neuro: Negative for headache, weakness, numbness, tingling, and seizure. Exam: 09:43 Constitutional: This is a well developed, well nourished patient who is awake, alert, rn seems anxious Head/Face: Normocephalic, atraumatic. ENT: MMM, no swelling, no stridor Cardiovascular: Regular rate and rhythm. No pulse deficits. Respiratory: No increased work of breathing, no retractions or nasal flaring. Abdomen/GI: Soft, non-tender Skin: Warm, dry MS/ Extremity: Pulses equal, no cyanosis. Neuro: Awake and alert, GCS 15, oriented to person, place, time, and situation. Cranial nerves II-XII grossly intact. Motor strength 5/5 in all extremities. Sensory grossly intact. Cerebellar exam normal. Vital Signs: 08:50 BP 142 / 96; Pulse 100; Resp 18; Temp 98; Pulse Ox 100% on R/A; cm10 09:36 BP 101 / 66; Pulse 76; Resp 16 S; Pulse Ox 100% on R/A; kc6 10:37 BP 108 / 70; Pulse 63; Resp 18 S; Pulse Ox 99% on R/A; kc6 MDM: 08:40 Patient medically screened. rn 10:34 Differential Diagnosis medication reaction, anxiety. Data reviewed: vital signs, nurses rn notes, and as a result, I will discharge patient. Counseling: I had a detailed discussion with the patient and/or guardian regarding: the historical points, exam findings, and any diagnostic results supporting the discharge/admit diagnosis, the need for outpatient follow up, to return to the emergency department if symptoms worsen or persist or if there are any questions or concerns that arise at home. Special discussion: I discussed with the patient/guardian in detail that at this point there is no indication for admission to the hospital. It is understood, however, that if the symptoms persist or worsen the patient needs to return immediately for re-evaluation. Administered Medications: No medications were administered Disposition Summary: 03/24/23 10:38 Discharge Ordered Location: Home rn Problem: new rn Symptoms: have improved rn Condition: Stable rn Diagnosis - Anxiety disorder, unspecified rn - Adverse effect of reglan rn Followup: rn - With: Private Physician - When: As needed - Reason: Recheck today's complaints, Re-evaluation by your physician Discharge Instructions: - Discharge Summary Sheet rn - Managing Anxiety, Adult rn Forms: - Medication Reconciliation Form rn - Thank You Letter rn - Antibiotic winter intern - Prescription Opioid Use rn Signatures: Epifanio Dunham MD MD rn Lewis, Lynsay, RN RN ll1 Mikala Reddy RN RN cm10 Corrections: (The following items were deleted from the chart) 08: 08:37 Allergies: Pineapple; ll1 ll1 08:41 08:37 Allergies: Grass; ll1 ll1 08: 08:37 PMHx: Anxiety; ll1 ll1 08: 08:37 PMHx: Asthma; ll1 ll1 08: 08:37 PSHx: section; ll1 ll1 08: 08:37 PSHx: Cholecystectomy; ll1 ll1 08: 08:37 PSHx: Tonsillectomy; ll1 ll1 08: 08:37 Immunization history: Adult Immunizations up to date, ll1 ll1 08: 08:37 Social history: Smoking status: Patient denies any tobacco usage or history of. ll1 ll1 08:41 08:40 Allergies: bad reaction to anesthia; ll1 ll1
[2023-03-24 11:21] VITALS: TEMP 98
[2023-03-24 11:24] VITALS: BP 108/70; O2SAT 99
== END 2023-03-24 10:42 | disposition home or self-care (01) ==
LOC: ER 08:32
DX: F41.9 Anxiety disorder, unspecified (principal); T45.0X5A Adverse effect of antiallergic and antiemetic drugs, initial encounter; Z88.0 Allergy status to penicillin; Z88.6 Allergy status to analgesic agent; Z88.8 Allergy status to other drugs, medicaments and biological substances
CPT/HCPCS: 99283

== ENCOUNTER 2023-05-06 21:20 | Emergency (ER) | payer BC ==
[2023-05-06 21:51] LABS: Specific Gravity < 1.005 (1.005-1.030)
[2023-05-06] MEDS ORDERED: LORazepam 2 MG/ML VIAL ONE (21:59)
[2023-05-06] MEDS ORDERED: ONDANSETRON 4 MG/2 ML VIAL ONE (21:59)
[2023-05-06 22:03] LABS: Absolute Lymphocytes (CBC) 2.5 K/uL (0.7-4.9); Hematocrit 32.6 % (36.0-45.0); Lymphocytes % 27.9 % (15.3-44.8); MCV 76.7 fL (80-100); MPV 8.1 fL (7.6-11.3); RBC Red Blood Cell Count 4.25 M/uL (3.86-4.86)
[2023-05-06 22:17] LABS: ALT/SGPT 21 U/L (13-56); AST/SGOT 13 U/L (15-37); Albumin 3.5 g/dL (3.4-5.0); Alkaline Phosphatase 123 U/L (45-117); BUN Blood Urea Nitrogen 12 mg/dL (7-18); Bicarbonate 26 mEq/L (21-32); Bilirubin Direct < 0.1 mg/dL (0-0.2); Bilirubin Indirect, Calculated ND mg/dL (0.2-0.8); Bilirubin Total 0.2 mg/dL (0.2-1.0); Glomerular Filtration Rate 112 ml/min (=/>90); Glucose Level 101 mg/dL (74-106); Potassium 3.1 mEq/L (3.5-5.1); Protein, Total 7.4 g/dL (6.4-8.2); Sodium Level 137 mEq/L (136-145); Troponin High Sensitivity < 3.0 pg/mL (<58.9)
--- NOTE | 2023-05-06 23:20 | ER ---
Nurse's Notes [facility] Name: Lisa Clement Age: 28 yrs Sex: Female : 1995 Arrival Date: 05/06/2023 Time: 21:20 Bed 6 Private MD: Diagnosis: Anxiety disorder, unspecified Presentation: 05/06 21:28 Chief complaint: Patient states: left side chest pain of 10, onset 3 days with nausea pf1 and dealing with a lot of stress recently. 21:28 Coronavirus screen: Vaccine status: Patient reports being unvaccinated. Client denies pf1 travel out of the [place] in the last 14 days. At this time, the client does not indicate any symptoms associated with coronavirus-19. Ebola Screen: Patient negative for fever greater than or equal to 101.5 degrees Fahrenheit, and additional compatible Ebola Virus Disease symptoms. Initial Sepsis Screen: Does the patient meet any 2 criteria? No. Patient's initial sepsis screen is negative. Does the patient have a suspected source of infection? No. Patient's initial sepsis screen is negative. Risk Assessment: Do you want to hurt yourself or someone else? Patient reports no desire to harm self or others. 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 Last tetanus immunization: > 10 years ago Flu vaccine is not up to date. - Social history:: Smoking status: Reported history of juuling and/or vaping. Patient uses alcohol, but reports only rare drinking. Patient/guardian denies using street drugs. - Family history:: not pertinent. Screenin:00 [facility] ED Fall Risk Assessment (Adult) History of falling in the last 3 months, mb9 including since admission No falls in past 3 months (0 pts) Confusion or Disorientation No (0 pts) Intoxicated or Sedated No (0 pts) Impaired Gait No (0 pts) Mobility Assist Device Used No (0 pt) Altered Elimination No (0 pt) Score/Fall Risk Level 0 - 2 = Low Risk Oriented to surroundings, Maintained a safe environment, Educated pt \T\ family on fall prevention, incl call for assistance when getting out of bed. Abuse screen: Denies threats or abuse. Nutritional screening: No deficits noted. Tuberculosis screening: No symptoms or risk factors identified. Assessment: 21:59 General: Appears uncomfortable, Behavior is anxious, crying. Pain: Complains of pain in mb9 chest Pain does not radiate. Pain currently is 10 out of 10 on a pain scale. Quality of pain is described as throbbing, Pain began gradually, Is continuous. Neuro: [place] Agitation-Sedation Scale (RASS): 0 - Alert and Calm Level of Consciousness is awake, alert, obeys commands, Oriented to person, place, time, situation, Appropriate for age. Cardiovascular: Reports chest pain, shortness of breath, Heart tones S1 S2 present Rhythm is sinus tachycardia. Respiratory: Airway is patent Respiratory effort is even, unlabored, Respiratory pattern is regular, symmetrical, Breath sounds are clear bilaterally. GI: Abdomen is round non-distended, Bowel sounds present X 4 quads. Abd is soft and non tender X 4 quads. Reports nausea, vomiting. : No deficits noted. EENT: No deficits noted. Derm: Skin is pink, warm \T\ dry. Musculoskeletal: Range of motion: intact in all extremities. 23:09 Reassessment: Patient and/or family updated on plan of care and expected duration. Pain mb9 level reassessed. Patient is alert, oriented x 3, equal unlabored respirations, skin warm/dry/pink. Patient states feeling better. Patient states symptoms have improved. Vital Signs: 21:28 BP 142 / 101; Pulse 89; Resp 16; Temp 98.1; Pulse Ox 100% on R/A; Weight 101.15 kg; pf1 Height 5 ft. 2 in. ; Pain 10/10; 22:24 BP 124 / 91; Pulse 88; Resp 18; Pulse Ox 100% on R/A; mb9 23:35 BP 111 / 69; Pulse 70; Resp 16; Pulse Ox 99% on R/A; Pain 0/10; mb9 21:28 Body Mass Index 40.79 (101.15 kg, 157.48 cm) pf1 21:28 Pain Scale: Adult pf1 23:35 Pain Scale: Adult mb9 ED Course: 21:22 Patient arrived in ED. mr 21:24 Len Vyas MD is Attending Physician. sp4 21:38 Simi Pham, RN is Primary Nurse. mb9 21:55 Triage completed. pf1 21:57 Basic Metabolic Panel Sent. mb9 21:57 CBC with Diff Sent. mb9 21:57 LFT's Sent. mb9 21:57 Troponin HS Sent. mb9 21:57 Arm band placed on. mb9 22:00 No provider procedures requiring assistance completed. Inserted saline lock: 22 gauge mb9 in right antecubital area, using aseptic technique. 22:00 Placed in gown. Bed in low position. Call light in reach. Side rails up X 1. Client mb9 placed on continuous cardiac and pulse oximetry monitoring. NIBP monitoring applied. monitoring analyst on. 23:35 IV discontinued, intact, bleeding controlled, No redness/swelling at site. Pressure mb9 dressing applied. Administered Medications: 22:18 Drug: Ondansetron IVP 8 mg Route: IVP; Site: right antecubital; mb9 22:23 Drug: Ativan IVP 2 mg Route: IVP; Site: right antecubital; mb9 Medication: 22:00 VIS not applicable for this client. mb9 Outcome: 23:20 Discharge ordered by . sp4 23:35 Discharged to home ambulatory. mb9 23:35 Condition: stable 23:35 Discharge instructions given to patient, Instructed on discharge instructions, follow up and referral plans. Demonstrated understanding of instructions, follow-up care, medications, Prescriptions given X 1. 23:35 Patient left the ED. mb9 Signatures: Michel Simi banda ErnstmarcSimi RN RN mb9 Kimber Kendall RN RN pf1 Len Vyas MD MD sp4
--- NOTE | 2023-05-06 23:20 | EDPHYS ---
Physician Documentation [facility] Name: Lisa Clement Age: 28 yrs Sex: Female : 1995 Arrival Date: 05/06/2023 Time: 21:20 Bed 6 Private MD: ED Physician Len Vyas HPI: 05/06 21:25 This 28 yrs old White Female presents to ER via Unassigned with complaints of Chest sp4 Pain, Shortness Of Breath, Anxiety, Vomiting. 21:48 24-year-old female presents with 3 days of chest pain also moderate to severe anxiety sp4 associated with vomiting. Patient states her stress level is high. Very anxious on presentation and has difficulty communicating. This has precipitated an acute panic attack in the ER.. 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 Last tetanus immunization: > 10 years ago Flu vaccine is not up to date. - Social history:: Smoking status: Reported history of juuling and/or vaping. Patient uses alcohol, but reports only rare drinking. Patient/guardian denies using street drugs. - Family history:: not pertinent. ROS: 21:48 Constitutional: Negative for fever, chills, and weight loss, Cardiovascular: Negative sp4 for palpitations, and edema, positive for chest pain Neuro: Negative for headache, weakness, numbness, tingling, and seizure, Psych: Negative for depression, positive for moderate to severe anxiety Hematologic/Lymphatic: Negative for swollen nodes, abnormal bleeding, and unusual bruising 21:48 All other systems are negative. Exam: 21:48 Constitutional: This is a well developed, well nourished patient who is awake, alert, sp4 positive moderate to severe anxiety with acute panic attack on exam. Head/Face: Normocephalic, atraumatic. Eyes: Pupils equal round and reactive to light, extra-ocular motions intact. Lids and lashes normal. Conjunctiva and sclera are not injected. Cornea within normal limits. Periorbital areas with no swelling, redness, or edema. ENT: Nares patent. No nasal discharge, no septal abnormalities noted. Tympanic membranes are normal and external auditory canals are clear. Oropharynx with no redness, swelling, or masses, exudates, or evidence of obstruction, uvula midline. Mucous membranes moist. Neck: Trachea midline, no thyromegaly or masses palpated, and no cervical lymphadenopathy. Supple, full range of motion without nuchal rigidity, or vertebral point tenderness. Chest/axilla: Normal chest wall appearance and motion. Nontender with no deformity. No lesions are appreciated. Cardiovascular: Regular rate and rhythm with a normal S1 and S2. No gallops, murmurs, or rubs. Normal PMI, no JVD. No pulse deficits. Respiratory: Lungs have equal breath sounds bilaterally, clear to auscultation and percussion. No rales, rhonchi or wheezes noted. No increased work of breathing, no retractions or nasal flaring. Abdomen/GI: Soft, non-tender, with normal bowel sounds. No distension or tympany. No guarding or rebound. No evidence of tenderness throughout. Back: No spinal tenderness. No costovertebral tenderness. Skin: Warm, dry with normal turgor. Normal color with no rashes, no lesions, and no evidence of cellulitis. MS/ Extremity: Pulses equal, no cyanosis. Neurovascular intact. Full, normal range of motion. Neuro: Awake and alert, GCS 15, oriented to person, place, time, and situation. Cranial nerves II-XII grossly intact. Motor strength 5/5 in all extremities. Sensory grossly intact. Psych: Awake, alert, with orientation to person, place and time. Positive for moderate to severe anxiety on exam. 21:54 ECG was reviewed by the Attending Physician. EKG reveals sinus tachycardia at a rate of sp4 106 EKG time 2141.. EKG reveals no ectopy otherwise normal EKG Vital Signs: 21:28 BP 142 / 101; Pulse 89; Resp 16; Temp 98.1; Pulse Ox 100% on R/A; Weight 101.15 kg; pf1 Height 5 ft. 2 in. ; Pain 10/10; 22:24 BP 124 / 91; Pulse 88; Resp 18; Pulse Ox 100% on R/A; mb9 23:35 BP 111 / 69; Pulse 70; Resp 16; Pulse Ox 99% on R/A; Pain 0/10; mb9 21:28 Body Mass Index 40.79 (101.15 kg, 157.48 cm) pf1 21:28 Pain Scale: Adult pf1 23:35 Pain Scale: Adult mb9 MDM: 21:26 Patient medically screened. sp4 21:48 HEART Score: History: Slightly Suspicious (0), ECG: Normal (0), Age: < or = 45 years sp4 (0), Risk Factors: No Risk Factors Known (0), Troponin: < or = 1 x Normal Limit (0), Total Score = 0. Data reviewed: vital signs, nurses notes, old medical records, lab test result(s), EKG. 23:19 ED course: Patient has improved after Ativan IV and is feeling much better. Cardiac sp4 work-up is normal today, patient is stable for discharge home with as needed Ativan. Patient will be advised to see primary care physician for management of anxiety. 05/06 21:25 Order name: Test, Urine; Complete Time: 23:14 4 05/06 21:25 Order name: Basic Metabolic Panel; Complete Time: 23:14 [facility] 05/06 21:25 Order name: CBC with Diff; Complete Time: 23:14 4 05/06 21:25 Order name: LFT's; Complete Time: 23:14 sp4 05/06 21:25 Order name: Troponin HS; Complete Time: 23:14 [facility] 05/06 21:25 Order name: EKG; Complete Time: 21:26 [facility] 05/06 21:25 Order name: Cardiac monitoring; Complete Time: 21:57 4 05/06 21:25 Order name: EKG - Nurse/Tech; Complete Time: 21:57 [facility] 05/06 21:25 Order name: IV Saline Lock; Complete Time: :57 [facility] 05/06 21:25 Order name: Labs collected and sent; Complete Time: 21:57 4 05/06 21:25 Order name: O2 Per Protocol; Complete Time: 21:57 4 05/06 21:25 Order name: O2 Sat Monitoring; Complete Time: 21:57 sp4 EC:54 Rate is 106 beats/min. Rhythm is regular, Sinus tachycardia. QRS [place] is Normal. [place] sp4 interval is normal. QRS interval is normal. QT interval is normal. T waves are Normal. No ST changes noted. Clinical impression: No evidence of ischemia. Interpreted by me. Administered Medications: 22:18 Drug: Ondansetron IVP 8 mg Route: IVP; Site: right antecubital; mb9 22:23 Drug: Ativan IVP 2 mg Route: IVP; Site: right antecubital; mb9 Disposition Summary: 05/06/23 23:20 Discharge Ordered Location: Home sp4 Problem: new sp4 Symptoms: have improved sp4 Condition: Stable sp4 Diagnosis - Anxiety disorder, unspecified sp4 Followup: sp4 - With: Private Physician - When: 7 - 10 days - Reason: Recheck today's complaints Discharge Instructions: - Discharge Summary Sheet sp4 - Managing Anxiety, Adult sp4 Forms: - Work release form rv1 - Patient Portal Instructions sp4 Prescriptions: - Ativan 1 mg Oral Tablet - take 1 tablet by ORAL route daily As needed Daily as needed for anxiety; 12 sp4 tablet; Refills: 0, Product Selection Permitted Signatures: Dispatcher [employer] Simi Fuller RN RN mb9 Kimber Kendall RN RN pf1 Len Vyas MD MD sp4
[2023-05-06 23:40] VITALS: TEMP 98.1
[2023-05-06 23:44] VITALS: BP 111/69; O2SAT 99
--- NOTE | 2023-05-08 13:04 | EKG ---
Test Date: 2023-05-06 Test Time: 21:41:35 [employer] Specialist: ANNELISE MEASUREMENT RESULTS: Intervals: Rate: 106 WI: 124 QRSD: 80 QT: 348 QTc: 462 [place]: P: 70 WI: 124 QRS: 69 T: 48 INTERPRETIVE STATEMENTS: Sinus tachycardia Otherwise normal ECG Compared to ECG 03/23/2023 22:29:04 Sinus rhythm no longer present Electronically Signed On 05-08-23 13:03:19 CDT by Timmy Soto
== END 2023-05-06 23:35 | disposition home or self-care (01) ==
LOC: ER 21:20
DX: F41.9 Anxiety disorder, unspecified (principal); Z88.0 Allergy status to penicillin; Z88.6 Allergy status to analgesic agent; Z88.8 Allergy status to other drugs, medicaments and biological substances
CPT/HCPCS: 93005; 85025; 80048; 36415; 81025; 80076; 84484; 96375; 96374; 99285; J2405

== ENCOUNTER 2023-07-28 06:48 | Emergency (ER) | payer BC ==
--- OUTSIDE RECORDS SUMMARY | 2023-07-28 06:52 | XMS REPORT | Continuity of Care Document ---
:1995 Author Organization [facility] t Address [address] [place] [address] Care Team Providers Name Role Phone Grady Garcia Primary Care Physician [phone] NORM HARRINGTON Attending Clinician Unavailable Zaire HADDADSWMagdalena Attending Clinician Unavailable GRADY JACOBSEN Attending Clinician Unavailable Doctor Unassigned, [place] Attending Clinician Unavailable Grady Garcia Attending Clinician Rey Schultz DO Attending Clinician Kaylin Garber Attending Clinician KAYLIN MARCELO Attending Clinician Unavailable Payers Payer Name Policy Type Policy Number Effective Date Expiration Date S [facility] 2 [id number] 2023 00:00:00 Problems Condition Condition Condition Status Onset Resolution Last Treating Co mments Source Name Details Category Date Date Treatment Clinician Date Encounter Encounter Disease Active 2019-10 Uni vers for for 1-19 ity of Nexplan[place] Chlamydia Chlamydia Disease Active Uni vers trachomati trachomati 5-17 it y of s s 00:00: [place] infection infection 00 Medi arthur of lower of lower Branch genitourin genitourin nicolas sites nicolas sites Tobacco Tobacco Disease Active Univers use use 06-12 ity of disorder disorder 00:00: [place] [facility] Encounter Encounter Disease Active Overview: Univers for for 06-12 Formattin ity of initial initial 00:00: g of this [place] prescripti prescripti 00 note Me dical on of on of might be Branch contracept contracept different doug pills doug pills from the original. RTC 2 weeks for nexplanon ICD10 Diagnosis Term Dog Sitter Utility Obesity Obesity Disease Active Overview: Univ ers 06-12 Formattin ity of 00:00: g of this [place] 00 note Medical might be Branch different from the original. ICD10 Diagnosis Term Dog Sitter Utility Allergies, Adverse Reactions, Alerts Allergy Allergy [...] ity of 00:00: [place] 00 Medical Branch Penicill Propensi Active Anaphylaxis Lip U nivers ins ty to 3-22 swelling ity of adverse 00:00: & some [place] reaction 00 difficult Medic al s to y in Branch drug swallowin g. Social History Social Habit Start Date Stop Date Quantity Comments Source History of tobacco Cigarette Smoker [facility] Sexual orientation Univer sity of [facility] [place] Exposure to 2021-03-22 2021-04-21 Not sure University SARS-CoV-2 (event) 00:00:00 07:48:00 [facility] [place] Alcohol intake 2020-10-28 2020-10-28 Current University of 00:00:00 00:00:00 non-drinker of [facility] alcohol (finding) Branch History of Social 2020-06-29 2020-06-29 Univers ity of function 00:00:00 00:00:00 [facility] [place] Tobacco use and 2014-06-12 2014-06-12 Smokeless tobacco Un iversity of exposure 00:00:00 00:00:00 non-user [facility] [place] Tobacco Comment 2014-06-12 2014-06-12 states smokes 4-5 Un iversity of 00:00:00 00:00:00 cigarettes per [facility] Branch Sex Assigned At [birth year] Universit y of 00:00:00 00:00:00 [facility] [place] Smoking Status Start Date Stop Date Source Smokes tobacco daily 2014-06-12 00:00:00 Univers ity [facility] Medications Ordered Filled Start Stop Current Ordering Indication Dosage Frequency Signature Comments Components Source Medication Medication Date Date Medication? Clinician (SIG) Name Name LOESTRIN FE 2020- Yes [id number] 1{tbl} Take 1 Univers (MICROGESTI 1-19 tablet by ity of N FE 10/21) 00:00: mouth [place] 1 mg-20 mcg 00 daily. Medica l (21)/75 mg Branch (7) tablet LOESTRIN FE 2020- Yes [id number] 1{tbl} Take 1 Univers (MICROGESTI 1-19 tablet by ity of N FE 10/21) 00:00: mouth [place] 1 mg-20 mcg 00 daily. Medica l (21)/75 mg Branch (7) tablet LOESTRIN FE 2020- Yes [id number] 1{tbl} Take 1 Univers (MICROGESTI 1-19 tablet by ity of N FE 10/21) 00:00: mouth [place] 1 mg-20 mcg 00 daily. Medica l (21)/75 mg Branch (7) tablet LOESTRIN FE 2020-1 Yes [id number] 1{tbl} Take 1 Univers (MICROGESTI 1-19 tablet by ity of N FE 10/21) 00:00: mouth [place] 1 mg-20 mcg 00 daily. Medica l (21)/75 mg Branch (7) tablet LOESTRIN FE 2020-1 Yes [id number] 1{tbl} Take 1 Univers (MICROGESTI 1-19 tablet by ity of N FE 10/21) 00:00: mouth [place] 1 mg-20 mcg 00 daily. Medica l (21)/75 mg Branch (7) tablet LOESTRIN FE 2020-1 Yes [id number] 1{tbl} Take 1 Univers (MICROGESTI 1-19 tablet by ity of N FE 10/21) 00:00: mouth [place] 1 mg-20 mcg 00 daily. Medica l (21)/75 mg Branch (7) tablet LOESTRIN FE 2020- Yes [id number] 1{tbl} Take 1 Univers (MICROGESTI 1-19 tablet by ity of N FE 10/21) 00:00: mouth [place] 1 mg-20 mcg 00 daily. Medica l (21)/75 mg Branch (7) tablet LOESTRIN FE 2020- Yes [id number] 1{tbl} Take 1 Univers (MICROGESTI 1-19 tablet by ity of N FE 10/21) 00:00: mouth [place] 1 mg-20 mcg 00 daily. Medica l (21)/75 mg Branch (7) tablet LOESTRIN FE 2020- Yes [id number] 1{tbl} Take 1 Univers (MICROGESTI 1-19 tablet by ity of N FE 10/21) 00:00: mouth [place] 1 mg-20 mcg 00 daily. Medica l (21)/75 mg Branch (7) tablet LOESTRIN FE 2020- Yes [id number] 1{tbl} Take 1 Univers (MICROGESTI 1-19 tablet by ity of N FE 10/21) 00:00: mouth [place] 1 mg-20 mcg 00 daily. Medica l (21)/75 mg Branch (7) tablet LOESTRIN FE 2020- Yes [id number] 1{tbl} Take 1 Univers (MICROGESTI 1-19 tablet by ity of N FE 10/21) 00:00: mouth [place] 1 mg-20 mcg 00 daily. Medica l (21)/75 mg Branch (7) tablet LOESTRIN FE 2020- Yes [id number] 1{tbl} Take 1 Univers (MICROGESTI 1-19 tablet by ity of N FE 10/21) 00:00: mouth [place] 1 mg-20 mcg 00 daily. Medica l (21)/75 mg Branch (7) tablet LOESTRIN FE 2020- Yes [id number] 1{tbl} Take 1 Univers (MICROGESTI 1-19 tablet by ity of N FE 10/21) 00:00: mouth [place] 1 mg-20 mcg 00 daily. Medica l (21)/75 mg Branch (7) tablet LOESTRIN FE 2020- Yes [id number] 1{tbl} Take 1 Univers (MICROGESTI 1-19 tablet by ity of N FE 10/21) 00:00: mouth [place] 1 mg-20 mcg 00 daily. Medica l (21)/75 mg Branch (7) tablet LOESTRIN FE 2020- Yes [id number] 1{tbl} Take 1 Univers (MICROGESTI 1-19 tablet by ity of N FE 10/21) 00:00: mouth [place] 1 mg-20 mcg 00 daily. Medica l (21)/75 mg Branch (7) tablet LOESTRIN FE 2019- Yes [id number] 1{tbl} Take 1 Univers (MICROGESTI 1-19 tablet by ity of N FE 10/21) 00:00: mouth [place] 1 mg-20 mcg 00 daily. Medica l (21)/75 mg Branch (7) tablet LOESTRIN FE 2020- Yes [id number] 1{tbl} Take 1 Univers (MICROGESTI 1-19 tablet by ity of N FE 10/21) 00:00: mouth [place] 1 mg-20 mcg 00 daily. Medica l (21)/75 mg Branch (7) tablet LOESTRIN FE 2019- Yes [id number] 1{tbl} Take 1 Univers (MICROGESTI 1-19 tablet [...] Medical HOURS FOR Branch 10 DAYS clindamycin 2019- Yes TAKE 1 Univ ers 300 mg 1-13 CAPSULE BY ity of capsule 00:00: MOUTH [place] 00 EVERY 6 Medical HOURS FOR Branch 10 DAYS clindamycin 2019- Yes TAKE 1 Univ ers 300 mg 1-13 CAPSULE BY ity of capsule 00:00: MOUTH [place] 00 EVERY 6 Medical HOURS FOR Branch 10 DAYS clindamycin 2019- Yes TAKE 1 Univ ers 300 mg 1-13 CAPSULE BY ity of capsule 00:00: MOUTH [place] 00 EVERY 6 Medical HOURS FOR Branch 10 DAYS clindamycin 2019- Yes TAKE 1 Univ ers 300 mg [...] FOR Branch 10 DAYS methylPREDN 2018-10 Yes [id number] Take by Univers ISolone 2-15 mouth ity of (MEDROL, 00:00: SEE-INSTRU [place] ALEK,) 4 mg 00 CTIONS. Medica l tablets follow Branch package directions methylPREDN 2018-10- No [id number] Take by Univers ISolone 11-16 mouth ity of (MEDROL, 00:00: 00:[place] ALEK[place] 4 mg 00 :00 CTIONS. Medica l tablets follow Branch package directions methylPREDN 2018-10- No [id number] Take by Univers ISolone 11-16 mouth ity of (MEDROL, 00:00: 00:00 [place] ALEK,) 4 mg 00 :00 CTIONS. Medica l tablets follow Branch package directions azithromyci Yes 1000mg Take 2 Un leti n 500 mg 5-17 tablets by ity o f tablet 00:00: mouth [place] 00 daily. Medical Branch azithromyci 2020- No 1000mg Take 2 U nivers n 500 mg -17 06-29 tablets by ity of tablet 00:00: 00:00 mouth [place] 00 :00 daily. Medical Branch azithromyci 2019- No 1000mg Take 2 U nivers n 500 mg 5-17 06-29 tablets by ity of tablet 00:00: 00:00 [...] 4 00 Medical mg tablets Branch benzonatate 2014-10 2020- [...] 2020- No 2{puff} Inhale 2 Univers (VENTOLIN) 10-31- Puffs ity of 90 00:00: 00:00 every 6 [place] mcg/actuati 00 :00 (six) Medical on inhaler hours as Branc h needed for Wheezing, Shortness of Breath or Chest tightness. methylPREDN 2014-10 2020- No follow Uni vers ISolone 10-31 package ity of (MEDROL 00:00: 00:00 directions [place] as DOSE-ALEK) 4 00 :00 Medical mg tablets Branch No known No Univers medications ity of [facility] [place] Immunizations Ordered Filled Date Status Comments Source Immunization Name Immunization Name HPV 2014-06-12 Completed University of 00:00:00 [facility] [place] [facility] Branch HPV 2014-06-12 Completed University of 00:00:00 [place] [facility] HPV 2014-06-12 Completed University of 00:00:00 [place] [facility] HPV 2014-06-12 Completed University of 00:00:00 [place] [facility] HPV 2014-06-12 Completed University of 00:00:00 [place] [facility] HPV 2014-06-12 Completed University of 00:00:00 [place] [facility] HPV 2014-06-12 Completed University of 00:00:00 [place] [facility] HPV 2014-06-12 Completed University of 00:00:00 [place] [facility] HPV 2014-06-12 Completed University of 00:00:00 [place] [facility] HPV 2014-06-12 Completed University of 00:00:00 [place] [facility] HPV 2014-06-12 Completed University of 00:00:00 [place] [facility] HPV 2014-06-12 Completed University of 00:00:00 [place] [facility] HPV 2014-06-12 Completed University of 00:00:00 [place] [facility] HPV 2014-06-12 Completed University of 00:00:00 [facility] [place] [facility] Branch HPV 2014-06-12 Completed University of 00:00:00 [facility] [place] [facility] Branch HPV 2011-07-19 Completed University of 00:00:00 [place] [facility] HPV 2011-07-19 Completed University of 00:00:00 [place] [facility] HPV 2011-07-19 Completed University of 00:00:00 [facility] [place] [facility] Branch HPV 2011-07-19 Completed University of [...] Branch HPV 2010-06-23 Completed University of 00:00:00 [facility] [place] HPV 2010-06-23 Completed University of 00:00:00 [facility] [place] TD, NOS Unknown Completed [facility] HPV Unknown Completed [facility] [place] [facility] TD, NOS Unknown Completed [facility] [place] [facility] HPV Unknown Completed [facility] [place] [facility] TD, NOS Unknown Completed [facility] [place] [facility] HPV Unknown Completed [facility] [place] [facility] TD, NOS Unknown Completed [facility] [place] [facility] HPV Unknown Completed [facility] [place] [facility] TD, NOS Unknown Completed [facility] [place] [facility] HPV Unknown Completed [facility] [place] [facility] TD, NOS Unknown Completed [facility] [place] [facility] HPV Unknown Completed [facility] [place] [facility] TD, NOS Unknown Completed [facility] [place] [facility] HPV Unknown Completed [facility] [place] [facility] Vital Signs Vital Name Observation Time Observation Value Comments Source Systolic blood 2021-04-21 12:51:00 124 mm[Hg] Univer sity of [facility] Diastolic blood 2021-04-21 12:51:00 83 mm[Hg] Unive rsity of [facility] Heart rate 2021-04-21 12:51:00 74 /min [facility] Body temperature 2021-04-21 12:51:00 36.72 Devika [facility] Respiratory rate 2021-04-21 12:51:00 16 /min [facility] Body height 2021-04-21 12:51:00 157.5 cm [facility] Body weight 2021-04-21 12:51:00 90.629 kg [facility] BMI 2021-04-21 12:51:00 36.54 kg/m2 [facility] Systolic blood 2020-10-28 15:01:00 132 mm[Hg] Univer sity of [facility] Diastolic blood 2020-10-28 15:01:00 81 mm[Hg] Unive rsity of [facility] Heart rate 2020-10-28 15:01:00 87 /min [facility] Body temperature 2020-10-28 15:01:00 36.39 Devika [facility] Respiratory rate 2020-10-28 15:01:00 16 /min [facility] Body height 2020-10-28 15:01:00 157.5 cm Universi ty of [place] [facility] Body weight 2020-10-28 15:01:00 83.575 kg Universi ty of [place] [facility] BMI 2020-10-28 15:01:00 33.70 kg/m2 Universi ty [facility] [place] [facility] Systolic blood 2020-10-28 15:01:00 132 mm[Hg] Univer sity of pressure [place] [facility] Diastolic blood 2020-10-28 15:01:00 81 mm[Hg] Unive rsity of pressure [place] [facility] Heart rate 2020-10-28 15:01:00 87 /min Universi ty of [place] [facility] Body temperature 2020-10-28 15:01:00 36.39 Devika Univ ersity [facility] [place] [facility] Respiratory rate 2020-10-28 15:01:00 16 /min Univ ersity of [place] [facility] Body height 2020-10-28 15:01:00 157.5 cm Universi ty [facility] [place] [facility] Body weight 2020-10-28 15:01:00 83.575 kg Universi ty of [place] [facility] BMI 2020-10-28 15:01:00 33.70 kg/m2 Universi ty [facility] [place] [facility] Systolic blood 2020-08-20 21:53:00 125 mm[Hg] Univer sity of [facility] [place] [facility] Diastolic blood 2020-08-20 21:53:00 86 mm[Hg] Unive rsity of pressure [place] [facility] Heart rate 2020-08-20 21:53:00 97 /min Universi ty [facility] [place] [facility] Body temperature 2020-08-20 21:53:00 36.67 Devika Univ ersity [facility] [place] [facility] Respiratory rate 2020-08-20 21:53:00 16 /min Univ ersity [facility] [place] [facility] Body height 2020-08-20 21:53:00 154.9 cm Universi ty [facility] [place] [facility] Body weight 2020-08-20 21:53:00 79.493 kg [facility]i [facility] [place] [facility] BMI 2020-08-20 21:53:00 33.11 kg/m2 [facility]i [facility] [place] [facility] Systolic blood 2020-06-29 20:34:00 125 mm[Hg] Univer sity of pressure [place] [facility] Diastolic blood 2020-06-29 20:34:00 81 mm[Hg] Unive rsity of pressure [facility] [place] Heart rate 2020-06-29 20:34:00 87 /min [facility] Body temperature 2020-06-29 20:34:00 37.11 Devika [facility] 2020-06-29 20:34:00 16 /min [facility] Body height 2020-06-29 20:34:00 154.9 cm [facility] Body weight 2020-06-29 20:34:00 80.423 kg [facility] BMI 2020-06-29 20:34:00 33.50 kg/m2 [facility] Procedures Procedure Date / Time Performing Clinician Source Performed POCT TEST 2020-10-28 16:05:00 Grady Jacobsen [facility] AUTHORIZATION TO RELEASE 2020-10-28 06:01:00 Doctor Unassigned, No [facility] PHI TO [facility] PATIENT FINANCIAL 2020-08-20 22:22:14 Doctor Unassigned, No [facility] POLICY [facility] POCT TEST 2020-08-20 21:55:00 [facility]EF[facility] 2020-06-29 19:57:27 Doctor Unassigned, No [facility] Encounters Start End Encounter Admission Attending Care Care Encounter Source Date/Time Date/Time Type Type Clinicians Facility Department ID 2023-06-07 2023-06-07 Outpatient NATY HARRINGTON [id number] Naty 13:30:00 13:30:00 NORM Sesergeiol d 2021-07-19 2021-07-19 Case [place] 1.2.840.114 [id number] Univers 00:00:00 00:00:00 Management Magdalena Leach [id number] [place] [id number] Carlos conner [id number] [address] 2021-06-29 2021-06-29 Outpatient Magnolia JACOBSEN [facility] [id number] Univers 08:45:00 08:45:00 GRADY alba [facility] [place] 2021-05-24 2021-05-24 Patient Doctor [facility] [id number] Univers 00:00:00 00:00:00 Secure Msg Unassigned, AIR TECHNICIAN [id number] ity of [place] [facility]IONAL [id number] [place] as MATERNAL [id number] [facility] & CHILD [address] [place] [address] 2021-05-21 2021-05-21 Patient Doctor ZEE [id number] Univers 00:00:00 00:00:00 Secure Msg Unassigned, VAMSI [id number] ity of [place] [facility] [id number] [place] as [phone] [address] 2021-05-05 2021-05-05 Outpatient R [facility] [id number] Univers 08:30:00 08:30:00 ity of [facility] [place] 2021-04-30 2021-04-30 Patient Doctor [facility] 1.2.840.114 [id number] Univers 00:00:00 00:00:00 Secure Msg Unassigned, AIR TECHNICIAN [id number] ity of [place] [facility]AL [id number] [place] as MATERNAL [id number] [address] 2021 2021 Patient Doctor ZEE 1.2.840.114 [id number] Univers 00:00:00 00:00:00 Secure Msg Unassigned, VAMSI [id number] ity of [place] [facility] [id number] [place] as [id number] [address] 2021 2021 Patient Doctor [facility] 1.2.840.114 [id number] Univers 00:00:00 00:00:00 Secure Msg Unassigned, AIR TECHNICIAN [id number] ity of [place] [facility]AL [id number] [place] as MATERNAL [id number] [facility] & CHILD [address] [place] [address] 2021-04-28 2021-04-28 Patient Doctor ZEE 1Chitra2.840.114 [id number] Univers 00:00:00 00:00:00 Secure Msg Unassigned, VAMSI [id number] ity of [place] [facility] [id number] [place] as [id number] [address] 2021-04-22 2021-04-22 Telephone Ann-Marie DCMIGUEL 1.2.875.840 [id number] Univers 00:00:00 00:00:00 Mirellasallie R AIR TECHNICIAN [id number] ity of [facility] [id number] [place] as MATERNAL [id number] [facility] CHILD [address] [place] [address] 2021-04-21 2021-04-21 Office Ann-Marie [facility] 1.2.840.114 [id number] Univers 07:36:35 08:11:32 Visit Mirellasallie R AIR TECHNICIAN [id number] ity of [facility] [id number] [place] as MATERNAL [id number] [facility] & [address] 2021-04-21 2021-04-21 Outpatient R ANN-MARIE [facility] [id number] Univers 07:45:00 07:45:00 GRADY marcus o [facility] 2021-04-06 2021-04-06 Outpatient Magnolia JACOBSEN [facility] [id number] Univers 16:00:00 16:00:00 GRADY marcus o f [facility] [place] 2021-04-06 2021-04-06 Patient Doctor KOCH 1.2.840.114 [id number] Univers 00:00:00 00:00:00 Secure Msg Unassigned, VAMSI [id number] ity of [place] [facility] [id number] [place] as [phone] [address] 2020-12-22 2020-12-22 Patient RAMYA Schultz 1.2.840.114 [id number] Univers 00:00:00 00:00:00 Outreach Rey SHAVER [id number] i ty of [facility] 4.2.7.2.686 [place] CARISA[place] [id number] Pa dical [address] 2020-12-22 2020-12-22 Patient Antoine [facility] 1.2.840.114 [id number] 00:00:00 00:00:00 Outreach [facility] [id number] [facility] 4.2.7.2.686 STEVNE [id number] 2020-10-28 2020-10-28 Office Ann-Marie [facility] 1.2.840.114 [id number] Univers 08:53:19 09:37:34 Visit Grady Merida AIR TECHNICIAN [id number] ity of [facility] [id number] [place]o as MATERNAL [id number] [facility] ical & CHILD [address] [place] [address] 2020-10-28 2020-10-28 Office Ann-Marie [facility] 1.2.840.114 [id number] 08:53:19 09:37:34 Visit Grady Merida AIR TECHNICIAN [id number] REGIONAL [id number] MATERNAL [phone] & CHILD [address] [place] [address] 2020-10-28 2020-10-28 Outpatient R ANN-MARIE [facility] [id number] [facility] 08:45:00 08:45:00 GRADY moshery o f [facility] [place] 2020-10-28 2020-10-28 Orders Doctor ZEE 1.2.840.114 [id number] Univers 00:00:00 00:00:00 Only Unassigned, VAMSI 350.1.13.10 ity of [place] [facility] 4.2.7.2.686 Layo as [id number] [address] 2020-10-28 2020-10-28 Orders Doctor KOCH 1.2.840.114 [id number] 00:00:00 00:00:00 Only Unassigned, VAMSI 350.1.13.10 [place] [facility] 4.2.7.2.686 [id number] 2020-08-20 2020-08-20 [facility] [id number] Univers 15:44:35 16:38:18 Visit Kaylin Felton AIR TECHNICIAN [id number] it y of REGIONAL [id number] [place]o as MATERNAL [id number] [facility] ical & [address] 2020-08-20 2020-08-20 [facility] [id number] Univers 15:45:00 15:45:00 KAYLIN marcus [facility] 2020-08-20 2020-08-20 Orders Doctor ZEE 1.2.840.114 [id number] Univers 00:00:00 00:00:00 Only Unassigned, VAMSI [id number] ity of [place] [facility] 4.2.7.2.686 Layo as [id number] [address] 2020-07-09 2020-07-09 [facility] [id number] Univers 09:45:00 09:45:00 GRADY alba [facility] [place] 2020-06-29 2020-06-29 Office [facility] 1.2.840.114 [id number] Univers 15:01:06 16:00:36 Visit Mirellasallie Merida AIR TECHNICIAN [id number] [facility] [id number] [place] as MATERNAL [id number] [facility] ical & CHILD [address] [place] [address] 2020-06-29 2020-06-29 [facility] [id number] Univers 15:00:00 15:00:00 GRADY alba [facility] [place] 2020-06-29 2020-06-29 Orders Doctor ZEE 1.2.840.114 [id number] Univers 00:00:00 00:00:00 Only Unassigned, VAMSI 350.1.13.10 ity of [place] [facility] 4.2.7.2.686 Layo as [phone] [address] 2020-06-04 2020-06-04 [facility] [id number] Univers 10:45:00 10:45:00 GRADY alba [facility] [place] Results Test Description Test Time Test Comments Results Result Comments Source POCT TEST 2020-10-28 16:06:00 Test Item Value Reference Range Interpretation Comme nts POCT PREG (test code = 1605) Negative On board controls acceptable with C Line (test code = 3574) Yes POCT PREG LOT # (test code = 3575) POCT PREG TEST DATE (test code = 3576) [id number] 21:55:00 Test Item Value Reference Range Interpretation Comments POCT PREG (test code = 1605) Negative On board controls acceptable with C Yes Line (test code = 3574) POCT PREG LOT # (test code = 3575) POCT PREG TEST DATE (test code = 3576) [facility] [place] [facility] [id number] 21:55:00 Test Item Value Reference Range Interpretation Comments POCT PREG (test code = 1605) Negative On board controls acceptable with C Yes Line (test code = 3574) POCT PREG LOT # (test code = 3575) POCT PREG TEST DATE (test code = 3576) [facility]
--- NOTE | 2023-07-28 07:23 | ER ---
Nurse's Notes [facility] Name: Lisa Clement Age: 28 yrs Sex: Female : 1995 Arrival Date: 07/28/2023 Time: 06:48 Bed 13 Private MD: Diagnosis: Acute pharyngitis, unspecified Presentation: 07/28 07:14 Chief complaint: Patient states: she has had an abscessed tooth on the bottom right kc6 hand side that's been draining and woke up with sore throat this morning. completed her antibiotics. Coronavirus screen: At this time, the client does not indicate any symptoms associated with coronavirus-19. Ebola Screen: No symptoms or risks identified at this time. Initial Sepsis Screen: Does the patient meet any 2 criteria? No. Patient's initial sepsis screen is negative. Does the patient have a suspected source of infection? No. Patient's initial sepsis screen is negative. Risk Assessment: Do you want to hurt yourself or someone else? Patient reports no desire to harm self or others. Onset of symptoms was July 28, 2023. 07:14 Method Of Arrival: Ambulatory [facility] 07:14 Acuity: ODIN 4 kc6 Triage Assessment: 07:16 General: Appears in no apparent distress. comfortable, Behavior is calm, cooperative, kc6 appropriate for age. Pain: Complains of pain in mouth. EENT: Reports difficulty swallowing pain when swallowing. Neuro: Level of Consciousness is awake, alert, obeys commands, Oriented to person, place, time, situation, Appropriate for age. Cardiovascular: Capillary refill < 3 seconds. Respiratory: Airway is patent Trachea midline Respiratory effort is even, unlabored, Respiratory pattern is regular, symmetrical. Derm: No signs and/or symptoms reported regarding the dermatologic system. Skin is intact, is healthy with good turgor, Skin is pink, warm \T\ dry. Historical: - Allergies: 07:16 PENICILLINS; kc6 07:16 Motrin; kc6 07:16 Benadryl; kc6 07:16 Reglan; kc6 07:16 Amoxicillin; kc6 - PMHx: 07:16 Anxiety; Asthma; panic attack; kc6 - PSHx: 07:16 section; kc6 - Immunization history:: Adult Immunizations not up to date. - Social history:: Smoking status: Reported history of juuling and/or vaping. - Family history:: not pertinent. Screenin:17 [facility] ED Fall Risk Assessment (Adult) History of falling in the last 3 months, kc6 including since admission No falls in past 3 months (0 pts) Confusion or Disorientation No (0 pts) Intoxicated or Sedated No (0 pts) Impaired Gait No (0 pts) Mobility Assist Device Used No (0 pt) Altered Elimination No (0 pt) Score/Fall Risk Level 0 - 2 = Low Risk. Abuse screen: Denies threats or abuse. Denies injuries from another. Nutritional screening: No deficits noted. Tuberculosis screening: No symptoms or risk factors identified. Assessment: 07:17 EENT: Throat is reddened bilaterally with gag reflex present. kc6 Vital Signs: 07:14 BP 117 / 76; Pulse 98; Resp 16 S; Temp 98.5(O); Pulse Ox 100% on R/A; Weight 99.34 kg kc6 (R); Height 5 ft. 2 in. (R); 07:14 Body Mass Index 40.06 (99.34 kg, 157.48 cm) 6 ED Course: 06:51 Patient arrived in ED. ts1 07:03 Jose Marvin MD is Attending Physician. rt 07:06 Nimo Gordon RN is Primary Nurse. kc6 07:16 Triage completed. kc6 07:16 Arm band placed on. kc6 07:17 Patient has correct armband on for positive identification. Bed in low position. Call kc6 light in reach. Side rails up X 1. Adult w/ patient. Client placed on continuous cardiac and pulse oximetry monitoring. NIBP monitoring applied. 07:24 No provider procedures requiring assistance completed. kc6 07:27 Patient did not have IV access during this emergency room visit. kc6 Administered Medications: No medications were administered Medication: 07:27 VIS not applicable for this client. kc6 Outcome: 07:23 Discharge ordered by . rt 07:27 Discharged to home ambulatory, with family, kc6 07:27 Condition: stable 07:27 Discharge instructions given to patient, Instructed on discharge instructions, follow up and referral plans. Demonstrated understanding of instructions, follow-up care, 07:27 Patient left the ED. kc6 Signatures: Nimo Gordon RN RN [facility] Jose Marvin MD MD rt Horne, Lavonne, PAS PAS ts1
--- NOTE | 2023-07-28 07:23 | EDPHYS ---
Physician Documentation [facility] Name: Lisa Clement Age: 28 yrs Sex: Female : 1995 Arrival Date: 07/28/2023 Time: 06:48 Bed 13 Private MD: ED Physician Jose Marvin HPI: 07/28 08:14 This 28 yrs old Female presents to ER via Ambulatory with complaints of Sore Throat. rt 08:14 Patient presents to the ED with sore throat starting last night. Reports that her rt is sick with same symptoms as well. Recent received antibiotics for dental abscess, clindamycin. Denies other acute complaints at this time. Does report a mild cough. Symptoms are mild in severity, aching nature, nonradiating, no other aggravating alleviating factors.. Historical: - Allergies: 07:16 PENICILLINS; kc6 07:16 Motrin; kc6 07:16 Benadryl; kc6 07:16 Reglan; kc6 07:16 Amoxicillin; kc6 - PMHx: 07:16 Anxiety; Asthma; panic attack; kc6 - PSHx: 07:16 section; kc6 - Immunization history:: Adult Immunizations not up to date. - Social history:: Smoking status: Reported history of juuling and/or vaping. - Family history:: not pertinent. ROS: 08:14 Constitutional: Negative for fever, chills, and weight loss, Cardiovascular: Negative rt for chest pain, palpitations, and edema, Abdomen/GI: Negative for abdominal pain, nausea, vomiting, diarrhea, and constipation, MS/Extremity: Negative for injury and deformity, Skin: Negative for injury, rash, and discoloration, 08:14 ENT: Positive for sore throat, Negative for rhinorrhea, 08:14 Respiratory: Positive for cough, Negative for shortness of breath, Exam: 08:14 Constitutional: This is a well developed, well nourished patient who is awake, alert, rt and in no acute distress. Head/Face: Normocephalic, atraumatic. Chest/axilla: Normal chest wall appearance and motion. Nontender with no deformity. No lesions are appreciated. Cardiovascular: Regular rate and rhythm with a normal S1 and S2. No gallops, murmurs, or rubs. Normal PMI, no JVD. No pulse deficits. Respiratory: Lungs have equal breath sounds bilaterally, clear to auscultation and percussion. No rales, rhonchi or wheezes noted. No increased work of breathing, no retractions or nasal flaring. Abdomen/GI: Soft, non-tender, with normal bowel sounds. No distension or tympany. No guarding or rebound. No evidence of tenderness throughout. Skin: Warm, dry with normal turgor. Normal color with no rashes, no lesions, and no evidence of cellulitis. MS/ Extremity: Pulses equal, no cyanosis. Neurovascular intact. Full, normal range of motion. Neuro: Awake and alert, GCS 15, oriented to person, place, time, and situation. Cranial nerves II-XII grossly intact. Motor strength 5/5 in all extremities. Sensory grossly intact. Cerebellar exam normal. Normal gait. 08:14 ENT: Posterior pharyngeal erythema with scant exudate on the right side, no tonsillar hypertrophy, uvula is midline, no stridor. Vital Signs: 07:14 BP 117 / 76; Pulse 98; Resp 16 S; Temp 98.5(O); Pulse Ox 100% on R/A; Weight 99.34 kg kc6 (R); Height 5 ft. 2 in. (R); 07:14 Body Mass Index 40.06 (99.34 kg, 157.48 cm) kc6 MDM: 07:21 Patient medically screened. rt 08:14 Differential diagnosis: Viral pharyngitis, strep pharyngitis. Data reviewed: vital rt signs, nurses notes. Test considered but Not performed: CT: No signs or symptoms to suggest retropharyngeal abscess, peritonsillar abscess, Tiffanie's angina, CT scan not indicated. Counseling: I had a detailed discussion with the patient and/or guardian regarding the historical points, exam findings, and any diagnostic results supporting the discharge/admit diagnosis, the need for outpatient follow up, to return to the emergency department if symptoms worsen or persist or if there are any questions or concerns that arise at home. Administered Medications: No medications were administered Disposition Summary: 07/28/23 07:23 Discharge Ordered Notes: Location: Home rt Problem: new rt Symptoms: are unchanged rt Condition: Stable rt Diagnosis - Acute pharyngitis, unspecified rt Followup: rt - With: Private Physician - When: 2 - 3 days - Reason: Discharge Instructions: - Discharge Summary Sheet rt - Pharyngitis rt - Strep Throat, Adult, [id number] rt Forms: - Medication Reconciliation Form rt - Thank You Letter rt - Antibiotic Education rt - Prescription Opioid Use rt - Patient Portal Instructions rt - Leadership Thank You Letter rt Signatures: Nimo Gordon, RN RN kc6 Jose Marvin MD MD rt
[2023-07-28 07:32] VITALS: BP 117/76; TEMP 98.5; O2SAT 100
== END 2023-07-28 07:27 | disposition home or self-care (01) ==
LOC: ER 06:48
DX: J02.9 Acute pharyngitis, unspecified (principal); F17.290 Nicotine dependence, other tobacco product, uncomplicated; F41.9 Anxiety disorder, unspecified; J45.909 Unspecified asthma, uncomplicated; Z88.0 Allergy status to penicillin; Z88.1 Allergy status to other antibiotic agents; Z88.8 Allergy status to other drugs, medicaments and biological substances
CPT/HCPCS: 99283

== ENCOUNTER 2023-08-10 17:36 | Emergency (ER) | payer BC ==
--- OUTSIDE RECORDS SUMMARY | 2023-08-10 17:39 | XMS REPORT | Continuity of Care Document ---
:1995 Author Organization [facility] t Address [address] [place] [address] Care Team Providers Name Role Phone PCP, PATIENT DOES NOT HAVE A Primary Care Physician Unavaila DEBBIE Merritt Attending Clinician Unavailable Debbie Barnes S Attending Clinician Doctor Unassigned, [place] Attending Clinician Unavailable NORM HARRINGTON Attending Clinician Unavailable Magdalena Tai LMSW Attending Clinician Unavailable GRADY JACOBSEN Attending Clinician Unavailable Grady Garcia Attending Clinician Rey Schultz DO Attending Clinician Kaylin Garber Attending Clinician KAYLIN MARCELO Attending Clinician Unavailable Payers Payer Name Policy Type Policy Number Effective Date [facility]piration Date [id number]23 00:00:00 OUT OF STATE [facility] 2 [id number] 2023 00:00:00 Problems Condition Condition Condition Status Onset Resolution Last Treating Co mments Source Name Details Category Date Date Treatment Clinician Date Encounter Encounter Disease Active 2019-10 Uni vers for for -19 ity of [place] Chlamydia Chlamydia Disease Active Uni vers trachomati trachomati -17 it y of s s 00:00: [place] infection infection 00 Medi arthur of lower of lower Branch genitourin genitourin nicolas sites nicolas sites Tobacco Tobacco Disease Active Univers use use 06-12 ity of disorder disorder 00:00: 00 Medical Branch Encounter Encounter Disease Active Overview: Univers for for 06-12 Formattin ity of initial initial 00:00: g of this [place] prescripti prescripti 00 note Me dical on of on of might be Branch contracept contracept different doug pills doug pills from the original. 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 Allergies, Adverse Reactions, Alerts Allergy Allergy Status Severity Reaction(s) Onset Inactive Treating Comm ents Source Name Type Date Date Clinician DIPHENHY DRUG Active High Anaphylaxis 2022-10 Uni vers DRAMINE INGREDI 0-28 ity of HCL 00:00: [place] [facility] METOCLOP DRUG Active Med Rash 2022-10 Univers RAMIDE INGREDI 0-28 ity of 00:00: [place] 00 Medical Branch Diphenhy Propensi Active Anaphylaxis 2022-10 U nivers dramine ty to 0-28 ity of Hcl adverse 00:00: [place] reaction 00 Medical s Branch Metoclop Propensi Active Rash 2022-10 Univer s ramide ty to 0-28 ity of adverse 00:00: [place] reaction 00 Medical s Branch Penicill Propensi Active Anaphylaxis Lip U nivers ins ty to 3-22 swelling ity of adverse 00:00: & some [place] reaction 00 difficult Medic al s to y in Branch drug swallowin g. PENICILL Drug Active High Anaphylaxis Uni vers INS Class 3-22 ity of 00:00: [place] 00 Medical Branch Penicill Propensi Active Anaphylaxis Lip U nivers ins ty to 3-22 swelling ity of adverse 00:00: & some [place] reaction 00 difficult Medic al s to y in Branch drug swallowin g. Social History Social Habit Start Date Stop Date Quantity Comments Source History of tobacco Cigarette Smoker University of use [facility] Sexual orientation Univer sity of [facility] Alcohol intake 2023-07-29 2023-07-29 Current University of 00:00:00 00:00:00 non-drinker of [facility] alcohol (finding) Branch Exposure to 2021-03-22 2021-04-21 Not sure University SARS-CoV-2 (event) 00:00:00 07:48:00 [facility] History of Social 2020-06-29 2020-06-29 Univers ity of function 00:00:00 00:00:00 [facility] Tobacco use and 2014-06-12 2014-06-12 Smokeless tobacco Un iversity of exposure 00:00:00 00:00:00 non-user [facility] Tobacco Comment 2014-06-12 2014-06-12 states smokes 4-5 Un iversity of 00:00:00 00:00:00 cigarettes per [facility] day [place] Sex Assigned At [birth year] Universit y of 00:00:00 00:00:00 [facility] Smoking Status Start Date Stop Date Source Smokes tobacco daily 2014-06-12 00:00:00 Univers [facility] Medications Ordered Filled Start Stop Current Ordering Indication Dosage Frequency Signature Comments Components Source Medication Medication Date Date Medication? Clinician (SIG) Name Name ondansetron 2022-10 4mg 4 mg, Univ ers (ZOFRAN-ODT 07-30 Oral, ity of ) 01:00: 00:08 ONCE, 1 [place] disintegrat 00 :00 dose, On [facility] ing tablet Sat Branch 4 mg 07/29/23 at 2000, Routine ondansetron 2022-10 Yes [id number] 4mg Take 1 Univers 4 mg 0-28 tablet by ity of disintegrat 00:00: mouth [place] ing tablet 00 every 8 Medica l (eight) Branch hours as needed for Nausea and Vomiting (N/V). LOESTRIN FE 2019-10 Yes [id number] 1{tbl} Take 1 Univers (MICROGESTI 1-19 tablet by ity of N FE 10/21) 00:00: mouth [place] 1 mg-20 mcg 00 daily. Medica l (21)/75 mg Branch (7) tablet LOESTRIN FE 2020- Yes [id number] 1{tbl} Take 1 Univers (MICROGESTI 1-19 tablet by ity of N FE 10/21) 00:00: mouth [place] 1 mg-20 mcg 00 daily. Medica l (21)/75 mg Branch (7) tablet LOESTRIN FE 2020- Yes [id number] 1{tbl} Take 1 Univers (MICROGESTI 1-19 tablet by ity of N FE 10/21) 00:00: mouth [place] 1 mg-20 mcg 00 daily. Medica l (21)/75 mg Branch (7) tablet LOESTRIN FE 2020- Yes [id number] 1{tbl} Take 1 Univers (MICROGESTI 1-19 tablet by ity of N FE 10/21) 00:00: mouth [place] 1 mg-20 mcg 00 daily. Medica l (21)/75 mg Branch (7) tablet LOESTRIN FE 2020- Yes [id number] 1{tbl} Take 1 Univers (MICROGESTI 1-19 tablet by ity of N FE 10/21) 00:00: mouth [place] 1 mg-20 mcg 00 daily. Medica l (21)/75 mg Branch (7) tablet LOESTRIN FE 2020- Yes [id number] 1{tbl} Take 1 Univers (MICROGESTI 1-19 tablet by ity of N FE 10/21) 00:00: mouth [place] 1 mg-20 mcg 00 daily. Medica l (21)/75 mg Branch (7) tablet LOESTRIN FE 2020- Yes [id number] 1{tbl} Take 1 Univers (MICROGESTI 1-19 tablet by ity of N FE 10/21) 00:00: mouth [place] 1 mg-20 mcg 00 daily. Medica l (21)/75 mg Branch (7) tablet LOESTRIN FE 2020- Yes [id number] 1{tbl} Take 1 Univers (MICROGESTI 1-19 tablet by ity of N FE 10/21) 00:00: mouth [place] 1 mg-20 mcg 00 daily. Medica l (21)/75 mg Branch (7) tablet LOESTRIN FE 2020- Yes [id number] 1{tbl} Take 1 Univers (MICROGESTI 1-19 tablet by ity of N FE 10/21) 00:00: mouth [place] 1 mg-20 mcg 00 daily. Medica l (21)/75 mg Branch (7) tablet LOESTRIN FE 2020- Yes [id number] 1{tbl} Take 1 Univers (MICROGESTI 1-19 tablet by ity of N FE 10/21) 00:00: mouth [place] 1 mg-20 mcg 00 daily. Medica l (21)/75 mg Branch (7) tablet LOESTRIN FE 2020- Yes [id number] 1{tbl} Take 1 Univers (MICROGESTI 1-19 tablet by ity of N FE 10/21) 00:00: mouth [place] 1 mg-20 mcg 00 daily. Medica l (21)/75 mg Branch (7) tablet LOESTRIN FE 2020- Yes [id number] 1{tbl} Take 1 Univers (MICROGESTI 1-19 tablet by ity of N FE 10/21) 00:00: mouth [place] 1 mg-20 mcg 00 daily. Medica l (21)/75 mg Branch (7) tablet LOESTRIN FE 2020- Yes [id number] 1{tbl} Take 1 Univers (MICROGESTI 1-19 tablet by ity of N FE 10/21) 00:00: mouth [place] 1 mg-20 mcg 00 daily. Medica l (21)/75 mg Branch (7) tablet LOESTRIN FE 2020- Yes [id number] 1{tbl} Take 1 Univers (MICROGESTI 1-19 tablet by ity of N FE 10/21) 00:00: mouth [place] 1 mg-20 mcg 00 daily. Medica l (21)/75 mg Branch (7) tablet LOESTRIN FE 2020- Yes [id number] 1{tbl} Take 1 Univers (MICROGESTI 1-19 tablet by ity of N FE 10/21) 00:00: mouth [place] 1 mg-20 mcg 00 daily. Medica l (21)/75 mg Branch (7) tablet LOESTRIN FE 2020- Yes [id number] 1{tbl} Take 1 Univers (MICROGESTI 1-19 tablet by ity of N FE 10/21) 00:00: mouth [place] 1 mg-20 mcg 00 daily. Medica l (21)/75 mg Branch (7) tablet LOESTRIN FE 2020- Yes [id number] 1{tbl} Take 1 Univers (MICROGESTI 1-19 tablet by ity of N FE 10/21) 00:00: mouth [place] 1 mg-20 mcg 00 daily. Medica l (21)/75 mg Branch (7) tablet LOESTRIN FE 2019- Yes [id number] 1{tbl} Take 1 Univers (MICROGESTI 1-19 tablet by ity of N FE 10/21) 00:00: mouth [place] 1 mg-20 mcg 00 daily. Medica l (21)/75 mg Branch (7) tablet LOESTRIN FE 2019- Yes [id number] 1{tbl} Take 1 Univers (MICROGESTI 1-19 tablet by ity of N FE 10/21) 00:00: mouth [place] 1 mg-20 mcg 00 daily. Medica l (21)/75 mg Branch (7) tablet LOESTRIN FE 2019- Yes [id number] 1{tbl} Take 1 Univers (MICROGESTI 1-19 tablet [...] Medical HOURS FOR Branch 10 DAYS clindamycin 2020- Yes TAKE 1 Univ ers 300 mg [...] FOR Branch 10 DAYS methylPREDN 2018-10 Yes [id number] Take by Univers ISolone 2-15 mouth ity of (MEDROL, 00:00: SEE-INSTRU [place] ALEK,) 4 mg 00 CTIONS. Medica l tablets follow Branch package directions methylPREDN 2018-10 2020- No [id number] Take by Univers ISolone 2-15 - mouth ity of (MEDROL, 00:00: 00:00 [place] ALEK[place] 4 mg 00 :00 CTIONS. Medica l tablets follow Branch package directions methylPREDN 2018-10- No [id number] Take by Univers ISolone 215 06-29 mouth ity of (MEDROL, 00:00: 00:00 [place]IN[place] ALEK,) 4 mg 00 :00 CTIONS. Medica l tablets follow Branch package directions azithromyci Yes 1000mg Take 2 Un leti n 500 mg 5-17 tablets by ity o f tablet 00:00: mouth [place] 00 daily. Medical Branch azithromyci 2020- No 1000mg Take 2 U nivers n 500 mg 5-17 - tablets by ity of tablet 00:00: 00:00 mouth [place] 00 :00 daily. Medical Branch azithromyci 2020- No 1000mg Take 2 U nivers n 500 mg 5-17 - tablets by ity of tablet 00:00: 00:00 mouth [place] 00 :00 daily. Medical Branch promethazin Yes 6.25mg Take 5 mL Univers e 6.25 mg/5 -11 by mouth ity of mL solution 00:00: [...] Take 5 mL Univers e 6.25 mg/5 -06-29 by mouth ity of mL solution 00:00: 00:00 every 6 [place] 00 :00 (six) Medical hours as Branch needed for Nausea and Vomiting (N/V). benzonatate 2014-10 Yes 200mg Take 1 Cap Univers (TESSALON) 130 by mouth 3 ity of 200 mg [...] No known No Univers medications ity of [facility] Immunizations Ordered Filled Date Status Comments Source Immunization Name Immunization Name HPV 2014-06-12 Completed University of 00:00:00 [facility] HPV 2014-06-12 Completed University of 00:00:00 [facility] HPV 2014-06-12 Completed University of 00:00:00 [facility] HPV 2014-06-12 Completed University of 00:00:00 [facility] HPV 2014-06-12 Completed University of 00:00:00 [facility] HPV 2014-06-12 Completed University of 00:00:00 [facility] HPV 2014-06-12 Completed University of 00:00:00 [facility] HPV 2014-06-12 Completed University of 00:00:00 [facility] HPV 2014-06-12 Completed University of 00:00:00 [facility] HPV 2014-06-12 Completed University of 00:00:00 [facility] HPV 2014-06-12 Completed University of 00:00:00 [facility] HPV 2014-06-12 Completed University of 00:00:00 [facility] HPV 2014-06-12 Completed University of 00:00:00 [facility] HPV 2014-06-12 Completed University of 00:00:00 [facility] HPV 2014-06-12 Completed University of 00:00:00 [facility] HPV 2011-07-19 Completed University of 00:00:00 [facility] HPV 2011-07-19 Completed University of 00:00:00 [facility] HPV 2011-07-19 Completed University of 00:00:00 [facility] HPV 2011-07-19 Completed University of 00:00:00 [facility] HPV 2011-07-19 Completed University of 00:00:00 [facility] HPV 2011-07-19 Completed University of 00:00:00 [facility] HPV 2011-07-19 Completed University of 00:00:00 [facility] HPV 2011-07-19 Completed University of 00:00:00 [facility] HPV 2011-07-19 Completed University of 00:00:00 [facility] HPV 2011-07-19 Completed University of 00:00:00 [...] Branch HPV 2010-06-23 Completed University of 00:00:00 [facility] HPV 2010-06-23 Completed University of 00:00:00 [facility] HPV 2010-06-23 Completed University of 00:00:00 [facility] HPV 2010-06-23 Completed University of 00:00:00 [facility] HPV 2010-06-23 Completed University of 00:00:00 [facility] HPV 2010-06-23 Completed University of 00:00:00 [facility] TD, NOS Unknown Completed [facility] HPV Unknown Completed [facility] TD, NOS Unknown Completed [facility] HPV Unknown Completed [facility] TD, NOS Unknown Completed [facility] HPV Unknown Completed [facility] TD[facility] NOS Unknown Completed [facility] HPV Unknown Completed [facility] TD, NOS Unknown Completed [facility] HPV Unknown Completed [facility] TD[facility] NOS Unknown Completed [facility] HPV Unknown Completed [facility] TD, NOS Unknown Completed [facility] HPV Unknown Completed [facility] TD[facility] NOS Unknown Completed [facility] HPV Unknown Completed [facility] TD, NOS Unknown Completed [facility] HPV Unknown Completed [facility] Vital Signs Vital Name Observation Time Observation Value Comments Source Heart rate 2023-07-30 02:00:00 99 /min [facility] Respiratory rate 2023-07-30 02:00:00 18 /min [facility] Oxygen saturation in 2023-07-30 02:00:00 99 /min [facility] Arterial blood by [facility] Pulse oximetry Branch Systolic blood 2023-07-29 23:34:00 144 mm[Hg] Univer sity of pressure [facility] Diastolic blood 2023-07-29 23:34:00 94 mm[Hg] Unive rsity of pressure [facility] Body temperature 2023-07-29 23:34:00 36.83 Devika [facility] Body height 2023-07-29 23:34:00 157.5 cm [facility] Body weight 2023-07-29 23:34:00 99.338 kg [facility] BMI 2023-07-29 23:34:00 40.06 kg/m2 [facility] Systolic blood 2021-04-21 12:51:00 124 mm[Hg] Univer sity of pressure [place] [facility] Diastolic blood 2021-04-21 12:51:00 83 mm[Hg] Unive rsity of pressure [place] [facility] Heart rate 2021-04-21 12:51:00 74 /min Universi ty of [place] [facility] Body temperature 2021-04-21 12:51:00 36.72 Devika Univ ersity of [place] [facility] Respiratory rate 2021-04-21 12:51:00 16 /min Univ ersity of [place] [facility] Body height 2021-04-21 12:51:00 157.5 cm Universi ty of [place] [facility] Body weight 2021-04-21 12:51:00 90.629 kg Universi ty of [place] [facility] BMI 2021-04-21 12:51:00 36.54 kg/m2 Universi ty of [place] [facility] Systolic blood 2020-10-28 15:01:00 132 mm[Hg] Univer sity of pressure [place] [facility] Diastolic blood 2020-10-28 15:01:00 81 mm[Hg] Unive rsity of pressure [place] [facility] Heart rate 2020-10-28 15:01:00 87 /min Universi ty of [place] [facility] Body temperature 2020-10-28 15:01:00 36.39 Devika Univ ersity of [place] [facility] Respiratory rate 2020-10-28 15:01:00 16 /min Univ ersity of [place] [facility] Body height 2020-10-28 15:01:00 157.5 cm Universi ty of [place] [facility] Body weight 2020-10-28 15:01:00 83.575 kg Universi ty of [place] [facility] BMI 2020-10-28 15:01:00 33.70 kg/m2 Universi ty of [place] [facility] Systolic blood 2020-10-28 15:01:00 132 mm[Hg] Univer sity of pressure [place] [facility] Diastolic blood 2020-10-28 15:01:00 81 mm[Hg] Unive rsity of pressure [place] [facility] Heart rate 2020-10-28 15:01:00 87 [...] 2020-10-28 15:01:00 33.70 kg/m2 Universi ty of [facility] Systolic blood 2020-08-20 21:53:00 125 mm[Hg] Univer sity of pressure [facility] Diastolic blood 2020-08-20 21:53:00 86 mm[Hg] Unive rsity of pressure [facility] Heart rate 2020-08-20 21:53:00 97 /min Universi ty of [facility] Body temperature 2020-08-20 21:53:00 36.67 Devika Univ ersity of [place] [facility] Respiratory rate 2020-08-20 21:53:00 16 /min Univ ersity of [facility] Body height 2020-08-20 21:53:00 154.9 cm Universi ty of [place] [facility] [place] Body weight 2020-08-20 21:53:00 79.493 kg Universi ty of [place] [facility] BMI 2020-08-20 21:53:00 33.11 kg/m2 Universi ty of [place] [facility] Systolic blood 2020-06-29 20:34:00 125 mm[Hg] Univer sity of pressure [facility] Diastolic blood 2020-06-29 20:34:00 81 mm[Hg] Unive rsity of pressure [facility] Heart rate 2020-06-29 20:34:00 87 /min Universi ty of [facility] Body temperature 2020-06-29 20:34:00 37.11 Devika Univ ersity of [place] [facility] Respiratory rate 2020-06-29 20:34:00 16 /min Univ ersity of [facility] Body height 2020-06-29 20:34:00 154.9 cm Universi ty of [place] [facility] [place] Body weight 2020-06-29 20:34:00 80.423 kg Universi ty of [place] [facility] BMI 2020-06-29 20:34:00 33.50 kg/m2 Universi ty of [place] [facility] Procedures Procedure Date / Time Performing Clinician Source Performed ASSIGNMENT OF BENEFITS 2023-07-30 00:34:02 Doctor Unassigned, No [facility] RAPID INFLUENZA A/B 2023-07-30 00:08:00 Debbie Negrete Universi ty of [facility] COVID-19 (ID NOW RAPID 2023-07-30 00:08:00 [facility] [place] TESTING) [facility] RAPID STREP SCREEN FOR 2023-07-29 23:43:00 Debbie Negrete [facility] A [facility] CONSENT/REFUSAL FOR 2023-07-29 23:22:59 Doctor Unassigned, [facility] POCT TEST 2020-10-28 16:05:00 Grady Jacobsen [facility] AUTHORIZATION TO RELEASE 2020-10-28 06:01:00 Doctor Unassigned, No [facility] PHI TO [facility] PATIENT FINANCIAL 2020-08-20 22:22:14 Doctor Unassigned, No [facility] POLICY Name [facility] POCT TEST 2020-08-20 21:55:00 Ct Mensah [facility] ASSIGNMENT OF BENEFITS 2020-06-29 19:57:27 Doctor Unassigned, No [facility] Encounters Start End Encounter Admission Attending Care Care Encounter Source Date/Time Date/Time Type Type Clinicians Facility Department ID 2023-07-29 2023-07-29 Emergency X [facility] ERT [id number] Univers 18:44:00 21:18:00 DEBBIE marcus [facility] 2023-07-29 2023-07-29 Emergency [facility] [id number] Univers 18:44:00 21:18:00 Debbie YEUNG [id number] i ty [phone] [facility] 084 Branch 2023-07-29 2023-07-29 Orders Doctor KOCH [id number] Univers 00:00:00 00:00:00 Only Unassigned, VAMSI [id number] [facility] [id number] [place] [phone] [facility] 009 Branch 2023-06-07 2023-06-07 Outpatient JUANY NATY CARRASCO [id number] Naty 13:30:00 13:30:00 NORM vega 2021-07-19 2021-07-19 [place] [id number] Univers 00:00:00 00:00:00 Management Magdalena Merida Leach [id number] ity of [place] [id number] [place] [id number] [facility] 086 [place] 2021-06-29 2021-06-29 Outpatient R ANN-MARIE [facility] [id number] Univers 08:45:00 08:45:00 GRADY moshery o f [facility] 2021-05-24 2021-05-24 Patient Doctor [facility] [id number] Univers 00:00:00 00:00:00 Secure Msg Unassigned, BETTING CLERK [id number] ity of [place] REGIONAL [id number] [place] as MATERNAL [id number] Med ical & CHILD [address] [place] [address] 2021-05-21 2021-05-21 Patient Doctor ZEE [id number] Univers 00:00:00 00:00:00 Secure Msg Unassigned, VAMSI [id number] ity of [place] [facility] [id number] [place] as [id number] [facility] 019 [place] 2021-05-05 2021-05-05 Outpatient R [facility] [id number] Univers 08:30:00 08:30:00 ity of [facility] 2021-04-30 2021-04-30 Patient Doctor [facility] [id number] Univers 00:00:00 00:00:00 Secure Msg Unassigned, BETTING CLERK [id number] ity of [place] REGIONAL [id number] [place] as MATERNAL [phone] [facility] & CHILD [address] [place] [address] 2021 2021 Patient Doctor ZEE [id number] Univers 00:00:00 00:00:00 Secure Msg Unassigned, VAMSI [id number] ity of [place] [facility] [id number] [place] as [phone] [address] 2021 2021 Patient Doctor OKMIGUEL [id number] Univers 00:00:00 00:00:00 Secure Msg Unassigned, BETTING CLERK [id number] ity of [place] REGIONAL [id number] [place] as MATERNAL [id number] [facility] ical & CHILD [address] [place] [address] 2021-04-28 2021-04-28 Patient Doctor ZEE [id number] Univers 00:00:00 00:00:00 Secure Msg Unassigned, VAMSI [id number] ity of [place] [facility] [id number] [place] as [phone] [address] 2021-04-22 2021-04-22 Telephone [facility] [id number] Univers 00:00:00 00:00:00 Laceynda R BETTING CLERK [id number] ity of REGIONAL [id number] [place] as MATERNAL [phone] [facility] & [address] 2021-04-21 2021-04-21 [facility] [id number] Univers 07:36:35 08:11:32 Visit Grady R BETTING CLERK [id number] ity of [facility] [id number] [place] as MATERNAL [id number] [facility] & CHILD [address] [place] [address] 2021-04-21 2021-04-21 Outpatient [place] JACOBSEN [facility] [id number] Univers 07:45:00 07:45:00 GRADY alba [facility] 2021-04-06 2021-04-06 Outpatient R ANN-MARIE [facility] [id number] Univers 16:00:00 16:00:00 GRADY alba Michael [facility] 2021-04-06 2021-04-06 Patient Doctor ZEE [id number] [id number] Univers 00:00:00 00:00:00 Secure Msg Unassigned, VAMSI [id number] ity of [place] [facility] [id number] Layo as [phone] [facility] [address] [place] 2020-12-22 2020-12-22 Patient Antoine [facility] [id number] Univers 00:00:00 00:00:00 Outreach Rey PRIMARY [id number] [facility] [id number] [phone] [place] dical [address] [place] 2020-12-22 2020-12-22 Patient Antoine OKMIGUEL 1.2.840.114 [id number] 00:00:00 00:00:00 Outreach Rey PRIMARY [id number] [facility] [id number] PAVILLION [phone] [facility] 2020-10-28 2020-10-28 Office Ann-Marie OKMIGUEL [id number] Univers 08:53:19 09:37:34 Visit Grady Merida BETTING CLERK [id number] ity of [facility] [id number] Layo as MATERNAL [phone] Med ical & CHILD [address] [place] [address] 2020-10-28 2020-10-28 Office Ann-Marie OKMIGUEL 1.2.840.114 [id number] 08:53:19 09:37:34 Visit Mirellasallie Merida BETTING CLERK [id number] REGIONAL [id number] MATERNAL [phone] & CHILD [address] [place] [address] 2020-10-28 2020-10-28 Outpatient R ANN-MARIE [facility] [id number] Univers 08:45:00 08:45:00 GRADY marcus o f [facility] 2020-10-28 2020-10-28 Orders Doctor ZEE 1.2.840.114 [id number] Univers 00:00:00 00:00:00 Only Unassigned, VAMSI [id number] ity of [place] [facility] [id number] Layo as [phone] [address] 2020-10-28 2020-10-28 Orders Doctor ZEE 1.2.840.114 [id number] 00:00:00 00:00:00 Only Unassigned, VAMSI [id number] [place] [facility] [id number] [facility] 2020-08-20 2020-08-20 [facility] [id number] Univers 15:44:35 16:38:18 Visit Kaylin Felton BETTING CLERK [id number] it y of [facility] [id number] Lyao as MATERNAL [phone] [facility] & [address] 2020-08-20 2020-08-20 Outpatient [facility] [id number] Univers 15:45:00 15:45:00 KAYLIN marcus of [facility] 2020-08-20 2020-08-20 Orders Doctor KOCH 1.2.840.114 [id number] Univers 00:00:00 00:00:00 Only Unassigned, VAMSI [id number] ity of [place] [facility] [id number] [place] as [phone] [address] 2020-07-09 2020-07-09 Outpatient [place] JACOBSEN [facility] [id number] Univers 09:45:00 09:45:00 GRADY alba [facility] 2020-06-29 2020-06-29 [facility] 1.2.840.114 [id number] Univers 15:01:06 16:00:36 Visit Grady Merida BETTING CLERK [id number] ity [facility] [id number] Layo as MATERNAL [phone] [facility] & [address] 2020-06-29 2020-06-29 [facility] [id number] Univers 15:00:00 15:00:00 GRADY alba [facility] 2020-06-29 2020-06-29 Orders Doctor ZEE 1.2.840.114 [id number] Univers 00:00:00 00:00:00 Only Unassigned, VAMSI [id number] ity of [place] [facility] [id number] [place] as [phone] [address] 2020-06-04 2020-06-04 Outpatient [place] JACOBSEN [facility] [id number] Univers 10:45:00 10:45:00 GRADY marcus o f [facility] Results Test Description Test Time Test Comments Results Result Comments Source POCT TEST 2020-10-28 16:06:00 Test Item Value Reference Range Interpretation Comme nts POCT PREG (test code = 1605) Negative On board controls acceptable with C Line (test code = 3574) Yes POCT PREG LOT # (test code = 3575) POCT PREG TEST [facility] (test code = 3576[id number] 21:55:00 Test Item Value Reference Range Interpretation Comments POCT PREG (test code = 1605) Negative On board controls acceptable with C Yes Line (test code = 3574) POCT PREG LOT # (test code = 3575) POCT PREG TEST DATE (test code = 3576) [facility] [id number] 21:55:00 Test Item Value Reference Range Interpretation Comments POCT PREG (test code = 1605) Negative On board controls acceptable with C Yes Line (test code = 3574) POCT PREG LOT # (test code = 3575) POCT PREG TEST DATE (test code = 3576) [facility]
[2023-08-10 19:10] LABS: Absolute Lymphocytes (CBC) 1.5 K/uL (0.7-4.9); Hematocrit 33.2 % (36.0-45.0); Lymphocytes % 15.4 % (15.3-44.8); MCV 75.9 fL (80-100); MPV 7.9 fL (7.6-11.3); Platelets 329 thou/uL (152-406); RBC Red Blood Cell Count 4.37 M/uL (3.86-4.86)
[2023-08-10 19:36] LABS: Potassium 3.5 mEq/L (3.5-5.1); Troponin High Sensitivity 3.3 pg/mL (<58.9)
--- NOTE | 2023-08-10 20:29 | RAD REPORT ---
EXAM DESCRIPTION: RADChest Single View08/10/2023 7:31 pm CLINICAL HISTORY: CHEST PAIN COMPARISON: Chest Single View dated 06/10/2023; Chest Single View dated 09/02/2022 TECHNIQUE: Portable AP view of the chest. FINDINGS: The lungs are clear. No pneumothorax or effusion. The cardiomediastinal contours are unre markable. IMPRESSION: No acute cardiopulmonary process.
[2023-08-10 23:22] LABS: Specific Gravity 1.019 (1.005-1.030)
[2023-08-10] MEDS ORDERED: MORPHINE 4 MG/ML SYR ONE (23:37)
--- NOTE | 2023-08-11 00:29 | EDPHYS ---
Physician Documentation [facility] Name: Lisa Clement Age: 28 yrs Sex: Female : 1995 Arrival Date: 08/10/2023 Time: 17:36 Bed 7 Private MD: ED Physician Jose Marvin HPI: 08/10 20:47 This 28 yrs old Female presents to ER via Ambulatory with complaints of Chest Pain, ms3 Shortness Of Breath, Arm Pain. 20:47 28-year-old female with past medical history of anxiety, asthma presents to the [facility] emergency department for right neck and right arm pain that radiates to her chest. Patient states earlier today she took her blood pressure was 80/40 with a heart rate of 126. Patient endorses nausea, denies vomiting.. Historical: - Allergies: 18:05 Amoxicillin; kd3 18:05 Benadryl; kd3 18:05 Motrin; kd3 18:05 PENICILLINS; kd3 18:05 Reglan; kd3 - PMHx: 18:05 Anxiety; Asthma; panic attack; kd3 - PSHx: 18:05 section; kd3 - Immunization history:: Adult Immunizations up to date. - Social history:: Smoking status: Reported history of juuling and/or vaping. ROS: 20:47 Constitutional: Negative for fever, and chills. Neck: Negative for injury, pain, and ms3 swelling, 20:47 Respiratory: Negative for shortness of breath, cough, wheezing, and pleuritic chest pain, Abdomen/GI: Negative for abdominal pain, nausea, vomiting, diarrhea, and constipation, MS/Extremity: Negative for injury and deformity, Skin: Negative for injury, rash, and discoloration, 20:47 Cardiovascular: Positive for chest pain, 20:47 All other systems are negative, Exam: 20:47 Constitutional: This is a well developed, well nourished patient who is awake, alert, ms3 and in no acute distress. Head/Face: Normocephalic, atraumatic. Neck: Trachea midline, no cervical lymphadenopathy. Supple, full range of motion without nuchal rigidity, or vertebral point tenderness. No Meningismus. Chest/axilla: Normal chest wall appearance and motion. Nontender with no deformity. Cardiovascular: Regular rate and rhythm with a normal S1 and S2. No gallops, murmurs, or rubs. Normal PMI, no JVD. No pulse deficits. Respiratory: Lungs have equal breath sounds bilaterally, clear to auscultation and percussion. No rales, rhonchi or wheezes noted. No increased work of breathing, no retractions or nasal flaring. Abdomen/GI: Soft, non-tender, with normal bowel sounds. No distension or tympany. No guarding or rebound. No evidence of tenderness throughout. Skin: Warm, dry with normal turgor. Normal color with no rashes, no lesions, and no evidence of cellulitis. MS/ Extremity: Pulses equal, no cyanosis. Neurovascular intact. Full, normal range of motion. Vital Signs: 18:02 Pulse 102; Resp 16; Temp 98.2; Pulse Ox 100% ; Weight 99.34 kg; Height 5 ft. 2 in. ; kd3 18:03 BP 124 / 80; kd3 21:30 BP 125 / 74; Pulse 86; Resp 13; Pulse Ox 100% on R/A; jw7 22:10 BP 118 / 86; Pulse 88; Resp 12 S; Pulse Ox 100% on R/A; jw7 23:00 BP 102 / 68; Pulse 81; Resp 18 S; Pulse Ox 100% on R/A; ha1 11 00:00 BP 127 / 71; Pulse 79; Resp 18 S; Pulse Ox 100% on R/A; ha1 01:00 BP 125 / 75; Pulse 81; Resp 18 S; Pulse Ox 100% on R/A; ha1 08/10 18:02 Body Mass Index 40.06 (99.34 kg, 157.48 cm) kd3 MDM: 08/10 18:23 Patient medically screened. ms3 20:47 Differential diagnosis: abnormal EKG, acute myocardial infarction, pneumonia. ms3 08/11 01:06 Data reviewed: vital signs, nurses notes, lab test result(s), EKG, radiologic studies. rt I considered the following discharge prescriptions or medication management in the emergency department Medications were administered in the Emergency Department. See MAR. Counseling: I had a detailed discussion with the patient and/or guardian regarding the historical points, exam findings, and any diagnostic results supporting the discharge/admit diagnosis, lab results, radiology results, the need for outpatient follow up. Response to treatment: the patient's symptoms have markedly improved after treatment. 08/10 18:23 Order name: Basic Metabolic Panel; Complete Time: 19:44 ms3 08/10 18:23 Order name: CBC with Diff; Complete Time: 19:44 ms3 08/10 18:23 Order name: Troponin HS; Complete Time: 19:44 ms3 08/10 19:45 Order name: D-Dimer; Complete Time: 21:12 ms3 08/10 23:03 Order name: Test, Urine; Complete Time: 23:24 jw7 08/10 18:23 Order name: XRAY Chest (1 view); Complete Time: 20:37 ms3 08/10 21:13 Order name: CT Chest For PE Angio ms3 08/10 18:23 Order name: EKG; Complete Time: 18:24 ms3 08/10 18:23 Order name: Cardiac monitoring; Complete Time: 21:23 ms3 08/10 18:23 Order name: EKG - Nurse/Tech; Complete Time: 18:53 ms3 08/10 18:23 Order name: IV Saline Lock; Complete Time: 18:51 ms3 08/10 18:23 Order name: Labs collected and sent; Complete Time: 18:51 ms3 08/10 18:23 Order name: O2 Per Protocol; Complete Time: 21:23 ms3 08/10 18:23 Order name: O2 Sat Monitoring; Complete Time: 21:23 ms3 Administered Medications: 08/10 23:40 Drug: morphine IVP or IV 4 mg IVP once over 4 mins Route: IVP; Infused Over: 4 mins; ha1 Site: left antecubital; 08/11 00:00 Follow up: Response: No adverse reaction; Pain is decreased; RASS: Alert and Calm (0) ha1 Disposition Summary: 08/11/23 00:28 Discharge Ordered Notes: Location: Home rt Problem: new rt Symptoms: have improved rt Condition: Stable rt Diagnosis - Neck pain rt Followup: rt - With: Private Physician - When: 2 - 3 days - Reason: Discharge Instructions: - Discharge Summary Sheet rt - Cervical Radiculopathy rt Forms: - Medication Reconciliation Form rt - Thank You Letter rt - Antibiotic Education rt - Prescription Opioid Use rt - Patient Portal Instructions rt - Leadership Thank You Letter rt Prescriptions: - Cyclobenzaprine 10 mg Oral tablet - take 1 tablet ORAL route every 8 hours As needed; 15 tablet; Refills: 0, rt Product Selection Permitted Signatures: Dispatcher [employer] Dejon Dominguez DO DO ms3 Mary Gregory RN RN kd3 Kaitlin Andrade RN RN ha1 Jose Marvin MD MD rt
--- NOTE | 2023-08-11 00:29 | ER ---
Nurse's Notes [facility] Name: Lisa Clement Age: 28 yrs Sex: Female : 1995 Arrival Date: 08/10/2023 Time: 17:36 Bed 7 Private MD: Diagnosis: Neck pain Presentation: 08/10 18:03 Chief complaint: Patient states: Its started with neck pain and right arm pain. Then it kd3 started to feel tight in my chest and painful. I am not sure if i was just panicking or what but its been hurting all day. Coronavirus screen: Vaccine status: Patient reports being unvaccinated. Ebola Screen: No symptoms or risks identified at this time. Initial Sepsis Screen: Does the patient meet any 2 criteria? No. Patient's initial sepsis screen is negative. Does the patient have a suspected source of infection? No. Patient's initial sepsis screen is negative. Risk Assessment: Do you want to hurt yourself or someone else? Patient reports no desire to harm self or others. Onset of symptoms was August 10, 2023. 18:03 Method Of Arrival: Ambulatory kd3 18:03 Acuity: ODIN 3 kd3 Triage Assessment: 18:05 General: Appears uncomfortable, Behavior is calm, cooperative, anxious. Pain: Complains kd3 of pain in chest. Cardiovascular: Patient's skin is warm and dry. Historical: - Allergies: 18:05 Amoxicillin; kd3 18:05 Benadryl; kd3 18:05 Motrin; kd3 18:05 PENICILLINS; kd3 18:05 Reglan; kd3 - PMHx: 18:05 Anxiety; Asthma; panic attack; kd3 - PSHx: 18:05 section; kd3 - Immunization history:: Adult Immunizations up to date. - Social history:: Smoking status: Reported history of juuling and/or vaping. Screenin:29 [facility] ED Fall Risk Assessment (Adult) History of falling in the last 3 months, jw7 including since admission No falls in past 3 months (0 pts) Score/Fall Risk Level 0 - 2 = Low Risk Oriented to surroundings, Maintained a safe environment. Abuse screen: Denies threats or abuse. Denies injuries from another. Nutritional screening: No deficits noted. Tuberculosis screening: No symptoms or risk factors identified. Assessment: 21:00 General: Appears in no apparent distress. comfortable, Behavior is calm, cooperative. jw7 Pain: Complains of pain in chest Pain does not radiate. Pain currently is 6 out of 10 on a pain scale. Noted to be grimacing. Neuro: [place] Agitation-Sedation Scale (RASS): 0 - Alert and Calm Level of Consciousness is awake, alert, obeys commands, Oriented to person, place, time, situation. Cardiovascular: Heart tones S1 S2 present Capillary refill < 3 seconds Clubbing of nail beds is absent JVD is absent Patient's skin is warm and dry. Rhythm is sinus rhythm Chest pain is described as Pain is 6 out of 10 on a pain scale. Respiratory: Airway is patent Trachea midline Respiratory effort is even, unlabored, Respiratory pattern is regular, symmetrical. GI: No deficits noted. No signs and/or symptoms were reported involving the gastrointestinal system. : No deficits noted. No signs and/or symptoms were reported regarding the genitourinary system. EENT: No deficits noted. No signs and/or symptoms were reported regarding the EENT system. Derm: No deficits noted. No signs and/or symptoms reported regarding the dermatologic system. Musculoskeletal: No deficits noted. No signs and/or symptoms reported regarding the musculoskeletal system. 22:00 Reassessment: Patient appears in no apparent distress at this time. No changes from jw7 previously documented assessment. Patient and/or family updated on plan of care and expected duration. Pain level reassessed. Patient is alert, oriented x 3, equal unlabored respirations, skin warm/dry/pink. 23:15 Reassessment: Patient appears in no apparent distress at this time. No changes from jw7 previously documented assessment. Patient and/or family updated on plan of care and expected duration. Pain level reassessed. Patient is alert, oriented x 3, equal unlabored respirations, skin warm/dry/pink. 08/11 00:20 Reassessment: Patient appears in no apparent distress at this time. Patient and/or jw7 family updated on plan of care and expected duration. Pain level reassessed. Patient is alert, oriented x 3, equal unlabored respirations, skin warm/dry/pink. Patient states feeling better. Patient states symptoms have improved. 01:08 Reassessment: Patient and/or family updated on plan of care and expected duration. Pain ha1 level reassessed. Patient is alert, oriented x 3, equal unlabored respirations, skin warm/dry/pink. Patient states feeling better. Patient states symptoms have improved. Vital Signs: 08/10 18:02 Pulse 102; Resp 16; Temp 98.2; Pulse Ox 100% ; Weight 99.34 kg; Height 5 ft. 2 in. ; kd3 18:03 BP 124 / 80; kd3 21:30 BP 125 / 74; Pulse 86; Resp 13; Pulse Ox 100% on R/A; jw7 22:10 BP 118 / 86; Pulse 88; Resp 12 S; Pulse Ox 100% on R/A; jw7 23:00 BP 102 / 68; Pulse 81; Resp 18 S; Pulse Ox 100% on R/A; ha1 08/11 00:00 BP 127 / 71; Pulse 79; Resp 18 S; Pulse Ox 100% on R/A; ha1 01:00 BP 125 / 75; Pulse 81; Resp 18 S; Pulse Ox 100% on R/A; ha1 08/10 18:02 Body Mass Index 40.06 (99.34 kg, 157.48 cm) 3 ED Course: 08/10 17:36 Patient arrived in ED. rg4 17:37 Dejon Padilla DO is Attending Physician. ms3 18:05 Triage completed. kd3 18:05 Arm band placed on right wrist. kd3 19:33 XRAY Chest (1 view) In Process Unspecified. EDMS 21:23 Attending Physician role handed off by Dejon Padilla DO rt 21:23 Jose Marvin MD is Attending Physician. rt 21:29 Patient has correct armband on for positive identification. Bed in low position. Call [facility] light in reach. Client placed on continuous cardiac and pulse oximetry monitoring. NIBP monitoring applied. 21:29 Patient maintains SpO2 saturation greater than 95% on room air. jw7 21:31 Inserted saline lock: 20 gauge in left antecubital area, using aseptic technique. jw7 21:58 Dana Martinez, TAMEKA is Primary Nurse. jw7 22:21 Radiology exam delayed due to test not completed at this time. eh4 23:14 Test, Urine Sent. jw7 23:50 CT Chest For PE Angio In Process Unspecified. EDMS 08/11 01:10 No provider procedures requiring assistance completed. IV discontinued, intact, ha1 bleeding controlled, No redness/swelling at site. Pressure dressing applied. 01:11 Provided Education on: follow up and medication administration . ha1 Administered Medications: 08/10 23:40 Drug: morphine IVP or IV 4 mg IVP once over 4 mins Route: IVP; Infused Over: 4 mins; ha1 Site: left antecubital; 08/11 00:00 Follow up: Response: No adverse reaction; Pain is decreased; RASS: Alert and Calm (0) ha1 Medication: 01:11 VIS not applicable for this client. ha1 Outcome: 00:28 Discharge ordered by MD. rt 01:10 Discharged to home ambulatory, with family, ha1 01:10 Condition: stable 01:10 Discharge instructions given to patient, family, Instructed on discharge instructions, follow up and referral plans. medication usage, Demonstrated understanding of instructions, follow-up care, medications, Prescriptions given X 1, 01:12 Patient left the ED. ha1 Signatures: Dispatcher [employer] EDMS Leda Gongora rg4 Dejon Padilla DO DO ms3 Mary Gregory, RN RN kd3 Dana Martinez RN RN jw7 Kaitlin Andrade RN RN ha1 Marleni Bowers 4 Jose Marvin MD MD rt
[2023-08-11 01:19] VITALS: TEMP 98.2; O2SAT 100
[2023-08-11 01:26] VITALS: BP 125/75
--- NOTE | 2023-08-11 11:40 | RAD REPORT ---
EXAM DESCRIPTION: Chest For Pe Angio CLINICAL HISTORY: 28 years Female, CHEST PAIN TECHNIQUE: Helical CT axial images of the thorax with IV contrast. Multiplanar reconstruction. MIP r econstruction plus or minus 3D image processing was also performed. This exam was performed according to our departmental dose-optimization program, which includes automated exposure control, adjustment of the mA and/or kV according to patient size and/or use of iterative reconstruction technique. COMPARISON: CTA chest 06/10/2023 FINDINGS: VASCULAR: Pulmonary arteries are patent bilaterally without filling defects or intralumina l thrombus. Thoracic aorta is normal in caliber without aneurysm. The pulmonary vasculature demonstra zabrina no significant dilatation. LUNGS: The lung parenchyma is clear. No pulmonary masses or suspicious nodules. MEDIASTINUM: No abnormally enlarged mediastinal or hilar lymph nodes. PLEURA: No pleural effusion. No pneumothorax. CARDIAC: Normal heart size. No pericardial effusion. CHEST WALL: Chest wall is intact. No abnormal axillary lymphadenopathy. BONES: No suspicious osseous lytic or blastic lesions seen. UPPER ABDOMEN: The visualized upper abdomen demonstrates no acute abnormality. IMPRESSION: 1. No acute pulmonary embolus. 2. No acute cardiopulmonary disease. Electronically signed by: Hector Au MD 08/11/2023 12:13 AM TOOL DESIGN DRAFTER Due to temporary technical issues with the PACS/Fluency reporting system, reports are being signed by the in house radiologists without review as a courtesy to insure prompt reporting. The interpreting radiologist is fully responsible for the content of the report.
--- NOTE | 2023-08-12 14:12 | EKG ---
Test Date: 2023-08-10 Test Time: 19:01:20 Printed Circuit Board Panels Deburrer: ANNA MEASUREMENT RESULTS: Intervals: Rate: 93 VA: 112 QRSD: 80 QT: 344 QTc: 427 [place]: P: 47 VA: 112 QRS: 10 T: 27 INTERPRETIVE STATEMENTS: Normal sinus rhythm Septal infarct, age undetermined Abnormal ECG Compared to ECG 06/10/2023 19:32:39 Myocardial infarct finding now present Sinus arrhythmia no longer present Electronically Signed On 08-12-23 14:07:51 BAG MACHINE TENDER by Timmy Soto
== END 2023-08-11 01:12 | disposition home or self-care (01) ==
LOC: ER 17:36
DX: M54.2 Cervicalgia (principal); Z88.0 Allergy status to penicillin; Z88.1 Allergy status to other antibiotic agents; Z88.6 Allergy status to analgesic agent; Z88.8 Allergy status to other drugs, medicaments and biological substances
CPT/HCPCS: 93005; 85025; 80048; 36415; 81025; 85379; 84484; 71275; 71045; 96374; 99285; Q9967

== ENCOUNTER → 2023-09-26 | Emergency (ER) | payer BC ==
[~2023-09-26] MED LIST: LIDOCAINE 4% PATCH ONE; methocarbamoL 750 MG TAB ONE
--- OUTSIDE RECORDS SUMMARY | 2023-09-26 17:54 | XMS REPORT | Continuity of Care Document ---
Author Name Unknown Address [address] [facility] [address] [place] [address] [facility] thconnect Address [address] [facility] [address] [place] [address] Care Team Providers Care Senior Physician Name Role Phone PCP, PATIENT DOES NOT HAVE A Primary Care Physic tom Unavailable INDIO WHITFIELD Attending Clinician Unavailable JUAN GUNTER Attending Clinician Unavailable RD JACOBSON Attending Clinician Unavailable Rd Hunter Attending Clinician [phone] DEBBIE DUVALL Attending Clinician Unavailable Debbie Barnes S Attending Clinician [phone] Doctor Unassigned, [place] Attending Clinician U NORM Estrella Attending Clinician Unavailab Magdalena Steve LMSW Attending Clinician UnaGRADY Torres Attending Clinician Unavailab Grady Del Toro Attending Clinician [phone] Rey Schultz DO Attending Clinician [phone] Kaylin Garber Attending Clinician KAYLIN MARCELO Attending Clinician UnavailRD Jerez Admitting Clinician Unavailable Payers Payer Name Policy Type Policy Number Effective Date Expirati on Date Source BCBS 2 [id number] 2023 00:00:00 [employer] [place] [id number] 2023 00:00:00 Problems Condition Name Condition Details Condition Category Status Onset Date Resolution Date Last Treatment Date Treating Clinician Comments Source Encounter for Nexplanon removal Encounter for Nexplanon removal Disease Active 2019-10 00:00: 00 [facility] Chlamydia trachomati s infection of lower genitourin nicolas sites Chlamydia trachomati s infection of lower genitourin nicolas sites Disease Active 02-15 00:00: 00 [facility] Tobacco use disorder Tobacco use disorder Disease Active 06-12 00:00: 00 [facility] Encounter for initial prescripti on of contracept doug pills Encounter for initial prescripti on of contracept doug pills Disease Active 06-12 00:00: 00 Overview: Formattin g of this note might be different from the original. RTC 2 weeks for nexplanon ICD10 Diagnosis [employer] [facility] Obesity Obesity Disease Active 06-12 00:00: 00 Overview: Formattin g of this note might be different from the original. ICD10 Diagnosis [employer] [facility] Allergies, Adverse Reactions, Alerts Allergy Name Allergy Type Status Severity Reaction(s) Onset Date Inactive Date Treating Clinician Comments Source DIPHENHY DRAMINE HCL DRUG INGREDI Active High Anaphylaxis 2022-10 00:00: 00 [facility] METOCLOP RAMIDE DRUG INGREDI Active Med Rash 2022-10 0 00:00: 00 [facility] Diphenhy dramine Hcl Propensi ty to adverse reaction s Active Anaphylaxis 2022-10 00:00: 00 [facility] Metoclop ramide Propensi ty to adverse reaction s Active Rash 2023 00:00: 00 [facility] Penicill ins Propensi ty to adverse reaction s to drug Active Anaphylaxis 12-21 00:00: 00 Lip swelling & some difficult y in swallowin g. [facility] PENICILL INS Drug Class Active High Anaphylaxis 12-21 00:00: 00 [facility] Penicill ins Propensi ty to adverse reaction s to drug Active Anaphylaxis 12-21 00:00: 00 Lip swelling & some difficult y in swallowin g. [facility] Social History Social Habit Start Date Stop Date Quantity Comments Source History of tobacco use Cigarette Smoker [facility] intake 2023-08-18 00:00:00 2023-08-18 00:00:00 Current non-drinker of alcohol (finding) [facility] Exposure to SARS-CoV-2 (event) 2021-03-22 00:00:00 2021-04-21 07:48:00 Not sure [facility] History of Social function 2020-06-29 00:00:00 2020-06-29 00:00:00 [facility] Tobacco use and exposure 2014-06-12 00:00:00 2014-06-12 00:00:00 Smokeless tobacco non-user [facility] Tobacco Comment 2014-06-12 00:00:00 2014-06-12 00:00:00 states smokes 4-5 cigarettes per day [facility] Sex Assigned At 1995 00:00:00 1995 00:00:00 [facility] Smoking Status Start Date Stop Date Source Smokes tobacco daily 2014-06-12 00:00:00 [facility] Medications Ordered Medication Name Filled Medication Name Start Date Stop Date Current Medication? Ordering Clinician Indication Dosage Frequency Signature (SIG) Comments Components Source ondansetron (ZOFRAN-ODT ) disintegrat ing tablet 4 mg 2022-10 04:45: 00 08-19 04:01 :00 No 4mg 4 mg, Oral, ONCE, 1 dose, On Mon08/18/23 at 2245, MARLEN [facility] predniSONE (DELTASONE) tablet 30 mg 2022-10 04:00: 00 08-19 04:01 :00 No 30mg 30 mg, Oral, ONCE, 1 dose, On Mon08/18/23 at 2200, MARLEN [facility] ipratropium -albuteroL (DUONEB) 0.5 mg-3 mg(2.5 mg base)/3 mL nebulizer solution 3 mL 2022-10 03:48: 00 08-19 04:01 :00 No 3mL 3 mL, Inhalation , ONCE, 1 dose, [facility] 2022-10 00:00: 00 Yes [id number] 2{puff} Inhale 2 Puffs every 4 (four) hours as needed for Wheezing, Shortness of Breath or Bronchospa sm. [facility] ondansetron 4 mg disintegrat ing tablet 2022-10 00:00: 00 Yes [id number] 4mg Take 1 tablet by mouth every 8 (eight) hours as needed for Nausea and Vomiting (N/V). [facility] predniSONE 10 mg tablet 2022-10 00:00: 00 08-22 05:59 :00 Yes [id number] 30mg Take 3 tablets by mouth in the morning for 3 days. [facility] ondansetron (ZOFRAN-ODT ) disintegrat ing tablet 4 mg 2022-10 0 01:00: 00 07-30 00:08 :00 No 4mg 4 mg, Oral, ONCE, 1 dose, On 07/29/23 at 2000, Routine [facility] ondansetron 4 mg disintegrat ing tablet 2022-10 0 00:00: 00 Yes [id number] 4mg Take 1 tablet by mouth every 8 (eight) hours as needed for Nausea and Vomiting (N/V). [facility] ondansetron 4 mg disintegrat ing tablet 2022-10 00:00: 00 Yes [id number] 4mg Take 1 tablet by mouth every 8 (eight) hours as needed for Nausea and Vomiting (N/V). [facility] LOESTRIN FE (MICROGESTI N FE 1/20) 1 mg-20 mcg (21)/75 mg (7) tablet 2019-10 00:00: 00 Yes [id number] 1{tbl} Take 1 tablet by mouth daily. [facility] LOESTRIN FE (MICROGESTI N FE 1/20) 1 mg-20 mcg (21)/75 mg (7) tablet 2019-10 00:00: 00 Yes [id number] 1{tbl} Take 1 tablet by mouth daily. [facility] LOESTRIN FE (MICROGESTI N FE 1/20) 1 mg-20 mcg (21)/75 mg (7) tablet 2019-10 00:00: 00 Yes [id number] 1{tbl} Take 1 tablet by mouth daily. [facility] LOESTRIN FE (MICROGESTI N FE 1/20) 1 mg-20 mcg (21)/75 mg (7) tablet 2019-10 00:00: 00 Yes [id number] 1{tbl} Take 1 tablet by mouth daily. [facility] LOESTRIN FE (MICROGESTI N FE /20) 1 mg-20 mcg (21)/75 mg (7) tablet 2019-10 00:00: 00 Yes [id number] 1{tbl} Take 1 tablet by mouth daily. [facility] LOESTRIN FE (MICROGESTI N FE 1/20) 1 mg-20 mcg (21)/75 mg (7) tablet 2019-10 00:00: 00 Yes [id number] 1{tbl} Take 1 tablet by mouth daily. [facility] LOESTRIN FE (MICROGESTI N FE 1/20) 1 mg-20 mcg (21)/75 mg (7) tablet 2019-10 00:00: 00 Yes [id number] 1{tbl} Take 1 tablet by mouth daily. [facility] LOESTRIN FE (MICROGESTI N FE 1/20) 1 mg-20 mcg (21)/75 mg (7) tablet 2019-10 00:00: 00 Yes [id number] 1{tbl} Take 1 tablet by mouth daily. [facility] LOESTRIN FE (MICROGESTI N FE 1/20) 1 mg-20 mcg (21)/75 mg (7) tablet 2019-10 00:00: 00 Yes [id number] 1{tbl} Take 1 tablet by mouth daily. [facility] LOESTRIN FE (MICROGESTI N FE /20) 1 mg-20 mcg (21)/75 mg (7) tablet 2019-10 00:00: 00 Yes [id number] 1{tbl} Take 1 tablet by mouth daily. [facility] LOESTRIN FE (MICROGESTI N FE /20) 1 mg-20 mcg (21)/75 mg (7) tablet 2019-10 00:00: 00 Yes [id number] 1{tbl} Take 1 tablet by mouth daily. [facility] LOESTRIN FE (MICROGESTI N FE /20) 1 mg-20 mcg (21)/75 mg (7) tablet 2019-10 00:00: 00 Yes [id number] 1{tbl} Take 1 tablet by mouth daily. [facility] LOESTRIN FE (MICROGESTI N FE /20) 1 mg-20 mcg (21)/75 mg (7) tablet 2019-10 00:00: 00 Yes [id number] 1{tbl} Take 1 tablet by mouth daily. [facility] LOESTRIN FE (MICROGESTI N FE /20) 1 mg-20 mcg (21)/75 mg (7) tablet 2019-10 00:00: 00 Yes [id number] 1{tbl} Take 1 tablet by mouth daily. [facility] LOESTRIN FE (MICROGESTI N FE 1/20) 1 mg-20 mcg (21)/75 mg (7) tablet 2019-10 00:00: 00 Yes [id number] 1{tbl} Take 1 tablet by mouth daily. [facility] LOESTRIN FE (MICROGESTI N FE 1/20) 1 mg-20 mcg (21)/75 mg (7) tablet 2019-10 00:00: 00 Yes [id number] 1{tbl} Take 1 tablet by mouth daily. [facility] LOESTRIN FE (MICROGESTI N FE /20) 1 mg-20 mcg (21)/75 mg (7) tablet 2019-10 00:00: 00 Yes [id number] 1{tbl} Take 1 tablet by mouth daily. [facility] LOESTRIN FE (MICROGESTI N FE /20) 1 mg-20 mcg (21)/75 mg (7) tablet 2019-10 00:00: 00 Yes [id number] 1{tbl} Take 1 tablet by mouth daily. [facility] LOESTRIN FE (MICROGESTI N FE /20) 1 mg-20 mcg (21)/75 mg (7) tablet 2019-10 00:00: 00 Yes [id number] 1{tbl} Take 1 tablet by mouth daily. [facility] LOESTRIN FE (MICROGESTI N FE /20) 1 mg-20 mcg (21)/75 mg (7) tablet 2019-10 00:00: 00 Yes [id number] 1{tbl} Take 1 tablet by mouth daily. [facility] LOESTRIN FE (MICROGESTI N FE /20) 1 mg-20 mcg (21)/75 mg (7) tablet 2019-10 00:00: 00 Yes [id number] 1{tbl} Take 1 tablet by mouth daily. [facility] clindamycin 300 mg capsule 2019-10 00:00: 00 Yes TAKE 1 CAPSULE BY MOUTH EVERY 6 HOURS FOR 10 DAYS [facility] clindamycin 300 mg capsule 2019-10 00:00: 00 Yes TAKE 1 CAPSULE BY MOUTH EVERY 6 HOURS FOR 10 DAYS [facility] clindamycin 300 mg capsule 2019-10 00:00: 00 Yes TAKE 1 CAPSULE BY MOUTH EVERY 6 HOURS FOR 10 DAYS [facility] clindamycin 300 mg capsule 2019-10 00:00: 00 Yes TAKE 1 CAPSULE BY MOUTH EVERY 6 HOURS FOR 10 DAYS [facility] clindamycin 300 mg capsule 2019-10 00:00: 00 Yes TAKE 1 CAPSULE BY MOUTH EVERY 6 HOURS FOR 10 DAYS [facility] clindamycin 300 mg capsule 2019-10 00:00: 00 Yes TAKE 1 CAPSULE BY MOUTH EVERY 6 HOURS FOR 10 DAYS [facility] clindamycin 300 mg capsule 2019-10 00:00: 00 Yes TAKE 1 CAPSULE BY MOUTH EVERY 6 HOURS FOR 10 DAYS [facility] clindamycin 300 mg capsule 2019-10 00:00: 00 Yes TAKE 1 CAPSULE BY MOUTH EVERY 6 HOURS FOR 10 DAYS [facility] clindamycin 300 mg capsule 2019-10 00:00: 00 Yes TAKE 1 CAPSULE BY MOUTH EVERY 6 HOURS FOR 10 DAYS [facility] clindamycin 300 mg capsule 2019-10 00:00: 00 Yes TAKE 1 CAPSULE BY MOUTH EVERY 6 HOURS FOR 10 DAYS [facility] clindamycin 300 mg capsule 2019-10 00:00: 00 Yes TAKE 1 CAPSULE BY MOUTH EVERY 6 HOURS FOR 10 DAYS [facility] clindamycin 300 mg capsule 2019-10 00:00: 00 Yes TAKE 1 CAPSULE BY MOUTH EVERY 6 HOURS FOR 10 DAYS [facility] clindamycin 300 mg capsule 2019-10 00:00: 00 Yes TAKE 1 CAPSULE BY MOUTH EVERY 6 HOURS FOR 10 DAYS [facility] clindamycin 300 mg capsule 2019-10 00:00: 00 Yes TAKE 1 CAPSULE BY MOUTH EVERY 6 HOURS FOR 10 DAYS [facility] clindamycin 300 mg capsule 2019-10 00:00: 00 Yes TAKE 1 CAPSULE BY MOUTH EVERY 6 HOURS FOR 10 DAYS [facility] clindamycin 300 mg capsule 2019-10 00:00: 00 Yes TAKE 1 CAPSULE BY MOUTH EVERY 6 HOURS FOR 10 DAYS [facility] clindamycin 300 mg capsule 2019-10 00:00: 00 Yes TAKE 1 CAPSULE BY MOUTH EVERY 6 HOURS FOR 10 DAYS [facility] clindamycin 300 mg capsule 2019-10 00:00: 00 Yes TAKE 1 CAPSULE BY MOUTH EVERY 6 HOURS FOR 10 DAYS [facility] clindamycin 300 mg capsule 2019-10 00:00: 00 Yes TAKE 1 CAPSULE BY MOUTH EVERY 6 HOURS FOR 10 DAYS [facility] clindamycin 300 mg capsule 2019-10 00:00: 00 Yes TAKE 1 CAPSULE BY MOUTH EVERY 6 HOURS FOR 10 DAYS [facility] clindamycin 300 mg capsule 2019-10 00:00: 00 Yes TAKE 1 CAPSULE BY MOUTH EVERY 6 HOURS FOR 10 DAYS [facility] methylPREDN ISolone (MEDROL, ALEK,) 4 mg tablets 2018-10 00:00: 00 Yes [id number] Take by mouth SEE-INSTRU CTIONS. follow package directions [facility] methylPREDN ISolone (MEDROL, ALEK,) 4 mg tablets 2018-10 00:00: 00 06-29 00:00 :00 No [id number] Take by mouth SEE-INSTRU CTIONS. follow package directions [facility] methylPREDN ISolone (MEDROL, ALEK,) 4 mg tablets 2018-10 00:00: 00 06-29 00:00 :00 No [id number] Take by mouth SEE-INSTRU CTIONS. follow package directions [facility] azithromyci n 500 mg tablet 02-15 00:00: 00 Yes 1000mg Take 2 tablets by mouth daily. [facility] azithromyci n 500 mg tablet 02-15 00:00: 00 06-29 00:00 :00 No 1000mg Take 2 tablets by mouth daily. [facility] azithromyci n 500 mg tablet 02-15 00:00: 00 06-29 00:00 :00 No 1000mg Take 2 tablets by mouth daily. [facility] promethazin e 6.25 mg/5 mL solution 02-09 00:00: 00 Yes 6.25mg Take 5 mL by mouth every 6 (six) hours as needed for Nausea and Vomiting (N/V). [facility] promethazin e 6.25 mg/5 mL solution 02-09 00:00: 00 06-29 00:00 :00 No 6.25mg Take 5 mL by mouth every 6 (six) hours as needed for Nausea and Vomiting (N/V). [facility] promethazin e 6.25 mg/5 mL solution 02-09 00:00: 00 06-29 00:00 :00 No 6.25mg Take 5 mL by mouth every 6 (six) hours as needed for Nausea and Vomiting (N/V). [facility] benzonatate (TESSALON) 200 mg capsule 2014-10 00:00: 00 Yes 200mg Take 1 Cap by mouth 3 (three) times daily as needed for Cough. [facility] albuterol (VENTOLIN) 90 mcg/actuati on inhaler 2014-10 00:00: 00 Yes 2{puff} Inhale 2 Puffs every 6 (six) hours as needed for Wheezing, Shortness of Breath or Chest tightness. [facility] methylPREDN ISolone (MEDROL DOSE-ALEK) 4 mg tablets 2014-10 00:00: 00 Yes follow package directions [facility] benzonatate (TESSALON) 200 mg capsule 2014-10 00:00: 00 06-29 00:00 :00 No 200mg Take 1 Cap by mouth 3 (three) times daily as needed for Cough. [facility] albuterol (VENTOLIN) 90 mcg/actuati on inhaler 2014-10 00:00: 00 06-29 00:00 :00 No 2{puff} Inhale 2 Puffs every 6 (six) hours as needed for Wheezing, Shortness of Breath or Chest tightness. [facility] methylPREDN ISolone (MEDROL DOSE-ALEK) 4 mg tablets 2014-10 00:00: 00 06-29 00:00 :00 No follow package directions [facility] benzonatate (TESSALON) 200 mg capsule 2014-10 00:00: 00 06-29 00:00 :00 No 200mg Take 1 Cap by mouth 3 (three) times daily as needed for Cough. [facility] albuterol (VENTOLIN) 90 mcg/actuati on inhaler 2014-10 00:00: 00 06-29 00:00 :00 No 2{puff} Inhale 2 Puffs every 6 (six) hours as needed for Wheezing, Shortness of Breath or Chest tightness. [facility] methylPREDN ISolone (MEDROL DOSE-ALEK) 4 mg tablets 2014-10 00:00: 00 06-29 00:00 :00 No follow package directions [facility] No known medications No Un leti [facility] Immunizations Ordered Immunization Name Filled Immunization Name Date Status Comments Source HPV 2014-06-12 00:00:00 Completed [facility] HPV 2014-06-12 00:00:00 Completed [facility] HPV 2014-06-12 00:00:00 Completed [facility] HPV 2014-06-12 00:00:00 Completed [facility] HPV 2014-06-12 00:00:00 Completed [facility] HPV 2014-06-12 00:00:00 Completed [facility] HPV 2014-06-12 00:00:00 Completed [facility] HPV 2014-06-12 00:00:00 Completed [facility] HPV 2014-06-12 00:00:00 Completed [facility] HPV 2014-06-12 00:00:00 Completed [facility] HPV 2014-06-12 00:00:00 Completed [facility] HPV 2014-06-12 00:00:00 Completed [facility] HPV 2014-06-12 00:00:00 Completed [facility] HPV 2014-06-12 00:00:00 Completed [facility] HPV 2014-06-12 00:00:00 Completed [facility] HPV 2011-07-19 00:00:00 Completed [facility] HPV 2011-07-19 00:00:00 Completed [facility] HPV 2011-07-19 00:00:00 Completed [facility] HPV 2011-07-19 00:00:00 Completed [facility] HPV 2011-07-19 00:00:00 Completed [facility] HPV 2011-07-19 00:00:00 Completed [facility] HPV 2011-07-19 00:00:00 [facility] HPV 2011-07-19 00:00:00 [facility] HPV 2011-07-19 00:00:00 [facility] HPV 2011-07-19 00:00:00 [facility]pleted [facility] HPV 2011-07-19 00:00:00 [facility]pleted [facility] HPV 2011-07-19 00:00:00 [facility]pleted [facility] HPV 2011-07-19 00:00:00 [facility]pleted [facility] HPV 2011-07-19 00:00:00 [facility]pleted [facility] HPV 2011-07-19 00:00:00 [facility]pleted [facility] Td 2011-05-12 00:00:00 [facility]pleted [facility] Td 2011-05-12 00:00:00 Completed [facility] Td 2011-05-12 00:00:00 Completed [facility] Td 2011-05-12 00:00:00 Completed [facility] Td 2011-05-12 00:00:00 [facility]pleted [facility] Td 2011-05-12 00:00:00 [facility]pleted [facility] Td 2011-05-12 00:00:00 [facility]pleted [facility] Td 2011-05-12 00:00:00 [facility]pleted [facility] Td 2011-05-12 00:00:00 [facility]pleted [facility] Td 2011-05-12 00:00:00 [facility]pleted [facility] Td 2011-05-12 00:00:00 [facility]pleted [facility] Td 2011-05-12 00:00:00 [facility]pleted [facility] Td 2011-05-12 00:00:00 [facility]pleted [facility] Td 2011-05-12 00:00:00 [facility]pleted [facility] Td 2011-05-12 00:00:00 [facility]pleted [facility] HPV 2010-06-23 00:00:00 [facility]pleted [facility] HPV 2010-06-23 00:00:00 [facility]pleted [facility] HPV 2010-06-23 00:00:00 [facility]pleted [facility] HPV 2010-06-23 00:00:00 [facility]pleted [facility] HPV 2010-06-23 00:00:00 [facility]pleted [facility] HPV 2010-06-23 00:00:00 Completed [facility] HPV 2010-06-23 00:00:00 Completed [facility] HPV 2010-06-23 00:00:00 Completed [facility] HPV 2010-06-23 00:00:00 Completed [facility] HPV 2010-06-23 00:00:00 Completed [facility] HPV 2010-06-23 00:00:00 Completed [facility] HPV 2010-06-23 00:00:00 Completed [facility] HPV 2010-06-23 00:00:00 Completed [facility] HPV 2010-06-23 00:00:00 Completed [facility] HPV 2010-06-23 00:00:00 Completed [facility] TD, NOS Unknown Completed [facility] HPV Unknown Completed [facility] TD, NOS Unknown Completed [facility] HPV Unknown Completed [facility] TD, NOS Unknown Completed [facility] HPV Unknown Completed [facility] TD, NOS Unknown Completed [facility] HPV Unknown Completed [facility] TD, NOS Unknown Completed [facility] HPV Unknown Completed [facility] TD, NOS Unknown Completed [facility] HPV Unknown Completed [facility] TD, NOS Unknown Completed [facility] HPV Unknown Completed [facility] TD, NOS Unknown Completed [facility] HPV Unknown Completed [facility] TD, NOS Unknown Completed [facility] HPV Unknown Completed [facility] TD, NOS Unknown Completed [facility] HPV Unknown Completed [facility] Vital Signs Vital Name Observation Time Observation Value Comments S ource Systolic blood pressure 2023-08-19 06:00:00 130 mm[Hg] [facility] Diastolic blood pressure 2023-08-19 06:00:00 85 mm[Hg] [facility] Heart rate 2023-08-19 06:00:00 86 /min [facility] Respiratory rate 2023-08-19 06:00:00 18 /min [facility] Oxygen saturation in Arterial blood by Pulse oximetry 2023-08-19 06:00:00 99 /min [facility] Body temperature 2023-08-19 01:30:00 37 Devika [facility] Body height 2023-08-19 01:30:00 157.5 cm [facility] Body weight 2023-08-19 01:30:00 99.338 kg [facility] BMI 2023-08-19 01:30:00 40.06 kg/m2 [facility] Heart rate 2023-07-30 02:00:00 99 /min [facility] Respiratory rate 2023-07-30 02:00:00 18 /min [facility] Oxygen saturation in Arterial blood by Pulse oximetry 2023-07-30 02:00:00 99 /min [facility] Systolic blood pressure 2023-07-29 23:34:00 144 mm[Hg] [facility] Diastolic blood pressure 2023-07-29 23:34:00 94 mm[Hg] [facility] Body temperature 2023-07-29 23:34:00 36.83 Devika [facility] Body height 2023-07-29 23:34:[address] [facility] Body weight 2023-07-29 23:34:00 99.338 kg [facility] BMI 2023-07-29 23:34:00 40.06 kg/m2 [facility] Systolic blood pressure 2021-04-21 12:51:00 124 mm[Hg] [facility] Diastolic blood pressure 2021-04-21 12:51:00 83 mm[Hg] [facility] Heart rate 2021-04-21 12:51:00 74 /min [facility] Body temperature 2021-04-21 12:51:00 36.72 Devika [facility] Respiratory rate 2021-04-21 12:51:00 16 /min [facility] Body height 2021-04-21 12:51:00 157.5 cm [facility] Body weight 2021-04-21 12:51:[address] [facility] BMI 2021-04-21 12:51:00 36.54 kg/m2 [facility] Systolic blood pressure 2020-10-28 15:01:00 132 mm[Hg] [facility] Diastolic blood pressure 2020-10-28 15:01:00 81 mm[Hg] [facility] Heart rate 2020-10-28 15:01:00 87 /min [facility] Body temperature 2020-10-28 15:01:00 36.39 Devika [facility] Respiratory rate 2020-10-28 15:01:00 16 /min [facility] Body height 2020-10-28 15:01:00 157.5 cm [facility] Body weight 2020-10-28 15:01:00 83.575 kg [facility] BMI 2020-10-28 15:01:00 33.70 kg/m2 [facility] Systolic blood pressure 2020-10-28 15:01:00 132 mm[Hg] [facility] Diastolic blood pressure 2020-10-28 15:01:00 81 mm[Hg] [facility] Heart rate 2020-10-28 15:01:00 87 /min [facility] Body temperature 2020-10-28 15:01:00 36.39 Devika [facility] Respiratory rate 2020-10-28 15:01:00 16 /min [facility] Body height 2020-10-28 15:01:[address] [facility] Body weight 2020-10-28 15:01:[address] [facility] BMI 2020-10-28 15:01:00 33.70 kg/m2 [facility] Systolic blood pressure 2020-08-20 21:53:00 125 mm[Hg] [facility] Diastolic blood pressure 2020-08-20 21:53:00 86 mm[Hg] [facility] Heart rate 2020-08-20 21:53:00 97 /min [facility] Body temperature 2020-08-20 21:53:00 36.67 Devika [facility] Respiratory rate 2020-08-20 21:53:00 16 /min [facility] Body height 2020-08-20 21:53:[address] [facility] Body weight 2020-08-20 21:53:[address] [facility] BMI 2020-08-20 21:53:00 33.11 kg/m2 [facility] Systolic blood pressure 2020-06-29 20:34:00 125 mm[Hg] [facility] Diastolic blood pressure 2020-06-29 20:34:00 81 mm[Hg] [facility] Heart rate 2020-06-29 20:34:00 87 /min [facility] Body temperature 2020-06-29 20:34:00 37.11 Devika [facility] Respiratory rate 2020-06-29 20:34:00 16 /min [facility] Body height 2020-06-29 20:34:[address] [facility] Body weight 2020-06-29 20:34:[address] [facility] BMI 2020-06-29 20:34:00 33.50 kg/m2 [facility] Procedures Procedure Date / Time Performed Performing Clinician Source XR CHEST 2 VW 2023-08-19 04:22:[address] [facility] POCT TEST 2023-08-19 02:48:00 Louis Jacobson [facility] RAPID STREP SCREEN FOR GROUP A 2023-08-19 01:41:00 Rd Jacobson [facility] RAPID INFLUENZA A/B 2023-08-19 01:41:00 Louis Jacobson [facility] COVID-19 (ID NOW RAPID TESTING) 2023-08-19 01:41:00 Rd Jacobson [facility] CONSENT/REFUSAL FOR DIAGNOSIS AND TREATMENT 2023-08-19 01:15:02 Doctor Unassigned, [place] [facility] ASSIGNMENT OF BENEFITS 2023-07-30 00:34:02 Docto r Unassigned, [place] [facility] RAPID INFLUENZA A/B 2023-07-30 00:08:00 Debbie Duvall [facility] COVID-19 (ID NOW RAPID TESTING) 2023-07-30 00:08:00 Debbie Duvall [facility] RAPID STREP SCREEN FOR GROUP A 2023-07-29 23:43:00 Debbie Duvall [facility] CONSENT/REFUSAL FOR DIAGNOSIS AND TREATMENT 2023-07-29 23:22:59 Doctor Unassigned, [place] [facility] POCT TEST 2020-10-28 16:05:00 Sima Jacobsen [facility] AUTHORIZATION TO RELEASE PHI TO [facility] 2020-10-28 06:01:00 Doctor Unassigned, [place] [facility] PATIENT FINANCIAL POLICY 2020-08-20 22:22:14 Doctor Unassigned, [place] [facility] POCT TEST 2020-08-20 21:55:00 Mike Mensah [facility] ASSIGNMENT OF BENEFITS 2020-06-29 19:57:27 Docto r Unassigned, [place] [facility] Encounters Start Date/Time End Date/Time Encounter Type Admission Type Attending [facility] Facility Care Department Encounter ID Source 2023-08-30 13:30:00 2023-08-30 13:30:00 Outpatient INDIO WHITFIELD [id number] Natybrenna Medellin 2023-08-21 15:05:00 2023-08-21 18:50:00 Emergency E JUAN GUNTER [facility] [id number] [facility] 2023-08-18 19:32:00 2023-08-19 00:09:00 Emergency X IRAIDAJOERD [facility] ERT [id number] [facility] 2023-08-18 19:32:00 2023-08-19 00:09:[address] Jacobson [facility] 1.2.840.114 350.1.13.10 4.2.7.2.686 [id number] [facility] 2023-08-17 13:00:00 2023-08-17 13:00:00 Outpatient INDIO WHITFIELD [id number] Ntay Medellin 2023-07-29 18:44:00 2023-07-29 21:18:00 Emergency X DEBBIE DUVALL [facility] ERT [id number] [facility] 2023-07-29 18:44:00 2023-07-29 21:18:00 Emergency Debbie Duvall [facility] 1.84.114 350.1.13.10 4.2.7.2.686 [id number] [facility] 2023-07-29 00:00:00 2023-07-29 00:00:00 Orders Only Doctor Unassigned, [place] [facility] 1..114 350.1.13.10 4.2.7.2.686 [id number] [facility] 2023-06-07 13:30:00 2023-06-07 13:30:00 Outpatient NORM HARRINGTON [id number] Naty Medellin 2021-07-19 00:00:00 2021-07-19 00:00:00 Case Management Magdalena Tai 1.84.114 350.1.13.10 4.2.7.2.686 [id number] [facility] 2021-06-29 08:45:00 2021-06-29 08:45:00 Outpatient GRADY AIKEN [facility] [id number] [facility] 2021-05-24 00:00:00 2021-05-24 00:00:00 Patient Secure Msg Doctor Unassigned, [place] [facility] 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 [facility] 1.84.114 350.1.13.10 4.2.7.2.686 [id number] [facility] 2021-05-21 00:00:00 2021-05-21 00:00:00 Patient Secure Msg Doctor Unassigned, [place] [facility] 1.840.114 350.1.13.10 4.2.7.2.686 [id number] [facility] 2021-05-05 08:30:00 2021-05-05 08:30:00 Outpatient R [facility] [id number] [facility] 2021-04-30 00:00:00 2021-04-30 00:00:00 Patient Secure Msg Doctor Unassigned, [place] [facility] 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 [facility] 1.2.840.114 350.1.13.10 4.2.7.2.686 [id number] [facility] 2021 00:00:00 2021 00:00:00 Patient Secure Msg Doctor Unassigned, [place] [facility] 1.2840.114 350.1.13.10 4.2.7.2.686 [id number] [facility] 2021 00:00:00 2021 00:00:00 Patient Secure Msg Doctor Unassigned, [place] 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 1.2840.114 350.1.13.10 4.2.7.2.686 [id number] [facility] 2021-04-28 00:00:00 2021-04-28 00:00:00 Patient Secure Msg Doctor Unassigned, [place] [facility] 1.2840.114 350.1.13.10 4.2.7.2.686 [id number] [facility] 2021-04-22 00:00:00 2021-04-22 00:00:00 Telephone Grady Jacobsen [facility] 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 [facility] CHILD [facility] 1.2840.114 350.1.13.10 4.2.7.2.686 [id number] [facility] 2021-04-21 07:36:35 2021-04-21 08:11:32 Office Visit Grady Jacobsen [facility] 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 [facility] & CHILD [facility] 1.2.840.114 350.1.13.10 4.2.7.2.686 [id number] [facility] 2021-04-21 07:45:00 2021-04-21 07:45:00 Outpatient Magnolia JACOBSEN, GRADY [facility] [id number] [facility] 2021-04-06 16:00:00 2021-04-06 16:00:00 Outpatient Magnolia JACOBSEN, EDIEIDBasilio [facility] [id number] [facility] 2021-04-06 00:00:00 2021-04-06 00:00:00 Patient Secure Msg Doctor Unassigned, [place] [facility] 1.2840.114 350.1.13.10 4.2.7.2.686 [id number] [facility] 2020-12-22 00:00:00 2020-12-22 00:00:00 Patient Outreach Rey Schultz [facility] 1.2.840.114 350.1.13.10 4.2.7.2.686 [id number] [facility] 2020-12-22 00:00:00 2020-12-22 00:00:00 Patient Outreach Antoine Rey [facility] 1.2.840.114 350.1.13.10 4.2.7.2.686 [id number] 2020-10-28 08:53:19 2020-10-28 09:37:34 Office Visit Grady Jacobsen [facility] 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 [facility]ILD [facility] 1.2.840.114 350.1.13.10 4.2.7.2.686 [id number] [facility] 2020-10-28 08:53:19 2020-10-28 09:37:34 Office Visit Grady Jacobsen [facility] 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 [facility] 1.2.840.114 350.1.13.10 4.2.7.2.686 [id number] 2020-10-28 08:45:00 2020-10-28 08:45:00 Outpatient R GRADY JACOBSEN [facility] [id number] [facility] 2020-10-28 00:00:00 2020-10-28 00:00:00 Orders Only Doctor Unassigned, [place] [facility] 1.2840.114 350.1.13.10 4.2.7.2.686 [id number] [facility] 2020-10-28 00:00:00 2020-10-28 00:00:00 Orders Only Doctor Unassigned, [place] [facility] 1.2.840.114 350.1.13.10 4.2.7.2.686 [id number] 2020-08-20 15:44:35 2020-08-20 16:38:18 Office Visit Kaylin Marcelo [facility] 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 [facility]ILD [facility] 1.2.840.114 350.1.13.10 4.2.7.2.686 [id number] [facility] 2020-08-20 15:45:00 2020-08-20 15:45:00 Outpatient R KAYLIN MARCELO [facility] [id number] [facility] 2020-08-20 00:00:00 2020-08-20 00:00:00 Orders Only Doctor Unassigned, [place] [facility] 1.2.840.114 350.1.13.10 4.2.7.2.686 [id number] [facility] 2020-07-09 09:45:00 2020-07-09 09:45:00 Outpatient R GRADY JACOBSEN [facility] [id number] [facility] 2020-06-29 15:01:06 2020-06-29 16:00:36 Office Visit Grady Jacobsen [facility] 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 [facility] 1..840.114 350.1.13.10 4.2.7.2.686 [id number] [facility] 2020-06-29 15:00:00 2020-06-29 15:00:00 Outpatient GRADY AIKEN [facility] [id number] [facility] 2020-06-29 00:00:00 2020-06-29 00:00:00 Orders Only Doctor Unassigned, [place] [facility] 1..840.114 350.1.13.10 4.2.7.2.686 [id number] [facility] 2020-06-04 10:45:00 2020-06-04 10:45:00 Outpatient GRADY AIKEN [facility] [id number] [facility] Results Test Description Test Time Test Comments Results Result Co [facility]ments [id number] 16:06:00* Test Item Value Reference Range Interpretation Comme nts POCT PREG (test code = 1605) Negative On board controls acceptable with C Line (test code = 3574) Yes POCT PREG LOT # (test code = 3575) POCT PREG TEST DATE ( test code = 3576) [facility] [id number] 21:55:00* Test Item Value Reference Range Interpretation Comme nts POCT PREG (test code = 1605) Negative On board controls acceptable with C Line (test code = 3574) Yes POCT PREG LOT # (test code = 3575) POCT PREG TEST DATE ( test code = 3576) [facility] [id number] 21:55:00* Test Item Value Reference Range Interpretation Comme nts POCT PREG (test code = 1605) Negative On board controls acceptable with C Line (test code = 3574) Yes POCT PREG LOT # (test code = 3575) POCT PREG TEST DATE ( test code = 3576) [facility]
--- NOTE | 2023-09-26 18:31 | RAD REPORT ---
EXAM DESCRIPTION: RAD - Shoulder Left 2 View - 09/26/2023 6:26 pm CLINICAL HISTORY: PAIN COMPARISON: No comparisons FINDINGS/IMPRESSION: No acute fracture. No malalignment. No significant focal degenerative changes.
--- NOTE | 2023-09-26 19:24 | EDPHYS ---
Physician Documentation [facility] Name: Lisa Clement Age: 28 yrs Sex: Female : 1995 Arrival Date: 09/26/2023 Time: 17:51 Bed 9 Private MD: ED Physician Andrea Renae HPI: 09/26 18:13 This 28 yrs old Female presents to ER via Ambulatory with complaints of ec2 Shoulder Pain - SHOULDER TO CHEST. 18:13 Patient arrives today for evaluation of left shoulder pain. Patient reports that she ec2 has been experiencing pain in the left scapular area, states that the pain is intermittent with worsening symptoms by movement. Patient reports no injuries or falls, no trauma, no MVC's. Patient reports that she has taken ibuprofen with minimal alleviation in symptoms. Patient reports that she has some left upper chest wall pain that is worse with movement as well. Patient reports no shortness of breath or difficulty breathing.. Historical: - Allergies: 18:05 Reglan; ll1 18:05 PENICILLINS; ll1 18:05 Motrin; ll1 18:05 Benadryl; ll1 18:05 Amoxicillin; ll1 - PMHx: 18:05 Asthma; Anxiety; panic attack; ll1 - PSHx: 18:05 section; ll1 - Immunization history:: Adult Immunizations up to date. - Social history:: Smoking status: Patient/guardian denies using tobacco. ROS: 18:13 Constitutional: as per hpi ec2 Exam: 18:13 Constitutional: GEN: NAD Head: atraumatic Eyes: EOMI Ears: External ears are ec2 normal. CV: regular rate LUNGS: no respiratory distress ABD: non-distended SKIN: no evidence of rashes MSK: no evidence of trauma, TTP to the left upper chest wall, TTP to the left trapezius as well as scapular area. No evidence of trauma or deformities ecchymosis or crepitus in the left upper chest wall or the back. No C/T/L-spine TTP. NEURO: moves all extremities equally Vital Signs: 18:03 BP 145 / 83; Pulse 100; Resp 18; Temp 98.8; Pulse Ox 99% ; Weight 98.88 kg; Height 5 ll1 ft. 4 in. ; Pain 10/10; 19:34 BP 138 / 81; Pulse 91; Resp 17; Temp 98; Pulse Ox 99% on R/A; rv 18:03 Body Mass Index 37.42 (98.88 kg, 162.56 cm) ll1 18:03 Pain Scale: Adult ll1 Girard Coma Score: 19:34 Eye Response: spontaneous(4). Motor Response: obeys commands(6). Verbal Response: rv oriented(5). Total: 15. MDM: 18:11 Patient medically screened. ec2 18:13 Data reviewed: vital signs. ED course: Patient arrives today due to concern for left ec2 shoulder pain. Examination remarkable for well-appearing nontoxic individual is otherwise in no acute distress with a reassuring MSK examination with some reproducibility of discomfort on palpation. Will obtain a shoulder x-ray. Currently considering processes such as muscular spasms, muscular strain, low suspicion for fracture. Will treat with methocarbamol as well as Lidoderm patch.. 18:35 ED course: Left shoulder x-ray with no acute pathology. . ec2 19:22 ED course: On reassessment patient is well-appearing in no acute distress. Will ec2 discharge to home, suspect musculoskeletal pain. Will start on steroids as well as continue on Robaxin. Low suspicion for other strange processes such as PE or dissection or ACS but given the reproducibility of the pain.. 09/26 18:11 Order name: Shoulder Left (2 View) XRAY; Complete Time: 18:35 ec2 Administered Medications: 18:50 Drug: Methocarbamol PO 750 mg PO once Route: PO; ph 19:33 Follow up: Response: No adverse reaction rv 18:50 Drug: Lidoderm Topical Patch 5 % (700 mg/patch) 1 patches Topical once; leave on for 12 ph hours; cover most painful area; may cut into smaller pieces Route: Topical; Site: affected area; 19:33 Follow up: Response: No adverse reaction rv Disposition Summary: 09/26/23 19:23 Discharge Ordered Notes: Location: Home ec2 Condition: Stable ec2 Diagnosis - Pain in left shoulder ec2 Followup: ec2 - With: Chris Wise MD - When: - Reason: Recheck today's complaints Discharge Instructions: - Discharge Summary Sheet ec2 - Musculoskeletal Pain ec2 Forms: - Medication Reconciliation Form ec2 - Thank You Letter ec2 - Antibiotic Education ec2 - Prescription Opioid Use ec2 - Patient Portal Instructions ec2 - Leadership Thank You Letter ec2 Prescriptions: - Prednisone 20 mg Oral Tablet - take 2 tablets ORAL route once daily for 5 days; 10 tablet; Refills: 0, Product ec2 Selection Permitted - methocarbamol 500 mg Oral tablet - take 2 tablets ORAL route 4 times per day; 30 tablet; Refills: 0, Product ec2 Selection Permitted Signatures: Dispatcher [employer] Steph Lynn RN RN [facility] 1 Andrea Renae MD MD ec2 Alcides Arnold RN rv
--- NOTE | 2023-09-26 19:24 | ER ---
Nurse's Notes [facility] Name: Lisa Clement Age: 28 yrs Sex: Female : 1995 Arrival Date: 09/26/2023 Time: 17:51 Bed 9 Private MD: Diagnosis: Pain in left shoulder Presentation: 09/26 18:03 Chief complaint: Patient states: L posterior shoulder pain started 3 days ago. Started ll1 radiating into L upper chest today so she came to get checked. Coronavirus screen: Client denies travel out of the [place] in the last 14 days. At this time, the client does not indicate any symptoms associated with coronavirus-19. Ebola Screen: Patient denies travel to an Ebola-affected area in the 21 days before illness onset. Initial Sepsis Screen: Does the patient meet any 2 criteria? No. Patient's initial sepsis screen is negative. Does the patient have a suspected source of infection? No. Patient's initial sepsis screen is negative. Risk Assessment: Do you want to hurt yourself or someone else? Patient reports no desire to harm self or others. Onset of symptoms was September 24, 2023. 18:03 Method Of Arrival: Ambulatory ll1 18:03 Acuity: ODIN 3 ll1 Historical: - Allergies: 18:05 Reglan; ll1 18:05 PENICILLINS; ll1 18:05 Motrin; ll1 18:05 Benadryl; ll1 18:05 Amoxicillin; ll1 - PMHx: 18:05 Asthma; Anxiety; panic attack; ll1 - PSHx: 18:05 section; ll1 - Immunization history:: Adult Immunizations up to date. - Social history:: Smoking status: Patient/guardian denies using tobacco. Screenin:51 [facility] ED Fall Risk Assessment (Adult) History of falling in the last 3 months, ph including since admission No falls in past 3 months (0 pts) Score/Fall Risk Level 0 - 2 = Low Risk Oriented to surroundings. Abuse screen: Denies threats or abuse. Denies injuries from another. Nutritional screening: No deficits noted. Tuberculosis screening: No symptoms or risk factors identified. Assessment: 18:50 General: Appears in no apparent distress. Behavior is calm, cooperative. Pain: ph Complains of pain in left scapular area. Neuro: Level of Consciousness is awake, alert, obeys commands, Oriented to person, place, time, situation. Cardiovascular: Capillary refill < 3 seconds in bilateral fingers Patient's skin is warm and dry. Respiratory: Airway is patent Respiratory effort is even, unlabored. Musculoskeletal: Circulation, motion, and sensation intact. Range of motion: intact in all extremities. Vital Signs: 18:03 BP 145 / 83; Pulse 100; Resp 18; Temp 98.8; Pulse Ox 99% ; Weight 98.88 kg; Height 5 ll1 ft. 4 in. ; Pain 10/10; 19:34 BP 138 / 81; Pulse 91; Resp 17; Temp 98; Pulse Ox 99% on R/A; rv 18:03 Body Mass Index 37.42 (98.88 kg, 162.56 cm) ll1 18:03 Pain Scale: Adult ll1 Power Coma Score: 19:34 Eye Response: spontaneous(4). Motor Response: obeys commands(6). Verbal Response: rv oriented(5). Total: 15. ED Course: 17:56 Patient arrived in ED. mg5 17:58 Andrea Renae MD is Attending Physician. ec2 18:04 Triage completed. ll1 18:05 Arm band placed on. ll1 18:26 Steph Bowers, RN is Primary Nurse. ph 18:27 Shoulder Left (2 View) XRAY In Process Unspecified. EDMS 18:51 Patient has correct armband on for positive identification. Bed in low position. Call ph light in reach. Side rails up X 1. 18:51 No provider procedures requiring assistance completed. Patient did not have IV access ph during this emergency room visit. 19:23 Chris Wise MD is Referral Physician. ec2 Administered Medications: 18:50 Drug: Methocarbamol PO 750 mg PO once Route: PO; ph 19:33 Follow up: Response: No adverse reaction rv 18:50 Drug: Lidoderm Topical Patch 5 % (700 mg/patch) 1 patches Topical once; leave on for 12 ph hours; cover most painful area; may cut into smaller pieces Route: Topical; Site: affected area; 19:33 Follow up: Response: No adverse reaction rv Medication: 18:51 VIS not applicable for this client. ph Outcome: 19:23 Discharge ordered by . ec2 19:34 Discharged to home ambulatory, with family, rv 19:34 Condition: good 19:34 Discharge instructions given to patient, Instructed on discharge instructions, follow up and referral plans. medication usage, Demonstrated understanding of instructions, follow-up care, medications, Prescriptions given X 2, 19:34 Patient left the ED. rv Signatures: Dispatcher [employer] Steph Lynn RN RN Alcides Arnold RN RN rv Lewis, Lynsay, RN RN 1 Mariam Gilliland 5 Andrea Renae MD MD ec2
[2023-09-26 22:49] VITALS: O2SAT 99
[2023-09-26 22:55] VITALS: BP 138/81; TEMP 98
== END ==
LOC: ER 17:51
DX: M25.512 Pain in left shoulder (principal); R07.89 Other chest pain; F41.9 Anxiety disorder, unspecified; Z88.0 Allergy status to penicillin; Z88.1 Allergy status to other antibiotic agents; Z88.6 Allergy status to analgesic agent; Z88.8 Allergy status to other drugs, medicaments and biological substances
CPT/HCPCS: 73030; 99283; J2001

== ENCOUNTER → 2023-10-10 | Emergency (ER) | payer BC ==
[~2023-10-10] MED LIST changes: +HYDROCODONE/APAP 7.5/325 MG TAB ONE; -LIDOCAINE 4% PATCH ONE; +NA CHLORIDE 0.9% 1,000 ML ONE; +ONDANSETRON 4 MG/2 ML VIAL ONE; +POTASSIUM CL SA 10 MEQ TAB PO ONE; -methocarbamoL 750 MG TAB ONE
--- OUTSIDE RECORDS SUMMARY | 2023-10-10 13:29 | XMS REPORT | Continuity of Care Document ---
Author Name Unknown Address [address] [facility] [address] [place] [address] [facility] thconnect Address [address] [facility] [address] [place] [address] Care Team Providers Care Alarm Signaler Name Role Phone PCP, PATIENT DOES NOT HAVE A Primary Care Physic tom Unavailable INDIO WHITFIELD Attending Clinician Unavailable JUAN GUNTER Attending Clinician Unavailable RD JACOBSON Attending Clinician Unavailable Rd Hunter Attending Clinician [phone] DEBBIE DUVALL Attending Clinician Unavailable Debbie Barnes S Attending Clinician [phone] Doctor Unassigned, Poynor Attending Clinician U NORM Estrella Attending Clinician Unavailab Magdalena Steve LMSW Attending Clinician UnaGRADY Torres Attending Clinician Unavailab Grady Del Toro Attending Clinician Rey Schultz DO Attending Clinician [phone] Kaylin Garber Attending Clinician KAYLIN MARCELO Attending Clinician UnavailRD Jerez Admitting Clinician Unavailable Payers Payer Name Policy Type Policy Number Effective Date Expirati on Date Source BCBS 2 [id number] 2023 00:00:00 [employer] [place] OUT [place] [id number] 2023 00:00:00 Problems Condition Name Condition Details Condition Category Status Onset Date Resolution Date Last Treatment Date Treating Clinician Comments Source Encounter for Nexplanon removal Encounter for Nexplanon removal Disease Active 2019-10 00:00: 00 [facility] Chlamydia trachomati s infection of lower genitourin nicolas sites Chlamydia trachomati s infection of lower genitourin nicolas sites Disease Active 02-15 00:00: 00 [facility] Tobacco use disorder Tobacco use disorder Disease Active 06-12 00:00: 00 [facility] Encounter for initial prescripti on of contracept doug pills Encounter for initial prescripti on of contracept doug pills Disease Active 06-12 00:00: 00 Overview: Formattin g of this note might be different from the original. 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 ICD10 Diagnosis Term Process [employer] Utility [facility] Allergies, Adverse Reactions, Alerts Allergy Name Allergy Type Status Severity Reaction(s) Onset Date Inactive Date Treating Clinician Comments Source DIPHENHY DRAMINE HCL DRUG INGREDI Active High Anaphylaxis 2022-10 00:00: 00 [facility] METOCLOP RAMIDE DRUG INGREDI Active Med Rash 2022-10 0 00:00: 00 [facility] Diphenhy dramine Hcl Propensi ty to adverse reaction s Active Anaphylaxis 2022-10 00:00: 00 [facility] Metoclop ramide Propensi ty to adverse reaction s Active Rash 2023 00:00: 00 [facility] Penicill ins Propensi ty to adverse reaction s to drug Active Anaphylaxis 12-21 00:00: 00 Lip swelling & some difficult y in swallowin g. [facility] PENICILL INS Drug Class Active High Anaphylaxis 12-21 00:00: 00 [facility] Penicill ins Propensi ty to adverse reaction s to drug Active Anaphylaxis 12-21 00:00: 00 Lip swelling & some difficult y in swallowin g. [facility] Social History Social Habit Start Date Stop Date Quantity Comments Source History of tobacco use Cigarette Smoker [facility] 2023-08-18 00:00:00 2023-08-18 00:00:00 Current non-drinker of alcohol (finding) [facility] Exposure to SARS-CoV-2 (event) 2021-03-22 00:00:00 2021-04-21 07:48:00 Not sure [facility] History of Social function 2020-06-29 00:00:00 2020-06-29 00:00:00 [facility] Tobacco use and exposure 2014-06-12 00:00:00 2014-06-12 00:00:00 Smokeless tobacco non-user [facility] Tobacco Comment 2014-06-12 00:00:00 2014-06-12 00:00:00 states smokes 4-5 cigarettes per day [facility] Sex Assigned At 1995 00:00:00 1995 00:00:00 [facility] Smoking Status Start Date Stop Date Source Smokes tobacco daily 2014-06-12 00:00:00 [facility] Medications Ordered Medication Name Filled Medication Name Start Date Stop Date Current Medication? Ordering Clinician Indication Dosage Frequency Signature (SIG) Comments Components Source ondansetron (ZOFRAN-ODT ) disintegrat ing tablet 4 mg 2022-10 04:45: 00 08-19 04:01 :00 No 4mg 4 mg, Oral, ONCE, 1 dose, On Mon08/18/23 at 2245, MARLEN [facility] predniSONE (DELTASONE) tablet 30 mg 2022-10 04:00: 00 08-19 04:01 :00 No 30mg 30 mg, Oral, ONCE, 1 dose, On Mon08/18/23 at 2200, MARLEN [facility] ipratropium -albuteroL (DUONEB) 0.5 mg-3 mg(2.5 mg base)/3 mL nebulizer solution 3 mL 2022-10 03:48: 00 08-19 04:01 :00 No 3mL 3 mL, Inhalation , ONCE, 1 dose, [facility] on inhaler 2022-10 00:00: 00 Yes [id number] 2{puff} Inhale 2 Puffs every 4 (four) hours as needed for Wheezing, Shortness of Breath or Bronchospa sm. [facility] ondansetron 4 mg disintegrat ing tablet 2022-10 00:00: 00 Yes [id number] 4mg Take 1 tablet by mouth every 8 (eight) hours as needed for Nausea and Vomiting (N/V). [facility] predniSONE 10 mg tablet 2022-10 00:00: 00 08-22 05:59 :00 Yes [id number] 30mg Take 3 tablets by mouth in the morning for 3 days. [facility] ondansetron (ZOFRAN-ODT ) disintegrat ing tablet 4 mg 2022-10 0 01:00: 00 07-30 00:08 :00 No 4mg 4 mg, Oral, ONCE, 1 dose, On 07/29/23 at 2000, Routine [facility] ondansetron 4 mg disintegrat ing tablet 2022-10 0 00:00: 00 Yes [id number] 4mg Take 1 tablet by mouth every 8 (eight) hours as needed for Nausea and Vomiting (N/V). [facility] ondansetron 4 mg disintegrat ing tablet 2022-10 00:00: 00 Yes [id number] 4mg Take 1 tablet by mouth every 8 (eight) hours as needed for Nausea and Vomiting (N/V). [facility] LOESTRIN FE (MICROGESTI N FE 1/20) 1 mg-20 mcg (21)/75 mg (7) tablet 2019-10 00:00: 00 Yes [id number] 1{tbl} Take 1 tablet by mouth daily. [facility] LOESTRIN FE (MICROGESTI N FE 1/20) 1 mg-20 mcg (21)/75 mg (7) tablet 2019-10 00:00: 00 Yes [id number] 1{tbl} Take 1 tablet by mouth daily. [facility] LOESTRIN FE (MICROGESTI N FE 1/20) 1 mg-20 mcg (21)/75 mg (7) tablet 2019-10 00:00: 00 Yes [id number] 1{tbl} Take 1 tablet by mouth daily. [facility] LOESTRIN FE (MICROGESTI N FE 1/20) 1 mg-20 mcg (21)/75 mg (7) tablet 2019-10 00:00: 00 Yes [id number] 1{tbl} Take 1 tablet by mouth daily. [facility] LOESTRIN FE (MICROGESTI N FE /20) 1 mg-20 mcg (21)/75 mg (7) tablet 2019-10 00:00: 00 Yes [id number] 1{tbl} Take 1 tablet by mouth daily. [facility] LOESTRIN FE (MICROGESTI N FE 1/20) 1 mg-20 mcg (21)/75 mg (7) tablet 2019-10 00:00: 00 Yes [id number] 1{tbl} Take 1 tablet by mouth daily. [facility] LOESTRIN FE (MICROGESTI N FE 1/20) 1 mg-20 mcg (21)/75 mg (7) tablet 2019-10 00:00: 00 Yes [id number] 1{tbl} Take 1 tablet by mouth daily. [facility] LOESTRIN FE (MICROGESTI N FE 1/20) 1 mg-20 mcg (21)/75 mg (7) tablet 2019-10 00:00: 00 Yes [id number] 1{tbl} Take 1 tablet by mouth daily. [facility] LOESTRIN FE (MICROGESTI N FE 1/20) 1 mg-20 mcg (21)/75 mg (7) tablet 2019-10 00:00: 00 Yes [id number] 1{tbl} Take 1 tablet by mouth daily. [facility] LOESTRIN FE (MICROGESTI N FE /20) 1 mg-20 mcg (21)/75 mg (7) tablet 2019-10 00:00: 00 Yes [id number] 1{tbl} Take 1 tablet by mouth daily. [facility] LOESTRIN FE (MICROGESTI N FE /20) 1 mg-20 mcg (21)/75 mg (7) tablet 2019-10 00:00: 00 Yes [id number] 1{tbl} Take 1 tablet by mouth daily. [facility] LOESTRIN FE (MICROGESTI N FE /20) 1 mg-20 mcg (21)/75 mg (7) tablet 2019-10 00:00: 00 Yes [id number] 1{tbl} Take 1 tablet by mouth daily. [facility] LOESTRIN FE (MICROGESTI N FE /20) 1 mg-20 mcg (21)/75 mg (7) tablet 2019-10 00:00: 00 Yes [id number] 1{tbl} Take 1 tablet by mouth daily. [facility] LOESTRIN FE (MICROGESTI N FE /20) 1 mg-20 mcg (21)/75 mg (7) tablet 2019-10 00:00: 00 Yes [id number] 1{tbl} Take 1 tablet by mouth daily. [facility] LOESTRIN FE (MICROGESTI N FE 1/20) 1 mg-20 mcg (21)/75 mg (7) tablet 2019-10 00:00: 00 Yes [id number] 1{tbl} Take 1 tablet by mouth daily. [facility] LOESTRIN FE (MICROGESTI N FE 1/20) 1 mg-20 mcg (21)/75 mg (7) tablet 2019-10 00:00: 00 Yes [id number] 1{tbl} Take 1 tablet by mouth daily. [facility] LOESTRIN FE (MICROGESTI N FE /20) 1 mg-20 mcg (21)/75 mg (7) tablet 2019-10 00:00: 00 Yes [id number] 1{tbl} Take 1 tablet by mouth daily. [facility] LOESTRIN FE (MICROGESTI N FE /20) 1 mg-20 mcg (21)/75 mg (7) tablet 2019-10 00:00: 00 Yes [id number] 1{tbl} Take 1 tablet by mouth daily. [facility] LOESTRIN FE (MICROGESTI N FE /20) 1 mg-20 mcg (21)/75 mg (7) tablet 2019-10 00:00: 00 Yes [id number] 1{tbl} Take 1 tablet by mouth daily. [facility] LOESTRIN FE (MICROGESTI N FE /20) 1 mg-20 mcg (21)/75 mg (7) tablet 2019-10 00:00: 00 Yes [id number] 1{tbl} Take 1 tablet by mouth daily. [facility] LOESTRIN FE (MICROGESTI N FE /20) 1 mg-20 mcg (21)/75 mg (7) tablet 2019-10 00:00: 00 Yes [id number] 1{tbl} Take 1 tablet by mouth daily. [facility] clindamycin 300 mg capsule 2019-10 00:00: 00 Yes TAKE 1 CAPSULE BY MOUTH EVERY 6 HOURS FOR 10 DAYS [facility] clindamycin 300 mg capsule 2019-10 00:00: 00 Yes TAKE 1 CAPSULE BY MOUTH EVERY 6 HOURS FOR 10 DAYS [facility] clindamycin 300 mg capsule 2019-10 00:00: 00 Yes TAKE 1 CAPSULE BY MOUTH EVERY 6 HOURS FOR 10 DAYS [facility] clindamycin 300 mg capsule 2019-10 00:00: 00 Yes TAKE 1 CAPSULE BY MOUTH EVERY 6 HOURS FOR 10 DAYS [facility] clindamycin 300 mg capsule 2019-10 00:00: 00 Yes TAKE 1 CAPSULE BY MOUTH EVERY 6 HOURS FOR 10 DAYS [facility] clindamycin 300 mg capsule 2019-10 00:00: 00 Yes TAKE 1 CAPSULE BY MOUTH EVERY 6 HOURS FOR 10 DAYS [facility] clindamycin 300 mg capsule 2019-10 00:00: 00 Yes TAKE 1 CAPSULE BY MOUTH EVERY 6 HOURS FOR [address] [facility] clindamycin 300 mg capsule 2019-10 00:00: 00 Yes TAKE 1 CAPSULE BY MOUTH EVERY 6 HOURS FOR [address] [facility] clindamycin 300 mg capsule 2019-10 00:00: 00 Yes TAKE 1 CAPSULE BY MOUTH EVERY 6 HOURS FOR 10 DAYS [facility] clindamycin 300 mg capsule 2019-10 00:00: 00 Yes TAKE 1 CAPSULE BY MOUTH EVERY 6 HOURS FOR [address] [facility] clindamycin 300 mg capsule 2019-10 00:00: 00 Yes TAKE 1 CAPSULE BY MOUTH EVERY 6 HOURS FOR [address] [facility] clindamycin 300 mg capsule 2019-10 00:00: 00 Yes TAKE 1 CAPSULE BY MOUTH EVERY 6 HOURS FOR [address] [facility] clindamycin 300 mg capsule 2019-10 00:00: 00 Yes TAKE 1 CAPSULE BY MOUTH EVERY 6 HOURS FOR [address] [facility] clindamycin 300 mg capsule 2019-10 00:00: 00 Yes TAKE 1 CAPSULE BY MOUTH EVERY 6 HOURS FOR [address] [facility] clindamycin 300 mg capsule 2019-10 00:00: 00 Yes TAKE 1 CAPSULE BY MOUTH EVERY 6 HOURS FOR [address] [facility] clindamycin 300 mg capsule 2019-10 00:00: 00 Yes TAKE 1 CAPSULE BY MOUTH EVERY 6 HOURS FOR [address] [facility] clindamycin 300 mg capsule 2019-10 00:00: 00 Yes TAKE 1 CAPSULE BY MOUTH EVERY 6 HOURS FOR [address] [facility] clindamycin 300 mg capsule 2019-10 00:00: 00 Yes TAKE 1 CAPSULE BY MOUTH EVERY 6 HOURS FOR 10 DAYS [facility] clindamycin 300 mg capsule 2019-10 00:00: 00 Yes TAKE 1 CAPSULE BY MOUTH EVERY 6 HOURS FOR 10 DAYS [facility] clindamycin 300 mg capsule 2019-10 00:00: 00 Yes TAKE 1 CAPSULE BY MOUTH EVERY 6 HOURS FOR 10 DAYS [facility] clindamycin 300 mg capsule 2019-10 00:00: 00 Yes TAKE 1 CAPSULE BY MOUTH EVERY 6 HOURS FOR 10 DAYS [facility] methylPREDN ISolone (MEDROL, ALEK,) 4 mg tablets 2018-10 00:00: 00 Yes [id number] Take by mouth SEE-INSTRU CTIONS. follow package directions [facility] methylPREDN ISolone (MEDROL, ALEK,) 4 mg tablets 2018-10 00:00: 00 06-29 00:00 :00 No [id number] Take by mouth SEE-INSTRU CTIONS. follow package directions [facility] methylPREDN ISolone (MEDROL, ALEK,) 4 mg tablets 2018-10 00:00: 00 06-29 00:00 :00 No [id number] Take by mouth SEE-INSTRU CTIONS. follow package directions [facility] azithromyci n 500 mg tablet 02-15 00:00: 00 Yes 1000mg Take 2 tablets by mouth daily. [facility] azithromyci n 500 mg tablet 02-15 00:00: 00 06-29 00:00 :00 No 1000mg Take 2 tablets by mouth daily. [facility] azithromyci n 500 mg tablet 02-15 00:00: 00 06-29 00:00 :00 No 1000mg Take 2 tablets by mouth daily. [facility] promethazin e 6.25 mg/5 mL solution 02-09 00:00: 00 Yes 6.25mg Take 5 mL by mouth every 6 (six) hours as needed for Nausea and Vomiting (N/V). [facility] promethazin e 6.25 mg/5 mL solution 02-09 00:00: 00 06-29 00:00 :00 No 6.25mg Take 5 mL by mouth every 6 (six) hours as needed for Nausea and Vomiting (N/V). [facility] promethazin e 6.25 mg/5 mL solution 02-09 00:00: 00 06-29 00:00 :00 No 6.25mg Take 5 mL by mouth every 6 (six) hours as needed for Nausea and Vomiting (N/V). [facility] benzonatate (TESSALON) 200 mg capsule 2014-10 00:00: 00 Yes 200mg Take 1 Cap by mouth 3 (three) times daily as needed for Cough. [facility] albuterol (VENTOLIN) 90 mcg/actuati on inhaler 2014-10 00:00: 00 Yes 2{puff} Inhale 2 Puffs every 6 (six) hours as needed for Wheezing, Shortness of Breath or Chest tightness. [facility] methylPREDN ISolone (MEDROL DOSE-ALEK) 4 mg tablets 2014-10 00:00: 00 Yes follow package directions [facility] benzonatate (TESSALON) 200 mg capsule 2014-10 00:00: 00 06-29 00:00 :00 No 200mg Take 1 Cap by mouth 3 (three) times daily as needed for Cough. [facility] albuterol (VENTOLIN) 90 mcg/actuati on inhaler 2014-10 00:00: 00 06-29 00:00 :00 No 2{puff} Inhale 2 Puffs every 6 (six) hours as needed for Wheezing, Shortness of Breath or Chest tightness. [facility] methylPREDN ISolone (MEDROL DOSE-ALEK) 4 mg tablets 2014-10 00:00: 00 06-29 00:00 :00 No follow package directions [facility] benzonatate (TESSALON) 200 mg capsule 2014-10 00:00: 00 06-29 00:00 :00 No 200mg Take 1 Cap by mouth 3 (three) times daily as needed for Cough. [facility] albuterol (VENTOLIN) 90 mcg/actuati on inhaler 2014-10 00:00: 00 06-29 00:00 :00 No 2{puff} Inhale 2 Puffs every 6 (six) hours as needed for Wheezing, Shortness of Breath or Chest tightness. [facility] methylPREDN ISolone (MEDROL DOSE-ALEK) 4 mg tablets 2014-10 00:00: 00 06-29 00:00 :00 No follow package directions [facility] No known medications No [facility] Immunizations Ordered Immunization Name Filled Immunization Name Date Status Comments Source HPV 2014-06-12 00:00:00 Completed [facility] HPV 2014-06-12 00:00:00 Completed [facility] HPV 2014-06-12 00:00:00 Completed [facility] HPV 2014-06-12 00:00:00 Completed [facility] HPV 2014-06-12 00:00:00 Completed [facility] HPV 2014-06-12 00:00:00 Completed [facility] HPV 2014-06-12 00:00:00 Completed [facility] HPV 2014-06-12 00:00:00 Completed [facility] HPV 2014-06-12 00:00:00 Completed [facility] HPV 2014-06-12 00:00:00 Completed [facility] HPV 2014-06-12 00:00:00 Completed [facility] HPV 2014-06-12 00:00:00 Completed [facility] HPV 2014-06-12 00:00:00 Completed [facility] HPV 2014-06-12 00:00:00 Completed [facility] HPV 2014-06-12 00:00:00 Completed [facility] HPV 2011-07-19 00:00:00 Completed [facility] HPV 2011-07-19 00:00:00 Completed [facility] HPV 2011-07-19 00:00:00 Completed [facility] HPV 2011-07-19 00:00:00 Completed [facility] HPV 2011-07-19 00:00:00 Completed [facility] HPV 2011-07-19 00:00:00 Completed [facility] HPV 2011-07-19 00:00:00 Completed [facility] HPV 2011-07-19 00:00:00 Completed [facility] HPV 2011-07-19 00:00:00 Completed [facility] HPV 2011-07-19 00:00:00 Completed [facility] HPV 2011-07-19 00:00:00 Completed [facility] HPV 2011-07-19 00:00:00 Completed [facility] HPV 2011-07-19 00:00:00 Completed [facility] HPV 2011-07-19 00:00:00 Completed [facility] HPV 2011-07-19 00:00:00 Completed [facility] Td 2011-05-12 00:00:00 Completed [facility] Td 2011-05-12 00:00:00 Completed [facility] Td 2011-05-12 00:00:00 Completed [facility] Td 2011-05-12 00:00:00 Completed [facility] Td 2011-05-12 00:00:00 Completed [facility] Td 2011-05-12 00:00:00 Completed [facility] Td 2011-05-12 00:00:00 Completed [facility] Td 2011-05-12 00:00:00 Completed [facility] Td 2011-05-12 00:00:00 Completed [facility] Td 2011-05-12 00:00:00 Completed [facility] Td 2011-05-12 00:00:00 Completed [facility] Td 2011-05-12 00:00:00 Completed [facility] Td 2011-05-12 00:00:00 Completed [facility] Td 2011-05-12 00:00:00 Completed [facility] Td 2011-05-12 00:00:00 Completed [facility] HPV 2010-06-23 00:00:00 Completed [facility] HPV 2010-06-23 00:00:00 Completed [facility] HPV 2010-06-23 00:00:00 Completed [facility] HPV 2010-06-23 00:00:00 Completed [facility] HPV 2010-06-23 00:00:00 Completed [facility] HPV 2010-06-23 00:00:00 Completed [facility] HPV 2010-06-23 00:00:00 Completed [facility] HPV 2010-06-23 00:00:00 Completed [facility] HPV 2010-06-23 00:00:00 Completed [facility] HPV 2010-06-23 00:00:00 Completed [facility] HPV 2010-06-23 00:00:00 Completed [facility] HPV 2010-06-23 00:00:00 Completed [facility] HPV 2010-06-23 00:00:00 Completed [facility] HPV 2010-06-23 00:00:00 Completed [facility] HPV 2010-06-23 00:00:00 Completed [facility] TD, NOS Unknown Completed [facility] HPV Unknown Completed [facility] TD, NOS Unknown Completed [facility] HPV Unknown Completed [facility] TD, NOS Unknown Completed [facility] HPV Unknown Completed [facility] TD, NOS Unknown Completed [facility] HPV Unknown Completed [facility] TD, NOS Unknown Completed [facility] HPV Unknown Completed [facility] TD, NOS Unknown Completed [facility] HPV Unknown Completed [facility] TD, NOS Unknown Completed [facility] HPV Unknown Completed [facility] TD, NOS Unknown Completed [facility] HPV Unknown Completed [facility] TD, NOS Unknown Completed [facility] HPV Unknown Completed [facility] TD, NOS Unknown Completed [facility] HPV Unknown Completed [facility] Vital Signs Vital Name Observation Time Observation Value Comments S ource Systolic blood pressure 2023-08-19 06:00:00 130 mm[Hg] [facility] Diastolic blood pressure 2023-08-19 06:00:00 85 mm[Hg] [facility] Heart rate 2023-08-19 06:00:00 86 /[facility] 2023-08-19 06:00:00 18 /min [facility] Oxygen saturation in Arterial blood by Pulse oximetry 2023-08-19 06:00:00 99 /min [facility] Body temperature 2023-08-19 01:30:00 37 Devika [facility] Body height 2023-08-19 01:30:00 157.5 cm [facility] Body weight 2023-08-19 01:30:00 99.338 kg [facility] BMI 2023-08-19 01:30:00 40.06 kg/m2 [facility] Heart rate 2023-07-30 02:00:00 99 /min [facility] Respiratory rate 2023-07-30 02:00:00 18 /min [facility] Oxygen saturation in Arterial blood by Pulse oximetry 2023-07-30 02:00:00 99 /min [facility] Systolic blood pressure 2023-07-29 23:34:00 144 mm[Hg] [facility] Diastolic blood pressure 2023-07-29 23:34:00 94 mm[Hg] [facility] Body temperature 2023-07-29 23:34:00 36.83 Devika [facility] Body height 2023-07-29 23:34:00 157.5 cm [facility] Body weight 2023-07-29 23:34:00 99.338 kg [facility] BMI 2023-07-29 23:34:00 40.06 kg/m2 [facility] Systolic blood pressure 2021-04-21 12:51:00 124 mm[Hg] [facility] Diastolic blood pressure 2021-04-21 12:51:00 83 mm[Hg] [facility] Heart rate 2021-04-21 12:51:00 74 /min [facility] Body temperature 2021-04-21 12:51:00 36.72 Devika [facility] Respiratory rate 2021-04-21 12:51:00 16 /min [facility] Body height 2021-04-21 12:51:00 157.5 cm [facility] Body weight 2021-04-21 12:51:00 90.629 kg [facility] BMI 2021-04-21 12:51:00 36.54 kg/m2 [facility] Systolic blood pressure 2020-10-28 15:01:00 132 mm[Hg] [facility] Diastolic blood pressure 2020-10-28 15:01:00 81 mm[Hg] [facility] Heart rate 2020-10-28 15:01:00 87 /min [facility] Body temperature 2020-10-28 15:01:00 36.39 Devika [facility] Respiratory rate 2020-10-28 15:01:00 16 /min [facility] Body height 2020-10-28 15:01:00 157.5 cm [facility] Body weight 2020-10-28 15:01:00 83.575 kg [facility] BMI 2020-10-28 15:01:00 33.70 kg/m2 [facility] Systolic blood pressure 2020-10-28 15:01:00 132 mm[facility]Hg[facility] Diastolic blood pressure 2020-10-28 15:01:00 81 mm[Hg] [facility] Heart rate 2020-10-28 15:01:00 87 /min [facility] Body temperature 2020-10-28 15:01:00 36.39 Devika [facility] Respiratory rate 2020-10-28 15:01:00 16 /min [facility] Body height 2020-10-28 15:01:00 157.5 cm [facility] Body weight 2020-10-28 15:01:00 83.575 kg [facility] BMI 2020-10-28 15:01:00 33.70 kg/m2 [facility] Systolic blood pressure 2020-08-20 21:53:00 125 mm[Hg] [facility] Diastolic blood pressure 2020-08-20 21:53:00 86 mm[Hg] [facility] Heart rate 2020-08-20 21:53:00 97 /min [facility] Body temperature 2020-08-20 21:53:00 36.67 Devika [facility] Respiratory rate 2020-08-20 21:53:00 16 /min [facility] Body height 2020-08-20 21:53:00 154.9 cm [facility] Body weight 2020-08-20 21:53:00 79.493 kg [facility] BMI 2020-08-20 21:53:00 33.11 kg/m2 [facility] Systolic blood pressure 2020-06-29 20:34:00 125 mm[Hg] [facility] Diastolic blood pressure 2020-06-29 20:34:00 81 mm[Hg] [facility] Heart rate 2020-06-29 20:34:00 87 /min [facility] 2020-06-29 20:34:00 37.11 Devika [facility] Respiratory rate 2020-06-29 20:34:00 16 /min [facility] Body height 2020-06-29 20:34:00 154.9 cm [facility] Body weight 2020-06-29 20:34:00 80.423 kg [facility] BMI 2020-06-29 20:34:00 33.50 kg/m2 [facility] Procedures Procedure Date / Time Performed Performing Clinician Source XR CHEST 2 VW 2023-08-19 04:22:04 Rd Jacobson [facility] POCT TEST 2023-08-19 02:48:00 Louis Jacobson [facility] RAPID STREP SCREEN FOR GROUP A 2023-08-19 01:41:00 Rd Jacobson [facility] RAPID INFLUENZA A/B 2023-08-19 01:41:00 Louis Jacobson [facility] COVID-19 (ID NOW RAPID TESTING) 2023-08-19 01:41:00 Rd Jacobson [facility] CONSENT/REFUSAL FOR DIAGNOSIS AND TREATMENT 2023-08-19 01:15:02 Doctor Unassigned, [place] [facility] ASSIGNMENT OF BENEFITS 2023-07-30 00:34:02 Docto r Unassigned, [place] [facility] RAPID INFLUENZA A/B 2023-07-30 00:08:00 Debbie Duvall [facility] COVID-19 (ID NOW RAPID TESTING) 2023-07-30 00:08:00 Debbie Duvall [facility] RAPID STREP SCREEN FOR GROUP A 2023-07-29 23:43:00 Debbie Duvall [facility] CONSENT/REFUSAL FOR DIAGNOSIS AND TREATMENT 2023-07-29 23:22:59 Doctor Unassigned, [place] [facility] POCT TEST 2020-10-28 16:05:00 Sima Jacobsen [facility] AUTHORIZATION TO RELEASE PHI TO [facility] 2020-10-28 06:01:00 Doctor Unassigned, [place] [facility] PATIENT FINANCIAL POLICY 2020-08-20 22:22:14 Doctor Unassigned, [place] [facility] POCT TEST 2020-08-20 21:55:00 Mike Mensah [facility] ASSIGNMENT OF BENEFITS 2020-06-29 19:57:27 Docto r Unassigned, [place] [facility] Encounters Start Date/Time End Date/Time Encounter Type Admission Type Attending [facility] Facility Care Department Encounter ID Source 2023-08-30 13:30:00 2023-08-30 13:30:00 Outpatient INDIO WHITFIELD [id number] Natybrenna Medellin 2023-08-21 15:05:00 2023-08-21 18:50:00 Emergency E [facility] [id number] [facility] 2023-08-18 19:32:00 2023-08-19 00:09:00 Emergency X IRAIDAJOERD [facility] ERT [id number] [facility] 2023-08-18 19:32:00 2023-08-19 00:09:[address] Jacobson [facility] [id number] 350.1.13.10 4.2.7.2.686 [id number] [facility] 2023-08-17 13:00:00 2023-08-17 13:00:00 Outpatient INDIO WHITFIELD [id number] Naty Medellin 2023-07-29 18:44:00 2023-07-29 21:18:00 Emergency X DEBBIE DUVALL [facility] ERT [id number] [facility] 2023-07-29 18:44:00 2023-07-29 21:18:00 Emergency Debbie Duvall [facility] 1.84.114 350.1.13.10 4.2.7.2.686 [id number] [facility] 2023-07-29 00:00:00 2023-07-29 00:00:00 Orders Only Doctor Unassigned, [place] [facility] 1..114 350.1.13.10 4.2.7.2.686 [id number] [facility] 2023-06-07 13:30:00 2023-06-07 13:30:00 Outpatient NORM HARRINGTON [id number] Naty Medellin 2021-07-19 00:00:00 2021-07-19 00:00:00 Case Management Magdalena Tai 1.84.114 350.1.13.10 4.2.7.2.686 [id number] [facility] 2021-06-29 08:45:00 2021-06-29 08:45:00 Outpatient GRADY AIKEN [facility] [id number] [facility] 2021-05-24 00:00:00 2021-05-24 00:00:00 Patient Secure Msg Doctor Unassigned, [place] [facility] 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 [facility] 1.84.114 350.1.13.10 4.2.7.2.686 [id number] [facility] 2021-05-21 00:00:00 2021-05-21 00:00:00 Patient Secure Msg Doctor Unassigned, [place] [facility] 1.840.114 350.1.13.10 4.2.7.2.686 [id number] [facility] 2021-05-05 08:30:00 2021-05-05 08:30:00 Outpatient R [facility] [id number] [facility] 2021-04-30 00:00:00 2021-04-30 00:00:00 Patient Secure Msg Doctor Unassigned, [place] [facility] 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 1.2840.114 350.1.13.10 4.2.7.2.686 [id number] [facility] 2021-04-28 00:00:00 2021-04-28 00:00:00 Patient Secure Msg Doctor Unassigned, [place] [facility] 1.2840.114 350.1.13.10 4.2.7.2.686 [id number] [facility] 2021-04-22 00:00:00 2021-04-22 00:00:00 Telephone Grady Jacobsen [facility] 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 [facility] 1.2840.114 350.1.13.10 4.2.7.2.686 [id number] [facility] 2021-04-21 07:36:35 2021-04-21 08:11:32 Office Visit Grady Jacobsen [facility] 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 [facility] 1.2.840.114 350.1.13.10 4.2.7.2.686 [id number] [facility] 2021-04-21 07:45:00 2021-04-21 07:45:00 Outpatient Magnolia JACOBSEN, GRADY [facility] [id number] [facility] 2021-04-06 16:00:00 2021-04-06 16:00:00 Outpatient Magnolia JACOSBEN, EDIETNBasilio [facility] [id number] [facility] 2021-04-06 00:00:00 2021-04-06 00:00:00 Patient Secure Msg Doctor Unassigned, [place] [facility] 1.2840.114 350.1.13.10 4.2.7.2.686 [id number] [facility] 2020-12-22 00:00:00 2020-12-22 00:00:00 Patient Outreach Rey Schultz [facility] 1.2.840.114 350.1.13.10 4.2.7.2.686 [id number] [facility] 2020-12-22 00:00:00 2020-12-22 00:00:00 Patient Outreach Antoine Rey [facility] 1.2.840.114 350.1.13.10 4.2.7.2.686 [id number] 2020-10-28 08:53:19 2020-10-28 09:37:34 Office Visit Grady Jacobsen [facility] 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 [facility]ILD [facility] 1.2.840.114 350.1.13.10 4.2.7.2.686 [id number] [facility] 2020-10-28 08:53:19 2020-10-28 09:37:34 Office Visit Grady Jacobsen [facility] 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 [facility] 1.2.840.114 350.1.13.10 4.2.7.2.686 [id number] 2020-10-28 08:45:00 2020-10-28 08:45:00 Outpatient R GRADY JACOBSEN [facility] [id number] [facility] 2020-10-28 00:00:00 2020-10-28 00:00:00 Orders Only Doctor Unassigned, [place] [facility] 1.2840.114 350.1.13.10 4.2.7.2.686 [id number] [facility] 2020-10-28 00:00:00 2020-10-28 00:00:00 Orders Only Doctor Unassigned, [place] [facility] 1.2.840.114 350.1.13.10 4.2.7.2.686 [id number] 2020-08-20 15:44:35 2020-08-20 16:38:18 Office Visit Kaylin Marcelo [facility] 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 [facility] 1.2.840.114 350.1.13.10 4.2.7.2.686 [id number] [facility] 2020-08-20 15:45:00 2020-08-20 15:45:00 Outpatient R KAYLIN MARCELO [facility] [id number] [facility] 2020-08-20 00:00:00 2020-08-20 00:00:00 Orders Only Doctor Unassigned, [place] [facility] 1.2.840.114 350.1.13.10 4.2.7.2.686 [id number] [facility] 2020-07-09 09:45:00 2020-07-09 09:45:00 Outpatient R GRADY JACOBSEN [facility] [id number] [facility] 2020-06-29 15:01:06 2020-06-29 16:00:36 Office Visit Grady Jacobsen [facility] 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 [facility] 1..840.114 350.1.13.10 4.2.7.2.686 [id number] [facility] 2020-06-29 15:00:00 2020-06-29 15:00:00 Outpatient GRADY AIKEN [facility] [id number] [facility] 2020-06-29 00:00:00 2020-06-29 00:00:00 Orders Only Doctor Unassigned, [place] [facility] 1..840.114 350.1.13.10 4.2.7.2.686 [id number] [facility] 2020-06-04 10:45:00 2020-06-04 10:45:00 Outpatient GRADY AIKEN [facility] [id number] [facility] Results Test Description Test Time Test Comments Results Result Co mments Source [id number] 16:06:00* Test Item Value Reference Range Interpretation Comme nts POCT PREG (test code = 1605) Negative On board controls acceptable with C Line (test code = 3574) Yes POCT PREG LOT # (test code = 3575) POCT PREG TEST DATE ( test code = 3576) [facility] [id number] 21:55:00* Test Item Value Reference Range Interpretation Comme nts POCT PREG (test code = 1605) Negative On board controls acceptable with C Line (test code = 3574) Yes POCT PREG LOT # (test code = 3575) POCT PREG TEST DATE ( test code = 3576) [facility] [id number] 21:55:00* Test Item Value Reference Range Interpretation Comme nts POCT PREG (test code = 1605) Negative On board controls acceptable with C Line (test code = 3574) Yes POCT PREG LOT # (test code = 3575) POCT PREG TEST DATE ( test code = 3576) [facility]
[2023-10-10 15:13] LABS: Absolute Lymphocytes (CBC) 1.7 K/uL (0.7-4.9); Hematocrit 30.7 % (36.0-45.0); Lymphocytes % 17.6 % (15.3-44.8); MCV 74.6 fL (80-100); MPV 8.1 fL (7.6-11.3); Platelets 307 thou/uL (152-406); RBC Red Blood Cell Count 4.12 M/uL (3.86-4.86)
[2023-10-10 15:15] LABS: Specific Gravity 1.005 (1.005-1.030)
[2023-10-10 15:16] LABS: Specific Gravity 1.005 (1.005-1.030); Urine Bilirubin NEGATIVE (Negative); Urine Blood Negative (Negative); Urine Clarity Clear (Clear); Urine Color Colorless (Yellow); Urine Glucose NEGATIVE (Negative); Urine Protein NEGATIVE (Negative); Urine Urobilinogen Normal (Normal)
[2023-10-10 15:31] LABS: Albumin 3.6 g/dL (3.4-5.0); Bilirubin Total 0.3 mg/dL (0.2-1.0); Potassium 3.3 mEq/L (3.5-5.1); Protein, Total 7.8 g/dL (6.4-8.2)
--- NOTE | 2023-10-10 16:32 | RAD REPORT ---
EXAM DESCRIPTION: CTAbdomen Pelvis W Contrast - 10/10/2023 4:16 pm CLINICAL HISTORY: ABD PAIN COMPARISON: Abdomen Pelvis W Contrast dated 12/25/2021; Abdomen Pelvis W Contrast dated 04/05/2021; Abdomen Pelvis W Contrast dated 09/23/2020 TECHNIQUE: CT of the abdomen and pelvis was performed. All CT scans are performed using dose optimization technique as appropriate and may include automated exposure control or mA/KV adjustment according to patient size. FINDINGS: Lower chest: No acute abnormality. Liver: No acute abnormality or suspicious lesions. Biliary: No biliary ductal dilatation. Stomach: No significant focal abnormality. Duodenum: No significant focal abnormality. Pancreas: No significant abnormality. Spleen: No significant abnormality. Adrenal: No suspicious lesions. Kidney/ureter: No hydronephrosis. No renal calculi. No ureteral calculi. Retroperitoneum: No retroperitoneal adenopathy. Vascular: No aneurysm. Bowel: No significant focal abnormality. Normal appendix. Peritoneum: No ascites or free air. Bladder: Grossly unremarkable. Reproductive: No adnexal masses. Bones: No acute fracture. Other: n/a IMPRESSION: No acute intra-abdominal or pelvic finding. Normal appendix.
--- NOTE | 2023-10-10 16:49 | ER ---
Nurse's Notes [facility] Name: Lisa Clement Age: 28 yrs Sex: Female : 1995 Arrival Date: 10/10/2023 Time: 13:24 Bed 19 Private MD: Diagnosis: Abdominal pain, unspecified Presentation: 10/10 13:42 Chief complaint: Patient states: L abdominal pain with N/V/D started yesterday. Urine ll1 dark in color, no fever. Coronavirus screen: Client denies travel out of the [place] in the last 14 days. diarrhea, fatigue, nausea, vomiting. Client presents with at least one sign or symptom that may indicate coronavirus-19. Standard/surgical mask placed on the client. Ebola Screen: Patient denies travel to an Ebola-affected area in the 21 days before illness onset. Initial Sepsis Screen: Does the patient meet any 2 criteria? No. Patient's initial sepsis screen is negative. Does the patient have a suspected source of infection? Yes: Acute abdominal pain. Risk Assessment: Do you want to hurt yourself or someone else? Patient reports no desire to harm self or others. Onset of symptoms was October 09, 2023. 13:42 Method Of Arrival: Ambulatory 1 13:42 Acuity: ODIN 3 ll1 Triage Assessment: 13:47 General: Appears uncomfortable, ill, Behavior is calm, cooperative, appropriate for ll1 age. Pain: Complains of pain in L abdomen Pain currently is 10 out of 10 on a pain scale. Quality of pain is described as aching, crampy. GI: Reports lower abdominal pain, upper abdominal pain, cramping, diarrhea, nausea, vomiting. Historical: - Allergies: 13:36 Amoxicillin; ll1 13:36 Benadryl; ll1 13:36 Motrin; ll1 13:36 PENICILLINS; ll1 13:36 Reglan; ll1 - PMHx: 13:36 Anxiety; Asthma; panic attack; ll1 - PSHx: 13:36 section; ll1 - Immunization history:: Adult Immunizations up to date. - Social history:: Smoking status: Patient denies any tobacco usage or history of. Screenin:21 [facility] ED Fall Risk Assessment (Adult) History of falling in the last 3 months, db including since admission No falls in past 3 months (0 pts) Confusion or Disorientation No (0 pts) Intoxicated or Sedated No (0 pts) Impaired Gait No (0 pts) Mobility Assist Device Used No (0 pt) Altered Elimination No (0 pt) Score/Fall Risk Level 0 - 2 = Low Risk Oriented to surroundings, Maintained a safe environment. Abuse screen: Denies threats or abuse. Denies injuries from another. Nutritional screening: No deficits noted. Tuberculosis screening: No symptoms or risk factors identified. Assessment: 15:00 Reassessment: Patient appears in no apparent distress at this time. Patient and/or db family updated on plan of care and expected duration. Pain level reassessed. Patient is alert, oriented x 3, equal unlabored respirations, skin warm/dry/pink. General: Appears in no apparent distress. comfortable, Behavior is calm, cooperative. Pain: Complains of pain in left lower quadrant and left upper quadrant. Neuro: Level of Consciousness is awake, alert, obeys commands, Oriented to person, place, time, situation. Respiratory: Airway is patent Respiratory effort is even, unlabored, Respiratory pattern is regular, symmetrical. 17:12 Reassessment: Patient appears in no apparent distress at this time. Patient and/or db family updated on plan of care and expected duration. Pain level reassessed. Patient is alert, oriented x 3, equal unlabored respirations, skin warm/dry/pink. General: Appears in no apparent distress. comfortable, Behavior is. Vital Signs: 13:46 BP 141 / 82; Pulse 91; Resp 18; Temp 98.6; Pulse Ox 100% ; Pain 10/10; ll1 15:00 BP 119 / 69; Pulse 82; Resp 18; Pulse Ox 100% on R/A; db 16:30 BP 130 / 83; Pulse 85; Resp 18; Pulse Ox 100% on R/A; db 17:00 BP 115 / 78; Pulse 75; Resp 18; Pulse Ox 100% on R/A; db 13:46 Pain Scale: Adult ll1 ED Course: 13:27 Patient arrived in ED. kj1 13:31 Tata Sidhu FNP-C [facility] kb 13:31 Dejon Padilla DO is Attending Physician. kb 13:37 Arm band placed on. ll1 13:43 Triage completed. ll1 14:35 Echo Morales, RN is Primary Nurse. db 15:00 Inserted saline lock: 20 gauge in right antecubital area, using aseptic technique. db Blood collected. 15:21 Patient has correct armband on for positive identification. Bed in low position. Call db light in reach. Side rails up X 1. Pulse ox on. NIBP on. Warm blanket given. 16:17 CT Abd/Pelvis - IV Contrast Only In Process Unspecified. EDMS 17:12 Provided Education on: DISCHARGE. db 17:12 No provider procedures requiring assistance completed. IV discontinued, intact, db bleeding controlled, No redness/swelling at site. Administered Medications: 15:10 Drug: Ondansetron IVP 4 mg IVP once; over 2 minutes Route: IVP; Site: right antecubital;db 17:13 Follow up: Response: No adverse reaction db 15:18 Drug: NS 0.9% IV 1000 ml IV at 1 bolus Per protocol; 1000 mL bolus Route: IV; Rate: 1 db bolus; Site: right antecubital; 17:13 Follow up: Response: No adverse reaction; IV Status: Completed infusion; IV Intake: db 1000ml 16:40 Drug: Potassium Chloride PO 20 mEq PO once Route: PO; db 17:13 Follow up: Response: No adverse reaction db 16:48 Drug: Hydrocodone-Acetaminophen PO (7.5 mg-325 mg) 1 tabs PO once Route: PO; db 17:13 Follow up: Response: No adverse reaction db Medication: 17:12 VIS not applicable for this client. db Intake: 17:13 IV: 1000ml; Total: 1000ml. db Outcome: 16:48 Discharge ordered by MD. ysed 17:12 Discharged to home ambulatory, with family, db 17:12 Condition: stable 17:12 Discharge instructions given to patient, Instructed on discharge instructions, follow up and referral plans. 17:15 Patient left the ED. db Signatures: Dispatcher [employer] EDTata Garcia, DEBURRER-C DEBURRER-Reba Stewart kj1 Melina Martinez, RN RN ll1 cEho Morales, TAMEKA RN db
--- NOTE | 2023-10-10 16:49 | EDPHYS ---
Physician Documentation [facility] Name: Lisa Clement Age: 28 yrs Sex: Female : 1995 Arrival Date: 10/10/2023 Time: 13:24 Bed 19 Private MD: ED Physician Dejon Padilla HPI: 10/10 13:47 This 28 yrs old Female presents to ER via Ambulatory with complaints of LEFT SIDE PAIN. kb 13:47 Patient is a 28-year-old female presents for left abdominal pain, nausea, vomiting, kb diarrhea that started yesterday and got worse today. Denies fever. States is never happened in the past. Pain alleviated with crouching down and putting pressure to left abdomen, aggravated by stretching out. Historical: - Allergies: 13:36 Amoxicillin; ll1 13:36 Benadryl; ll1 13:36 Motrin; ll1 13:36 PENICILLINS; ll1 13:36 Reglan; ll1 - PMHx: 13:36 Anxiety; Asthma; panic attack; ll1 - PSHx: 13:36 section; ll1 - Immunization history:: Adult Immunizations up to date. - Social history:: Smoking status: Patient denies any tobacco usage or history of. ROS: 13:47 Constitutional: Negative for fever, chills, and weight loss, kb 13:47 Abdomen/GI: Positive for abdominal pain, nausea, vomiting, and diarrhea, 13:47 All other systems are negative, Exam: 13:47 Constitutional: This is a well developed, well nourished patient who is awake, alert, kb and in no acute distress. Head/Face: Normocephalic, atraumatic. ENT: Moist Mucous membranes Cardiovascular: Regular rate Respiratory: Respirations even and unlabored. No increased work of breathing. Talking in full sentences Skin: Warm, dry with normal turgor. Normal color. MS/ Extremity: Pulses equal, no cyanosis. Neurovascular intact. Full, normal range of motion. Neuro: Awake and alert, GCS 15, oriented to person, place, time, and situation. Moves all extremities. Normal gait. 13:47 Abdomen/GI: Inspection: abdomen appears normal, Bowel sounds: normal, Palpation: soft, in all quadrants, mild abdominal tenderness, in the anterior aspect of left lateral abdomen, left upper quadrant and left lower quadrant, Vital Signs: 13:46 BP 141 / 82; Pulse 91; Resp 18; Temp 98.6; Pulse Ox 100% ; Pain 10/10; ll1 15:00 BP 119 / 69; Pulse 82; Resp 18; Pulse Ox 100% on R/A; db 16:30 BP 130 / 83; Pulse 85; Resp 18; Pulse Ox 100% on R/A; db 17:00 BP 115 / 78; Pulse 75; Resp 18; Pulse Ox 100% on R/A; db 13:46 Pain Scale: Adult ll1 MDM: 13:32 Patient medically screened. kb 13:49 Differential diagnosis: diverticulitis, non-specific abd pain, Pyelonephritis, urinary kb tract infection, Colitis. Data reviewed: vital signs, nurses notes. 16:37 Counseling: I had a detailed discussion with the patient and/or guardian regarding the kb historical points, exam findings, and any diagnostic results supporting the discharge/admit diagnosis, lab results, radiology results, the need for outpatient follow up, a family practitioner, to return to the emergency department if symptoms worsen or persist or if there are any questions or concerns that arise at home. 10/10 13:44 Order name: CBC with Diff; Complete Time: 15:21 kb 10/10 13:44 Order name: CMP; Complete Time: 15:32 kb 10/10 13:44 Order name: Lipase; Complete Time: 15:32 kb 10/10 13:44 Order name: Test, Urine; Complete Time: 15:21 kb 10/10 13:44 Order name: Urinalysis w/ reflexes; Complete Time: 15:21 kb 10/10 13:44 Order name: CT Abd/Pelvis - IV Contrast Only; Complete Time: 16:36 kb 10/10 13:44 Order name: IV Saline Lock; Complete Time: 15:19 kb 10/10 13:44 Order name: Labs collected and sent; Complete Time: 15:19 kb Administered Medications: 15:10 Drug: Ondansetron IVP 4 mg IVP once; over 2 minutes Route: IVP; Site: right antecubital;db 17:13 Follow up: Response: No adverse reaction db 15:18 Drug: NS 0.9% IV 1000 ml IV at 1 bolus Per protocol; 1000 mL bolus Route: IV; Rate: 1 db bolus; Site: right antecubital; 17:13 Follow up: Response: No adverse reaction; IV Status: Completed infusion; IV Intake: db 1000ml 16:40 Drug: Potassium Chloride PO 20 mEq PO once Route: PO; db 17:13 Follow up: Response: No adverse reaction db 16:48 Drug: Hydrocodone-Acetaminophen PO (7.5 mg-325 mg) 1 tabs PO once Route: PO; db 17:13 Follow up: Response: No adverse reaction db Disposition: 17:54 I was immediately available on-site in the Emergency Department for consultation in the ms3 care of the patient. Disposition Summary: 10/10/23 16:48 Discharge Ordered Notes: Location: Home kb Condition: Stable kb Diagnosis - Abdominal pain, unspecified kb Followup: kb - With: Emergency Department - When: As needed - Reason: Worsening of condition Followup: kb - With: Private Physician - When: 2 - 3 days - Reason: Recheck today's complaints, Continuance of care, Re-evaluation by your physician Discharge Instructions: - Discharge Summary Sheet kb - Abdominal Pain, Adult, [id number] kb Forms: - Medication Reconciliation Form kb - Thank You Letter kb - Antibiotic Education kb - Prescription Opioid Use kb - Patient Portal Instructions kb - Leadership Thank You Letter kb Signatures: Dispatcher [employer] EDMS Tata Sidhu, [employer]ENE [employer]DER-C [employer]ENE BUILDER-Melina Sanches, RN RN ll1 Dejon Padilla, DO DO ms3 Echo Morales RN RN db Corrections: (The following items were deleted from the chart) 13:48 13:47 Patient is a 28-year-old female presents for left abdominal pain, nausea, kb vomiting, diarrhea that started yesterday and got worse today. Denies fever. States is never happened in the past.. kb
[2023-10-10 19:50] VITALS: BP 115/78; TEMP 98.6; O2SAT 100
== END ==
LOC: ER 13:24
DX: R10.32 Left lower quadrant pain (principal); R10.12 Left upper quadrant pain; R11.2 Nausea with vomiting, unspecified; Z88.0 Allergy status to penicillin; Z88.1 Allergy status to other antibiotic agents; Z88.6 Allergy status to analgesic agent; Z88.8 Allergy status to other drugs, medicaments and biological substances
CPT/HCPCS: 96361; 85025; 36415; 81025; 81003; 83690; 80053; 74177; 96374; 99284; Q9967; J2405; J7030

== ENCOUNTER 2024-03-18 20:21 | Emergency (ER) | payer BC ==
--- OUTSIDE RECORDS SUMMARY | 2024-03-18 20:27 | XMS REPORT | Continuity of Care Document ---
Author Name Unknown Address [address] [facility] [address] [place] [address] [facility] thconnect Address [address] [facility] [address] [place] [address] Care Team Providers Care Bobbin Loose End Finder Name Role Phone ASHA CASTILLO Primary Care Physician Unavailab MIKAELA Mayer Attending Clinician Unavailable Kayode Espinoza DO Attending Clinician [phone] Mikaela Aguiar MD Attending Clinician [phone] ASHA NEVILLE Attending Clinician Unavailable ASHA CASTILLO Attending Clinician Unavailable Asha Cortez Attending Clinician [phone], [facility] Attending Clinician Unavailable FELIPA MARCELO Attending Clinician Unavailab Felipa Dash DO Attending Clinician [phone] INDIO WHITFIELD Attending Clinician Unavailable RD JACOBSON Attending Clinician Unavailable Rd Hunter Attending Clinician [phone] DEBBIE DUVALL Attending Clinician Unavailable Debbie Barnes Attending Clinician [phone] Doctor Unassigned, [place] Attending Clinician U NORM Estrella Attending Clinician Unavailab Magdalena Steve LMSW Attending Clinician UnaGRADY Torres Attending Clinician UnavailGrady Khan Attending Clinician [phone] Rey Schultz DO Attending Clinician [phone] Charles HENRY, Kaylin Felton Attending Clinician [phone] KAYLIN MARCELO Attending Clinician UnavailKAYODE Gomez Admitting Clinician Unavailable RD JACOBSON Admitting Clinician Unavailable Payers Payer Name Policy Type Policy Number Effective Date Expirati on Date Source BS [facility] - OUT OF STATE [id number] 2023 00:00:00 [employer] [id number] 2023 00:00:00 Problems Condition Name Condition Details Condition Category Status Onset Date Resolution Date Last Treatment Date Treating Clinician Comments Source Encounter for Nexplanon removal Encounter for Nexplanon removal Disease Active 2019-10- 00:00: 00 [facility] Chlamydia trachomati s infection of lower genitourin nicolas sites Chlamydia trachomati s infection of lower genitourin nicolas sites Disease Active 02-15 00:00: 00 [facility] Tobacco use disorder Tobacco use disorder Disease Active 06-12 00:00: 00 [facility] Encounter for initial prescripti on of contracept doug pills Encounter for initial prescripti on of contracept doug pills Disease Active 06-12 00:00: 00 Overview: Formattin g of this note might be different from the original. 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 [facility] Allergies, Adverse Reactions, Alerts Allergy Name Allergy Type Status Severity Reaction(s) Onset Date Inactive Date Treating Clinician Comments Source DIPHENHY DRAMINE HCL DRUG INGREDI Active High Anaphylaxis 2022-10 0 00:00: 00 [facility] METOCLOP RAMIDE DRUG INGREDI Active Med Rash 2022-10 0 00:00: 00 [facility] Diphenhy dramine Hcl Propensi ty to adverse reaction s Active Anaphylaxis 2022-10 00:00: 00 [facility] Metoclop ramide Propensi ty to adverse reaction s Active Rash 2022-10 00:00: 00 [facility] Penicill ins Propensi ty to adverse reaction s to drug Active Anaphylaxis 12-21 00:00: 00 Lip swelling & some difficult y in swallowin g. [facility] PENICILL INS Drug Class Active High Anaphylaxis 12-21 00:00: 00 [facility] Penicill ins Propensi ty to adverse reaction s to drug Active Anaphylaxis 12-21 00:00: 00 Lip swelling & some difficult y in swallowin g. [facility] Social History Social Habit Start Date Stop Date Quantity Comments Source History of tobacco use Cigarette Smoker [facility] Sexual orientation [facility] Alcohol intake 2024-01-19 00:00:00 2024-01-19 00:00:00 Current non-drinker of alcohol (finding) [facility] Tobacco use and exposure 2023-11-21 00:00:00 2023-11-21 00:00:00 Smokeless tobacco non-user [facility] History of Social function 2023-11-21 00:00:00 2023-11-21 00:00:00 [facility] Tobacco Comment 2023-11-13 00:00:00 2023-11-13 00:00:00 states smokes 4-5 cigarettes per day [facility] Exposure to SARS-CoV-2 (event) 2021-03-22 00:00:00 2021-04-21 07:48:00 Not sure [facility] Sex Assigned At 1995 00:00:00 1995 00:00:00 [facility] Smoking Status Start Date Stop Date Source Ex-smoker 2023-11-21 00:00:00 2023-11-21 00:00:00 [facility] Smokes tobacco daily 2014-06-12 00:00:00 [facility] Medications Ordered Medication Name Filled Medication Name Start Date Stop Date Current Medication? Ordering Clinician Indication Dosage Frequency Signature (SIG) Comments Components Source HYDROcodone -acetaminop hen (NORCO) 10-325 mg tablet 1 tablet 01-18 06:00: 00 01-18 05:35 :00 No 1{tbl} 1 tablet, Oral, ONCE NOW, 1 dose, On Mon01/19/24 at 0100, Routine [facility] ketorolac (TORADOL) injection 30 mg 01-18 02:30: 00 01-18 01:59 :00 No 30mg 30 mg, Slow IV Push, ONCE, 1 dose, On Amanda 01/18/24 at 2130, Routine [facility] iopamidol (ISOVUE 370-500 mL) injection 80 mL 01-18 02:00: 00 01-18 02:00 :00 No [id number] 80mL 80 mL, Intravenou s, ONCE, 1 dose, On Mon01/18/24 at 2100, Routine [facility] propranoloL 10 mg tablet 11-21 15:44: 28 Yes 10mg Take 1 tablet by mouth in the morning and 1 tablet in the evening. [facility] SUMAtriptan 100 mg tablet 11-21 00:00: 00 Yes [id number] 100mg Take 1 tablet by mouth as needed for Migraine (once a day as needed). [facility] propranoloL 10 mg tablet 11-20 14:27: 03 Yes 10mg Take 1 tablet by mouth in the morning and 1 tablet in the evening. [facility] SUMAtriptan 25 mg tablet 11-20 00:00: 00 11-21 00:00 :00 No [id number] 25mg Take 1 tablet by mouth as needed for Migraine (once a day as needed). [facility] SUMAtriptan (IMITREX) injection 6 mg 11-18 03:45: 00 11-18 03:50 :00 No 6mg 6 mg, Subcutaneo us, ONCE, 1 dose, On Mon11/17/23 at 2145, [facility] ketorolac (TORADOL) injection 30 mg 11-18 03:15: 00 11-18 02:34 :00 No 30mg 30 mg, Slow IV Push, ONCE, 1 dose, On Mon11/17/23 at 2115, Routine [facility] NaCl 0.9% (NS) bolus infusion 1,000 mL 11-18 03:15: 00 11-18 03:52 :00 No 1000mL at 999 mL/hr, 1,000 mL, IV Infusion, ONCE, 1 dose, On Mon11/17/23 at 2115, [facility] butalbital- acetaminoph en-caff (ESGIC) 50-325-40 mg tablet 1 tablet 11-18 02:30: 00 11-18 02:34 :00 No 1{tbl} 1 tablet, Oral, ONCE, 1 dose, On Mon11/17/23 at 2030, [facility] proMETHazin e (PHENERGAN) 12.5 mg in NS 50 mL IV piggyback (CNR) 11-18 02:30: 00 11-18 03:52 :00 No 12.5mg 12.5 mg, IV Piggyback, at 200 mL/hr Administer over 15 Minutes, ONCE, 1 dose, On Mon11/17/23 at 2030, [facility] dexamethaso ne sod phos PF injection 10 mg 11-18 02:30: 00 11-18 02:34 :00 No 10mg 10 mg, Slow IV Push, ONCE, 1 dose, On Mon11/17/23 at 2030, 1 mL [facility] ondansetron (ZOFRAN-ODT ) disintegrat ing tablet 4 mg 2022-10 04:45: 00 08-19 04:01 :00 No 4mg 4 mg, Oral, ONCE, 1 dose, On Mon08/18/23 at 2245, [facility] predniSONE (DELTASONE) tablet 30 mg 2022-10 04:00: 00 08-19 04:01 :00 No 30mg 30 mg, Oral, ONCE, 1 dose, On Mon08/18/23 at 2200, MARLEN [facility] ipratropium -albuteroL (DUONEB) 0.5 mg-3 mg(2.5 mg base)/3 mL nebulizer solution 3 mL 2022-10 03:48: 00 08-19 04:01 :00 No 3mL 3 mL, Inhalation , ONCE, 1 dose, [facility]18[facility]23 [facility]200[facility] 2022-10 00:00: 00 Yes [id number] 2{puff} Inhale 2 Puffs every 4 (four) hours as needed for Wheezing, Shortness of Breath or Bronchospa sm. [facility] ondansetron 4 mg disintegrat ing tablet 2022-10 00:00: 00 11-13 00:00 :00 No [id number] 4mg Take 1 tablet by mouth every 8 (eight) hours as needed for Nausea and Vomiting (N/V). [facility] predniSONE 10 mg tablet 2022-10 00:00: 00 08-22 05:59 :00 No [id number] 30mg Take 3 tablets by mouth in the morning for 3 days. [facility] ondansetron (ZOFRAN-ODT ) disintegrat ing tablet 4 mg 2022-10 0 01:00: 00 07-30 00:08 :00 No 4mg 4 mg, Oral, ONCE, 1 dose, On 07/29/23 at 2000, Routine [facility] ondansetron 4 mg disintegrat ing tablet 2022-10 0 00:00: 00 11-13 00:00 :00 No [id number] 4mg Take 1 tablet by mouth every 8 (eight) hours as needed for Nausea and Vomiting (N/V). [facility] LOESTRIN FE (MICROGESTI N FE 10/21) 1 mg-20 mcg (21)/75 mg (7) tablet 2019-10 00:00: 00 11-13 00:00 :00 No [id number] 1{tbl} Take 1 tablet by mouth daily. [facility] clindamycin 300 mg capsule 2019-10 00:00: 00 11-13 00:00 :00 No TAKE 1 CAPSULE BY MOUTH EVERY 6 HOURS FOR 10 DAYS [facility] methylPREDN ISolone (MEDROL, ALEK,) 4 mg tablets 2018-10-15 00:00: 00 06-29 00:00 :00 No [id number] Take by mouth SEE-INSTRU CTIONS. follow package directions [facility] azithromyci n 500 mg tablet 02-15 00:00: 00 06-29 00:00 :00 No 1000mg Take 2 tablets by mouth daily. [facility] promethazin e 6.25 mg/5 mL solution 02-09 00:00: 00 06-29 00:00 :00 No 6.25mg Take 5 mL by mouth every 6 (six) hours as needed for Nausea and Vomiting (N/V). [facility] benzonatate (TESSALON) 200 mg capsule 2014-10 00:00: 00 06-29 00:00 :00 No 200mg Take 1 Cap by mouth 3 (three) times daily as needed for Cough. [facility] albuterol (VENTOLIN) 90 mcg/actuati on inhaler 2014-10 00:00: 00 06-29 00:00 :00 No 2{puff} Inhale 2 Puffs every 6 (six) hours as needed for Wheezing, Shortness of Breath or Chest tightness. [facility] methylPREDN ISolone (MEDROL DOSE-ALEK) 4 mg tablets 2014-10 00:00: 00 06-29 00:00 :00 No follow package directions [facility] No known medications No [facility] Immunizations Ordered Immunization Name Filled Immunization Name Date Status Comments Source HPV 2014-06-12 00:00:00 Completed [facility] HPV 2014-06-12 00:00:00 Completed [facility] HPV 2014-06-12 00:00:00 Completed [facility] HPV 2014-06-12 00:00:00 Completed [facility] HPV 2014-06-12 00:00:00 Completed [facility] HPV 2014-06-12 00:00:00 Completed [facility] HPV 2014-06-12 00:00:00 Completed [facility] HPV 2014-06-12 00:00:00 Completed [facility] HPV 2014-06-12 00:00:00 Completed [facility] HPV 2014-06-12 00:00:00 Completed [facility] HPV 2014-06-12 00:00:00 Completed [facility] HPV 2014-06-12 00:00:00 Completed [facility] HPV 2014-06-12 00:00:00 Completed [facility] HPV 2014-06-12 00:00:00 Completed [facility] HPV 2014-06-12 00:00:00 Completed [facility] HPV 2011-07-19 00:00:00 Completed [facility] HPV 2011-07-19 00:00:00 Completed [facility] HPV 2011-07-19 00:00:00 Completed [facility] HPV 2011-07-19 00:00:00 Completed [facility] HPV 2011-07-19 00:00:00 Completed [facility] HPV 2011-07-19 00:00:00 Completed [facility] HPV 2011-07-19 00:00:00 Completed [facility] HPV 2011-07-19 00:00:00 Completed [facility] HPV 2011-07-19 00:00:00 Completed [facility] HPV 2011-07-19 00:00:00 Completed [facility] HPV 2011-07-19 00:00:00 Completed [facility] HPV 2011-07-19 00:00:00 Completed [facility] HPV 2011-07-19 00:00:00 Completed [facility] HPV 2011-07-19 00:00:00 Completed [facility] HPV 2011-07-19 00:00:00 Completed [facility] Td 2011-05-12 00:00:00 Completed [facility] Td 2011-05-12 00:00:00 Completed [facility] Td 2011-05-12 00:00:00 Completed [facility] Td 2011-05-12 00:00:00 Completed [facility] Td 2011-05-12 00:00:00 Completed [facility] Td 2011-05-12 00:00:00 Completed [facility] Td 2011-05-12 00:00:00 Completed [facility] Td 2011-05-12 00:00:00 Completed [facility] Td 2011-05-12 00:00:00 Completed [facility] Td 2011-05-12 00:00:00 Completed [facility] Td 2011-05-12 00:00:00 Completed [facility] Td 2011-05-12 00:00:00 Completed [facility] Td 2011-05-12 00:00:00 Completed [facility] Td 2011-05-12 00:00:00 Completed [facility] Td 2011-05-12 00:00:00 Completed [facility] HPV 2010-06-23 00:00:00 Completed [facility] HPV 2010-06-23 00:00:00 Completed [facility] HPV 2010-06-23 00:00:00 Completed [facility] HPV 2010-06-23 00:00:00 Completed [facility] HPV 2010-06-23 00:00:00 Completed [facility] HPV 2010-06-23 00:00:00 Completed [facility] HPV 2010-06-23 00:00:00 Completed [facility] HPV 2010-06-23 00:00:00 Completed [facility] HPV 2010-06-23 00:00:00 Completed [facility] HPV 2010-06-23 00:00:00 Completed [facility] HPV 2010-06-23 00:00:00 Completed [facility] HPV 2010-06-23 00:00:00 Completed [facility] HPV 2010-06-23 00:00:00 Completed [facility] HPV 2010-06-23 00:00:00 Completed [facility] HPV 2010-06-23 00:00:00 Completed [facility] TD, NOS Unknown Completed [facility] HPV Unknown Completed [facility] TD, NOS Unknown Completed [facility] HPV Unknown Completed [facility] TD, NOS Unknown Completed [facility] HPV Unknown Completed [facility] TD, NOS Unknown Completed [facility] HPV Unknown Completed [facility] TD, NOS Unknown Completed [facility] HPV Unknown Completed [facility] TD, NOS Unknown Completed [facility] HPV Unknown Completed [facility] TD, NOS Unknown Completed [facility] HPV Unknown Completed [facility] TD, NOS Unknown Completed [facility] HPV Unknown Completed [facility] TD, NOS Unknown Completed [facility] HPV Unknown Completed [facility] TD, NOS Unknown Completed [facility] HPV Unknown Completed [facility] TD, NOS Unknown Completed [facility] HPV Unknown Completed [facility] TD, NOS Unknown Completed [facility] HPV Unknown Completed [facility] TD, NOS Unknown Completed [facility] HPV Unknown Completed [facility] TD, NOS Unknown Completed [facility] HPV Unknown Completed [facility] TD, NOS Unknown Completed [facility] HPV Unknown Completed [facility] TD, NOS Unknown Completed [facility] HPV Unknown Completed [facility] TD, NOS Unknown Completed [facility] HPV Unknown Completed [facility] TD, NOS Unknown Completed [facility] HPV Unknown Completed [facility] TD, NOS Unknown Completed [facility] HPV Unknown Completed [facility] TD, NOS Unknown Completed [facility] HPV Unknown Completed [facility] TD, NOS Unknown Completed [facility] HPV Unknown Completed [facility] Vital Signs Vital Name Observation Time Observation Value Comments S ource Systolic blood pressure 2024-01-19 05:35:00 123 mm[Hg] [facility] Diastolic blood pressure 2024-01-19 05:35:00 87 mm[Hg] [facility] Heart rate 2024-01-19 05:35:00 73 /min [facility] Respiratory rate 2024-01-19 05:35:00 18 /min [facility] Oxygen saturation in Arterial blood by Pulse oximetry 2024-01-19 05:35:00 100 /min [facility] Body temperature 2024-01-18 23:28:00 36.78 Devika [facility] Body height 2024-01-18 23:28:00 157.5 cm [facility] Body weight 2024-01-18 23:28:00 98.884 kg [facility] BMI 2024-01-18 23:28:00 39.87 kg/m2 [facility] Systolic blood pressure 2023-11-21 21:36:00 119 mm[Hg] [facility] Diastolic blood pressure 2023-11-21 21:36:00 79 mm[Hg] [facility] Heart rate 2023-11-21 21:36:00 89 /min [facility] Respiratory rate 2023-11-21 21:36:00 18 /min [facility] Body height 2023-11-21 21:36:00 157.5 cm [facility] Body weight 2023-11-21 21:36:00 105.915 kg [facility] BMI 2023-11-21 21:36:00 42.71 kg/m2 [facility] Oxygen saturation in Arterial blood by Pulse oximetry 2023-11-21 21:36:00 99 /min [facility] Systolic blood pressure 2023-11-20 20:19:00 129 mm[Hg] [facility] Diastolic blood pressure 2023-11-20 20:19:00 90 mm[Hg] [facility] Heart rate 2023-11-20 20:19:00 84 /min [facility] Body temperature 2023-11-20 20:19:00 36.28 Devika [facility] Body height 2023-11-20 20:19:00 157.5 cm [facility] Body weight 2023-11-20 20:19:00 106.595 kg [facility] BMI 2023-11-20 20:19:00 42.98 kg/m2 [facility] O[facility] saturation in Arterial blood by Pulse oximetry 2023-11-20 20:19:00 99 /min [facility] Systolic blood pressure 2023-11-18 04:40:00 112 mm[Hg] [facility] Diastolic blood pressure 2023-11-18 04:40:00 72 mm[Hg] [facility] Heart rate 2023-11-18 04:40:00 82 /min [facility] Respiratory rate 2023-11-18 04:40:00 16 /min [facility] Oxygen saturation in Arterial blood by Pulse oximetry 2023-11-18 04:40:00 99 /min [facility] Body temperature 2023-11-18 02:16:00 37.28 Devika [facility] Body height 2023-11-18 02:16:00 157.5 cm [facility] Body weight 2023-11-18 02:16:00 103.874 kg [facility] BMI 2023-11-18 02:16:00 41.88 kg/m2 [facility] Systolic blood pressure 2023-11-13 19:36:00 124 mm[Hg] [facility] Diastolic blood pressure 2023-11-13 19:36:00 79 mm[Hg] [facility] Heart rate 2023-11-13 19:36:00 92 /min [facility] Body temperature 2023-11-13 19:36:00 36.61 Devika [facility] Respiratory rate 2023-11-13 19:36:00 18 /min [facility] Body height 2023-11-13 19:36:00 157.5 cm [facility] Body weight 2023-11-13 19:36:00 103.465 kg [facility] BMI 2023-11-13 19:36:00 41.72 kg/m2 [facility] Oxygen saturation in Arterial blood by Pulse oximetry 2023-11-13 19:36:00 99 /min [facility] Systolic blood pressure 2023-08-19 06:00:00 130 mm[Hg] [facility] Diastolic blood pressure 2023-08-19 06:00:00 85 mm[Hg] [facility] Heart rate 2023-08-19 06:00:00 86 /min [facility] Respiratory rate 2023-08-19 06:00:00 18 /min [facility] Oxygen saturation in Arterial blood by Pulse oximetry 2023-08-19 06:00:00 99 /min [facility] Body temperature 2023-08-19 01:30:00 37 Devika [facility] Body height 2023-08-19 01:30:00 157.5 cm [facility] Body weight 2023-08-19 01:30:00 99.338 kg [facility] BMI 2023-08-19 01:30:00 40.06 kg/m2 [facility] Heart rate 2023-07-30 02:00:00 99 /min [facility] Respiratory rate 2023-07-30 02:00:00 18 /min [facility] Oxygen saturation in Arterial blood by Pulse oximetry 2023-07-30 02:00:00 99 /min [facility] Systolic blood pressure 2023-07-29 23:34:00 144 mm[Hg] [facility] Diastolic blood pressure 2023-07-29 23:34:00 94 mm[Hg] [facility] Body temperature 2023-07-29 23:34:00 36.83 Devika [facility] Body height 2023-07-29 23:34:00 157.5 cm [facility] Body weight 2023-07-29 23:34:00 99.338 kg [facility] BMI 2023-07-29 23:34:00 40.06 kg/m2 [facility] Systolic blood pressure 2021-04-21 12:51:00 124 mm[Hg] [facility] Diastolic blood pressure 2021-04-21 12:51:00 83 mm[Hg] [facility] Heart rate 2021-04-21 12:51:00 74 /min [facility] Body temperature 2021-04-21 12:51:00 36.72 Devika [facility] Respiratory rate 2021-04-21 12:51:00 16 /min [facility] Body height 2021-04-21 12:51:00 157.5 cm [facility] Body weight 2021-04-21 12:51:00 90.629 kg [facility] BMI 2021-04-21 12:51:00 36.54 kg/m2 [facility] Systolic blood pressure 2020-10-28 15:01:00 132 mm[Hg] [facility] Diastolic blood pressure 2020-10-28 15:01:00 81 mm[Hg] [facility] Heart rate 2020-10-28 15:01:00 87 /min [facility] Body temperature 2020-10-28 15:01:00 36.39 Devika [facility] Respiratory rate 2020-10-28 15:01:00 16 /min [facility] Body height 2020-10-28 15:01:00 157.5 cm [facility] Body weight 2020-10-28 15:01:00 83.575 kg [facility] BMI 2020-10-28 15:01:00 33.70 kg/m2 [facility] Systolic blood pressure 2020-10-28 15:01:00 132 mm[Hg] [facility] Diastolic blood pressure 2020-10-28 15:01:00 81 mm[Hg] [facility] Heart rate 2020-10-28 15:01:00 87 /min [facility] Body temperature 2020-10-28 15:01:00 36.39 Devika [facility] Respiratory rate 2020-10-28 15:01:00 16 /min [facility] Body height 2020-10-28 15:01:00 157.5 cm [facility] Body weight 2020-10-28 15:01:00 83.575 kg [facility] BMI 2020-10-28 15:01:00 33.70 kg/m2 [facility] Systolic blood pressure 2020-08-20 21:53:00 125 mm[Hg] [facility] Diastolic blood pressure 2020-08-20 21:53:00 86 mm[Hg] [facility] Heart rate 2020-08-20 21:53:00 97 /min [facility] Body temperature 2020-08-20 21:53:00 36.67 Devika [facility] Respiratory rate 2020-08-20 21:53:00 16 /min [facility] Body height 2020-08-20 21:53:00 154.9 cm [facility] Body weight 2020-08-20 21:53:00 79.493 kg [facility] BMI 2020-08-20 21:53:00 33.11 kg/m2 [facility] Systolic blood pressure 2020-06-29 20:34:00 125 mm[Hg] [facility] Diastolic blood pressure 2020-06-29 20:34:00 81 mm[Hg] [facility] Heart rate 2020-06-29 20:34:00 87 /min [facility] Body temperature 2020-06-29 20:34:00 37.11 Devika [facility] Respiratory rate 2020-06-29 20:34:00 16 /min [facility] Body height 2020-06-29 20:34:00 154.9 cm [facility] Body weight 2020-06-29 20:34:00 80.423 kg [facility] BMI 2020-06-29 20:34:00 33.50 kg/m2 [facility] Procedures Procedure Date / Time Performed Performing Clinician Source COMP. METABOLIC PANEL (33801) 2024-01-19 00:27:00 aKyode Espinoza [facility] CBC WITH DIFF 2024-01-19 00:27:00 Kayode Espinoza [facility] URINALYSIS 2024-01-19 00:27:00 Kayode Espinoza [facility] CT HEAD WO CONTRAST 2023-11-22 16:17:25 Robyn Castillo [facility] CONSENT/REFUSAL FOR DIAGNOSIS AND TREATMENT 2023-11-18 02:08:44 Doctor Unassigned, [place] [facility] XR CHEST 2 VW 2023-08-19 04:22:04 Rd Jacobson [facility] POCT TEST 2023-08-19 02:48:00 Louis Jacobson [facility] RAPID STREP SCREEN FOR GROUP A 2023-08-19 01:41:00 Rd Jacobson [facility] RAPID INFLUENZA A/B 2023-08-19 01:41:00 Louis Jacobson [facility] COVID-19 (ID NOW RAPID TESTING) 2023-08-19 01:41:00 Rd Jacobson [facility] CONSENT/REFUSAL FOR DIAGNOSIS AND TREATMENT 2023-08-19 01:15:02 Doctor Unassigned, [place] [facility] ASSIGNMENT OF BENEFITS 2023-07-30 00:34:02 Docto r Unassigned, [place] [facility] RAPID INFLUENZA A/B 2023-07-30 00:08:00 Debbie Duvall [facility] COVID-19 (ID NOW RAPID TESTING) 2023-07-30 00:08:00 Debbie Duvall [facility] RAPID STREP SCREEN FOR GROUP A 2023-07-29 23:43:00 Debbie Duvall [facility] CONSENT/REFUSAL FOR DIAGNOSIS AND TREATMENT 2023-07-29 23:22:59 Doctor Unassigned, [place] [facility] POCT TEST 2020-10-28 16:05:00 Sima Jacobsen [facility] AUTHORIZATION TO RELEASE PHI TO [facility] 2020-10-28 06:01:00 Doctor Unassigned, [place] [facility] PATIENT FINANCIAL POLICY 2020-08-20 22:22:14 Doctor Unassigned, [place] [facility] POCT TEST 2020-08-20 21:55:00 Mike Mensah [facility] ASSIGNMENT OF BENEFITS 2020-06-29 19:57:27 Docto r Unassigned, [place] [facility] Encounters Start Date/Time End Date/Time Encounter Type Admission Type Attending Clinicians Care Facility Care Department Encounter ID Source 2024-01-18 18:31:00 2024-01-19 00:39:00 Emergency MIKAELA RIGGINS [facility] ERT [id number] [facility] 2024-01-18 18:31:00 2024-01-19 00:39:00 Emergency Kayode Espinoza [place] S [facility] 1.2840.114 350.1.13.10 4.2.7.2.686 [id number] [facility] 2023-12-22 14:30:00 2023-12-22 14:30:00 Outpatient R [facility] [id number] [facility] 2023-11-22 10:03:31 2023-11-22 23:59:00 [facility] [id number] 2023-11-22 10:00:00 2023-11-22 23:59:00 Hospital Encounter Jose Asha [facility] 1.2840.114 350.1.13.10 4.2.7.2.686 [id number] [facility] 2023-11-22 10:30:00 2023-11-22 10:45:00 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, 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 Jose [facility] 1.84.114 350.1.13.10 4.2.7.2.686 [id number] [facility] 2023-11-21 16:00:00 2023-11-21 16:10:49 Outpatient R [facility] [id number] [facility] 2023-11-21 16:00:00 2023-11-21 16:10:49 Office Visit Hany [facility] 1.84.114 350.1.13.10 4.2.7.2.686 [id number] [facility] 2023-11-20 15:00:00 2023-11-20 15:00:00 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[facility] 1.284.114 350.1.13.10 4.2.7.2.686 [id number] [facility] 2023-11-20 14:30:00 2023-11-20 14:43:15 Outpatient R ASHA CASTILLO [facility] [id number] [facility] 2023-11-20 14:30:00 2023-11-20 14:43:15 [facility] 1.2.840.114 350.1.13.10 4.2.7.2.686 [id number] [facility] 2023-11-17 20:18:00 2023-11-17 22:42:00 Emergency X FELIPA MARCELO [facility] ERT [id number] [facility] 2023-11-17 20:18:00 2023-11-17 22:42:00 Emergency Felipa Marcelo [facility] 1.2.840.114 350.1.13.10 4.2.7.2.686 [id number] [facility] 2023-11-13 13:30:00 2023-11-13 13:57:06 Outpatient R ASHA CASTILLO [facility] [id number] [facility] 2023-11-13 13:30:00 2023-11-13 13:57:06 [facility] 1.2.840.114 350.1.13.10 4.2.7.2.686 [id number] [facility] 2023-08-30 13:30:00 2023-08-30 13:30:00 Outpatient INDIO WHITFIELD [id number] Naty Medellin 2023-08-18 19:32:00 2023-08-19 00:09:[address] JACOBSON [facility] ERT [id number] [facility] 2023-08-18 19:32:2023-08-19 00:09:[address] Jacobson [facility] 1.2.840.114 350.1.13.10 4.2.7.2.686 [id number] [facility] 2023-08-17 13:00:00 2023-08-17 13:00:00 Outpatient INDIO WHITFIELD [id number] Naty Medellin 2023-07-29 18:44:00 2023-07-29 21:18:00 Emergency X DEBBIE DUVALL [facility] ERT [id number] [facility] 2023-07-29 18:44:00 2023-07-29 21:18:00 Emergency Debbie Duvall S [facility] 1.2.840.114 350.1.13.10 4.2.7.2.686 [id number] [facility] 2023-07-29 00:00:00 2023-07-29 00:00:00 Orders Only Doctor Unassigned, [place] [facility] 1.2840.114 350.1.13.10 4.2.7.2.686 [id number] [facility] 2023-06-07 13:30:00 2023-06-07 13:30:00 Outpatient NORM HARRINGTON [id number] Naty daniele 2021-07-19 00:00:00 2021-07-19 00:00:00 Case Management Magdalena Tai 1.2.840.114 350.1.13.10 4.2.7.2.686 [id number] [facility] 2021-06-29 08:45:00 2021-06-29 08:45:00 Outpatient GRADY AIKEN [facility] [id number] [facility] 2021-05-24 00:00:00 2021-05-24 00:00:00 Patient Secure Msg Doctor Unassigned, [place] [facility] ENVIRONMENTAL SPECIALIST [facility] & CHILD [facility] 1.2840.114 350.1.13.10 4.2.7.2.686 [id number] [facility] 2021-05-21 00:00:00 2021-05-21 00:00:00 Patient Secure Msg Doctor Unassigned, [place] [facility] 1.2840.114 350.1.13.10 4.2.7.2.686 [id number] [facility] 2021-05-05 08:30:00 2021-05-05 08:30:00 Outpatient R [facility] [id number] [facility] 2021-04-30 00:00:00 2021-04-30 00:00:00 Patient Secure Msg Doctor Unassigned, [place] [facility] ENVIRONMENTAL SPECIALIST [facility] 1.2840.114 350.1.13.10 4.2.7.2.686 [id number] [facility] 2021 00:00:00 2021 00:00:00 Patient Secure Msg Doctor Unassigned, [place] [facility] 1.2840.114 350.1.13.10 4.2.7.2.686 [id number] 019 [id number] [facility] 2021 00:00:00 2021 00:00:00 Patient Secure Msg Doctor Unassigned, [place] [facility] ENVIRONMENTAL SPECIALIST [facility] CHILD [facility] 1.2840.114 350.1.13.10 4.2.7.2.686 [id number] [facility] 2021-04-28 00:00:00 2021-04-28 00:00:00 Patient Secure Msg Doctor Unassigned, [place] [facility] 1.2840.114 350.1.13.10 4.2.7.2.686 [id number] [facility] 2021-04-22 00:00:00 2021-04-22 00:00:00 Telephone Grady Jacobsen [facility] ENVIRONMENTAL SPECIALIST [facility] & CHILD [facility] 1.2840.114 350.1.13.10 4.2.7.2.686 [id number] [facility] 2021-04-21 07:36:35 2021-04-21 08:11:32 Office Visit Maribell Jacobsenausten Merida [facility] ENVIRONMENTAL SPECIALIST [facility] & CHILD [facility] 1.0.114 350.1.13.10 4.2.7.2.686 [id number] [facility] 2021-04-21 07:45:00 2021-04-21 07:45:00 Outpatient R JACOBSENGRADY [facility] [id number] [facility] 2021-04-06 16:00:00 2021-04-06 16:00:00 Outpatient R ANN-MARIE GRADY [facility] [id number] [facility] 2021-04-06 00:00:00 2021-04-06 00:00:00 Patient Secure Msg Doctor Unassigned, [place] [facility] 1.0.114 350.1.13.10 4.2.7.2.686 [id number] [facility] 2020-12-22 00:00:00 2020-12-22 00:00:00 Patient Outreach Rey Schultz [facility] 1.840.114 350.1.13.10 4.2.7.2.686 [id number] [facility] 2020-12-22 00:00:00 2020-12-22 00:00:00 Patient Outreach Rey Schultz [facility] 1.840.114 350.1.13.10 4.2.7.2.686 [id number] 2020-10-28 08:53:19 2020-10-28 09:37:34 Office Visit Grady Jacobsen [facility] ENVIRONMENTAL SPECIALIST [facility] & CHILD [facility] 1.2.840.114 350.1.13.10 4.2.7.2.686 [id number] [facility] 2020-10-28 08:53:19 2020-10-28 09:37:34 Office Visit Grady Jacobsen [facility] ENVIRONMENTAL SPECIALIST [facility] 1.2.840.114 350.1.13.10 4.2.7.2.686 [id number] 2020-10-28 08:45:00 2020-10-28 08:45:00 Outpatient R KRISTOPHER JACOBSENLINDSAY [facility] [id number] [facility] 2020-10-28 00:00:00 2020-10-28 00:00:00 Orders Only Doctor Unassigned, [place] [facility] 1.2.840.114 350.1.13.10 4.2.7.2.686 [id number] [facility] 2020-10-28 00:00:00 2020-10-28 00:00:00 Orders Only Doctor Unassigned, [place] [facility] 1.2.840.114 350.1.13.10 4.2.7.2.686 [id number] 2020-08-20 15:44:35 2020-08-20 16:38:18 Office Visit Kaylin Marcelo [facility] ENVIRONMENTAL SPECIALIST [facility] 1.2.840.114 350.1.13.10 4.2.7.2.686 [id number] [facility] 2020-08-20 15:45:00 2020-08-20 15:45:00 Outpatient R KAYLIN MARCELO [facility] [id number] [facility] 2020-08-20 00:00:00 2020-08-20 00:00:00 Orders Only Doctor Unassigned, [place] [facility] 1.2.840.114 350.1.13.10 4.2.7.2.686 [id number] [facility] 2020-07-09 09:45:00 2020-07-09 09:45:00 [facility] [id number] [facility] 2020-06-29 15:01:06 2020-06-29 16:00:36 Office Visit Grady Jacobsen [facility] ENVIRONMENTAL SPECIALIST [facility] & [facility] 1.2.840.114 350.1.13.10 4.2.7.2.686 [id number] [facility] 2020-06-29 15:00:00 2020-06-29 16:00:36 Outpatient [facility] [id number] [facility] 2020-06-29 00:00:00 2020-06-29 00:00:00 Orders Only Doctor Unassigned, [place] [facility] 1.2.840.114 350.1.13.10 4.2.7.2.686 [id number] [facility] 2020-06-04 10:45:00 2020-06-04 10:45:00 Outpatient R GRADY JACOBSEN [facility] [id number] [facility] Results Test Description Test Time Test Comments Results Result Co [facility]ments Source [facility]87[facility]57 00:44:15* Test Item Value Reference Range Interpretation Comme nts WBC (test code = 6690-2) 9.63 4.30-11.10 RBC (test code = 789-8) 4.02 3.93-5.25 HGB (test code = 718-7) 9.6 g/dL 11.6-15.0 L HCT (test code = 4544-3) 31.1 % 35.7-45.2 L MCV (test code = 787-2) 77.4 fL 80.6-95.5 L MCH (test code = 785-6) 23.9 pg 25.9-32.8 L MCHC (test code = 786-4) 30.9 g/dL 31.6-35.1 L RDW-SD (test code = 95205-2) 41.8 fL 39.0-49.9 RDW-CV (test code = 788-0) 15.2 % 12.0-15.5 PLT (test code = 777-3) 282 166-358 MPV (test code = 50447-1) 10.0 fL 9.5-12.9 NRBC/100 WBC (test code = 5286318710) 0.0 0.0-10.0 NRBC x10^3 (test code = 8402145157) See_Comment [Automated messa ge] The system which generated this result transmitted reference range: 10*3/?L. The reference range was not used to interpret this result as normal/abnormal. GRAN MAT (NEUT) % (test code = 770-8) 72.7 % IMM GRAN % (test code = 7836783371) 0.30 % LYMPH % (test code = 736-9) 17.1 % MONO % (test code = 5905-5) 7.1 % EOS % (test code = 713-8) 2.3 % BASO % (test code = 706-2) 0.5 % GRAN MAT x10^3(ANC) (test code = 0139262694) 7.00 10*3/uL 1.88-7.09 IMM GRAN x10^3 (test code = 6886343937) 0.03 10*3/uL 0.00-0.06 LYMPH x10^3 (test code = 731-0) 1.65 10*3/uL 1.32-3.29 MONO x10^3 (test code = 742-7) 0.68 10*3/uL 0.33-0.92 EOS x10^3 (test code = 711-2) 0.22 10*3/uL 0.03-0.39 BASO x10^3 (test code = 704-7) 0.05 10*3/uL 0.01-0.07 Lab Interpretation (test code = 28036-1) Abnormal [facility] HEAD WO [id number] 17:03:53EXAM: CT HEAD WO CONTRAST HISTORY: Headache, sudden, severe TECHNIQUE: Axial CT of the head was performed and reconstructed at 5 mmintervals. Coronal and sagittal reformatted images were generated. COMPARISON: 02/09/2017 FINDINGS: The ventricles and cerebral sulci are normal in caliber and configuration.No midline shift or pathological extra-axial fluid collection is present.The basal cisterns areunremarkable. No acute intracranial hemorrhage or significant mass effect is visualized.No parenchymal attenuation abnormality is seen. The jean-white matterdifferentiation is preserved. The mastoid air cells and visualized paranasal air sinuses are clear. Thecalvarium and central skull base are unr emarkable. Optic drusen areincidentally noted again.[facility] [id number] 02:48:00* Test Item Value Reference Range Interpretation Comme nts POCT PREG (test code = 1605) Negative On board controls acceptable with C Line (test code = 3574) Yes POCT PREG LOT # (test code = 3575) [id number] POCT PREG TEST DATE ( test code = 3576) 2024-10-04 Lab Interpretation (test cod e = 92575-1) Normal [facility] [id number] 16:06:00* Test Item Value Reference Range Interpretation Comme nts POCT PREG (test code = 1605) Negative On board controls acceptable with C Line (test code = 3574) Yes POCT PREG LOT # (test code = 3575) POCT PREG TEST DATE ( test code = 3576) [facility] [id number] 21:55:00* Test Item Value Reference Range Interpretation Comme nts POCT PREG (test code = 1605) Negative On board controls acceptable with C Line (test code = 3574) Yes POCT PREG LOT # (test code = 3575) POCT PREG TEST DATE ( test code = 3576) [facility] [id number] 21:55:00* Test Item Value Reference Range Interpretation Comme nts POCT PREG (test code = 1605) Negative On board controls acceptable with C Line (test code = 3574) Yes POCT PREG LOT # (test code = 3575) POCT PREG TEST DATE ( test code = 3576) [facility] Notes Date/Time Note Provider Source 2024-01-19 00:38:27 7071-19-09K59:38:27F ormatting of this note might be different from the original.Awake, alert oriented X4, respiratory even and unlabored,skin w/d color appropriate for race, moves all ext well, pt encouraged to follow up with pcp and or return as neededPt given printed and verbal discharge instructions regarding Dysmenorrhea, Vaginal Bleeding, RLQ abd pain, chronic anemia, Abnormal liver function test , patient verbralized understanding and signature obtained, patient denies any other concerns.Advised to seek medical attention for new/prolonged/worsening of symptoms,No adverse reaction to meds given in ER noted upon dischargePt [facility] 20731-8Fplnqbwuk department TsjqLK1320-28-82E43:39:36Emergency department NoteTXT1.2.840.202785.1.13.104.2.7 .2.988299|[id number] for patient xbrn93143-2UywzPTGRPWMCTLHCepbwtre d C-CDA narrative [id number] J Hoot RN[address]vdG[id number] 61TXKKFNFGUOLLVDIKOLGWEK1546-93-55 T00:39:361.2.840.212330.1.72.3.15| 1.2.840.673257.1.13.104.2.7.2.7278 [id number] Adrienne Landry RN [facility] 2024-01-18 18:27:37 8917-50-98P46:27:37F ormatting of this note might be different from the original.States "I started my period yesterday and today I started having really bad cramps and big clots." States she is not on any control; states there is no chance of . States she took Midol around 1100. 66672-3Mhdfxrntm department Triage lwybDH6085-58-00L56:29:56[facility] Triage noteTXT1.2.840.907301.1.13.104.2.7 .2.218346|[id number] for patient ngxc61077-6Btemwvmsh department NoteLNNARRATIVEFormatted C-CDA narrative [id number] Vannessa Santana RNUT[address] StreetGkkaPwbxpyjaoUflvuuqozEXCS99334659 53AFLNKXXEIKYYDHYJWMPBFY3089-57-23 T18:29:561.2.840.780969.1.72.3.15| 1.2.840.096171.1.13.104.2.7.2.7278 [id number] Jennifer Santana RN [facility] 2023-11-22 10:30:00 3024-42-28J68:30:00F ormatting of this note is different from the original.Images from the original note were not included.Venipuncture collection performed by clean technique on the right anticubitus. Total of 3 attempts were made. Slight pressure and a bandage/dressing were applied to the site(s). The patient experienced no complications. The following specimens were processed according to instructions and sent to [facility] laboratories per lab order on 11/22/2023:LT BLUESST 1REDLAVPPTDK GREEN (LiHep)DK GREEN (SodH)GRAYDK BLUE (K2)DK BLUE (S)ACDBlood CultureNIPT/NTD 47875-6Xhwlp BdxrIS5339-96-79M07:28:18Nurse NoteTXT1.2.840.544753.1.13.104.2.7 .2.223935|[id number] for patient wdkm32176-9Ctaob NoteLNNARRATIVEFormatted C-CDA narrative text[address]vdG[id number] 20SMEMCPYGXIFYVFUXSBVNMU7512-00-04 T10:28:181.2.840.188134.1.72.3.15| 1.2.840.827803.1.13.104.2.7.2.7278 [id number] [facility] 2023-11-20 15:00:00 1063-82-98Q15:00:00F ormatting of this note is different from the original.Images from the original note were not included.Venipuncture collection performed by clean technique on the left anticubitus. Total of 2 attempts were made. Slight pressure and a bandage/dressing were applied to the site(s). The patient experienced no complications. The following specimens were processed according to instructions and sent to [facility] laboratories per lab order on 11/20/2023:LT BLUESST 2REDLAV 2PPTDK GREEN (LiHep)DK GREEN (SodH)GRAYDK BLUE (K2)DK BLUE (S)ACDBlood CultureNIPT/NTDPt will return fasting for lipids. Per pt request do rfest of labs today.Patient has been identified by and was provided with cup, antiseptic towelette, and clean catch instructions. 1 urine specimen(s) sent.Unpreserved 1Urine CultureAptima tubeOther urine 52811-5Jfzcd SoaoOM8031-00-77I66:58:06Nurse NoteTXT1.2.840.301881.1.13.104.2.7 .2.120551|[id number] for patient fdut00924-9Cnphd NoteLNNARRATIVEFormatted C-CDA narrative text[id number] 15TLLMSAUUWUZPXQGMWUGGZZ6660-55-33 T14:58:061.2.840.262519.1.72.3.15| 1.2.840.394782.1.13.104.2.7.2.7278 [id number] [facility] 2023-11-17 22:41:30 5744-95-28O37:41:30F ormatting of this note might be different from the original.PT D/C home. GCS15, VS stable. Given D/C paperwork. Pt ambulatory at time of discharge. Pt educated on med usage, follow up care, s/s worsening condition, need for hydration. Pt verbalized understanding.Pt ambulated from [place] 87087-0Vrzqlzkjx department SgspAQ0414-37-80P83:41:45[facility] department NoteTXT1.2.840.478691.1.13.104.2.7 .2.457588|[id number] for patient xifq19766-0ZeklPDIXRNSDJSQTbcgrcfw d C-CDA narrative wfwv459944636Zyct E Linkes RNUT[address] CjshFetlcouslOjydmjyxhOVWI14951842 10PFTUFYVLJHFZNEGVKANRVW5423-50-63 T22:41:451.2.840.596845.1.72.3.15| 1.2.840.767761.1.13.104.2.7.2.7278 [id number] Mara Hernandez RN [facility] 2023-11-17 20:15:30 0725-97-04S92:15:30F ormatting of this note might be different from the original.Left side headache X1 week, now having neck pain, light sensitive, vomiting that started today. 58288-1Limupgfpq department Triage efbjFC5184-30-47I37:18:23[facility] department Triage noteTXT1.2.840.227211.1.13.104.2.7 .2.415021|[id number] for patient xotf95545-8Ynlnrnjfi department NoteLNNARRATIVEFormatted C-CDA narrative [id number] J Hoot RNUT[address] QfpwEjjvkarpmGhdhbqusfOPJN39661443 64TEWEIAXAYYKUVHSRGANUKQ7360-07-94 T20:18:231.2.840.517454.1.72.3.15| 1.2.840.451675.1.13.104.2.7.2.7278 [id number] Adrienne Landry RN [facility] 2023-11-17 20:08:00 8825-74-91N81:08:00F ormatting of this note is different from the original.[facility] Emergency Department NotePatient Name: Lisa Cowan of : 1995 28 year old femaleTreatment Room: Room/bed info not foundMedical Record Number: [id number] Care Physician: Asha CastilloPatient Escorted by: Family [5]Mode of Arrival: Personal means [1]EMS 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 No injury or trauma. No fevers or chills. No neck pain or stiffness. She reports bright lights do make her headache worse. She has tried Aleve and Tylenol and reports they are not helping. No weakness to her arms or legs. She also reports nausea and vomiting today.Here for evaluation.Past Medical History/Immunizations:Past Medical History:Diagnosis DateAnemiaongoing, not taking supplementsAnxietyongoing, not on medicationAsthmalast attack 5 or 6 months ago, has rescue inhalerBlood transfusion, without reported diagnosis 2013iron infusion during pregnancyDepressionPTSD (post-traumatic stress disorder)STD (sexually transmitted disease) 2018chlamydia, treatedTetanus received in last 5 years: NoChildhood immunizations: Rt-ex-nqmdLozchmakt:AllergiesAller gen ReactionsBenadryl [Diphenhydramine Hcl] AnaphylaxisPenicillin [Penicillins] AnaphylaxisLip swelling & some difficulty in swallowing.Reglan [Metoclopramide] RashPast Social History:Tobacco UseFormer; Types: CigarettesSmokeless Tobacco: Never used smokeless tobacco.Comments: states smokes 4-5 cigarettes per dayAlcohol UseNo.Drug UseNo.Sexual ActivitySexually active; Partners: Male, Female; Control/Protection: Implant.Comments: Last sexual intercourse 06/11/2020Past Surgical History:Past Surgical History:Procedure Laterality DateCESAREAN SECTION 2012, [id number] of Systems:Review of SystemsConstitutional: Negative for chills and fever.Eyes: Positive for photophobia.Respiratory: Negative for cough and shortness of breath.Cardiovascular: Negative for chest pain.Gastrointestinal: Positive for nausea and vomiting. Negative for abdominal pain.Musculoskeletal: Negative for arthralgias, neck pain and neck stiffness.Skin: Negative for wound.Neurological: Positive for headaches.Psychiatric/Behavioral: Negative for agitation.Physical Exam:ED Triage Vitals [11/17/232015]Weight 103.9 kg (229 lb)Actual or estimatedHeight 1.575 m (5' 2")BP (!) 142/96Pulse 93Resp 18Temp 37.3 ?C (99.1 ?F)Temp srcSpO2 98 %Measured on Room airPhysical ExamVitals and nursing note reviewed.Constitutional:Appearance : Normal appearance. She is obese.HENT:Head: Normocephalic and atraumatic.Mouth/Throat:Mouth: Mucous membranes are moist.Pharynx: Oropharynx is clear.Eyes:Extraocular Movements: Extraocular movements intact.Pupils: Pupils are equal, round, and reactive to light.Cardiovascular:Rate and Rhythm: Normal rate and regular rhythm.Pulmonary:Effort: Pulmonary effort is normal. No respiratory distress.Musculoskeletal:General: Normal range of motion.Cervical back: Normal range of motion and neck supple. No tenderness.Skin:General: Skin is warm and dry.Neurological:General: No focal deficit present.Mental Status: She is alert and oriented to person, place, and time.Comments: Speech is clear.No facial symmetry.Handgrip right equals left.Muscle strength is 5/5 to upper extremities bilaterally.Steady gait.Radiology:No orders to displayLab Results:Lab Results - No data to displayEKG:If EKG completed, see Procedure Note.Orders and Treatments:No orders of the defined types were placed in this encounter.Orders Placed This EncounterMedicationsNaCl 0.9% (NS) bolus infusion 1,000 mLketorolac (TORADOL) injection 30 mgdexamethasone sod phos PF injection 10 mgproMETHazine (PHENERGAN) 12.5 mg in NS 50 mL IV piggyback (CNR)gigmjkpbvr-bgwvzzypkkiyo-ufxe (ESGIC) 50-325-40 mg tablet 1 tabletSUMAtriptan (IMITREX) injection 6 mgFirst Provider Eval:ED EventsDate/Time Event User Dvjlukac71/16/242012 Medical Screening Begins FELIPA MARCELO DO --11/17/232012 First Provider Evaluation FELIPA MARCELO DO --ED COURSEDiagnosis/Impression as of 11/17/239Acute nonintractable headache, unspecified headache typeProcedures:ProceduresMDM:Medic al Decision MakingThe patient presents from home for evaluation for left-sided headache that started about 1 week prior to arrival. No injury or trauma. No fevers or chills. No neck pain or stiffness. She states bright lights do make her headache worse. She also complains of nausea and vomiting started today. No weakness to her arms or legs. She has tried some yhao-gtq-ndjubjd medications reports they are not helping.Vital signs are stable in the ER.Her neck is supple and without meningismus.Her speech is clear.No facial asymmetry.Handgrip right equals left.Muscle strength is 5/5 to upper extremities bilaterally.No concern for subarachnoid hemorrhage or bacterial meningitis based on her presentation.Will treat with a migraine cocktail.Anticipate discharge home later.2229 - the patient is doing well here in the EC.Her [place] is much improved.She remains stable here in the EC and is ok for dc home with pcp f/u.Problems Addressed:Acute nonintractable headache, unspecified headache type: acute illness or injuryRiskPrescription drug management.Flowsheet Documentation:Scoring Tools:No data recordedDisposition/Condition:ED DispositionED DispositionDisch - HomeConditionStableComment--Discha rge Medications:Patient's MedicationsSTART taking these medicationsNo medications on fileCONTINUE taking these medications which have NOT CHANGEDALBUTEROL 90 MCG/ACTUATION INHALER Inhale 2 Puffs every 4 (four) hours as needed for Wheezing, Shortness of Breath or Bronchospasm.START taking Modified Medications as PrescribedNo medications on fileSTOP taking these medicationsNo medications on fileFollow-up:Electronically signed by:Felipa Marcelo DO11/17/232228 [id number] Emergency department [id number]:29:35[facility] [id number] for patient [id number] department NoteLNNARRATIVEFormatted C-CDA narrative text[address] Wv[id number]:[id number]| [id number] [facility]
[2024-03-18] MEDS ORDERED: dexAMETHasone 10 MG/ML VIAL ONE (21:23)
[2024-03-18] MEDS ORDERED: HYDROCODONE/APAP 7.5/325 MG TAB ONE (21:24)
[2024-03-18] MEDS ORDERED: LIDOCAINE VISCOUS 2% 10ML ORAL SOLN ONE (21:24)
--- NOTE | 2024-03-18 21:32 | ER ---
Nurse's Notes [facility] Name: Lisa Clement Age: 28 yrs Sex: Female : 1995 Arrival Date: 03/18/2024 Time: 20:21 Bed 11 Private MD: Diagnosis: Impacted teeth Presentation: 03/18 20:53 Chief complaint: Chief complaint: Patient states: I am not sure if i have a tooth kd3 infection with a sinus infection at the same time. I had clindamycin that i got back in november for a tooth infection left over so i started taking it again 3 days ago but it is getting worse. The pain is all in the left side of my face and jaw. Coronavirus screen: Vaccine status: Patient reports being unvaccinated. Ebola Screen: No symptoms or risks identified at this time. Initial Sepsis Screen: Does the patient meet any 2 criteria? No. Patient's initial sepsis screen is negative. Does the patient have a suspected source of infection? No. Patient's initial sepsis screen is negative. Risk Assessment: Do you want to hurt yourself or someone else? Patient reports no desire to harm self or others. Onset of symptoms was March 15, 2024. 20:53 Method Of Arrival: Ambulatory kd3 20:58 Acuity: ODIN 4 kd3 Triage Assessment: 20:57 General: Appears in no apparent distress. Behavior is calm, cooperative. Pain: kd3 Complains of pain in face. EENT: No deficits noted. Historical: - Allergies: 20:57 Amoxicillin; kd3 20:57 Benadryl; kd3 20:57 Motrin; kd3 20:57 PENICILLINS; kd3 20:57 Reglan; kd3 - PMHx: 20:57 Anxiety; Asthma; panic attack; kd3 - PSHx: 20:57 section; kd3 - Immunization history:: Adult Immunizations up to date. - Infectious Disease History:: Denies. - Social history:: Smoking status: Patient denies any tobacco usage or history of. Screenin:50 [facility] ED Fall Risk Assessment (Adult) History of falling in the last 3 months, as6 including since admission No falls in past 3 months (0 pts) Confusion or Disorientation No (0 pts) Intoxicated or Sedated No (0 pts) Impaired Gait No (0 pts) Mobility Assist Device Used No (0 pt) Altered Elimination No (0 pt) Score/Fall Risk Level 0 - 2 = Low Risk Oriented to surroundings, Maintained a safe environment, Educated pt \T\ family on fall prevention, incl call for assistance when getting out of bed, Assessed \T\ reinforced patient's understanding of fall precautions. Abuse screen: Denies threats or abuse. Denies injuries from another. Nutritional screening: No deficits noted. Tuberculosis screening: No symptoms or risk factors identified. Assessment: 21:49 EENT: Good dentition noted. as6 Vital Signs: 20:53 BP 128 / 78; Pulse 98; Resp 16; Temp 98.3(O); Pulse Ox 100% ; Weight 95.25 kg; Height 5 kd3 ft. 2 in. ; Pain 10/10; 20:53 Body Mass Index 38.41 (95.25 kg, 157.48 cm) kd3 20:53 Pain Scale: Adult kd3 ED Course: 20:23 Patient arrived in ED. mr 20:26 Danisha Forbes PA-C is PHCP. sb4 20:26 Len Vyas MD is Attending Physician. sb4 20:57 Triage completed. kd3 20:57 Arm band placed on right wrist. kd3 21:13 Marcos Jaquez, TAMEKA is Primary Nurse. as6 21:32 Fabio Cm DDS is Referral Physician. sb4 21:50 Bed in low position. Call light in reach. Provided Education on: follow up with dentist as6 . 21:50 No provider procedures requiring assistance completed. Patient did not have IV access as6 during this emergency room visit. Administered Medications: 21:29 Drug: Dexamethasone IM 10 mg IM once Route: IM; Site: right deltoid; as6 21:49 Follow up: Response: No adverse reaction as6 21:29 Drug: Hydrocodone-Acetaminophen PO (7.5 mg-325 mg) 1 tabs PO once Route: PO; as6 21:49 Follow up: Response: No adverse reaction as6 21:29 Drug: Viscous Lidocaine Mucous Membrane Liquid (4 %) 5 ml Mucous Membrane once Route: as6 Mucous Membrane; 21:49 Follow up: Response: No adverse reaction as6 Medication: 21:51 VIS not applicable for this client. as6 Outcome: 21:32 Discharge ordered by . sb4 21:50 Discharged to home ambulatory, as6 21:50 Condition: stable 21:50 Discharge instructions given to patient, Instructed on discharge instructions, follow up and referral plans. medication usage, Demonstrated understanding of instructions, follow-up care, medications, Prescriptions given X 3, 21:51 Patient left the ED. as6 Signatures: Simi Pearson, Reg Reg mr Jaquez Marcos, RN RN as6 Mary Gregory RN RN kd3 Danisha Forbes, PA-C PA-C sb4 Corrections: (The following items were deleted from the chart) 20:58 20:53 Acuity: ODIN 3 kd3 kd3
--- NOTE | 2024-03-18 21:33 | EDPHYS ---
Physician Documentation [facility] Name: Lisa Clement Age: 28 yrs Sex: Female : 1995 Arrival Date: 03/18/2024 Time: 20:21 Bed 11 Private MD: ED Physician Len Vyas HPI: 03/18 21:09 This 28 yrs old Female presents to ER via Ambulatory with complaints of Ear Pain, sb4 Toothache. 21:17 The patient presents with pain. The problem is located in the upper left third molar. sb4 Onset: The symptoms/episode began/occurred 3 day(s) ago. Duration: The symptoms are continuous. Modifying factors: The symptoms are alleviated by nothing, the symptoms are aggravated by chewing, food. Associated signs and symptoms: Pertinent positives: pain. dental pain x 3 days, been taking clindamycin without relief, says pain radiates to her ear and face. Historical: - Allergies: 20:57 Amoxicillin; kd3 20:57 Benadryl; kd3 20:57 Motrin; kd3 20:57 PENICILLINS; kd3 20:57 Reglan; kd3 - PMHx: 20:57 Anxiety; Asthma; panic attack; kd3 - PSHx: 20:57 section; kd3 - Immunization history:: Adult Immunizations up to date. - Infectious Disease History:: Denies. - Social history:: Smoking status: Patient denies any tobacco usage or history of. ROS: 21:17 Constitutional: Negative for fever, chills, and weight loss, sb4 21:17 ENT: Positive for dental pain, 21:17 All other systems are negative, Exam: 21:17 Head/Face: Normocephalic, atraumatic. Eyes: Extra-ocular motions intact. Periorbital sb4 areas with no swelling, redness, or edema. Skin: Warm, dry with normal turgor. Normal color with no rashes, no lesions, and no evidence of cellulitis. MS/ Extremity: Pulses equal, no cyanosis. Neurovascular intact. Full, normal range of motion. 21:17 Constitutional: The patient appears alert, awake, uncomfortable, 21:17 ENT: Dental exam: no acute changes, cellulitis, is not appreciated, fractured teeth are noted, not appreciated, gum swelling, that is mild, specifically in the upper left third molar, pain, impacted upper 3rd molar, tenderness to palpation, no swelling/abscess, Vital Signs: 20:53 BP 128 / 78; Pulse 98; Resp 16; Temp 98.3(O); Pulse Ox 100% ; Weight 95.25 kg; Height 5 kd3 ft. 2 in. ; Pain 10/10; 20:53 Body Mass Index 38.41 (95.25 kg, 157.48 cm) kd3 20:53 Pain Scale: Adult kd3 MDM: 20:54 Patient medically screened. sb4 21:21 Data reviewed: vital signs, nurses notes, and as a result, I will discharge patient. sb4 Counseling: I had a detailed discussion with the patient and/or guardian regarding the historical points, exam findings, and any diagnostic results supporting the discharge/admit diagnosis, the need for outpatient follow up, a dentist, to return to the emergency department if symptoms worsen or persist or if there are any questions or concerns that arise at home. Administered Medications: 21:29 Drug: Dexamethasone IM 10 mg IM once Route: IM; Site: right deltoid; as6 21:49 Follow up: Response: No adverse reaction as6 21:29 Drug: Hydrocodone-Acetaminophen PO (7.5 mg-325 mg) 1 tabs PO once Route: PO; as6 21:49 Follow up: Response: No adverse reaction as6 21:29 Drug: Viscous Lidocaine Mucous Membrane Liquid (4 %) 5 ml Mucous Membrane once Route: as6 Mucous Membrane; 21:49 Follow up: Response: No adverse reaction as6 Disposition: 03/19 21:43 Co-signature as Attending Physician, Len Vyas MD I agree with the assessment sp4 and plan of care. I reviewed the patient's care provided by the Advanced Practice Provider and agree with the diagnosis and treatment plan. Disposition Summary: 03/18/24 21:32 Discharge Ordered Notes: Location: Home sb4 Problem: an ongoing problem sb4 Symptoms: have improved sb4 Condition: Stable sb4 Diagnosis - Impacted teeth sb4 Followup: sb4 - With: Fabio Cm DDS - When: As needed - Reason: Further diagnostic work-up, Recheck today's complaints, Re-evaluation by your physician Discharge Instructions: - Discharge Summary Sheet sb4 - Impacted Molar sb4 Forms: - Antibiotic Education sb4 - Patient Portal Instructions sb4 - Leadership Thank You Letter sb4 Prescriptions: - Peridex 0.12 % Mucous Membrane Mouthwash - swish 15 milliliter BUCCAL route 2 times per day; 100 milliliter; Refills: 0, sb4 Product Selection Permitted - Ibuprofen 800 mg Oral Tablet - take 1 tablet ORAL route every 8 hours As needed take with food; 30 tablet; sb4 Refills: 0, Product Selection Permitted - Medrol (Isaiah) 4 mg Oral Tablets, Dose Pack - take 1 tablet ORAL route as directed - follow package instructions; 1 packet; sb4 Refills: 0, Product Selection Permitted Signatures: Marcos Jaquez RN RN as6 Mary Gregory RN RN [email or web address] Danisha Forbes, PARenata PAPierreC sb4 Len Vyas MD MD sp4
[2024-03-18 22:21] VITALS: BP 128/78; TEMP 98.3; O2SAT 100
== END 2024-03-18 21:51 | disposition home or self-care (01) ==
LOC: ER 20:21
DX: K01.1 Impacted teeth (principal)
CPT/HCPCS: 96372; 99284; J1100